=== PATIENT | male | born 1955 | race Caucasian/White ===

== ENCOUNTER → 2021-06-17 | Outpatient (CLI) | payer OTHER ==
[2021-06-18 03:11] LABS: ALT 25 U/L (10-49); AST 19 U/L (14-35)
[2021-06-18 03:12] LABS: Chol/HDL Ratio 3.37 Ratio; LDL Cholesterol,Calculated 77.5 mg/dL (0.0-131.0)
== END | disposition home or self-care (01) ==
LOC: LABWHC1 14:10
PROVIDERS: ATTEND Internal Medicine
DX: E78.2 Mixed hyperlipidemia (principal)
CPT/HCPCS: 36415; 80061; 84450; 84460

== ENCOUNTER 2021-07-12 17:09 | Inpatient (IN) | payer OTHER ==
[2021-07-12] MEDS ORDERED: DEXAMETHASONE SOD PHOSPHATE 10 MG/ML 1 ML VIAL IVP STA (17:19)
[2021-07-12] MEDS ORDERED: ONDANSETRON 4 MG/2 ML VIAL IVP STA (17:41)
[2021-07-12] MEDS ORDERED: SODIUM CHLORIDE 0.9% 500 ML 500 ML IV STA ×2 (17:42→18:32)
[2021-07-12 17:49] LABS: C Reactive Protein 7.6 mg/dL (<1.0); Calcium 8.6 mg/dL (8.4-10.2); Magnesium 2.1 mg/dL (1.6-2.3); Potassium 3.7 mmol/L (3.5-5.1); Total Bilirubin 1.8 mg/dL (0.2-1.3); Total Protein 7.2 g/dL (6.3-8.2)
[2021-07-12 17:55] LABS: Partial Thromboplastin Time 24.1 sec (22.0-30.0); Prothrombin Time 10.2 sec (9.0-12.0)
[2021-07-12 18:08] LABS: Basophils % (A) 0 %; Eosinophils % (A) 0 %; HCT 45.6 % (39.0-53.0); HGB 16.6 gm/dL (13.0-17.5); Hyperchromasia Moderate; Lymphocytes # (A) 0.7 k/uL (1.0-4.8); Lymphocytes % (A) 8 %; MCH 32.1 pg (25.0-35.0); MCHC 36.3 g/dL (31.0-37.0); MCV 88.5 fL (80.0-100.0); Mean Platelet Volume 9.3; Monocytes # (A) 0.4 k/uL (0-1.0); Monocytes % (A) 5 %; Neutrophils # (A) 7.9 k/uL (1.3-7.7); Neutrophils % (A) 86 %; Platelet Count 248 k/uL (150-450); Poikilocytosis Slight; RBC 5.16 m/uL (4.30-5.90); RDW 14.2 % (11.5-15.5); WBC 9.2 k/uL (3.8-10.6)
--- NOTE | 2021-07-12 18:08 | XR ---
EXAMINATION TYPE: XR chest 1V portable DATE OF EXAM: 07/12/2021 COMPARISON: NONE HISTORY: Respiratory distress TECHNIQUE: Single view FINDINGS: There is coarse interstitial infiltrate throughout both lungs. There is relative poor inspi ration. Heart size is normal. There is no obvious heart failure. IMPRESSION: Interstitial pulmonary infiltrates are nonspecific and could relate to acute or chronic i nterstitial pneumonia.
--- NOTE | 2021-07-12 18:19 | ED ---
General Adult HPI - General Chief complaint: Shortness of Breath Stated complaint: ARTIE Time Seen by Provider: 07/12/21 17:12 Source: patient, EMS, RN notes reviewed, old records reviewed Mode of arrival: ambulatory Limitations: no limitations - History of Present Illness Initial comments: Patient is a 66-year-old male who presents emergency Department complaining of shortness of breath and cough over the last 2 days. The last week he has felt increased fatigue and states he has been sleeping a lot in bed. Only pertinent past medical history is hypertension. Patient was not vaccinated for COVID-19. He does have a known sick contact for COVID-19. He was found to be in the 70%'s by EMS upon arrival and he was immediately placed on supplemental oxygen and brought to the emergency department for further evaluation. Patient's only acute complaint short of breath. Denies chest pain, abdominal pain. Does endorse intermittent nausea. Denies any diarrhea, history of blood clots, lightheadedness, headache, weakness, numbness but endorses generalized fatigue. His no other acute complaints at this time. - Related Data Home Medications Medication Instructions Recorded Confirmed Losartan Potassium 50 mg PO DAILY 07/12/21 07/12/21 Omeprazole 40 mg PO DAILY 07/12/21 07/12/21 traZODone HCL [Desyrel] 50 mg PO HS PRN 07/12/21 07/12/21 Allergies Allergy/AdvReac Type Severity Reaction Status Date / Time Iodinated Contrast Media Allergy Rash/Hives Verified 07/12/21 18:36 Review of Systems ROS Statement: Those systems with pertinent positive or pertinent negative responses have been documented in the HPI. Review of Systems: CONST: Denies fever EYES: Denies blurry vision ENT: Endorses nasal congestion C/V: Denies Chest pain RESP: Endorses shortness of breath GI: Denies abdominal pain : Denies dysuria SKIN: Denies rash. MSK: Denies joint pain. NEURO: Denies headache ROS Other: All systems not noted in ROS Statement are negative. Past Medical History Past Medical History: Hypertension History of Any Multi-Drug Resistant Organisms: None Reported Past Surgical History: No Surgical Hx Reported Past Psychological History: No Psychological Hx Reported Smoking Status: Never smoker Past Alcohol Use History: None Reported Past Drug Use History: None Reported General Exam - General Exam Comments Initial Comments: General: Patient is hypoxic and in respiratory distress. HEAD: Normal with no signs of head trauma. EYES: PERRLA, EOMI, conjunctiva normal, no discharge. ENT: Hearing grossly intact, normal oropharynx. RESPIRATORY: Coarse breath sounds bilaterally. No wheezes auscultated. Increased work of breathing. Subcostal retractions. Hypoxic on room air. C/V: Patient is tachycardic with a regular rhythm. S1 and S2 auscultated. No peripheral edema. Peripheral pulses are 2+ intact throughout. ABD: Abd is soft, nontender, nondistended EXT: Normal range of motion, no obvious deformity SKIN: No rashes or lesions observed on exposed skin. NEURO: Alert and oriented 4. No focal deficits. Limitations: no limitations Course Vital Signs 07/12/21 07/12/21 07/12/21 17:11 17:29 18:03 Temperature 98.7 F Pulse Rate 128 H 128 H Respiratory 18 24 18 Rate Blood Pressure 137/83 103/74 O2 Sat by Pulse 79 L 98 Oximetry 07/12/21 07/12/21 18:14 19:00 Temperature Pulse Rate 117 H 121 H Respiratory 25 H 19 Rate Blood Pressure 137/92 118/42 O2 Sat by Pulse 98 98 Oximetry Medical Decision Making - Medical Decision Making Based on the patient's presentation and physical exam, I'm concerned for acute COVID-19 infection, particularly with the exposure and the patient's presentation. We'll obtain COVID-19 laboratory studies. He was immediately placed on BiPAP by respiratory therapy. He'll be given a dose of steroids, as well as Tylenol when necessary as well as albuterol breathing treatments. I will provide him with an initial 500 mL bolus of normal saline, as I do not want to fluid overload him. He does appear mildly dehydrated. He was in agreement with this plan. He'll be connected to continuous cardiac monitoring while he is here in the department. Chest x-ray shows bilateral pulmonary infiltrates. EKG shows sinus tachycardia with no signs of acute ischemia. Laboratory studies are remarkable for positive COVID-19 pneumonia. Patient is influenza and RSV negative. Patient has a mildly elevated lactic acid of 3.1. This is likely secondary to dehydration and insensible losses. He will receive an additional 500 mL fluid bolus we will repeat the value. Patient has an AK I with an elevated creatinine of 1.640-35. Patient is mildly hyponatremic at 131 and hypochloremia to 96. LDH is elevated to 1700. CRP is 7.6. Troponin is negative. Remainder of the labs are unremarkable. d-dimer is mildly elevated to 0.85. Due to patient having COVID- 19 on chest x-ray, as well as a minimal d-dimer elevation I do not believe that we need to pursue CT angiogram to evaluate for pulmonary embolism at this time. Reevaluation come patient's breathing is improved. Work of breathing is vastly improve on BiPAP. Oxygen saturations are now 96%. Patient's tachycardia is improving with fluids. I discussed with him that I would like to admit him to the hospital for his hypoxic respiratory failure from COVID-19 pneumonia. He was in agreement this plan. I reevaluated the patient multiple times status in the emergency department. I spoke with Dr. Murcia of pulmonology who agreed to consult. He was in agreement with the plan. Patient be continued on twice a day Decadron, and I will consult infectious disease to evaluate the patient and the morning. I spoke with the admitting team under Dr. Kelly, who accepted the patient. Patient was therefore admitted in serious condition to telemetry bed on step down with continuing BiPAP. He was started on Lovenox for DVT prophylaxis. - Lab Data Result diagrams: 07/12/21 17:23 07/12/21 17:23 Lab Results 07/12/21 07/12/21 07/12/21 Range/Units 17:23 17:23 17:23 WBC 9.2 (3.8-10.6) k/uL RBC 5.16 (4.30-5.90) m/uL Hgb 16.6 (13.0-17.5) gm/dL Hct 45.6 (39.0-53.0) % MCV 88.5 (80.0-100.0) fL MCH 32.1 (25.0-35.0) pg MCHC 36.3 (31.0-37.0) g/dL RDW 14.2 (11.5-15.5) % Plt Count 248 (150-450) k/uL MPV 9.3 Neutrophils % 86 % Lymphocytes % 8 % Monocytes % 5 % Eosinophils % 0 % Basophils % 0 % Neutrophils # 7.9 H (1.3-7.7) k/uL Lymphocytes # 0.7 L (1.0-4.8) k/uL Monocytes # 0.4 (0-1.0) k/uL Eosinophils # 0.0 (0-0.7) k/uL Basophils # 0.0 (0-0.2) k/uL Hyperchromasia Moderate Poikilocytosis Slight PT 10.2 (9.0-12.0) sec INR 1.0 (<1.2) APTT 24.1 (22.0-30.0) sec D-Dimer 0.85 H (<0.60) mg/L FEU Sodium 131 L (137-145) mmol/L Potassium 3.7 (3.5-5.1) mmol/L Chloride 96 L (98-107) mmol/L Carbon Dioxide 21 L (22-30) mmol/L Anion Gap 14 mmol/L BUN 35 H (9-20) mg/dL Creatinine 1.64 H (0.66-1.25) mg/dL Est GFR (CKD-EPI)AfAm 50 (>60 ml/min/1.73 sqM) Est GFR (CKD-EPI)NonAf 44 (>60 ml/min/1.73 sqM) Glucose 181 H (74-99) mg/dL Lactic Ac Sepsis Rflx Plasma Lactic Acid Jean (0.7-2.0) mmol/L Calcium 8.6 (8.4-10.2) mg/dL Magnesium 2.1 (1.6-2.3) mg/dL Total Bilirubin 1.8 H (0.2-1.3) mg/dL AST 87 H (17-59) U/L ALT 31 (4-49) U/L Alkaline Phosphatase 72 (38-126) U/L Lactate Dehydrogenase 1746 H (313-618) U/L Troponin I (0.000-0.034) ng/mL C-Reactive Protein 7.6 H (<1.0) mg/dL Total Protein 7.2 (6.3-8.2) g/dL Albumin 4.0 (3.5-5.0) g/dL Influenza Type A (PCR) (Not Detectd) Influenza Type B (PCR) (Not Detectd) RSV (PCR) (Not Detectd) SARS-CoV-2 (PCR) (Not Detectd) 07/12/21 07/12/21 07/12/21 Range/Units 17:23 17:23 17:27 WBC (3.8-10.6) k/uL RBC (4.30-5.90) m/uL Hgb (13.0-17.5) gm/dL Hct (39.0-53.0) % MCV (80.0-100.0) fL MCH (25.0-35.0) pg MCHC (31.0-37.0) g/dL RDW (11.5-15.5) % Plt Count (150-450) k/uL MPV Neutrophils % % Lymphocytes % % Monocytes % % Eosinophils % % Basophils % % Neutrophils # (1.3-7.7) k/uL Lymphocytes # (1.0-4.8) k/uL Monocytes # (0-1.0) k/uL Eosinophils # (0-0.7) k/uL Basophils # (0-0.2) k/uL Hyperchromasia Poikilocytosis PT (9.0-12.0) sec INR (<1.2) APTT (22.0-30.0) sec D-Dimer (<0.60) mg/L FEU Sodium (137-145) mmol/L Potassium (3.5-5.1) mmol/L Chloride (98-107) mmol/L Carbon Dioxide (22-30) mmol/L Anion Gap mmol/L BUN (9-20) mg/dL Creatinine (0.66-1.25) mg/dL Est GFR (CKD-EPI)AfAm (>60 ml/min/1.73 sqM) Est GFR (CKD-EPI)NonAf (>60 ml/min/1.73 sqM) Glucose (74-99) mg/dL Lactic Ac Sepsis Rflx Plasma Lactic Acid Jean 3.1 H* (0.7-2.0) mmol/L Calcium (8.4-10.2) mg/dL Magnesium (1.6-2.3) mg/dL Total Bilirubin (0.2-1.3) mg/dL AST (17-59) U/L ALT (4-49) U/L Alkaline Phosphatase (38-126) U/L Lactate Dehydrogenase (313-618) U/L Troponin I <0.012 (0.000-0.034) ng/mL C-Reactive Protein (<1.0) mg/dL Total Protein (6.3-8.2) g/dL Albumin (3.5-5.0) g/dL Influenza Type A (PCR) Not Detected (Not Detectd) Influenza Type B (PCR) Not Detected (Not Detectd) RSV (PCR) Not Detected (Not Detectd) SARS-CoV-2 (PCR) Detected A (Not Detectd) 07/12/21 Range/Units 17:47 WBC (3.8-10.6) k/uL RBC (4.30-5.90) m/uL Hgb (13.0-17.5) gm/dL Hct (39.0-53.0) % MCV (80.0-100.0) fL MCH (25.0-35.0) pg MCHC (31.0-37.0) g/dL RDW (11.5-15.5) % Plt Count (150-450) k/uL MPV Neutrophils % % Lymphocytes % % Monocytes % % Eosinophils % % Basophils % % Neutrophils # (1.3-7.7) k/uL Lymphocytes # (1.0-4.8) k/uL Monocytes # (0-1.0) k/uL Eosinophils # (0-0.7) k/uL Basophils # (0-0.2) k/uL Hyperchromasia Poikilocytosis PT (9.0-12.0) sec INR (<1.2) APTT (22.0-30.0) sec D-Dimer (<0.60) mg/L FEU Sodium (137-145) mmol/L Potassium (3.5-5.1) mmol/L Chloride (98-107) mmol/L Carbon Dioxide (22-30) mmol/L Anion Gap mmol/L BUN (9-20) mg/dL Creatinine (0.66-1.25) mg/dL Est GFR (CKD-EPI)AfAm (>60 ml/min/1.73 sqM) Est GFR (CKD-EPI)NonAf (>60 ml/min/1.73 sqM) Glucose (74-99) mg/dL Lactic Ac Sepsis Rflx Y Plasma Lactic Acid Jean (0.7-2.0) mmol/L Calcium (8.4-10.2) mg/dL Magnesium (1.6-2.3) mg/dL Total Bilirubin (0.2-1.3) mg/dL AST (17-59) U/L ALT (4-49) U/L Alkaline Phosphatase (38-126) U/L Lactate Dehydrogenase (313-618) U/L Troponin I (0.000-0.034) ng/mL C-Reactive Protein (<1.0) mg/dL Total Protein (6.3-8.2) g/dL Albumin (3.5-5.0) g/dL Influenza Type A (PCR) (Not Detectd) Influenza Type B (PCR) (Not Detectd) RSV (PCR) (Not Detectd) SARS-CoV-2 (PCR) (Not Detectd) - EKG Data -: EKG Interpreted by Me EKG Comments: 12-lead Electrocardiogram Interpretation Note EKG was reviewed and interpreted by myself. 12-lead ECG performed at 1724 is interpreted by me as revealing sinus tachycardia at a rate of 127 beats per minute.. Left axis deviation. CT interval is 120 ms, QR samaritan is 74 ms, QTc is 427 ms.. There were no ST or T wave abnormalities to suggest myocardial ischemia or injury. R wave progression across precordium was delayed.. By my interpretation this EKG is non-diagnostic for acute ischemia. Critical Care Time Critical Care Time: Yes Total Critical Care Time: 30 Critical Care Time: Upon my evaluation, this patient had a high probability of imminent or life- threatening deterioration due to COVID-19 pneumonia, hypoxic respiratory failure, which required my direct attention, intervention, and personal management. I have personally provided 30 minutes of critical care time exclusive of time s pent on separately billable procedures. Time includes review of laboratory data, radiology results, discussion with consultants, and monitoring for potential decompensation. Interventions were performed as documented in my note. Disposition Clinical Impression: Pneumonia due to COVID-19 virus, Acute respiratory failure with hypoxia, CHAPARRITA (acute kidney injury), Dehydration Disposition: ADMITTED IP TO THIS HOSP Condition: Serious Referrals: Ana Maria MD [Primary Care Provider] - 1-2 days
[2021-07-12] MEDS ORDERED: NALOXONE 0.4 MG/ML 1 ML VIAL IV PRN (18:40)
[2021-07-12] MEDS ORDERED: ONDANSETRON 4 MG/2 ML VIAL IVP PRN (18:46)
[2021-07-12] MEDS: ENOXAPARIN 40 MG/0.4 ML SYRINGE SQ SCH (20:31)
[2021-07-13] MEDS: PANTOPRAZOLE 40 MG TABLET PO SCH (04:36)
[2021-07-13] MEDS ORDERED: DEXAMETHASONE SOD PHOSPHATE 10 MG/ML 1 ML VIAL IVP SCH ×2 (05:00→09:00)
[2021-07-13 07:31] LABS: Basophils % (A) 0 %; Eosinophils % (A) 0 %; HCT 41.2 % (39.0-53.0); HGB 14.4 gm/dL (13.0-17.5); Hyperchromasia Slight; Lymphocytes # (A) 0.5 k/uL (1.0-4.8); Lymphocytes % (A) 14 %; MCH 31.5 pg (25.0-35.0); MCHC 34.9 g/dL (31.0-37.0); MCV 90.3 fL (80.0-100.0); Mean Platelet Volume 8.8; Monocytes # (A) 0.2 k/uL (0-1.0); Monocytes % (A) 5 %; Neutrophils # (A) 2.8 k/uL (1.3-7.7); Neutrophils % (A) 78 %; Platelet Count 203 k/uL (150-450); Poikilocytosis Slight; RBC 4.56 m/uL (4.30-5.90); RDW 14.3 % (11.5-15.5); WBC 3.6 k/uL (3.8-10.6)
[2021-07-13 07:32] LABS: Albumin 3.4 g/dL (3.5-5.0); Calcium 8.1 mg/dL (8.4-10.2); Magnesium 2.4 mg/dL (1.6-2.3); Total Bilirubin 1.1 mg/dL (0.2-1.3); Total Protein 6.4 g/dL (6.3-8.2)
[2021-07-13] MEDS: SODIUM CHLORIDE 0.9% 1,000 ML IV SCH ×2 (08:50→11:42)
[2021-07-13] MEDS: ENOXAPARIN 40 MG/0.4 ML SYRINGE SQ SCH (08:50)
[2021-07-13] MEDS ORDERED: LOSARTAN 50 MG TAB PO SCH (09:00)
--- NOTE | 2021-07-13 09:03 | US ---
EXAMINATION TYPE: US venous doppler duplex LE BI DATE OF EXAM: 07/13/2021 8:51 AM COMPARISON: NONE CLINICAL HISTORY: 66-year-old male elevated d-dimer. Covid+, no legs symptoms, elevated d-dimer SIDE PERFORMED: Bilateral TECHNIQUE: The lower extremity deep venous system is examined utilizing real time linear array sonog feli with graded compression, doppler sonography and color-flow sonography. FINDINGS: VESSELS IMAGED: Common Femoral Vein Deep Femoral Vein Greater Saphenous Vein * Femoral Vein Popliteal Vein Small Saphenous Vein * Proximal Calf Veins (* superficial vessels) Right Leg: Negative for DVT Left Leg: Negative for DVT IMPRESSION: No evidence for DVT within the bilateral lower extremities imaged from the groin to the upper calves.
[2021-07-13] MEDS: CHOLECALCIFEROL 25 MCG (1000 IU) TABLET PO SCH (11:38)
[2021-07-13] MEDS: ZINC SULFATE 220 MG CAP PO SCH (11:38)
[2021-07-13] MEDS: ASCORBIC ACID 500 MG TAB PO SCH (11:38)
[2021-07-13] MEDS: ALBUTEROL HFA INHALER INHALATION PRN ×3 (11:43→20:32)
--- NOTE | 2021-07-13 14:32 | P.CNPUL ---
History of Present Illness Consult date: 07/13/21 Requesting physician: Diana Kelly Reason for consult: dyspnea, cough, hypoxemia, pneumonia, abnormal CXR/CT Chief complaint: Respiratory failure. History of present illness: Pulmonary consult dated 07/13/2021. This is a 66-year-old male, seen in the emergency room. He was initially seen by the emergency room crew, on July 12. He came in complaining of shortness of breath. He apparently had been short of breath for a couple of days, but on asking him further, he's been sick for 8 or 9 days. He complained of shortness of breath, cough, chest congestion, fatigue, and, tested positive for coronavirus. The patient has not been vaccinated. Currently, he was on BiPAP with settings of 12/6, and an FiO2 of 80%. He was not receiving any IV fluids. He was a candidate for Decadron and Lovenox, and we were going to do Dopplers of the lower extremities. Apparently, has a history of hypertension. No history of tobacco use. White count 3.6, hemoglobin 14.4, hematocrit 41.2, and platelet count 203,000. PT INR normal. PTT 24.1. D-dimer was 0.85. Sodium 135, potassium 4, chlorides 100, CO2 26, anion gap 9, BUN 40, creatinine 1.71. Lactic acid level is 1.3 down from 3.1. Ferritin was 5089, troponin was normal. LDH 1746, and pro-calcitonin level was 1.04. Chest x-ray showed diffuse bilateral infiltrates. Dopplers of the lower extremities were negative for DVT. Review of Systems REVIEW OF SYSTEMS: CONSTITUTIONAL: Fatigue and weakness. NEUROLOGIC: [ Negative.] HEENT: [ Negative.] CARDIAC: Negative PULMONARY: Chest congestion, shortness of breath, and cough. GI: Poor oral intake. : [Negative.] RHEUMATOLOGIC: [ Negative.] IMMUNOLOGIC: [ Negative.] ENDOCRINE: [Negative. ] DERMATOLOGIC: [Negative.] Past Medical History Past Medical History: Hypertension History of Any Multi-Drug Resistant Organisms: None Reported Past Surgical History: Orthopedic Surgery Additional Past Surgical History / Comment(s): spont. pneumo- right chest tube, Past Anesthesia/Blood Transfusion Reactions: No Reported Reaction Past Psychological History: Anxiety Smoking Status: Former smoker Past Alcohol Use History: None Reported Past Drug Use History: None Reported Medications and Allergies Home Medications Medication Instructions Recorded Confirmed Type Losartan Potassium 50 mg PO DAILY 07/12/21 07/12/21 History Omeprazole 40 mg PO DAILY 07/12/21 07/12/21 History traZODone HCL [Desyrel] 50 mg PO HS PRN 07/12/21 07/12/21 History Allergies Allergy/AdvReac Type Severity Reaction Status Date / Time Iodinated Contrast Media Allergy Rash/Hives Verified 07/12/21 18:36 Physical Exam Osteopathic Statement: *. No significant issues noted on an osteopathic structural exam other than those noted in the History and Physical/Consult. Vitals: Vital Signs Temp Pulse Pulse Resp BP BP Pulse Ox 07/13/21 13:18 21 88 L 07/13/21 13:15 92 25 H 84 L 07/13/21 11:03 97.4 F L 92 27 H 106/77 93 L 07/13/21 08:30 94 L 07/13/21 08:00 98.5 F 82 27 H 104/77 92 L 07/13/21 04:00 98.9 F 82 28 H 102/76 96 07/13/21 02:00 73 17 07/13/21 00:00 73 26 H 107/63 96 07/12/21 23:00 93 22 98/69 97 07/12/21 22:00 98 22 96/62 97 07/12/21 20:44 99 24 103/66 98 07/12/21 20:00 99 22 101/79 97 07/12/21 19:00 121 H 19 118/42 98 07/12/21 18:14 117 H 25 H 137/92 98 07/12/21 18:03 18 07/12/21 17:29 128 H 24 103/74 98 07/12/21 17:11 98.7 F 128 H 18 137/83 79 L Intake and Output 07/12/21 07/13/21 07/13/21 22:59 06:59 14:59 Intake Total 75 Output Total 600 300 Balance -600 -225 Intake: Intake, IV Titration 75 Amount Sodium Chloride 0.9% 1, 75 000 ml @ 75 mls/hr IV . [id number] [facility] Rx#:[id number] Output: Urine 600 300 Other: Voiding Method Urinal Urinal Weight 99.79 kg 90 kg Mild conversational dyspnea, oriented 3. BiPAP mask in place. HEENT examination is grossly unremarkable. Neck supple. Full range of motion. No adenopathy thyromegaly or neck vein distention. Cardiovascular examination reveals regular rhythm rate. S1-S2 normal. No S3 or S4. No discernible murmur noted. Heart sounds are distant. Heart rate 92 bpm. Lungs reveal diffuse bilateral rhonchi. No wheezes. No crackles. Breath sounds equal bilaterally. Saturations are 88%. Abdomen soft bowel sounds are heard. No masses or tenderness. Extremities are intact. No cyanosis clubbing or edema. Skin is pale, without rash or lesion. Neurologic examination is brief but nonfocal. Results - Laboratory Findings CBC and BMP: 07/13/21 06:51 07/13/21 06:51 PT/INR, D-dimer PT 10.2 sec (9.0-12.0) 07/12/21 17:23 INR 1.0 (<1.2) 07/12/21 17:23 D-Dimer 0.85 mg/L FEU (<0.60) H 07/12/21 17:23 Abnormal lab findings: Abnormal Labs 07/12/21 07/12/21 07/12/21 17:23 17:23 17:23 WBC Neutrophils # 7.9 H Lymphocytes # 0.7 L D-Dimer 0.85 H Sodium 131 L Chloride 96 L Carbon Dioxide 21 L BUN 35 H Creatinine 1.64 H Glucose 181 H Plasma Lactic Acid Jean Calcium Magnesium Ferritin 5089.0 H Total Bilirubin 1.8 H AST 87 H Lactate Dehydrogenase 1746 H C-Reactive Protein 7.6 H Albumin Procalcitonin SARS-CoV-2 (PCR) 07/12/21 07/12/21 07/12/21 17:23 17:23 17:27 WBC Neutrophils # Lymphocytes # D-Dimer Sodium Chloride Carbon Dioxide BUN Creatinine Glucose Plasma Lactic Acid Jean 3.1 H* Calcium Magnesium Ferritin Total Bilirubin AST Lactate Dehydrogenase C-Reactive Protein Albumin Procalcitonin 1.04 H SARS-CoV-2 (PCR) Detected A 07/13/21 07/13/21 06:51 06:51 WBC 3.6 L Neutrophils # Lymphocytes # 0.5 L D-Dimer Sodium 135 L Chloride Carbon Dioxide BUN 40 H Creatinine 1.71 H Glucose 187 H Plasma Lactic Acid Jean Calcium 8.1 L Magnesium 2.4 H Ferritin Total Bilirubin AST 75 H Lactate Dehydrogenase C-Reactive Protein Albumin 3.4 L Procalcitonin SARS-CoV-2 (PCR) - Diagnostic Findings Chest x-ray: image reviewed U/S of Legs: image reviewed Assessment and Plan Assessment: Acute hypoxemic respiratory failure secondary to coronavirus associated pneumonia. History of benign essential hypertension. Elevated inflammatory marker secondary to coronavirus infection. No evidence of DVT in the lower extremities. Plan: Plan dated 07/13/2021. The patient is seen in the emergency department. The patient is currently in trauma room 2. The patient did test positive for coronavirus in-house coronavirus associated pneumonia, with hypoxemic respiratory failure. The patient's currently on BiPAP therapy. The patient has a candidate for vitamin C, vitamin D3, and zinc, as well as 6 mg of Decadron, and 40 mg subcu of Lovenox. The patient is not a candidate for REM. In addition, the patient would not satisfy criteria for KRISTOPHER, because of pro-calcitonin level is elevated. Dopplers of the lower extremities were negative for DVT. Additional recommendations and suggestions are forthcoming. Prognosis is guarded. The patient's only medical history is that of hypertension. We will continue to follow and make recommendations where appropriate. Time with Patient: Greater than 30
[2021-07-13] MEDS ORDERED: LOPERAMIDE 2 MG CAP PO STA (15:46)
--- NOTE | 2021-07-14 00:04 | P.HPIM ---
History of Present Illness H&P Date: 07/13/21 Chief Complaint: ARTIE Patient is a 66-year-old male with a known history of hypertension presents to ER with complaints of worsening shortness of breath. COVID-19 symptoms for the past 9 days. Patient has been having extremely fatigue and has been sleeping a lot. Does have nausea no episodes of vomiting. No diarrhea. Does have cough and congestion. No complaints of chest pain. No abdominal pain. No headache or dizziness or lightheadedness. Patient was tested positive for COVID-19 infection. On admission patient has been afebrile. Pulses 128 respiration 18 and pulse ox 79% on room air. Patient was placed on BiPAP in the ER. Chest x-ray showed interstitial pulmonary infiltrates are nonspecific and could relate to acute on chronic interstitial pneumonia. EKG showed sinus tachycardia. Venous Doppler showed no evidence of DVT. Laboratory showed WBC 9.2 hemoglobin 16.6 and platelets 248 lymphocytes 0.7 D- dimer is 0.85 Sodium 131 potassium 3.7 chloride 96 bicarb is 21 BUN 35 and creatinine 1.64 blood sugar is 181 Lactic acid 3.1 Ferritin 5089 total bili 1.8 AST 87 ALT 31 alk phos 72 LDH 1746 troponin x1 - and procalcitonin level is 1.04 Review of Systems Constitutional: Patient does have generalized weakness and fatigue. No fever no chills at home. Abdomen: Patient has had nausea no episodes of vomiting. No diarrhea no abdominal pain.. Cardiovascular: Patient denies any chest pain . +short of breath no palpitations . Respiratory: Cough congestion shortness of breath. Neurologic: Patient denied any numbness or tingling headache. Musculoskeletal: Patient denies any complaints of joint swelling or deformity. Skin: Negative Psychiatric: Negative Endocrine: No heat or cold intolerance. No recent weight gain. Genitourinary: No dysuria or hematuria. All other 14 point ROS negative except the above Past Medical History Past Medical History: Hypertension History of Any Multi-Drug Resistant Organisms: None Reported Past Surgical History: No Surgical Hx Reported Past Psychological History: No Psychological Hx Reported Smoking Status: Never smoker Past Alcohol Use History: None Reported Past Drug Use History: None Reported Medications and Allergies Home Medications Medication Instructions Recorded Confirmed Type Losartan Potassium 50 mg PO DAILY 07/12/21 07/12/21 History Omeprazole 40 mg PO DAILY 07/12/21 07/12/21 History traZODone HCL [Desyrel] 50 mg PO HS PRN 07/12/21 07/12/21 History Allergies Allergy/AdvReac Type Severity Reaction Status Date / Time Iodinated Contrast Media Allergy Rash/Hives Verified 07/12/21 18:36 Physical Exam Vitals: Vital Signs Temp Pulse Pulse Resp BP BP Pulse Ox 07/13/21 11:03 97.4 F L 92 27 H 106/77 93 L 07/13/21 08:30 94 L 07/13/21 08:00 98.5 F 82 27 H 104/77 92 L 07/13/21 04:00 98.9 F 82 28 H 102/76 96 07/13/21 02:00 73 17 07/13/21 00:00 73 26 H 107/63 96 07/12/21 23:00 93 22 98/69 97 07/12/21 22:00 98 22 96/62 97 07/12/21 20:44 99 24 103/66 98 07/12/21 20:00 99 22 101/79 97 07/12/21 19:00 121 H 19 118/42 98 07/12/21 18:14 117 H 25 H 137/92 98 07/12/21 18:03 18 07/12/21 17:29 128 H 24 103/74 98 07/12/21 17:11 98.7 F 128 H 18 137/83 79 L Intake and Output 07/12/21 07/13/21 07/13/21 22:59 06:59 14:59 Output Total 600 Balance -600 Output: Urine 600 Other: Voiding Method Urinal Urinal Weight 99.79 kg PHYSICAL EXAMINATION: Patient is lying in the bed comfortably, no acute distress, awake alert and oriented.. HEENT: Normocephalic. Neck is supple. Pupils reactive. Nostrils clear. Oral cavity is moist. Neck reveals no JVD, carotid bruits, or thyromegaly. CHEST EXAMINATION: Trachea is central. Symmetrical expansion. On BiPAP. Scattered coarse sounds. Nonlabored.. CARDIAC: Normal S1, S2 with no gallops. No murmurs ABDOMEN: Soft. Bowel sounds normal. No organomegaly. No abdominal bruits. Extremities: reveal no edema. No clubbing or cyanosis Neurologically awake, alert, oriented x3 with well-coordinated movements. No focal deficits noted Skin: No rash or skin lesions. Psychiatric: Cooperative. Nonsuicidal Musculoskeletal: No joint swelling or deformity. Normal range of motion. Results CBC & Chem 7: 07/13/21 06:51 07/13/21 06:51 Labs: Abnormal Lab Results - Last 24 Hours (Table) 07/12/21 07/12/21 07/12/21 Range/Units 17:23 17:23 17:23 WBC (3.8-10.6) k/uL Neutrophils # 7.9 H (1.3-7.7) k/uL Lymphocytes # 0.7 L (1.0-4.8) k/uL D-Dimer 0.85 H (<0.60) mg/L FEU Sodium 131 L (137-145) mmol/L Chloride 96 L (98-107) mmol/L Carbon Dioxide 21 L (22-30) mmol/L BUN 35 H (9-20) mg/dL Creatinine 1.64 H (0.66-1.25) mg/dL Glucose 181 H (74-99) mg/dL Plasma Lactic Acid Jean (0.7-2.0) mmol/L Calcium (8.4-10.2) mg/dL Magnesium (1.6-2.3) mg/dL Ferritin 5089.0 H (22.0-322.0) ng/mL Total Bilirubin 1.8 H (0.2-1.3) mg/dL AST 87 H (17-59) U/L Lactate Dehydrogenase 1746 H (313-618) U/L C-Reactive Protein 7.6 H (<1.0) mg/dL Albumin (3.5-5.0) g/dL Procalcitonin (0.02-0.09) ng/mL SARS-CoV-2 (PCR) (Not Detectd) 07/12/21 07/12/21 07/12/21 Range/Units 17:23 17:23 17:27 WBC (3.8-10.6) k/uL Neutrophils # (1.3-7.7) k/uL Lymphocytes # (1.0-4.8) k/uL D-Dimer (<0.60) mg/L FEU Sodium (137-145) mmol/L Chloride (98-107) mmol/L Carbon Dioxide (22-30) mmol/L BUN (9-20) mg/dL Creatinine (0.66-1.25) mg/dL Glucose (74-99) mg/dL Plasma Lactic Acid Jean 3.1 H* (0.7-2.0) mmol/L Calcium (8.4-10.2) mg/dL Magnesium (1.6-2.3) mg/dL Ferritin (22.0-322.0) ng/mL Total Bilirubin (0.2-1.3) mg/dL AST (17-59) U/L Lactate Dehydrogenase (313-618) U/L C-Reactive Protein (<1.0) mg/dL Albumin (3.5-5.0) g/dL Procalcitonin 1.04 H (0.02-0.09) ng/mL SARS-CoV-2 (PCR) Detected A (Not Detectd) 07/13/21 07/13/21 Range/Units 06:51 06:51 WBC 3.6 L (3.8-10.6) k/uL Neutrophils # (1.3-7.7) k/uL Lymphocytes # 0.5 L (1.0-4.8) k/uL D-Dimer (<0.60) mg/L FEU Sodium 135 L (137-145) mmol/L Chloride (98-107) mmol/L Carbon Dioxide (22-30) mmol/L BUN 40 H (9-20) mg/dL Creatinine 1.71 H (0.66-1.25) mg/dL Glucose 187 H (74-99) mg/dL Plasma Lactic Acid Jean (0.7-2.0) mmol/L Calcium 8.1 L (8.4-10.2) mg/dL Magnesium 2.4 H (1.6-2.3) mg/dL Ferritin (22.0-322.0) ng/mL Total Bilirubin (0.2-1.3) mg/dL AST 75 H (17-59) U/L Lactate Dehydrogenase (313-618) U/L C-Reactive Protein (<1.0) mg/dL Albumin 3.4 L (3.5-5.0) g/dL Procalcitonin (0.02-0.09) ng/mL SARS-CoV-2 (PCR) (Not Detectd) Thrombosis Risk Factor Assmnt - DVT/VTE Prophylaxis DVT/VTE Prophylaxis: Pharmacologic Prophylaxis ordered Assessment and Plan Assessment: Acute COVID-19 pneumonia. Patient has been having symptoms for the past 9 days. Patient is not vaccinated. Acute hypoxic respiratory failure secondary to COVID-19 pneumonia. Currently on BiPAP. Elevated inflammatory markers secondary to COVID-19 infection Hypertension Acute kidney injury with creatinine level 1.64 Hypovolemic hyponatremia Lactic acidosis on admission resolved now. Sinus tachycardia DVT prophylaxis Lovenox subcu Plan: Patient will be continued oxygen supplementation and is on BiPAP. Continue with dexamethasone 6 mg daily, Lovenox subcu and multivitamin supplementation. Patient was seen by pulmonary and is not a candidate for remdesivir at this time. Continue to follow closely. Prognosis is guarded at this time.
[2021-07-14] MEDS: PANTOPRAZOLE 40 MG TABLET PO SCH (06:52)
[2021-07-14] MEDS: ALBUTEROL HFA INHALER INHALATION PRN ×2 (07:28→11:15)
[2021-07-14 07:54] LABS: Basophils % (A) 0 %; Eosinophils % (A) 0 %; HCT 44.9 % (39.0-53.0); HGB 15.6 gm/dL (13.0-17.5); Hyperchromasia Slight; Lymphocytes # (A) 0.8 k/uL (1.0-4.8); Lymphocytes % (A) 5 %; MCH 31.4 pg (25.0-35.0); MCHC 34.7 g/dL (31.0-37.0); MCV 90.5 fL (80.0-100.0); Mean Platelet Volume 8.8; Monocytes # (A) 0.7 k/uL (0-1.0); Monocytes % (A) 5 %; Neutrophils # (A) 13.2 k/uL (1.3-7.7); Neutrophils % (A) 89 %; Platelet Count 285 k/uL (150-450); Poikilocytosis Slight; RBC 4.96 m/uL (4.30-5.90); RDW 14.1 % (11.5-15.5); WBC 14.9 k/uL (3.8-10.6)
[2021-07-14 08:07] LABS: Calcium 8.7 mg/dL (8.4-10.2); Potassium 4.2 mmol/L (3.5-5.1)
--- NOTE | 2021-07-14 08:20 | P.CONS ---
History of Present Illness - Reason for Consult Consult date: 07/13/21 covid 19 pneumonia Requesting physician: Ade Eddy - Chief Complaint shortness of breath x 2 days - History of Present Illness History of present illness : Patient is 66-year-old male presenting to the ER last evening for evaluation of increasing shortness of breath which has been on minimal exertion and even at rest and the patient is also complaining of cough which is mild to moderate intensity dry nature, in this patient symptom has been going on for 2 days before presentation to the hospital the patient has felt fatigued with no energy and has been sleeping a lot for the last 2 days before presentation the hospital patient did not have vaccination for COVID-19 and did not recall any known sick contact for COVID-19 patient on arrival of EMS was noticed to be hypoxic with O2 sats of 70% patient was placed on supplemental oxygen and was brought to the ER on arrival to the ER patient was afebrile and no fever has been recorded subsequently patient was hypoxic with O2 sats of 79% and is currently on BiPAP 70% FiO2 and satting only 92% patient did have a normal white count with lymphopenia did have elevated BUN and creatinine lactic acid was elevated AST was elevated CRP was 7.6 protein is 1.04 SARS-CoV-2 PCR was positive blood cultures obtained which are currently pending patient did have a chest x-ray interstitial pulmonary infiltrate nonspecific with related acute on chronic interstitial pneumonia infectious was consulted for further ma carie Review of system: CONSTITUTIONAL: Positive for weakness denies high-grade fever. EYES: No complaint. ENT: No complaint. RESPIRATORY: As per history of present illness. CARDIOVASCULAR: No complaint. GENITOURINARY: No complaint. GASTROINTESTINAL: No complaint. MUSCULOSKELETAL: No complaint. INTEGUMENTARY: No complaint. PSYCHOLOGIC: No complaint. ENDOCRINE: No complaint. NEUROLOGIC: No complaint. Past medical history : Reviewed, documented below Past surgical history : Reviewed, documented below Social history: Reviewed, documented below Medications: Reviewed, as documented below EXAMINATION: Vital sigans= Reviewed and documented below GENERAL DESCRIPTION: Middle-aged male lying in bed, mild distress. No tachypnea or accessory muscle of respiration use. HEENT: Shows Pallor , no scleral icterus. Oral mucous membrane is dry. NECK: Trachea central, no thyromegaly. LUNGS: Unlabored breathing. Coarse breath sounds bilaterally. No wheeze or crackle. HEART: S1, S2, regular rate and rhythm. ABDOMEN: Soft, no tenderness , guarding or rigidity EXTREMITIES: No edema of feet. SKIN: No rash, no masses palpable. NEUROLOGICAL: The patient is awake, alert, oriented x3, mood and affect normal. LABS AND RADIOLOGY: Reviewed results see below Assessment : Patient presented to hospital with acute respiratory failure secondary to severe COVID-19 pneumonia in this patient symptom has been going on for 2 to 3 days however the patient was significantly hypoxic and is requiring a BiPAP not an ideal candidate for remdesivir and clinically no evidence of any secondary bacterial pneumonia Plan: 1-patient to continue with Decadron Lovenox zinc and ascorbic acid 2-May benefit from Baricitinab 3-no need for systemic antibiotic therapy We will follow on clinical condition and cultures to further adjust medication if needed Thank you for this consultation we will follow the patient along with you Past Medical History Past Medical History: Hypertension History of Any Multi-Drug Resistant Organisms: None Reported Past Surgical History: No Surgical Hx Reported Past Psychological History: No Psychological Hx Reported Smoking Status: Never smoker Past Alcohol Use History: None Reported Past Drug Use History: None Reported Medications and Allergies Home Medications Medication Instructions Recorded Confirmed Type Losartan Potassium 50 mg PO DAILY 07/12/21 07/12/21 History Omeprazole 40 mg PO DAILY 07/12/21 07/12/21 History traZODone HCL [Desyrel] 50 mg PO HS PRN 07/12/21 07/12/21 History Allergies Allergy/AdvReac Type Severity Reaction Status Date / Time Iodinated Contrast Media Allergy Rash/Hives Verified 07/12/21 18:36 Physical Exam Vitals: Vital Signs Temp Pulse Pulse Resp BP BP Pulse Ox 07/13/21 11:03 97.4 F L 92 27 H 106/77 93 L 07/13/21 08:30 94 L 07/13/21 08:00 98.5 F 82 27 H 104/77 92 L 07/13/21 04:00 98.9 F 82 28 H 102/76 96 07/13/21 02:00 73 17 07/13/21 00:00 73 26 H 107/63 96 07/12/21 23:00 93 22 98/69 97 07/12/21 22:00 98 22 96/62 97 07/12/21 20:44 99 24 103/66 98 07/12/21 20:00 99 22 101/79 97 07/12/21 19:00 121 H 19 118/42 98 07/12/21 18:14 117 H 25 H 137/92 98 07/12/21 18:03 18 07/12/21 17:29 128 H 24 103/74 98 07/12/21 17:11 98.7 F 128 H 18 137/83 79 L Intake and Output 07/12/21 07/13/21 07/13/21 22:59 06:59 14:59 Output Total 600 Balance -600 Output: Urine 600 Other: Voiding Method Urinal Urinal Weight 99.79 kg Results CBC & Chem 7: 07/14/21 07:14 07/14/21 07:14 Labs: Abnormal Lab Results - Last 24 Hours (Table) 07/12/21 07/12/21 07/12/21 Range/Units 17:23 17:23 17:23 WBC (3.8-10.6) k/uL Neutrophils # 7.9 H (1.3-7.7) k/uL Lymphocytes # 0.7 L (1.0-4.8) k/uL D-Dimer 0.85 H (<0.60) mg/L FEU Sodium 131 L (137-145) mmol/L Chloride 96 L (98-107) mmol/L Carbon Dioxide 21 L (22-30) mmol/L BUN 35 H (9-20) mg/dL Creatinine 1.64 H (0.66-1.25) mg/dL Glucose 181 H (74-99) mg/dL Plasma Lactic Acid Jean (0.7-2.0) mmol/L Calcium (8.4-10.2) mg/dL Magnesium (1.6-2.3) mg/dL Ferritin 5089.0 H (22.0-322.0) ng/mL Total Bilirubin 1.8 H (0.2-1.3) mg/dL AST 87 H (17-59) U/L Lactate Dehydrogenase 1746 H (313-618) U/L C-Reactive Protein 7.6 H (<1.0) mg/dL Albumin (3.5-5.0) g/dL Procalcitonin (0.02-0.09) ng/mL SARS-CoV-2 (PCR) (Not Detectd) 07/12/21 07/12/21 07/12/21 Range/Units 17:23 17:23 17:27 WBC (3.8-10.6) k/uL Neutrophils # (1.3-7.7) k/uL Lymphocytes # (1.0-4.8) k/uL D-Dimer (<0.60) mg/L FEU Sodium (137-145) mmol/L Chloride (98-107) mmol/L Carbon Dioxide (22-30) mmol/L BUN (9-20) mg/dL Creatinine (0.66-1.25) mg/dL Glucose (74-99) mg/dL Plasma Lactic Acid Jean 3.1 H* (0.7-2.0) mmol/L Calcium (8.4-10.2) mg/dL Magnesium (1.6-2.3) mg/dL Ferritin (22.0-322.0) ng/mL Total Bilirubin (0.2-1.3) mg/dL AST (17-59) U/L Lactate Dehydrogenase (313-618) U/L C-Reactive Protein (<1.0) mg/dL Albumin (3.5-5.0) g/dL Procalcitonin 1.04 H (0.02-0.09) ng/mL SARS-CoV-2 (PCR) Detected A (Not Detectd) 07/13/21 07/13/21 Range/Units 06:51 06:51 WBC 3.6 L (3.8-10.6) k/uL Neutrophils # (1.3-7.7) k/uL Lymphocytes # 0.5 L (1.0-4.8) k/uL D-Dimer (<0.60) mg/L FEU Sodium 135 L (137-145) mmol/L Chloride (98-107) mmol/L Carbon Dioxide (22-30) mmol/L BUN 40 H (9-20) mg/dL Creatinine 1.71 H (0.66-1.25) mg/dL Glucose 187 H (74-99) mg/dL Plasma Lactic Acid Jean (0.7-2.0) mmol/L Calcium 8.1 L (8.4-10.2) mg/dL Magnesium 2.4 H (1.6-2.3) mg/dL Ferritin (22.0-322.0) ng/mL Total Bilirubin (0.2-1.3) mg/dL AST 75 H (17-59) U/L Lactate Dehydrogenase (313-618) U/L C-Reactive Protein (<1.0) mg/dL Albumin 3.4 L (3.5-5.0) g/dL Procalcitonin (0.02-0.09) ng/mL SARS-CoV-2 (PCR) (Not Detectd)
--- NOTE | 2021-07-14 09:00 | XR ---
EXAMINATION TYPE: XR chest 1V DATE OF EXAM: 07/14/2021 COMPARISON: Chest x-ray 07/12/2021 HISTORY: Difficulty breathing TECHNIQUE: Single frontal view of the chest is obtained. FINDINGS: There is no pneumothorax or pleural effusion. Lung volumes are low. Cardiomediastinal silh ouette is within normal limits. There are overlying artifacts. Suspect some improvement in aeration. Interstitium mildly prominent. IMPRESSION: Suspect some improvement in aeration.
[2021-07-14] MEDS: ASCORBIC ACID 500 MG TAB PO SCH (09:45)
[2021-07-14] MEDS: CHOLECALCIFEROL 25 MCG (1000 IU) TABLET PO SCH (09:45)
[2021-07-14] MEDS: ZINC SULFATE 220 MG CAP PO SCH (09:45)
[2021-07-14] MEDS: SODIUM CHLORIDE 0.9% 1,000 ML IV SCH ×2 (09:48→22:42)
[2021-07-14] MEDS: ENOXAPARIN 40 MG/0.4 ML SYRINGE SQ SCH (09:48)
[2021-07-14] MEDS: DEXAMETHASONE SOD PHOSPHATE 10 MG/ML 1 ML VIAL IVP SCH (09:48)
--- NOTE | 2021-07-14 14:27 | P.PN ---
Subjective Progress Note Date: 07/14/21 Principal diagnosis: Hypoxemic respiratory failure. Pulmonary consult dated 07/13/2021. This is a 66-year-old male, seen in the emergency room. He was initially seen by the emergency room crew, on July 12. He came in complaining of shortness of breath. He apparently had been short of breath for a couple of days, but on asking him further, he's been sick for 8 or 9 days. He complained of shortness of breath, cough, chest congestion, fatigue, and, tested positive for co ronavirus. The patient has not been vaccinated. Currently, he was on BiPAP with settings of 12/6, and an FiO2 of 80%. He was not receiving any IV fluids. He was a candidate for Decadron and Lovenox, and we were going to do Dopplers of the lower extremities. Apparently, has a history of hypertension. No history of tobacco use. White count 3.6, hemoglobin 14.4, hematocrit 41.2, and platelet count 203,000. PT INR normal. PTT 24.1. D-dimer was 0.85. Sodium 135, potassium 4, chlorides 100, CO2 26, anion gap 9, BUN 40, creatinine 1.71. Lactic acid level is 1.3 down from 3.1. Ferritin was 5089, troponin was normal. LDH 1746, and pro-calcitonin level was 1.04. Chest x-ray showed diffuse bilateral infiltrates. Dopplers of the lower extremities were negative for DVT. Progress note dated 07/14/2021. This is a 66-year-old gentleman that we saw yesterday in the emergency department. He initially presented to the ER, on July 12. He came in complaining of profound shortness of breath. He been sick for at least 8 or 9 days prior to presenting to the emergency department. He also had cough, chest congestion, fatigue, and did test positive for coronavirus. The patient has not been vaccinated. The patient was admitted to the floor, and is currently on BiPAP, with settings of 12/6 and 70%. He is getting saline IV, at 50 mL an hour. The patient appears to be a bit less uncomfortable today as he was yesterday in the emergency department. White count 14.9, hemoglobin 15.6, hematocrit 44.9, platelet count 285,000. Sodium 138, potassium 4.2, chlorides 103, CO2 25, anion gap 10, BUN 48, and creatinine 1.50. C-reactive protein is 5. LDH is 2047. Blood cultures are negative. Chest x-ray from today shows some improvement in aeration. Objective - Vital Signs Vital signs: Vital Signs Temp 98.1 F 07/14/21 08:00 Pulse 97 07/14/21 12:00 Resp 16 07/14/21 12:00 BP 133/88 07/14/21 12:00 Pulse Ox 91 L 07/14/21 12:00 Intake & Output 07/13/21 07/14/21 07/14/21 18:59 06:59 18:59 Intake Total 75 480 Output Total 400 400 450 Balance -325 80 -450 Weight 90 kg Intake: Intake, IV Titration 75 Amount Sodium Chloride 0.9% 1, 75 000 ml @ 75 mls/hr IV . [id number] Rx#:[id number] Oral 480 Output: Urine 400 400 450 Other: Voiding Method Urinal # Voids 2 - Exam BiPAP mask in place. Less conversational dyspnea today compared to yesterday. HEENT examination is grossly unremarkable. Neck supple. Full range of motion. No adenopathy thyromegaly or neck vein distention. Cardiovascular examination reveals regular rhythm rate. S1-S2 normal. No S3 or S4. No discernible murmur noted. Heart sounds are distant. Heart rate 97 bpm. Lungs reveal diffuse bilateral rhonchi. No wheezes. No crackles. Breath sounds equal bilaterally. Saturations are 91%. Abdomen soft bowel sounds are heard. No masses or tenderness. Extremities are intact. No cyanosis clubbing or edema. Skin is pale, without rash or lesion. Neurologic examination is brief but nonfocal. - Labs CBC & Chem 7: 07/14/21 07:14 07/14/21 07:14 Labs: Abnormal Lab Results - Last 24 Hours (Table) 07/14/21 07/14/21 Range/Units 07:14 07:14 WBC 14.9 H (3.8-10.6) k/uL Neutrophils # 13.2 H (1.3-7.7) k/uL Lymphocytes # 0.8 L (1.0-4.8) k/uL BUN 48 H (9-20) mg/dL Creatinine 1.50 H (0.66-1.25) mg/dL Glucose 190 H (74-99) mg/dL Lactate Dehydrogenase 2047 H (313-618) U/L C-Reactive Protein 5.0 H (<1.0) mg/dL Microbiology - Last 24 Hours (Table) 07/12/21 20:50 Blood Culture - Preliminary Blood No Growth after 24 hours 07/12/21 20:22 Blood Culture - Preliminary Blood No Growth after 24 hours Assessment and Plan Assessment: Acute hypoxemic respiratory failure secondary to coronavirus associated pneumonia. History of benign essential hypertension. Elevated inflammatory marker secondary to coronavirus infection. No evidence of DVT in the lower extremities. Plan: Plan dated 07/13/2021. The patient is seen in the emergency department. The patient is currently in trauma room 2. The patient did test positive for coronavirus in-house coronavirus associated pneumonia, with hypoxemic respiratory failure. The patient's currently on BiPAP therapy. The patient has a candidate for vitamin C, vitamin D3, and zinc, as well as 6 mg of Decadron, and 40 mg subcu of Lovenox. The patient is not a candidate for REM. In addition, the patient would not satisfy criteria for KRISTOPHER, because of pro-calcitonin level is elevated. Dopplers of the lower extremities were negative for DVT. Additional recommendations and suggestions are forthcoming. Prognosis is guarded. The patient's only medical history is that of hypertension. We will continue to follow and make recommendations where appropriate. Plan dated 07/14/2021. The patient is currently on albuterol inhaler, vitamin C, vitamin D3, zinc, Decadron, and Lovenox. The patient was not thought to be a candidate for REM, and wasn't quite sick enough to receive KRISTOPHER. We will continue to follow make recommendations where appropriate. Overall prognosis remains very guarded. The patient's FiO2 was turned down from the 100% to 70%. His saturations are improved, and clinically, and radiographically, the patient appears to be a bit better. Time with Patient: Less than 30
[2021-07-14 19:37] LABS: Glucose,Whole Blood 208 mg/dL (75-99)
[2021-07-14] MEDS: INSULIN ASPART (NovoLOG) 100 UNIT/ML VIAL SQ SCH (20:23)
[2021-07-14] MEDS ORDERED: AZITHROMYCIN 500 MG TAB PO SCH (21:00)
[2021-07-14] MEDS: ALPRAZolam 0.25 MG TAB PO PRN (21:03)
--- NOTE | 2021-07-14 23:19 | PN ---
PROGRESS NOTE DATE OF SERVICE: 07/14/2021 REASON FOR FOLLOWUP: COVID-19 pneumonia. INTERVAL HISTORY: Patient is afebrile. The patient remains to be BiPAP dependent. Denies any worsening shortness of breath or cough. No abdominal pain or diarrhea. PHYSICAL EXAMINATION: Blood pressure 131/81 with a pulse of 75, temperature 98.4. He is 94% on BiPAP. General description is a middle-aged male lying in bed in no distress. Respiratory system: Unlabored breathing, decreased intensity of breath sounds. No wheeze. Heart S1, S2. Regular rate and rhythm. Abdomen soft, no tenderness. Extremities: No edema of the feet. LABS: Hemoglobin is 15.6, white count 14.9, creatinine 1.50. DIAGNOSTIC IMPRESSION/PLAN: Patient with acute respiratory failure secondary to Covid 19 pneumonia. Clinical suspicion is low for secondary bacterial pneumonia. Procalcitonin is mild elevated 1.04. Patient to continue with Lovenox, dexamethasone, zinc and ascorbic acid. May be a candidate for baricitinib and monitor clinical course closely. MMODL / IJN: [id number] /
[2021-07-15 06:03] LABS: Glucose,Whole Blood 191 mg/dL (75-99)
[2021-07-15] MEDS: INSULIN ASPART (NovoLOG) 100 UNIT/ML VIAL SQ SCH ×4 (06:34→20:25)
[2021-07-15] MEDS: PANTOPRAZOLE 40 MG TABLET PO SCH (06:34)
[2021-07-15 07:09] LABS: C Reactive Protein 5.8 mg/dL (<1.0); Calcium 8.1 mg/dL (8.4-10.2); Potassium 4.5 mmol/L (3.5-5.1)
[2021-07-15 07:36] LABS: Basophils % (A) 0 %; Eosinophils % (A) 0 %; HCT 42.2 % (39.0-53.0); HGB 14.5 gm/dL (13.0-17.5); Lymphocytes # (A) 0.4 k/uL (1.0-4.8); Lymphocytes % (A) 4 %; MCH 32.1 pg (25.0-35.0); MCHC 34.4 g/dL (31.0-37.0); MCV 93.1 fL (80.0-100.0); Mean Platelet Volume 8.5; Monocytes # (A) 0.5 k/uL (0-1.0); Monocytes % (A) 4 %; Neutrophils # (A) 10.5 k/uL (1.3-7.7); Neutrophils % (A) 90 %; Platelet Count 335 k/uL (150-450); Poikilocytosis Slight; RBC 4.53 m/uL (4.30-5.90); RDW 14.5 % (11.5-15.5); WBC 11.6 k/uL (3.8-10.6)
[2021-07-15] MEDS: DEXAMETHASONE SOD PHOSPHATE 10 MG/ML 1 ML VIAL IVP SCH (07:42)
[2021-07-15] MEDS: ALPRAZolam 0.25 MG TAB PO PRN ×2 (07:42→22:29)
[2021-07-15] MEDS: ASCORBIC ACID 500 MG TAB PO SCH (07:42)
[2021-07-15] MEDS: ZINC SULFATE 220 MG CAP PO SCH (07:42)
[2021-07-15] MEDS: CHOLECALCIFEROL 25 MCG (1000 IU) TABLET PO SCH (07:42)
[2021-07-15] MEDS: ENOXAPARIN 40 MG/0.4 ML SYRINGE SQ SCH (07:42)
[2021-07-15] MEDS: ALBUTEROL HFA INHALER INHALATION PRN ×2 (09:52→16:21)
[2021-07-15 11:20] LABS: Glucose,Whole Blood 164 mg/dL (75-99)
[2021-07-15] MEDS: SODIUM CHLORIDE 0.9% 1,000 ML IV SCH ×2 (11:58→20:27)
--- NOTE | 2021-07-15 14:20 | P.PN ---
Subjective Progress Note Date: 07/15/21 Principal diagnosis: Hypoxemic respiratory failure. Pulmonary consult dated 07/13/2021. This is a 66-year-old male, seen in the emergency room. He was initially seen by the emergency room crew, on July 12. He came in complaining of shortness of breath. He apparently had been short of breath for a couple of days, but on asking him further, he's been sick for 8 or 9 days. He complained of shortness of breath, cough, chest congestion, fatigue, and, tested positive for co ronavirus. The patient has not been vaccinated. Currently, he was on BiPAP with settings of 12/6, and an FiO2 of 80%. He was not receiving any IV fluids. He was a candidate for Decadron and Lovenox, and we were going to do Dopplers of the lower extremities. Apparently, has a history of hypertension. No history of tobacco use. White count 3.6, hemoglobin 14.4, hematocrit 41.2, and platelet count 203,000. PT INR normal. PTT 24.1. D-dimer was 0.85. Sodium 135, potassium 4, chlorides 100, CO2 26, anion gap 9, BUN 40, creatinine 1.71. Lactic acid level is 1.3 down from 3.1. Ferritin was 5089, troponin was normal. LDH 1746, and pro-calcitonin level was 1.04. Chest x-ray showed diffuse bilateral infiltrates. Dopplers of the lower extremities were negative for DVT. Progress note dated 07/14/2021. This is a 66-year-old gentleman that we saw yesterday in the emergency department. He initially presented to the ER, on July 12. He came in complaining of profound shortness of breath. He been sick for at least 8 or 9 days prior to presenting to the emergency department. He also had cough, chest congestion, fatigue, and did test positive for coronavirus. The patient has not been vaccinated. The patient was admitted to the floor, and is currently on BiPAP, with settings of 12/6 and 70%. He is getting saline IV, at 50 mL an hour. The patient appears to be a bit less uncomfortable today as he was yesterday in the emergency department. White count 14.9, hemoglobin 15.6, hematocrit 44.9, platelet count 285,000. Sodium 138, potassium 4.2, chlorides 103, CO2 25, anion gap 10, BUN 48, and creatinine 1.50. C-reactive protein is 5. LDH is 2047. Blood cultures are negative. Chest x-ray from today shows some improvement in aeration. Progress note dated 07/15/2021. 66-year-old male, seen in the emergency department, a couple days ago. The patient presented to the emergency room on July 12. He came in complaining of shortness of breath. He been sick for about 9 or 10 days prior to his visit in the emergency department. He complained of cough, chest congestion, fatigue, shortness of breath, and he did test positive for coronavirus. Currently, he's on BiPAP with settings of IPAP 12, EPAP 6, and 70%. The patient is also getting saline at 75 mL an hour. The nurse tells me, that the patient did spend some time on 15 L high flow nasal O2, as well as a nonrebreather mask. He apparently became anxious, and wanted to be back on the BiPAP. Laboratory data includes a white count 11.6, hemoglobin 14.5, hematocrit 42.2, and a platelet count 335,000. Sodium 139, potassium 4.5, chlorides 105, CO2 28, anion gap 6, BUN 36, creatinine 1.15. Calcium 8.1. LDH was 1658. C-reactive protein is 5.8. Blood cultures are negative. Chest x-ray from July 14 is reviewed. Objective - Vital Signs Vital signs: Vital Signs Temp 98.1 F 07/15/21 07:55 Pulse 91 07/15/21 12:00 Resp 30 H 07/15/21 12:00 BP 126/83 07/15/21 12:00 Pulse Ox 94 L 07/15/21 12:00 Intake & Output 07/14/21 07/15/21 07/15/21 18:59 06:59 18:59 Intake Total 600 110 Output Total 450 400 Balance -450 200 110 Intake: Intake, IV Titration 600 Amount Sodium Chloride 0.9% 1, 600 000 ml @ 75 mls/hr IV . [id number] [facility] Rx#:[id number] Oral 110 Output: Urine 450 400 Other: Voiding Method Urinal # Voids 2 1 - Exam BiPAP mask in place. Less conversational dyspnea today compared to yesterday. The patient is much more awake today. HEENT examination is grossly unremarkable. Neck supple. Full range of motion. No adenopathy thyromegaly or neck vein distention. Cardiovascular examination reveals regular rhythm rate. S1-S2 normal. No S3 or S4. No discernible murmur noted. Heart sounds are distant. Heart rate 91 bpm. Lungs reveal diffuse bilateral rhonchi. No wheezes. No crackles. Breath sounds equal bilaterally. Saturations are 94 %. Breath sounds are a bit improved. Abdomen soft bowel sounds are heard. No masses or tenderness. Extremities are intact. No cyanosis clubbing or edema. Skin is pale, without rash or lesion. Neurologic examination is brief but nonfocal. - Labs CBC & Chem 7: 07/15/21 06:25 07/15/21 06:25 Labs: Abnormal Lab Results - Last 24 Hours (Table) 07/14/21 07/15/21 07/15/21 Range/Units 19:35 06:01 06:25 WBC 11.6 H (3.8-10.6) k/uL Neutrophils # 10.5 H (1.3-7.7) k/uL Lymphocytes # 0.4 L (1.0-4.8) k/uL BUN (9-20) mg/dL Glucose (74-99) mg/dL POC Glucose (mg/dL) 208 H 191 H (75-99) mg/dL Calcium (8.4-10.2) mg/dL Lactate Dehydrogenase (313-618) U/L C-Reactive Protein (<1.0) mg/dL 07/15/21 07/15/21 Range/Units 06:25 11:18 WBC (3.8-10.6) k/uL Neutrophils # (1.3-7.7) k/uL Lymphocytes # (1.0-4.8) k/uL BUN 36 H (9-20) mg/dL Glucose 180 H (74-99) mg/dL POC Glucose (mg/dL) 164 H (75-99) mg/dL Calcium 8.1 L (8.4-10.2) mg/dL Lactate Dehydrogenase 1658 H (313-618) U/L C-Reactive Protein 5.8 H (<1.0) mg/dL Microbiology - Last 24 Hours (Table) 07/12/21 20:50 Blood Culture - Preliminary Blood No Growth after 48 hours 07/12/21 20:22 Blood Culture - Preliminary Blood No Growth after 48 hours Assessment and Plan Assessment: Acute hypoxemic respiratory failure secondary to coronavirus associated pne umonia. History of benign essential hypertension. Elevated inflammatory marker secondary to coronavirus infection. No evidence of DVT in the lower extremities. Plan: Plan dated 07/13/2021. The patient is seen in the emergency department. The patient is currently in trauma room 2. The patient did test positive for coronavirus in-house coronavirus associated pneumonia, with hypoxemic respiratory failure. The patient's currently on BiPAP therapy. The patient has a candidate for vitamin C, vitamin D3, and zinc, as well as 6 mg of Decadron, and 40 mg subcu of Lovenox. The patient is not a candidate for REM. In addition, the patient would not satisfy criteria for KRISTOPHER, because of pro-calcitonin level is elevated. Dopplers of the lower extremities were negative for DVT. Additional recommendations and suggestions are forthcoming. Prognosis is guarded. The patient's only medical history is that of hypertension. We will continue to follow and make recommendations where appropriate. Plan dated 07/14/2021. The patient is currently on albuterol inhaler, vitamin C, vitamin D3, zinc, Decadron, and Lovenox. The patient was not thought to be a candidate for REM, and wasn't quite sick enough to receive KRISTOPHER. We will continue to follow make recommendations where appropriate. Overall prognosis remains very guarded. The patient's FiO2 was turned down from the 100% to 70%. His saturations are improved, and clinically, and radiographically, the patient appears to be a bit better. Plan dated 07/15/2021. The patient remains on BiPAP, settings of 12/6 and 70%. The patient is getting saline at 75 mL an hour. The patient was also able to come off the BiPAP, and tolerate high flow O2 as well as a nonrebreather mask. Labs, x-rays, and medications are all reviewed. The patient remains on Decadron, Lovenox, vitamin C, vitamin D3, and zinc. No antibiotics at this time. The patient also has an albuterol inhaler. We will continue to follow and make recommendations where appropriate. Prognosis is guarded. Time with Patient: Less than 30
[2021-07-15 16:24] LABS: Glucose,Whole Blood 264 mg/dL (75-99)
[2021-07-15 20:05] LABS: Glucose,Whole Blood 374 mg/dL (75-99)
--- NOTE | 2021-07-15 22:47 | PN ---
PROGRESS NOTE DATE OF SERVICE: 07/15/2021 REASON FOR FOLLOWUP: Covid 19 pneumonia. INTERVAL HISTORY: Patient is afebrile. The patient remains to be BiPAP dependent. The patient denies having any chest pain. No worsening cough or sputum production. No abdominal pain. No diarrhea. PHYSICAL EXAMINATION: Blood pressure 132/85, pulse of 93, temperature 98.6. He is 91% on 15 L high-flow oxygen. General description is a middle-aged male lying in bed in no distress. Respiratory system: Unlabored breathing, decreased intensity in breath sounds in the base, with no wheeze. Heart S1, S2. Regular rate and rhythm. Abdomen soft, no tenderness. Extremities: No edema of the feet. LABS: Hemoglobin is 14.1, white count 11.6, creatinine is 1.15. DIAGNOSTIC IMPRESSION AND PLAN: Patient with acute respiratory failure secondary to acute COVID-19 pneumonia. Clinically no evidence of any secondary bacterial pneumonia. Patient to continue with Lovenox, ascorbic acid. May benefit from baricitinib and monitor clinical course closely. MMODL / IJN: [id number] /
[2021-07-16 06:24] LABS: Glucose,Whole Blood 213 mg/dL (75-99)
[2021-07-16] MEDS: PANTOPRAZOLE 40 MG TABLET PO SCH (06:25)
[2021-07-16] MEDS: INSULIN ASPART (NovoLOG) 100 UNIT/ML VIAL SQ SCH ×4 (06:25→21:29)
[2021-07-16] MEDS: CHOLECALCIFEROL 25 MCG (1000 IU) TABLET PO SCH (08:05)
[2021-07-16] MEDS: DEXAMETHASONE SOD PHOSPHATE 10 MG/ML 1 ML VIAL IVP SCH (08:05)
[2021-07-16] MEDS: ASCORBIC ACID 500 MG TAB PO SCH (08:05)
[2021-07-16] MEDS: ZINC SULFATE 220 MG CAP PO SCH (08:05)
[2021-07-16] MEDS: ENOXAPARIN 40 MG/0.4 ML SYRINGE SQ SCH (08:05)
[2021-07-16] MEDS: ALPRAZolam 0.25 MG TAB PO PRN ×2 (08:23→21:30)
[2021-07-16 08:42] LABS: C Reactive Protein 6.6 mg/dL (<1.0); Calcium 8.1 mg/dL (8.4-10.2); Phosphorus 1.5 mg/dL (2.5-4.5); Potassium 4.2 mmol/L (3.5-5.1)
--- NOTE | 2021-07-16 11:38 | P.PN ---
Subjective Progress Note Date: 07/16/21 Principal diagnosis: Hypoxemic respiratory failure. Pulmonary consult dated 07/13/2021. This is a 66-year-old male, seen in the emergency room. He was initially seen by the emergency room crew, on July 12. He came in complaining of shortness of breath. He apparently had been short of breath for a couple of days, but on asking him further, he's been sick for 8 or 9 days. He complained of shortness of breath, cough, chest congestion, fatigue, and, tested positive for co ronavirus. The patient has not been vaccinated. Currently, he was on BiPAP with settings of 12/6, and an FiO2 of 80%. He was not receiving any IV fluids. He was a candidate for Decadron and Lovenox, and we were going to do Dopplers of the lower extremities. Apparently, has a history of hypertension. No history of tobacco use. White count 3.6, hemoglobin 14.4, hematocrit 41.2, and platelet count 203,000. PT INR normal. PTT 24.1. D-dimer was 0.85. Sodium 135, potassium 4, chlorides 100, CO2 26, anion gap 9, BUN 40, creatinine 1.71. Lactic acid level is 1.3 down from 3.1. Ferritin was 5089, troponin was normal. LDH 1746, and pro-calcitonin level was 1.04. Chest x-ray showed diffuse bilateral infiltrates. Dopplers of the lower extremities were negative for DVT. Progress note dated 07/14/2021. This is a 66-year-old gentleman that we saw yesterday in the emergency department. He initially presented to the ER, on July 12. He came in complaining of profound shortness of breath. He been sick for at least 8 or 9 days prior to presenting to the emergency department. He also had cough, chest congestion, fatigue, and did test positive for coronavirus. The patient has not been vaccinated. The patient was admitted to the floor, and is currently on BiPAP, with settings of 12/6 and 70%. He is getting saline IV, at 50 mL an hour. The patient appears to be a bit less uncomfortable today as he was yesterday in the emergency department. White count 14.9, hemoglobin 15.6, hematocrit 44.9, platelet count 285,000. Sodium 138, potassium 4.2, chlorides 103, CO2 25, anion gap 10, BUN 48, and creatinine 1.50. C-reactive protein is 5. LDH is 2047. Blood cultures are negative. Chest x-ray from today shows some improvement in aeration. Progress note dated 07/15/2021. 66-year-old male, seen in the emergency department, a couple days ago. The patient presented to the emergency room on July 12. He came in complaining of shortness of breath. He been sick for about 9 or 10 days prior to his visit in the emergency department. He complained of cough, chest congestion, fatigue, shortness of breath, and he did test positive for coronavirus. Currently, he's on BiPAP with settings of IPAP 12, EPAP 6, and 70%. The patient is also getting saline at 75 mL an hour. The nurse tells me, that the patient did spend some time on 15 L high flow nasal O2, as well as a nonrebreather mask. He apparently became anxious, and wanted to be back on the BiPAP. Laboratory data includes a white count 11.6, hemoglobin 14.5, hematocrit 42.2, and a platelet count 335,000. Sodium 139, potassium 4.5, chlorides 105, CO2 28, anion gap 6, BUN 36, creatinine 1.15. Calcium 8.1. LDH was 1658. C-reactive protein is 5.8. Blood cultures are negative. Chest x-ray from July 14 is reviewed. Progress note dated 07/16/2021. 66-year-old male, again seen in room 359. The patient is currently getting saline at 75 mL an hour. He remains on BiPAP with settings of IPAP 12, EPAP 6, and 85%. The patient states that he's feeling about the same. He is not any better, nor is any worse. He does feel quite weak. He is very fatigued. He does complain of cough and shortness of breath, especially when he gets up to go the bathroom. Labs today include a sodium 140, potassium 4.2, chlorides 107, CO2 25, anion gap 8, BUN 25, and creatinine 1.08. Calcium 8.1 phosphorus 1.5 C- reactive protein is 6.6. No new chest x-ray to evaluate. Objective - Vital Signs Vital signs: Vital Signs Temp 98.8 F 01/06/22 08:14 Pulse 108 H 07/16/21 08:14 Resp 30 H 07/16/21 08:14 BP 135/78 07/16/21 08:14 Pulse Ox 94 L 07/16/21 08:14 Intake & Output 07/15/21 07/16/21 07/16/21 18:59 06:59 18:59 Intake Total 590 600 0 Output Total 600 750 Balance -10 -150 0 Weight 90 kg Intake: Intake, IV Titration 600 Amount Sodium Chloride 0.9% 1, 600 000 ml @ 75 mls/hr IV . [id number] [facility] Rx#:[id number] Oral 590 0 Output: Urine 600 750 Other: Voiding Method Urinal Urinal # Voids 1 1 - Exam BiPAP mask in place. Less conversational dyspnea today compared to yesterday. A bit more lethargic today. HEENT examination is grossly unremarkable. Neck supple. Full range of motion. No adenopathy thyromegaly or neck vein distention. Cardiovascular examination reveals regular rhythm rate. S1-S2 normal. No S3 or S4. No discernible murmur noted. Heart sounds are distant. Heart rate 108 bpm. Lungs reveal diffuse bilateral rhonchi. No wheezes. No crackles. Breath so unds equal bilaterally. Saturations are 94 %. Abdomen soft bowel sounds are heard. No masses or tenderness. Extremities are intact. No cyanosis clubbing or edema. Skin is pale, without rash or lesion. Neurologic examination is brief but nonfocal. - Labs CBC & Chem 7: 07/15/21 06:25 07/16/21 08:11 Labs: Abnormal Lab Results - Last 24 Hours (Table) 07/15/21 07/15/21 07/16/21 Range/Units 16:06 20:04 06:22 BUN (9-20) mg/dL POC Glucose (mg/dL) 264 H 374 H 213 H (75-99) mg/dL Calcium (8.4-10.2) mg/dL Phosphorus (2.5-4.5) mg/dL C-Reactive Protein (<1.0) mg/dL 07/16/21 Range/Units 08:11 BUN 25 H (9-20) mg/dL POC Glucose (mg/dL) (75-99) mg/dL Calcium 8.1 L (8.4-10.2) mg/dL Phosphorus 1.5 L (2.5-4.5) mg/dL C-Reactive Protein 6.6 H (<1.0) mg/dL Microbiology - Last 24 Hours (Table) 07/12/21 20:50 Blood Culture - Preliminary Blood No Growth after 72 hours 07/12/21 20:22 Blood Culture - Preliminary Blood No Growth after 72 hours Assessment and Plan Assessment: Acute hypoxemic respiratory failure secondary to coronavirus associated pneumonia. History of benign essential hypertension. Elevated inflammatory marker secondary to coronavirus infection. No evidence of DVT in the lower extremities. Plan: Plan dated 07/13/2021. The patient is seen in the emergency department. The patient is currently in trauma room 2. The patient did test positive for coronavirus in-house coronavirus associated pneumonia, with hypoxemic respiratory failure. The patient's currently on BiPAP therapy. The patient has a candidate for vitamin C, vitamin D3, and zinc, as well as 6 mg of Decadron, and 40 mg subcu of Loveno x. The patient is not a candidate for REM. In addition, the patient would not satisfy criteria for KRISTOPHER, because of pro-calcitonin level is elevated. Dopplers of the lower extremities were negative for DVT. Additional recommendations and suggestions are forthcoming. Prognosis is guarded. The p atient's only medical history is that of hypertension. We will continue to follow and make recommendations where appropriate. Plan dated 07/14/2021. The patient is currently on albuterol inhaler, vitamin C, vitamin D3, zinc, Decadron, and Lovenox. The patient was not thought to be a candidate for REM, and wasn't quite sick enough to receive KRISTOPHER. We will continue to follow make recommendations where appropriate. Overall prognosis remains very guarded. The patient's FiO2 was turned down from the 100% to 70%. His saturations are improved, and clinically, and radiographically, the patient appears to be a bit better. Plan dated 07/15/2021. The patient remains on BiPAP, settings of 12/6 and 70%. The patient is getting saline at 75 mL an hour. The patient was also able to come off the BiPAP, and tolerate high flow O2 as well as a nonrebreather mask. Labs, x-rays, and medications are all reviewed. The patient remains on Decadron, Lovenox, vitamin C, vitamin D3, and zinc. No antibiotics at this time. The patient also has an albuterol inhaler. We will continue to follow and make recommendations where appropriate. Prognosis is guarded. Plan dated 07/16/2021. The patient remains on BiPAP. We will repeat a D-dimer test. In addition, we will get a pro-calcitonin level again. Also, will order a chest x-ray for tomorrow. Overall prognosis remains guarded. Labs, x-rays, and medications are all reviewed. The patient remains on appropriate medications including Decadr on, Lovenox, and vitamin C, D3, and zinc. We will continue to follow and make recommendations where appropriate. Overall prognosis remains guarded. The patient's about the same today as he was yesterday. Time with Patient: Less than 30
[2021-07-16 11:41] LABS: Glucose,Whole Blood 124 mg/dL (75-99)
[2021-07-16] MEDS: ALBUTEROL HFA INHALER INHALATION PRN ×3 (11:48→20:03)
[2021-07-16 12:20] LABS: Glucose,Whole Blood 137 mg/dL (75-99)
[2021-07-16] MEDS: ACETAMINOPHEN TAB 325 MG TAB PO PRN ×2 (12:25→22:34)
--- NOTE | 2021-07-16 14:13 | XR ---
EXAMINATION TYPE: XR chest 1V portable DATE OF EXAM: 07/16/2021 COMPARISON: Chest x-ray 07/14/2021 HISTORY: Covid pneumonia TECHNIQUE: Single frontal view of the chest is obtained. FINDINGS: Mild groundglass densities present within the bilateral lungs, lung volumes are lower. No evident pneumothorax or pleural effusion. Cardiac mediastinal silhouette is stable. There are overlyi ng artifacts. IMPRESSION: Findings consistent with patient's history of Covid pneumonia.
[2021-07-16] MEDS: SODIUM CHLORIDE 0.9% 1,000 ML IV SCH (15:00)
[2021-07-16 16:37] LABS: Glucose,Whole Blood 145 mg/dL (75-99)
[2021-07-16 20:09] LABS: Glucose,Whole Blood 283 mg/dL (75-99)
[2021-07-16] MEDS ORDERED: LORazepam 2 MG/ML INJ IV PRN (22:25)
[2021-07-16] MEDS: ENOXAPARIN 100 MG/ML SYRINGE SQ SCH (22:43)
--- NOTE | 2021-07-16 23:44 | P.PN ---
Subjective Progress Note Date: 07/14/21 Patient is a 66-year-old male with a known history of hypertension presents to ER with complaints of worsening shortness of breath. COVID-19 symptoms for the past 9 days. Patient has been having extremely fatigue and has been sleeping a lot. Does have nausea no episodes of vomiting. No diarrhea. Does have cough and congestion. No complaints of chest pain. No abdominal pain. No headache or dizziness or lightheadedness. Patient was tested positive for COVID-19 infection. On admission patient has been afebrile. Pulses 128 respiration 18 and pulse ox 79% on room air. Patient was placed on BiPAP in the ER. Chest x-ray showed interstitial pulmonary infiltrates are nonspecific and could relate to acute on chronic interstitial pneumonia. EKG showed sinus tachycardia. Venous Doppler showed no evidence of DVT. Laboratory showed WBC 9.2 hemoglobin 16.6 and platelets 248 lymphocytes 0.7 D-di huey is 0.85 Sodium 131 potassium 3.7 chloride 96 bicarb is 21 BUN 35 and creatinine 1.64 blood sugar is 181 Lactic acid 3.1 Ferritin 5089 total bili 1.8 AST 87 ALT 31 alk phos 72 LDH 1746 troponin x1 - and procalcitonin level is 1.04 07/14/2021 Patient is still short of breath requiring BiPAP now.. 12 x 6 with FiO2 70%. Denied any complaints of chest pain. Patient has been afebrile. Does have cough without any sputum production. No nausea vomiting abdominal pain or diarrhea. Chest x-ray showed improvement in aeration. Lab data showed WC 14.9 hemoglobin 15.6 and platelets 285 BUN 48 and creatinine improved to 1.5 today. LDH 2047 and CRP 5.0. Patient is being current sulmazole, Lovenox subcu and multivitamin supplementation. Pulmonary is on board. Current medications reviewed. Objective - Vital Signs Vital signs: Vital Signs Temp 98.2 F 07/14/21 16:00 Pulse 94 07/14/21 16:00 Resp 27 H 07/14/21 16:00 BP 126/77 07/14/21 16:00 Pulse Ox 95 07/14/21 16:00 Intake & Output 07/14/21 07/14/21 07/15/21 06:59 18:59 06:59 Intake Total 480 Output Total 400 450 Balance 80 -450 Intake: Oral 480 Output: Urine 400 450 Other: # Voids 2 - Exam PHYSICAL EXAMINATION: Patient is lying in the bed comfortably, no acute distress, awake alert and oriented.. HEENT: Normocephalic. Neck is supple. Pupils reactive. Nostrils clear. Oral cavity is moist. Neck reveals no JVD, carotid bruits, or thyromegaly. CHEST EXAMINATION: Trachea is central. Symmetrical expansion. On BiPAP. Scattered coarse sounds. Nonlabored.. CARDIAC: Normal S1, S2 with no gallops. No murmurs ABDOMEN: Soft. Bowel sounds normal. No organomegaly. No abdominal bruits. Extremities: reveal no edema. No clubbing or cyanosis Neurologically awake, alert, oriented x3 with well-coordinated movements. No focal deficits noted Skin: No rash or skin lesions. Psychiatric: Cooperative. Nonsuicidal Musculoskeletal: No joint swelling or deformity. Normal range of motion. - Labs CBC & Chem 7: 07/15/21 06:25 07/16/21 08:11 Labs: Abnormal Lab Results - Last 24 Hours (Table) 07/14/21 07/14/21 07/14/21 Range/Units 07:14 07:14 19:35 WBC 14.9 H (3.8-10.6) k/uL Neutrophils # 13.2 H (1.3-7.7) k/uL Lymphocytes # 0.8 L (1.0-4.8) k/uL BUN 48 H (9-20) mg/dL Creatinine 1.50 H (0.66-1.25) mg/dL Glucose 190 H (74-99) mg/dL POC Glucose (mg/dL) 208 H (75-99) mg/dL Lactate Dehydrogenase 2047 H (313-618) U/L C-Reactive Protein 5.0 H (<1.0) mg/dL Microbiology - Last 24 Hours (Table) 07/12/21 20:50 Blood Culture - Preliminary Blood No Growth after 24 hours 07/12/21 20:22 Blood Culture - Preliminary Blood No Growth after 24 hours Assessment and Plan Assessment: Acute COVID-19 pneumonia. Patient has been having symptoms for the past 9 days. Patient is not vaccinated. Acute hypoxic respiratory failure secondary to COVID-19 pneumonia. Currently on BiPAP. Elevated inflammatory markers secondary to COVID-19 infection Hypertension Acute kidney injury with creatinine level 1.64 Hypovolemic hyponatremia Lactic acidosis on admission resolved now. Sinus tachycardia DVT prophylaxis Lovenox subcu Plan: Patient will be continued oxygen supplementation and is on BiPAP. Continue with dexamethasone 6 mg daily, Lovenox subcu and multivitamin supplementation. Patient was seen by pulmonary and is not a candidate for remdesivir at this time. Continue to follow closely. Prognosis is guarded at this time. Time with Patient: Greater than 30
--- NOTE | 2021-07-16 23:47 | P.PN ---
Subjective Progress Note Date: 07/15/21 Patient is a 66-year-old male with a known history of hypertension presents to ER with complaints of worsening shortness of breath. COVID-19 symptoms for the past 9 days. Patient has been having extremely fatigue and has been sleeping a lot. Does have nausea no episodes of vomiting. No diarrhea. Does have cough and congestion. No complaints of chest pain. No abdominal pain. No headache or dizziness or lightheadedness. Patient was tested positive for COVID-19 infection. On admission patient has been afebrile. Pulses 128 respiration 18 and pulse ox 79% on room air. Patient was placed on BiPAP in the ER. Chest x-ray showed interstitial pulmonary infiltrates are nonspecific and could relate to acute on chronic interstitial pneumonia. EKG showed sinus tachycardia. Venous Doppler showed no evidence of DVT. Laboratory showed WBC 9.2 hemoglobin 16.6 and platelets 248 lymphocytes 0.7 D-di huey is 0.85 Sodium 131 potassium 3.7 chloride 96 bicarb is 21 BUN 35 and creatinine 1.64 blood sugar is 181 Lactic acid 3.1 Ferritin 5089 total bili 1.8 AST 87 ALT 31 alk phos 72 LDH 1746 troponin x1 - and procalcitonin level is 1.04 07/14/2021 Patient is still short of breath requiring BiPAP now.. 12 x 6 with FiO2 70%. Denied any complaints of chest pain. Patient has been afebrile. Does have cough without any sputum production. No nausea vomiting abdominal pain or diarrhea. Chest x-ray showed improvement in aeration. Lab data showed WC 14.9 hemoglobin 15.6 and platelets 285 BUN 48 and creatinine improved to 1.5 today. LDH 2047 and CRP 5.0. Patient is being current sulmazole, Lovenox subcu and multivitamin supplementation. Pulmonary is on board. 07/15/2021 Patient is currently resting in the bed. Awake alert and oriented. On BiPAP 12 x 6 with FiO2 70%. Patient was weaned down to 15 L high flow oxygen in the morning and but started back on BiPAP due to worsening respiratory status and anxiety. No complaints of chest pain. No nausea vomiting. Patient is afebrile. Able to tolerate oral diet. Cough without any sputum production. Laboratory data showed WBC 11.6 hemoglobin 14.5 platelets 335 BUN 36 and creatinine 1.15 calcium 8.1 LDH 1658 and CRP 5.8. Patient reviewing current dexamethasone IV, Lovenox SQ and multivitamin supplementation... Current medications reviewed. Objective - Vital Signs Vital signs: Vital Signs Temp 98.6 F 07/15/21 20:00 Pulse 96 07/15/21 20:00 Resp 22 07/15/21 20:00 BP 138/85 07/15/21 20:00 Pulse Ox 91 L 07/15/21 20:00 Intake & Output 07/15/21 07/15/21 07/16/21 06:59 18:59 06:59 Intake Total 600 590 600 Output Total 400 600 275 Balance 200 -10 325 Weight 90 kg Intake: Intake, IV Titration 600 600 Amount Sodium Chloride 0.9% 1, 600 600 000 ml @ 75 mls/hr IV . [id number] [facility] Rx#:[id number] Oral 590 Output: Urine 400 600 275 Other: Voiding Method Urinal Urinal # Voids 1 1 1 - Exam PHYSICAL EXAMINATION: Patient is lying in the bed comfortably, no acute distress, awake alert and oriented.. HEENT: Normocephalic. Neck is supple. Pupils reactive. Nostrils clear. Oral cavity is moist. Neck reveals no JVD, carotid bruits, or thyromegaly. CHEST EXAMINATION: Trachea is central. Symmetrical expansion. On BiPAP. Scattered coarse sounds. Nonlabored.. CARDIAC: Normal S1, S2 with no gallops. No murmurs ABDOMEN: Soft. Bowel sounds normal. No organomegaly. No abdominal bruits. Extremities: reveal no edema. No clubbing or cyanosis Neurologically awake, alert, oriented x3 with well-coordinated movements. No focal deficits noted Skin: No rash or skin lesions. Psychiatric: Cooperative. Nonsuicidal Musculoskeletal: No joint swelling or deformity. Normal range of motion. - Labs CBC & Chem 7: 07/15/21 06:25 07/16/21 08:11 Labs: Abnormal Lab Results - Last 24 Hours (Table) 07/15/21 07/15/21 07/15/21 Range/Units 06:01 06:25 06:25 WBC 11.6 H (3.8-10.6) k/uL Neutrophils # 10.5 H (1.3-7.7) k/uL Lymphocytes # 0.4 L (1.0-4.8) k/uL BUN 36 H (9-20) mg/dL Glucose 180 H (74-99) mg/dL POC Glucose (mg/dL) 191 H (75-99) mg/dL Calcium 8.1 L (8.4-10.2) mg/dL Lactate Dehydrogenase 1658 H (313-618) U/L C-Reactive Protein 5.8 H (<1.0) mg/dL 07/15/21 07/15/21 07/15/21 Range/Units 11:18 16:06 20:04 WBC (3.8-10.6) k/uL Neutrophils # (1.3-7.7) k/uL Lymphocytes # (1.0-4.8) k/uL BUN (9-20) mg/dL Glucose (74-99) mg/dL POC Glucose (mg/dL) 164 H 264 H 374 H (75-99) mg/dL Calcium (8.4-10.2) mg/dL Lactate Dehydrogenase (313-618) U/L C-Reactive Protein (<1.0) mg/dL Microbiology - Last 24 Hours (Table) 07/12/21 20:50 Blood Culture - Preliminary Blood No Growth after 48 hours 07/12/21 20:22 Blood Culture - Preliminary Blood No Growth after 48 hours Assessment and Plan Assessment: Acute COVID-19 pneumonia. Patient has been having symptoms for the past 9 days. Patient is not vaccinated. Acute hypoxic respiratory failure secondary to COVID-19 pneumonia. Currently on BiPAP. Elevated inflammatory markers secondary to COVID-19 infection Hypertension Acute kidney injury with creatinine level 1.64 Hypovolemic hyponatremia Lactic acidosis on admission resolved now. Sinus tachycardia DVT prophylaxis Lovenox subcu Plan: Patient will be continued oxygen supplementation and is on BiPAP. Continue with dexamethasone 6 mg daily, Lovenox subcu and multivitamin supplementation. Patient was seen by pulmonary and is not a candidate for remdesivir at this time. Continue to follow closely. Prognosis is guarded at this time. Time with Patient: Greater than 30
--- NOTE | 2021-07-16 23:51 | PN ---
PROGRESS NOTE DATE OF SERVICE: 07/16/2021 REASON FOR FOLLOWUP: COVID-19 pneumonia. INTERVAL HISTORY: The patient is afebrile. The patient remains to be BiPAP dependent, however, denies any worsening shortness of breath or chest pain. No cough. No abdominal pain, no diarrhea. PHYSICAL EXAMINATION: Blood pressure 113/80 with a pulse of 92, temperature 98.6. He is 92% on BiPAP. General description is a middle-aged male lying in bed in no distress. Respiratory system: Unlabored breathing, decreased intensity of breath sounds, no wheeze. Heart S1, S2. Regular rate and rhythm. Abdomen soft, no tenderness. LABS: Hemoglobin is 13.5, white count 11.6, creatinine 1.08. Blood culture has been negative. DIAGNOSTIC IMPRESSION AND PLAN: Patient with acute respiratory failure secondary to COVID-19 pneumonia with no worsening on the chest x-ray. Minimal clinical improvement. Patient to continue with dexamethasone, Lovenox, zinc and ascorbic acid along with respiratory support and monitor clinical course closely. MMODL / IJN: [id number] /
--- NOTE | 2021-07-16 23:53 | P.PN ---
Subjective Progress Note Date: 07/16/21 Patient is a 66-year-old male with a known history of hypertension presents to ER with complaints of worsening shortness of breath. COVID-19 symptoms for the past 9 days. Patient has been having extremely fatigue and has been sleeping a lot. Does have nausea no episodes of vomiting. No diarrhea. Does have cough and congestion. No complaints of chest pain. No abdominal pain. No headache or dizziness or lightheadedness. Patient was tested positive for COVID-19 infection. On admission patient has been afebrile. Pulses 128 respiration 18 and pulse ox 79% on room air. Patient was placed on BiPAP in the ER. Chest x-ray showed interstitial pulmonary infiltrates are nonspecific and could relate to acute on chronic interstitial pneumonia. EKG showed sinus tachycardia. Venous Doppler showed no evidence of DVT. Laboratory showed WBC 9.2 hemoglobin 16.6 and platelets 248 lymphocytes 0.7 D-di huey is 0.85 Sodium 131 potassium 3.7 chloride 96 bicarb is 21 BUN 35 and creatinine 1.64 blood sugar is 181 Lactic acid 3.1 Ferritin 5089 total bili 1.8 AST 87 ALT 31 alk phos 72 LDH 1746 troponin x1 - and procalcitonin level is 1.04 07/14/2021 Patient is still short of breath requiring BiPAP now.. 12 x 6 with FiO2 70%. Denied any complaints of chest pain. Patient has been afebrile. Does have cough without any sputum production. No nausea vomiting abdominal pain or diarrhea. Chest x-ray showed improvement in aeration. Lab data showed WC 14.9 hemoglobin 15.6 and platelets 285 BUN 48 and creatinine improved to 1.5 today. LDH 2047 and CRP 5.0. Patient is being current sulmazole, Lovenox subcu and multivitamin supplementation. Pulmonary is on board. 07/15/2021 Patient is currently resting in the bed. Awake alert and oriented. On BiPAP 12 x 6 with FiO2 70%. Patient was weaned down to 15 L high flow oxygen in the morning and but started back on BiPAP due to worsening respiratory status and anxiety. No complaints of chest pain. No nausea vomiting. Patient is afebrile. Able to tolerate oral diet. Cough without any sputum production. Laboratory data showed WBC 11.6 hemoglobin 14.5 platelets 335 BUN 36 and creatinine 1.15 calcium 8.1 LDH 1658 and CRP 5.8. Patient reviewing current dexamethasone IV, Lovenox SQ and multivitamin supplementation... 07/16/2021 Patient is currently remains on BiPAP. 12 x 6 with FiO2 85%. Patient is otherwise awake alert and oriented. Generalized weakness present. No complaints of chest pain. Patient has been afebrile. Still having shortness of breath and minimal cough. Patient is being current normal saline at 75 cc/h. Chest x-ray showed findings consistent with patient's history of COVID- pneumonia. No evidence of pneumothorax or pleural effusion. Mild groundglass densities present within the bilateral lungs. Patient is being continued on Lovenox subcu, dexamethasone IV and multivitamin supplementation. Laboratory data showed D-dimer level 6.52 Sodium 140 potassium 4.2 chloride 107 bicarb 25 BUN 25 creatinine 1.08 phosphoru s 1.5 CRP 6.6 and procalcitonin level is 0.68 Current medications reviewed. Objective - Vital Signs Vital signs: Vital Signs Temp 98.6 F 07/16/21 16:09 Pulse 92 07/16/21 16:09 Resp 22 07/16/21 16:09 BP 113/80 07/16/21 16:09 Pulse Ox 92 L 07/16/21 19:58 Intake & Output 07/16/21 07/16/21 07/17/21 06:59 18:59 06:59 Intake Total 600 358 Output Total 750 675 Balance -150 -317 Intake: Intake, IV Titration 600 Amount Sodium Chloride 0.9% 1, 600 000 ml @ 75 mls/hr IV . [id number] [facility] Rx#:[id number] Oral 358 Output: Urine 750 675 Other: Voiding Method Urinal Urinal # Voids 1 - Exam PHYSICAL EXAMINATION: Patient is lying in the bed comfortably, no acute distress, awake alert and oriented.. HEENT: Normocephalic. Neck is supple. Pupils reactive. Nostrils clear. Oral cavity is moist. Neck reveals no JVD, carotid bruits, or thyromegaly. CHEST EXAMINATION: Trachea is central. Symmetrical expansion. On BiPAP. Scattered coarse sounds. Nonlabored.. CARDIAC: Normal S1, S2 with no gallops. No murmurs ABDOMEN: Soft. Bowel sounds normal. No organomegaly. No abdominal bruits. Extremities: reveal no edema. No clubbing or cyanosis Neurologically awake, alert, oriented x3 with well-coordinated movements. No focal deficits noted Skin: No rash or skin lesions. Psychiatric: Cooperative. Nonsuicidal Musculoskeletal: No joint swelling or deformity. Normal range of motion. - Labs CBC & Chem 7: 07/15/21 06:25 07/16/21 08:11 Labs: Abnormal Lab Results - Last 24 Hours (Table) 07/16/21 07/16/21 07/16/21 Range/Units 06:22 08:11 08:11 D-Dimer 6.52 H (<0.60) mg/L FEU BUN 25 H (9-20) mg/dL POC Glucose (mg/dL) 213 H (75-99) mg/dL Calcium 8.1 L (8.4-10.2) mg/dL Phosphorus 1.5 L (2.5-4.5) mg/dL C-Reactive Protein 6.6 H (<1.0) mg/dL Procalcitonin (0.02-0.09) ng/mL 07/16/21 07/16/21 07/16/21 Range/Units 08:11 11:37 12:19 D-Dimer (<0.60) mg/L FEU BUN (9-20) mg/dL POC Glucose (mg/dL) 124 H 137 H (75-99) mg/dL Calcium (8.4-10.2) mg/dL Phosphorus (2.5-4.5) mg/dL C-Reactive Protein (<1.0) mg/dL Procalcitonin 0.68 H (0.02-0.09) ng/mL 07/16/21 07/16/21 Range/Units 16:34 20:07 D-Dimer (<0.60) mg/L FEU BUN (9-20) mg/dL POC Glucose (mg/dL) 145 H 283 H (75-99) mg/dL Calcium (8.4-10.2) mg/dL Phosphorus (2.5-4.5) mg/dL C-Reactive Protein (<1.0) mg/dL Procalcitonin (0.02-0.09) ng/mL Microbiology - Last 24 Hours (Table) 07/12/21 20:50 Blood Culture - Preliminary Blood No Growth after 72 hours 07/12/21 20:22 Blood Culture - Preliminary Blood No Growth after 72 hours Assessment and Plan Assessment: Acute COVID-19 pneumonia. Patient has been having symptoms for the past 9 days. Patient is not vaccinated. Acute hypoxic respiratory failure secondary to COVID-19 pneumonia. Currently on BiPAP. Elevated inflammatory markers secondary to COVID-19 infection Hypertension Acute kidney injury with creatinine level 1.64 Hypovolemic hyponatremia Lactic acidosis on admission resolved now. Sinus tachycardia DVT prophylaxis Lovenox subcu Plan: Patient will be continued oxygen supplementation and is on BiPAP. Patients condition remains the same. Continue with dexamethasone 6 mg daily, Lovenox subcu and multivitamin supplementation. Patient was seen by pulmonary and is not a candidate for remdesivir at this time. Continue to follow closely. Prognosis is guarded at this time. Time with Patient: Greater than 30
--- NOTE | 2021-07-17 00:39 | P.EN ---
A TEAM note patient admitted for acute hypoxic respiratory failure secondary to viral pneumonia 2/2 COVID patient became hypoxic and anxious, upon evaluation he was tachycardic tachypnic and hypoxic after repositioning . lungs clear to auscultation bilaterally BP stable HR improved to low 100-110 patient was given xanax , 0.25 at 8pm evaluation time was around 1030 pm patient given another dose of ativan 1 mg , and PRN ordered d dimer was ordered earlier during day, came back at >6 . he is currently on lovenox 40 mg daily sc, this was adjusted to full anticoagulation on 90 mg sc BID Bipap settings adjusted , from 06/15 to 21/02 , and oxygen increased from 85% to 100% , once his oxygenation and breathing stabilizes , this will be lowered back to 85% he has increase oxygen requirement today compared to couple days ago when he was on 70% oxygen via bipap patient seems to have tolerated the above measure Total amount of critical care time spent was 35 minutes not counting procedures performed.
[2021-07-17 01:00] LABS: ABG Base Excess 0.3 mmol/L; ABG HCO3 24 mmol/L (21-25); ABG Oxygen Saturation 89.3 % (94-97); ABG PCO2 32 mmHg (35-45); ABG PH 7.49 (7.35-7.45); ABG TCO2 25 mmol/L (19-24); Allen Test Performed? Yes
[2021-07-17 01:34] LABS: Glucose,Whole Blood 107 mg/dL (75-99)
[2021-07-17 01:41] LABS: ABG PO2 51 mmHg (83-108)
[2021-07-17 02:38] LABS: ABG Base Excess -1.3 mmol/L; ABG HCO3 25 mmol/L (21-25); ABG Oxygen Saturation 95.1 % (94-97); ABG PCO2 47 mmHg (35-45); ABG PH 7.33 (7.35-7.45); ABG PO2 79 mmHg (83-108); ABG TCO2 26 mmol/L (19-24); Allen Test Performed? Yes
--- NOTE | 2021-07-17 02:58 | XR ---
EXAMINATION TYPE: XR chest 1V portable DATE OF EXAM: 07/17/2021 COMPARISON: Study HISTORY: Respiratory failure TECHNIQUE: Single view FINDINGS: There is pulmonary interstitial diffuse edema. The endotracheal tube is 3.5 cm from the car antoinette. There is nasogastric tube in the stomach. IMPRESSION: Tubing in good position. Pulmonary edema slightly worse than exam yesterday.
[2021-07-17 05:30] LABS: ABG Base Excess -1.5 mmol/L; ABG HCO3 24 mmol/L (21-25); ABG Oxygen Saturation 92.2 % (94-97); ABG PCO2 42 mmHg (35-45); ABG PH 7.37 (7.35-7.45); ABG PO2 62 mmHg (83-108); ABG TCO2 25 mmol/L (19-24); Allen Test Performed? Yes
[2021-07-17] MEDS: CISATRACURIUM 200 MG in SODIUM CHLORIDE 0.9% 180 ML IV SCH (05:47)
[2021-07-17] MEDS: SODIUM CHLORIDE 0.9% 1,000 ML IV SCH ×2 (05:49→20:16)
[2021-07-17 05:54] LABS: Basophils % (A) 0 %; Eosinophils % (A) 0 %; HCT 42.1 % (39.0-53.0); Lymphocytes # (A) 0.4 k/uL (1.0-4.8); Lymphocytes % (A) 2 %; MCH 30.9 pg (25.0-35.0); MCHC 33.3 g/dL (31.0-37.0); MCV 92.9 fL (80.0-100.0); Mean Platelet Volume 8.8; Monocytes # (A) 0.5 k/uL (0-1.0); Monocytes % (A) 2 %; Neutrophils % (A) 95 %; Platelet Count 316 k/uL (150-450); Poikilocytosis Slight; RBC 4.53 m/uL (4.30-5.90); RDW 14.1 % (11.5-15.5)
[2021-07-17 07:12] LABS: Calcium 7.7 mg/dL (8.4-10.2); Potassium 4.5 mmol/L (3.5-5.1)
[2021-07-17] MEDS ORDERED: INSULIN ASPART (NovoLOG) 100 UNIT/ML VIAL SQ SCH (07:30)
[2021-07-17 08:03] LABS: C Reactive Protein 24.8 mg/dL (<1.0)
[2021-07-17 08:21] LABS: Appearance,Urine Turbid (Clear); Bilirubin,Urine 1+ (Negative); Blood,Urine Small (Negative); Color,Urine Orange; Glucose,Urine (UA) Negative (Negative); Ketones,Urine Negative (Negative); Leukocyte Esterase,Urine Negative (Negative); Mucus,Urine Rare /hpf; Nitrite,Urine Negative (Negative); Protein,Urine 1+ (Negative); RBC,Urine 7 /hpf (0-5); Specific Gravity,Urine 1.029 (1.001-1.035); WBC,Urine 5 /hpf (0-5)
[2021-07-17] MEDS: PANTOPRAZOLE 40 MG TABLET PO SCH (08:44)
[2021-07-17] MEDS: ASCORBIC ACID 500 MG TAB PO SCH (08:44)
[2021-07-17] MEDS: ZINC SULFATE 220 MG CAP PO SCH (08:44)
[2021-07-17] MEDS: CHOLECALCIFEROL 25 MCG (1000 IU) TABLET PO SCH (08:44)
[2021-07-17] MEDS: CHLORHEXIDINE GLUCONATE 15 ML CUP MUCOUS MEM SCH ×2 (08:48→20:15)
[2021-07-17] MEDS: ENOXAPARIN 100 MG/ML SYRINGE SQ SCH ×2 (08:48→20:15)
[2021-07-17] MEDS: DEXAMETHASONE SOD PHOSPHATE 10 MG/ML 1 ML VIAL IVP SCH (08:49)
[2021-07-17] MEDS ORDERED: FAMOTIDINE 20 MG/2 ML VIAL IV ONE (09:52)
[2021-07-17] MEDS ORDERED: methylPREDNISolone SOD SUCCI 125 MG/2 ML VIAL IV ONE (09:52)
[2021-07-17] MEDS ORDERED: diphenhydrAMINE 50 MG/ML 1 ML VIAL IVP ONE ×2 (09:52)
--- NOTE | 2021-07-17 10:01 | P.PN ---
Subjective Progress Note Date: 07/17/21 Principal diagnosis: COVID-19 Today on 07/17/2021 patient is seen in intensive care unit, early this morning at 12:30 a.m. patient had rapid response team called to his bedside for concern of worsening hypoxia, anxiety, tachypnea, tachycardia. Blood pressure was stable, patient was tachycardic, she was given some Xanax, he was already on BiPAP support he was given a dose of Ativan. BiPAP settings were adjusted from 06/15- and oxygen was increased from 85% to 100%, however his oxygenation in dyspnea did not stabilize and patient ultimately required intubation and danita cement on mechanical ventilator. He is currently on assist control mode of ventilation with a rate of 28, Tylenol level was 450, FiO2 of 100% and PEEP of 10. This morning's blood gas shows pO2 of 62, pCO2 42, and pH of 7.37. His O2 saturations are at around 90%, patient is sedated, and paralyzed, he is currently on Diprivan and 75 mics per kilo per minute, and Nimbex is at 1 wilmer per kilo per minute, 0.9 normal saline at a rate of 75 ML per hour. His chest x-ray is showing pulmonary interstitial diffuse edema. And ET tube 3.5 cm from the miles. Nasogastric tube has been inserted and is in proper position. Today's labs have been reviewed, his d-dimer is elevated at 12.53, and his Loven ox dose was adjusted and increased to 90 mg twice daily, white blood cell count is 19, hemoglobin is 14, sodium is 138, potassium is 4.5, chloride is 109, CO2 is 22, BUN is 22, creatinine is 1.02, LDH is 2486 which is increased from previous at 1658, and CRP has increased to 24.8 from 6.6, progesterone level was borderline at 0.68, urinalysis showed no clear evidence of infection however overnight patient was running fevers as high as 101.7F, currently in sinus mechanism, tachycardic with a rate of 124 BPM, currently hypertensive, will be started on Cleviprex. Urine output is in the order of 50-75 ML per hour. 2 feedings have not been started yet, dietary has been consulted for her to fee ding recommendation, patient was properly sedated and paralyzed, and PEEP will be increased to 15, and left IJ central venous catheter has been inserted, patient has arterial line in his wrist. Patient is on Decadron 6 mg daily, he is on multivitamins. Objective - Vital Signs Vital signs: Vital Signs Temp 101.7 F H 07/17/21 04:00 Pulse 124 H 07/17/21 07:00 Resp 28 H 07/17/21 07:00 BP 105/71 07/17/21 07:00 Pulse Ox 90 L 07/17/21 07:00 Intake & Output 07/16/21 07/17/21 07/17/21 18:59 06:59 18:59 Intake Total 358 412.00 178 Output Total 675 700 75 Balance -317 -288.00 103 Intake: IV 312 78 0.9% @ 75mL/hr 300 75 Pressure Bag 12 3 Intake, IV Titration 100.00 100 Amount propofoL 1,000 mg In 100.00 100 Empty Bag 1 bag @ Titrate IV .Q0M [facility] Rx#: [id number] Oral 358 Output: Urine 675 700 75 Other: Voiding Method Urinal Indwelling Catheter # Voids 1 ABP, PAP, CO, CI - Last Documented Arterial Blood Pressure 106/55 - Exam GENERAL EXAM: 66-year-old white male, intubated, sedated and paralyzed, on assist-control mode of ventilation with a rate of 20, tidal was 450, FiO2 of 100% and PEEP of 10 comfortable in no apparent distress. HEAD: Normocephalic/atraumatic. EYES: Normal reaction of pupils, equal size. Conjunctiva pink, sclera white. NOSE: Clear with pink turbinates. THROAT: No erythema or exudates. NECK: No masses, no JVD, no thyroid enlargement, no adenopathy. CHEST: No chest wall deformity. Symmetrical expansion. LUNGS: Equal air entry with bibasilar crackles CVS: Regular rate and rhythm, normal S1 and S2, no gallops, no murmurs, no rubs ABDOMEN: Soft, nontender. No hepatosplenomegaly, normal bowel sounds, no guarding or rigidity. EXTREMITIES: No clubbing, no edema, no cyanosis, 2+ pulses and upper and lower extremities. MUSCULOSKELETAL: Muscle strength and tone normal. SPINE: No scoliosis or deformity SKIN: No rashes CENTRAL NERVOUS SYSTEM: intubated and sedated No focal deficits, tone is normal in all 4 extremities. - Labs CBC & Chem 7: 07/17/21 04:10 07/17/21 04:10 Labs: Abnormal Lab Results - Last 24 Hours (Table) 07/16/21 07/16/21 07/16/21 Range/Units 08:11 08:11 11:37 WBC (3.8-10.6) k/uL Neutrophils # (1.3-7.7) k/uL Lymphocytes # (1.0-4.8) k/uL D-Dimer 6.52 H (<0.60) mg/L FEU ABG pH (7.35-7.45) ABG pCO2 (35-45) mmHg ABG pO2 (83-108) mmHg ABG Total CO2 (19-24) mmol/L ABG O2 Saturation (94-97) % Chloride (98-107) mmol/L BUN (9-20) mg/dL Glucose (74-99) mg/dL POC Glucose (mg/dL) 124 H (75-99) mg/dL Calcium (8.4-10.2) mg/dL Magnesium (1.6-2.3) mg/dL Lactate Dehydrogenase (313-618) U/L C-Reactive Protein (<1.0) mg/dL Procalcitonin 0.68 H (0.02-0.09) ng/mL Urine Protein (Negative) Urine Blood (Negative) Urine Bilirubin (Negative) Urine RBC (0-5) /hpf Urine Mucus (None) /hpf 07/16/21 07/16/21 07/16/21 Range/Units 12:19 16:34 20:07 WBC (3.8-10.6) k/uL Neutrophils # (1.3-7.7) k/uL Lymphocytes # (1.0-4.8) k/uL D-Dimer (<0.60) mg/L FEU ABG pH (7.35-7.45) ABG pCO2 (35-45) mmHg ABG pO2 (83-108) mmHg ABG Total CO2 (19-24) mmol/L ABG O2 Saturation (94-97) % Chloride (98-107) mmol/L BUN (9-20) mg/dL Glucose (74-99) mg/dL POC Glucose (mg/dL) 137 H 145 H 283 H (75-99) mg/dL Calcium (8.4-10.2) mg/dL Magnesium (1.6-2.3) mg/dL Lactate Dehydrogenase (313-618) U/L C-Reactive Protein (<1.0) mg/dL Procalcitonin (0.02-0.09) ng/mL Urine Protein (Negative) Urine Blood (Negative) Urine Bilirubin (Negative) Urine RBC (0-5) /hpf Urine Mucus (None) /hpf 07/17/21 07/17/21 07/17/21 Range/Units 00:53 01:32 02:35 WBC (3.8-10.6) k/uL Neutrophils # (1.3-7.7) k/uL Lymphocytes # (1.0-4.8) k/uL D-Dimer (<0.60) mg/L FEU ABG pH 7.49 H 7.33 L (7.35-7.45) ABG pCO2 32 L 47 H (35-45) mmHg ABG pO2 51 L* 79 L (83-108) mmHg ABG Total CO2 25 H 26 H (19-24) mmol/L ABG O2 Saturation 89.3 L (94-97) % Chloride (98-107) mmol/L BUN (9-20) mg/dL Glucose (74-99) mg/dL POC Glucose (mg/dL) 107 H (75-99) mg/dL Calcium (8.4-10.2) mg/dL Magnesium (1.6-2.3) mg/dL Lactate Dehydrogenase (313-618) U/L C-Reactive Protein (<1.0) mg/dL Procalcitonin (0.02-0.09) ng/mL Urine Protein (Negative) Urine Blood (Negative) Urine Bilirubin (Negative) Urine RBC (0-5) /hpf Urine Mucus (None) /hpf 07/17/21 07/17/21 07/17/21 Range/Units 04:10 04:10 04:10 WBC 19.0 H (3.8-10.6) k/uL Neutrophils # 18.0 H (1.3-7.7) k/uL Lymphocytes # 0.4 L (1.0-4.8) k/uL D-Dimer (<0.60) mg/L FEU ABG pH (7.35-7.45) ABG pCO2 (35-45) mmHg ABG pO2 (83-108) mmHg ABG Total CO2 (19-24) mmol/L ABG O2 Saturation (94-97) % Chloride 109 H (98-107) mmol/L BUN 22 H (9-20) mg/dL Glucose 102 H (74-99) mg/dL POC Glucose (mg/dL) (75-99) mg/dL Calcium 7.7 L (8.4-10.2) mg/dL Magnesium 2.7 H (1.6-2.3) mg/dL Lactate Dehydrogenase 2486 H (313-618) U/L C-Reactive Protein 24.8 H (<1.0) mg/dL Procalcitonin (0.02-0.09) ng/mL Urine Protein (Negative) Urine Blood (Negative) Urine Bilirubin (Negative) Urine RBC (0-5) /hpf Urine Mucus (None) /hpf 07/17/21 07/17/21 07/17/21 Range/Units 05:50 06:00 06:35 WBC (3.8-10.6) k/uL Neutrophils # (1.3-7.7) k/uL Lymphocytes # (1.0-4.8) k/uL D-Dimer 12.53 H (<0.60) mg/L FEU ABG pH (7.35-7.45) ABG pCO2 (35-45) mmHg ABG pO2 62 L (83-108) mmHg ABG Total CO2 25 H (19-24) mmol/L ABG O2 Saturation 92.2 L (94-97) % Chloride (98-107) mmol/L BUN (9-20) mg/dL Glucose (74-99) mg/dL POC Glucose (mg/dL) (75-99) mg/dL Calcium (8.4-10.2) mg/dL Magnesium (1.6-2.3) mg/dL Lactate Dehydrogenase (313-618) U/L C-Reactive Protein (<1.0) mg/dL Procalcitonin (0.02-0.09) ng/mL Urine Protein 1+ H (Negative) Urine Blood Small H (Negative) Urine Bilirubin 1+ H (Negative) Urine RBC 7 H (0-5) /hpf Urine Mucus Rare H (None) /hpf Microbiology - Last 24 Hours (Table) 07/12/21 20:50 Blood Culture - Preliminary Blood No Growth after 96 hours 07/12/21 20:22 Blood Culture - Preliminary Blood No Growth after 96 hours Assessment and Plan Plan: Assessment: #1. Acute hypoxic respiratory failure related to acute COVID-19 pneumonia, patient was admitted on 07/13/2021, with history of 8 or 9 days of symptoms. He was placed on BiPAP in the emergency department, patient was outside the window for Remdesivir due to length of symptoms and severity of his hypoxia, he was being treated with Decadron and prophylactic Lovenox, d-dimer is elevated but Dopplers of the lower extremities were negative for DVT. Patient was not a candidate for Baricitinib due to suspicion of infection and elevated pro- calcitonin level. Patient was intubated and placed on mechanical ventilator on 07/17/2021 in view of worsening dyspnea and hypoxia. On 07/17/2021 patient is intubated and paralyzed, on assist-control mode of ventilation with rate 28, tidal legs 450, FiO2 100% in PEEP of 10, which will increased to 15 #2. Elevated d-dimer, initially lower extubated Dopplers were negative for DVT. Patient was unstable for CT chest with angios yesterday in view of being BiPAP dependent, we'll proceed with CT angios of the chest today to rule out possibility of PE #3. Elevated inflammatory markers, related to acute COVID-19 pneumonia #4. Elevated pro-calcitonin, rule out possibility of bacterial infection, patient will be arthur cultured, and placed on Zosyn #5. History of benign essential hypertension #6. Lifetime nonsmoker Plan: Chest x-ray, labs and ABGs reviewed We'll continue with assist-control mode of ventilation, rate of 28, tidal volume of 450, FiO2 100%, and PEEP will be increased to 15 Patient is on Nimbex and Diprivan D-dimer is increased, we'll proceed with CT chest to rule out possibility of a PE and patient will be premedicated per standard protocol with one-time dose of IV Solu-Medrol 125 mg, Pepcid and Benadryl 50 mg IV push prior to the study Continue maintenance dose Decadron Patient is on therapeutic doses of Lovenox, which will be dropped back down if we find no evidence of pulmonary embolism to prophylactic dose Initial Dopplers of the legs were negative for DVT Patient was spiking fevers overnight He will be started on Zosyn and pancultured prior to antibiotic infusion Pro-calcitonin level will be sent Left IJ central venous catheter inserted Consult registered dietitian for tube feeding recommendation, initiate patient on tube feedings Continue multivitamins for COVID-19 infection GI and DVT prophylaxis Monitor hemodynamics and urine output Monitor febrile pattern Overall prognosis is guarded Follow-up labs including CBC, BMP, d-dimer, inflammatory markers, ABGs and chest x-rays on a daily basis I performed a history & physical examination of the patient and discussed their management with my nurse practitioner, Sybil Reece. I reviewed the nurse practitioner's note and agree with the documented findings and plan of care. Lung sounds are positive for dim breath sounds throughout the lung gates. The findings and the impression was discussed with the patient. I attest to the documentation by the nurse practitioner. Time with Patient: Greater than 30
--- NOTE | 2021-07-17 10:11 | XR ---
EXAMINATION TYPE: XR chest 1V portable DATE OF EXAM: 07/17/2021 COMPARISON: Chest x-ray 07/17/2021 HISTORY: Intubated TECHNIQUE: Single frontal view of the chest is obtained. FINDINGS: Endotracheal tube, NG tube, left jugular central venous catheter are overlying appropriate positions. There are overlying artifacts. No evident pneumothorax or pleural effusion. Bilateral air space disease persists. Cardiac mediastinal silhouette is stable accounting for differences in techni que. IMPRESSION: Correlate for pneumonia, ARDS, congestive heart failure felt to be less likely.
--- NOTE | 2021-07-17 10:19 | PCN ---
PROCEDURE NOTE LEFT INTERNAL JUGULAR TRIPLE-LUMEN CATHETER PLACEMENT: PREOPERATIVE DIAGNOSIS: Administration of fluids and pressors. POSTOPERATIVE DIAGNOSIS: Administration of fluids and pressors. OPERATORS: 1. Dr. Tinajero. 2. Dr. Reece. PROCEDURE DESCRIPTION: There was informed consent, and universal timeout was completed verifying correct patient, procedure, site, positioning, and implant(s) or special equipment if applicable. The patient was placed in a dependent position appropriate for triple-lumen catheter placement based on the vein to be cannulated. The patient's left neck was prepped and draped in sterile fashion. 1% Lidocaine was used to anesthetize the surrounding skin area. A triple-lumen 9F Cordis catheter was introduced into the left internal jugular vein using Seldinger technique, posterior approach. The catheter was threaded smoothly over the guidewire and appropriate blood return was obtained. There was good blood return from all three ports. Each lumen of the catheter was evacuated of air and flushed with sterile saline. The catheter was then sutured in place to the skin and a sterile dressing applied by the nurse. Perfusion to the extremity distal to the point of catheter insertion was checked and found to be adequate. There was no immediate complication. The patient tolerated the procedure well. There was good blood return from all 3 ports. A chest x-ray was ordered to check placement and rule out pneumothorax. MMODL / TITIN: [id number] /
[2021-07-17] MEDS: PIPERACILLIN-TAZOBACTAM 3.375 GM in SODIUM CHLORIDE 0.9% 100 ML IVPB SCH ×2 (10:20→18:51)
[2021-07-17] MEDS ORDERED: SODIUM CHLORIDE 0.9% 1,000 ML IV ONE ×3 (11:00→13:28)
[2021-07-17] MEDS: ALBUTEROL HFA INHALER INHALATION PRN ×3 (11:00→20:27)
--- NOTE | 2021-07-17 12:12 | US ---
EXAMINATION TYPE: US venous doppler duplex LE DATE OF EXAM: 07/17/2021 9:47 AM COMPARISON: US 4 days ago CLINICAL HISTORY: elevated d-dimer. Exam done portable in ICU on covid patient SIDE PERFORMED: Bilateral TECHNIQUE: The lower extremity deep venous system is examined utilizing real time linear array sonog feli with graded compression, doppler sonography and color-flow sonography. VESSELS IMAGED: Common Femoral Vein Deep Femoral Vein Greater Saphenous Vein * Femoral Vein Popliteal Vein Small Saphenous Vein * Proximal Calf Veins (* superficial vessels) Right Leg: Appears negative for DVT Left Leg: Appears negative for DVT IMPRESSION: 1. Bilateral lower extremity ultrasound negative for deep venous thrombosis.
[2021-07-17 12:39] LABS: Glucose,Whole Blood 142 mg/dL (75-99)
[2021-07-17] MEDS: INSULIN ASPART (NovoLOG) 100 UNIT/ML VIAL SQ SCH ×4 (13:05→23:38)
[2021-07-17] MEDS: CLEVIDIPINE BUTYRATE 25 MG in EMPTY BAG 1 BAG IV SCH (13:49)
[2021-07-17] MEDS: NOREPINEPHRINE 8 MG in SODIUM CHLORIDE 0.9% 250 ML IV SCH (14:20)
[2021-07-17 15:00] LABS: Amorphous Sediment,Urine Few /hpf; Appearance,Urine Turbid (Clear); Bacteria,Urine Few /hpf; Bilirubin,Urine 1+ (Negative); Blood,Urine Trace (Negative); Color,Urine Light Brown; Glucose,Urine (UA) Negative (Negative); Ketones,Urine Negative (Negative); Leukocyte Esterase,Urine Negative (Negative); Mucus,Urine Rare /hpf; Nitrite,Urine Negative (Negative); Protein,Urine 1+ (Negative); RBC,Urine 1 /hpf (0-5); Specific Gravity,Urine 1.029 (1.001-1.035)
--- NOTE | 2021-07-17 17:39 | CT ---
EXAMINATION TYPE: CT chest angio for PE DATE OF EXAM: 07/17/2021 COMPARISON: None HISTORY: Elevated d-dimer, covid. CT DLP: 547.6 mGycm Automated exposure control for dose reduction was used. CONTRAST: Performed with IV Contrast, patient injected with 56ml mL of Isovue 370. There are Three-D postprocessed images. There is extensive groundglass infiltrate throughout the lungs. There is endotracheal tube noted. The re is airspace consolidation at both posterior lung bases. There is no significant pleural fluid. Hea rt size is fairly normal. There is no pericardial effusion. There are a few mediastinal and paratracheal lymph nodes up to 1 cm. There are no hilar masses. There are a few bilateral bronchial lymph nodes up to 1 cm. There is no evidence of filling defect in the pulmonary arteries. There is some spurring in the thoracic spine. There is no compression fracture. Sternum is intact. Th e ascending aorta measures 3.3 cm. There is no aneurysm or dissection. IMPRESSION: No evidence of pulmonary embolism. Extensive bilateral pneumonia.
[2021-07-17 18:44] LABS: Glucose,Whole Blood 204 mg/dL (75-99)
--- NOTE | 2021-07-17 21:00 | PN ---
PROGRESS NOTE DATE OF SERVICE: 07/17/2021 REASON FOR FOLLOWUP: COVID-19 pneumonia. INTERVAL HISTORY: The patient did have worsening of his respiratory status. Patient ended up getting intubated and has been transferred to the ICU. Patient did spike a fever around 4 this morning of 101.7. He is slightly hypothermic now and is hypotensive, requiring pressor support. However, no significant purulent secretions through the ET, diarrhea or any other changes reported by the nursing staff. PHYSICAL EXAMINATION: Blood pressure 110/43 with a pulse of 81, temperature 94.1. He is 93% on 100% FiO2. General description is a middle-aged male intubated on the vent. Respiratory system: Unlabored breathing. Coarse breath sounds bilaterally. No wheeze. Heart S1, S2. Regular rate and rhythm. Abdomen soft, no tenderness. LABS: Hemoglobin is 14, white count of 19,000. Creatinine is 1.02. DIAGNOSTIC IMPRESSION AND PLAN: Patient with acute respiratory failure secondary to severe COVID-19 pneumonia, possible ARDS pattern. Underlying secondary bacterial pneumonia less likely but not entirely excluded. Patient is covered with dexamethasone, Lovenox. Empiric antibiotics have been ordered. Will request blood and sputum cultures and monitor his clinical course closely. MMODL / IJN: [id number] /
[2021-07-17 23:31] LABS: Glucose,Whole Blood 223 mg/dL (75-99)
[2021-07-18] MEDS: PIPERACILLIN-TAZOBACTAM 3.375 GM in SODIUM CHLORIDE 0.9% 100 ML IVPB SCH ×3 (01:45→17:43)
[2021-07-18] MEDS: SODIUM CHLORIDE 0.9% 1,000 ML IV SCH ×3 (02:44→22:07)
[2021-07-18 05:43] LABS: Basophils % (A) 0 %; Eosinophils % (A) 0 %; HCT 40.3 % (39.0-53.0); HGB 13.4 gm/dL (13.0-17.5); Hypochromasia Slight; Lymphocytes # (A) 0.3 k/uL (1.0-4.8); Lymphocytes % (A) 2 %; MCH 31.9 pg (25.0-35.0); MCHC 33.2 g/dL (31.0-37.0); MCV 96.2 fL (80.0-100.0); Mean Platelet Volume 8.4; Monocytes # (A) 0.4 k/uL (0-1.0); Monocytes % (A) 3 %; Neutrophils # (A) 12.5 k/uL (1.3-7.7); Neutrophils % (A) 94 %; Platelet Count 341 k/uL (150-450); Poikilocytosis Moderate; RBC 4.19 m/uL (4.30-5.90); WBC 13.2 k/uL (3.8-10.6)
[2021-07-18 05:48] LABS: ABG Base Excess -6.5 mmol/L; ABG HCO3 22 mmol/L (21-25); ABG Oxygen Saturation 94.2 % (94-97); ABG PCO2 60 mmHg (35-45); ABG PO2 69 mmHg (83-108); ABG TCO2 24 mmol/L (19-24)
[2021-07-18 05:48] LABS: Glucose,Whole Blood 246 mg/dL (75-99)
[2021-07-18 06:00] LABS: ABG PH 7.18 (7.35-7.45); Allen Test Performed? No
[2021-07-18] MEDS: INSULIN ASPART (NovoLOG) 100 UNIT/ML VIAL SQ SCH ×4 (06:05→23:40)
[2021-07-18 06:09] LABS: Albumin 2.5 g/dL (3.5-5.0); Calcium 7.1 mg/dL (8.4-10.2); Potassium 5.4 mmol/L (3.5-5.1); Total Bilirubin 3.1 mg/dL (0.2-1.3); Total Protein 5.3 g/dL (6.3-8.2)
--- NOTE | 2021-07-18 07:28 | XR ---
EXAMINATION TYPE: XR chest 1V portable DATE OF EXAM: 07/18/2021 CLINICAL HISTORY: Difficulty breathing progress study. TECHNIQUE: Single AP portable semiupright view of the chest is obtained. COMPARISON: Chest x-ray from one day earlier FINDINGS: Stable endotracheal and orogastric tubes. Stable left internal jugular central venous cath eter. Persistent bilateral reticulonodular increased opacities. Persistent small left pleural effusion. Car diac silhouette size stable and within normal limits. Osseous structures are intact. IMPRESSION: Bilateral fairly confluent increased opacities consistent with covid-19 infection and/or ARDS are redemonstrated. No significant change from one day earlier. Small left pleural effusion is n oted.
[2021-07-18] MEDS: ALBUTEROL HFA INHALER INHALATION PRN ×4 (07:54→20:22)
[2021-07-18] MEDS: CHLORHEXIDINE GLUCONATE 15 ML CUP MUCOUS MEM SCH ×2 (08:23→20:56)
[2021-07-18] MEDS: CHOLECALCIFEROL 25 MCG (1000 IU) TABLET PO SCH (08:23)
[2021-07-18] MEDS: ASCORBIC ACID 500 MG TAB PO SCH (08:23)
[2021-07-18] MEDS: ZINC SULFATE 220 MG CAP PO SCH (08:23)
[2021-07-18] MEDS: ENOXAPARIN 100 MG/ML SYRINGE SQ SCH (08:23)
[2021-07-18] MEDS: PANTOPRAZOLE 40 MG/10 ML VIAL IVP SCH (08:23)
[2021-07-18] MEDS: DEXAMETHASONE SOD PHOSPHATE 10 MG/ML 1 ML VIAL IVP SCH (08:24)
[2021-07-18] MEDS: CLEVIDIPINE BUTYRATE 25 MG in EMPTY BAG 1 BAG IV SCH (08:24)
[2021-07-18] MEDS: CISATRACURIUM 200 MG in SODIUM CHLORIDE 0.9% 180 ML IV SCH (08:46)
[2021-07-18 08:48] LABS: C Reactive Protein 42.3 mg/dL (<1.0)
[2021-07-18] MEDS ORDERED: FUROSEMIDE 10 MG/ML 4 ML VIAL IV STA (08:56)
--- NOTE | 2021-07-18 09:35 | P.PN ---
Subjective Progress Note Date: 07/18/21 Principal diagnosis: Hypoxemic respiratory failure. Pulmonary consult dated 07/13/2021. This is a 66-year-old male, seen in the emergency room. He was initially seen by the emergency room crew, on July 12. He came in complaining of shortness of breath. He apparently had been short of breath for a couple of days, but on asking him further, he's been sick for 8 or 9 days. He complained of shortness of breath, cough, chest congestion, fatigue, and, tested positive for co ronavirus. The patient has not been vaccinated. Currently, he was on BiPAP with settings of 12/6, and an FiO2 of 80%. He was not receiving any IV fluids. He was a candidate for Decadron and Lovenox, and we were going to do Dopplers of the lower extremities. Apparently, has a history of hypertension. No history of tobacco use. White count 3.6, hemoglobin 14.4, hematocrit 41.2, and platelet count 203,000. PT INR normal. PTT 24.1. D-dimer was 0.85. Sodium 135, potassium 4, chlorides 100, CO2 26, anion gap 9, BUN 40, creatinine 1.71. Lactic acid level is 1.3 down from 3.1. Ferritin was 5089, troponin was normal. LDH 1746, and pro-calcitonin level was 1.04. Chest x-ray showed diffuse bilateral infiltrates. Dopplers of the lower extremities were negative for DVT. Progress note dated 07/14/2021. This is a 66-year-old gentleman that we saw yesterday in the emergency department. He initially presented to the ER, on July 12. He came in complaining of profound shortness of breath. He been sick for at least 8 or 9 days prior to presenting to the emergency department. He also had cough, chest congestion, fatigue, and did test positive for coronavirus. The patient has not been vaccinated. The patient was admitted to the floor, and is currently on BiPAP, with settings of 12/6 and 70%. He is getting saline IV, at 50 mL an hour. The patient appears to be a bit less uncomfortable today as he was yesterday in the emergency department. White count 14.9, hemoglobin 15.6, hematocrit 44.9, platelet count 285,000. Sodium 138, potassium 4.2, chlorides 103, CO2 25, anion gap 10, BUN 48, and creatinine 1.50. C-reactive protein is 5. LDH is 2047. Blood cultures are negative. Chest x-ray from today shows some improvement in aeration. Progress note dated 07/15/2021. 66-year-old male, seen in the emergency department, a couple days ago. The patient presented to the emergency room on July 12. He came in complaining of shortness of breath. He been sick for about 9 or 10 days prior to his visit in the emergency department. He complained of cough, chest congestion, fatigue, shortness of breath, and he did test positive for coronavirus. Currently, he's on BiPAP with settings of IPAP 12, EPAP 6, and 70%. The patient is also getting saline at 75 mL an hour. The nurse tells me, that the patient did spend some time on 15 L high flow nasal O2, as well as a nonrebreather mask. He apparently became anxious, and wanted to be back on the BiPAP. Laboratory data includes a white count 11.6, hemoglobin 14.5, hematocrit 42.2, and a platelet count 335,000. Sodium 139, potassium 4.5, chlorides 105, CO2 28, anion gap 6, BUN 36, creatinine 1.15. Calcium 8.1. LDH was 1658. C-reactive protein is 5.8. Blood cultures are negative. Chest x-ray from July 14 is reviewed. Progress note dated 07/16/2021. 66-year-old male, again seen in room 359. The patient is currently getting saline at 75 mL an hour. He remains on BiPAP with settings of IPAP 12, EPAP 6, and 85%. The patient states that he's feeling about the same. He is not any better, nor is any worse. He does feel quite weak. He is very fatigued. He does complain of cough and shortness of breath, especially when he gets up to go the bathroom. Labs today include a sodium 140, potassium 4.2, chlorides 107, CO2 25, anion gap 8, BUN 25, and creatinine 1.08. Calcium 8.1 phosphorus 1.5 C- reactive protein is 6.6. No new chest x-ray to evaluate. Today on 07/17/2021 patient is seen in intensive care unit, early this morning at 12:30 a.m. patient had rapid response team called to his bedside for concern of worsening hypoxia, anxiety, tachypnea, tachycardia. Blood pressure was stab le, patient was tachycardic, she was given some Xanax, he was already on BiPAP support he was given a dose of Ativan. BiPAP settings were adjusted from 06/15- and oxygen was increased from 85% to 100%, however his oxygenation in dyspnea did not stabilize and patient ultimately required intubation and placement on mechanical ventilator. He is currently on assist control mode of ventilation with a rate of 28, Tylenol level was 450, FiO2 of 100% and PEEP of 10. This morning's blood gas shows pO2 of 62, pCO2 42, and pH of 7.37. His O2 saturations are at around 90%, patient is sedated, and paralyzed, he is currently on Diprivan and 75 mics per kilo per minute, and Nimbex is at 1 wilmer per kilo per minute, 0.9 normal saline at a rate of 75 ML per hour. His chest x-ray is showing pulmonary interstitial diffuse edema. And ET tube 3.5 cm from the miles. Nasogastric tube has been inserted and is in proper position. Today's labs have been reviewed, his d-dimer is elevated at 12.53, and his Lovenox dose was adjusted and increased to 90 mg twice daily, white blood cell count is 19, hemoglobin is 14, sodium is 138, potassium is 4.5, chloride is 109, CO2 is 22, BUN is 22, creatinine is 1.02, LDH is 2486 which is increased from previous at 1658, and CRP has increased to 24.8 from 6.6, progesterone level was borderline at 0.68, urinalysis showed no clear evidence of infection however overnight patient was running fevers as high as 101.7F, currently in sinus mechanism, tachycardic with a rate of 124 BPM, currently hypertensive, will be started on Cleviprex. Urine output is in the order of 50-75 ML per hour. 2 feedings have not been started yet, dietary has been consulted for her to feeding recommendation, patient was properly sedated and paralyzed, and PEEP will be increased to 15, and left IJ central venous catheter has been inserted, patient has arterial line in his wrist. Patient is on Decadron 6 mg daily, he is on multivitamins. Progress note dated 07/18/2021. 66-year-old male, who is again seen in the intensive care unit, room 264. The patient remains on the mechanical ventilator. He is on the volume assist control mode, rate 28, tidal volume 450, FiO2 75%, PEEP of 15. Blood gases show pO2 of 69, pCO2 60, pH is 7.18. The rate will be increased to 32. The patient's getting saline at 75 mL an hour, Nimbex at 1 mcg/kg/m, propofol at 70 mcg/kg/m, and vital high protein at 30 mL an hour, which is goal. The patient will have labs and x-rays and a blood gas ordered for tomorrow, and we'll also received Lasix 40 mg IV push today. White count 13.2, hemoglobin 13.4, hematocrit 40.3, and platelet count is 341,000. Sodium 137, potassium 5.4, chlorides 110, CO2 20, anion gap 7, BUN 32, with a creatinine of 1.36. LDH is 2035 C-reactive protein is 42.3. Microbiology is currently on negative. Chest x-ray shows diffuse bilateral infiltrates. Objective - Vital Signs Vital signs: Vital Signs Temp 99.0 F 07/18/21 08:00 Pulse 106 H 07/18/21 09:00 Resp 32 H 07/18/21 09:00 BP 101/63 07/18/21 07:00 Pulse Ox 93 L 07/18/21 09:00 Intake & Output 07/17/21 07/18/21 07/18/21 18:59 06:59 18:59 Intake Total 8003.587 7122.397 393.051 Output Total 425 770 135 Balance 827.608 3173.397 258.051 Weight 90 kg 91 kg Intake: IV 652 1381 162 0.9% @ 75mL/hr 525 1200 150 Piperacillin-Tazobactam 3 100 100 .375 gm In Sodium Chloride 0.9% 100 ml @ 25 mls/hr IVPB Q8H [facility] Rx#: [id number] Pressure Bag 27 81 12 Intake, IV Titration 398.397 473.397 151.051 Amount Cisatracurium 200 mg In 145.71 Sodium Chloride 0.9% 180 ml @ 1 MCG/KG/MIN 5.4 mls /hr IV .Q24H [facility] Rx#: [id number] Norepinephrine 8 mg In 3.222 77.647 5.341 Sodium Chloride 0.9% 250 ml @ 0.05 MCG/KG/MIN 8. 708 mls/hr IV .Q24H [facility] Rx#:[id number] propofoL 1,000 mg In 395.175 395.750 Empty Bag 1 bag @ Titrate IV .Q0M [facility] Rx#: [id number] Tube Feeding 250 50 Other 120 30 Output: Urine 425 770 135 Other: Voiding Method Indwelling Catheter Indwelling Catheter ABP, PAP, CO, CI - Last Documented Arterial Blood Pressure 98/54 - Exam Sedated and paralyzed, with an orally placed endotracheal tube and NG tube. HEENT examination is grossly unremarkable. Neck supple. Full range of motion. No adenopathy thyromegaly or neck vein distention. Cardiovascular examination reveals regular rhythm rate. S1-S2 normal. No S3 or S4. No discernible murmur noted. Heart sounds are distant. Heart rate 106 bpm. Lungs reveal diffuse bilateral rhonchi. No wheezes. No crackles. Breath sounds equal bilaterally. Saturations are 93 %. Abdomen soft bowel sounds are heard. No masses or tenderness. Extremities are intact. No cyanosis clubbing or edema. Skin is pale, without rash or lesion. Neurologic examination cannot be assessed as the patient's currently sedated and paralyzed. - Labs CBC & Chem 7: 07/18/21 04:50 07/18/21 04:50 Labs: Abnormal Lab Results - Last 24 Hours (Table) 07/17/21 07/17/21 07/17/21 Range/Units 04:10 10:55 12:38 WBC (3.8-10.6) k/uL RBC (4.30-5.90) m/uL Neutrophils # (1.3-7.7) k/uL Lymphocytes # (1.0-4.8) k/uL ABG pH (7.35-7.45) ABG pCO2 (35-45) mmHg ABG pO2 (83-108) mmHg Potassium (3.5-5.1) mmol/L Chloride (98-107) mmol/L Carbon Dioxide (22-30) mmol/L BUN (9-20) mg/dL Creatinine (0.66-1.25) mg/dL Glucose (74-99) mg/dL POC Glucose (mg/dL) 142 H (75-99) mg/dL Calcium (8.4-10.2) mg/dL Total Bilirubin (0.2-1.3) mg/dL Lactate Dehydrogenase (313-618) U/L C-Reactive Protein (<1.0) mg/dL Total Protein (6.3-8.2) g/dL Albumin (3.5-5.0) g/dL Procalcitonin 3.34 H (0.02-0.09) ng/mL Urine Protein 1+ H (Negative) Urine Blood Trace H (Negative) Urine Bilirubin 1+ H (Negative) Amorphous Sediment Few H (None) /hpf Urine Bacteria Few H (None) /hpf Urine Mucus Rare H (None) /hpf 07/17/21 07/17/21 07/18/21 Range/Units 18:42 23:29 04:50 WBC (3.8-10.6) k/uL RBC (4.30-5.90) m/uL Neutrophils # (1.3-7.7) k/uL Lymphocytes # (1.0-4.8) k/uL ABG pH (7.35-7.45) ABG pCO2 (35-45) mmHg ABG pO2 (83-108) mmHg Potassium 5.4 H (3.5-5.1) mmol/L Chloride 110 H (98-107) mmol/L Carbon Dioxide 20 L (22-30) mmol/L BUN 32 H (9-20) mg/dL Creatinine 1.36 H (0.66-1.25) mg/dL Glucose 244 H (74-99) mg/dL POC Glucose (mg/dL) 204 H 223 H (75-99) mg/dL Calcium 7.1 L (8.4-10.2) mg/dL Total Bilirubin 3.1 H (0.2-1.3) mg/dL Lactate Dehydrogenase 2035 H (313-618) U/L C-Reactive Protein 42.3 H (<1.0) mg/dL Total Protein 5.3 L (6.3-8.2) g/dL Albumin 2.5 L (3.5-5.0) g/dL Procalcitonin (0.02-0.09) ng/mL Urine Protein (Negative) Urine Blood (Negative) Urine Bilirubin (Negative) Amorphous Sediment (None) /hpf Urine Bacteria (None) /hpf Urine Mucus (None) /hpf 07/18/21 07/18/21 07/18/21 Range/Units 04:50 05:41 05:46 WBC 13.2 H (3.8-10.6) k/uL RBC 4.19 L (4.30-5.90) m/uL Neutrophils # 12.5 H (1.3-7.7) k/uL Lymphocytes # 0.3 L (1.0-4.8) k/uL ABG pH 7.18 L* (7.35-7.45) ABG pCO2 60 H (35-45) mmHg ABG pO2 69 L (83-108) mmHg Potassium (3.5-5.1) mmol/L Chloride (98-107) mmol/L Carbon Dioxide (22-30) mmol/L BUN (9-20) mg/dL Creatinine (0.66-1.25) mg/dL Glucose (74-99) mg/dL POC Glucose (mg/dL) 246 H (75-99) mg/dL Calcium (8.4-10.2) mg/dL Total Bilirubin (0.2-1.3) mg/dL Lactate Dehydrogenase (313-618) U/L C-Reactive Protein (<1.0) mg/dL Total Protein (6.3-8.2) g/dL Albumin (3.5-5.0) g/dL Procalcitonin (0.02-0.09) ng/mL Urine Protein (Negative) Urine Blood (Negative) Urine Bilirubin (Negative) Amorphous Sediment (None) /hpf Urine Bacteria (None) /hpf Urine Mucus (None) /hpf Microbiology - Last 24 Hours (Table) 07/17/21 04:34 Gram Stain - Preliminary Sputum Sputum Culture - Preliminary 07/12/21 20:50 Blood Culture - Preliminary Blood No Growth after 120 hours 07/12/21 20:22 Blood Culture - Preliminary Blood No Growth after 120 hours Assessment and Plan Assessment: Acute hypoxemic respiratory failure secondary to coronavirus associated pneumonia, S/P intubation and mechanical ventilation on 07/17/2021. No evidence of pulmonary embolism on CT angiogram. History of benign essential hypertension. Elevated inflammatory marker secondary to coronavirus infection. No evidence of DVT in the lower extremities. Plan: Plan dated 07/13/2021. The patient is seen in the emergency department. The patient is currently in trauma room 2. The patient did test positive for coronavirus in-house coronavirus associated pneumonia, with hypoxemic respiratory failure. The patient's currently on BiPAP therapy. The patient has a candidate for vitamin C, vitamin D3, and zinc, as well as 6 mg of Decadron, and 40 mg subcu of Lovenox. The patient is not a candidate for REM. In addition, the patient would not satisfy criteria for KRISTOPHER, because of pro-calcitonin level is elevated. Dopplers of the lower extremities were negative for DVT. Additional recommendations and suggestions are forthcoming. Prognosis is guarded. The patient's only medical history is that of hypertension. We will continue to follow and make recommendations where appropriate. Plan dated 07/14/2021. The patient is currently on albuterol inhaler, vitamin C, vitamin D3, zinc, Decadron, and Lovenox. The patient was not thought to be a candidate for REM, and wasn't quite sick enough to receive KRISTOPHER. We will continue to follow make recommendations where appropriate. Overall prognosis remains very guarded. The patient's FiO2 was turned down from the 100% to 70%. His saturations are improved, and clinically, and radiographically, the patient appears to be a bit better. Plan dated 07/15/2021. The patient remains on BiPAP, settings of 12/6 and 70%. The patient is getting saline at 75 mL an hour. The patient was also able to come off the BiPAP, and tolerate high flow O2 as well as a nonrebreather mask. Labs, x-rays, and medications are all reviewed. The patient remains on Decadron, Lovenox, vitamin C, vitamin D3, and zinc. No antibiotics at this time. The patient also has an albuterol inhaler. We will continue to follow and make recommendations where appropriate. Prognosis is guarded. Plan dated 07/16/2021. The patient remains on BiPAP. We will repeat a D-dimer test. In addition, we will get a pro-calcitonin level again. Also, will order a chest x-ray for tomorrow. Overall prognosis remains guarded. Labs, x-rays, and medications are all reviewed. The patient remains on appropriate medications including Decadron, Lovenox, and vitamin C, D3, and zinc. We will continue to follow and make recommendations where appropriate. Overall prognosis remains guarded. The patient's about the same today as he was yesterday. Plan dated 07/18/2021. The patient's rate on the ventilator is increased from 28 breaths minute up to 32 breaths per minute. That should improve the CO2 and the pH a bit. The patient will get Lasix 40 mg IV push. The patient will get a CBC, a significant metabolic profile, blood gas, and chest x-ray tomorrow morning. Dopplers of the lower extremities were negative for DVT. In addition, CT angiogram was negative for pulmonary embolism. The patient is currently on Decadron, Lovenox, and vitamins. In addition, the patient's on antibiotic because of an elevated pro calcitonin level. If cultures remain negative, antibiotics can be discontinued or de-escalated. We will continue to follow and make recommendations where appropriate. Prognosis is guarded. Time with Patient: Greater than 30
[2021-07-18 11:56] LABS: Glucose,Whole Blood 259 mg/dL (75-99)
--- NOTE | 2021-07-18 14:46 | P.PN ---
Subjective Progress Note Date: 07/17/21 Principal diagnosis: Ventilator dependent acute hypoxemic respiratory failure COVID-19 viral pneumonia Elevated inflammatory markers secondary to COVID-19 infection Acute kidney injury with creatinine level 1.64 Hypovolemic hyponatremia 66-year-old male with a known history of hypertension presents to ER with complaints of worsening shortness of breath. COVID-19 symptoms for the past 9 days. Patient has been having extremely fatigue and has been sleeping a lot. Does have nausea no episodes of vomiting. No diarrhea. Does have cough and congestion. No complaints of chest pain. No abdominal pain. No headache or dizziness or lightheadedness. Patient was tested positive for COVID-19 infection. On admission patient has been afebrile. Pulses 128 respiration 18 and pulse ox 79% on room air. Patient was placed on BiPAP in the ER. Chest x-ray showed interstitial pulmonary infiltrates are nonspecific and could relate to acute on chronic interstitial pneumonia. EKG showed sinus tachycardia. Venous Doppler showed no evidence of DVT. Laboratory showed WBC 9.2 hemoglobin 16.6 and platelets 248 lymphocytes 0.7 D- dimer is 0.85 Sodium 131 potassium 3.7 chloride 96 bicarb is 21 BUN 35 and creatinine 1.64 blood sugar is 181 Lactic acid 3.1 Ferritin 5089 total bili 1.8 AST 87 ALT 31 alk phos 72 LDH 1746 troponin x1 - and procalcitonin level is 1.04 07/17/2021 Patient evaluated in ICU and is currently intubated and mechanically ventilated Patient declined yesterday becoming more hypoxic on BiPAP, settings were changed from 20/6-40/8; with FiO2 escalated from 85% up to 100%; however patient continued to desaturate and was intubated around 2:30 AM Vital signs reveal temperature of 101.7 pulse 124, respiration 28 and blood pressure of 105/71 Labs review reveal WBC of 19, hemoglobin of 14, sodium 138, potassium 4.5, chloride 109, CO2 of 22 and BUN of 22 with creatinine 1.02; LDH at 2486 and CRP of 24.8 Critical care service recommending to continue with ventilation; CTA chest is recommended due to elevated d-dimer; patient will require premedication with IV Solu-Medrol, Pepcid and Benadryl; patient remains on Decadron; Lovenox has been increased to therapeutic dose; patient doesn't placed on IV Zosyn Objective - Vital Signs Vital signs: Vital Signs Temp 101.7 F H 07/17/21 04:00 Pulse 124 H 07/17/21 07:00 Resp 28 H 07/17/21 07:00 BP 105/71 07/17/21 07:00 Pulse Ox 90 L 07/17/21 07:00 Intake & Output 07/16/21 07/17/21 07/17/21 18:59 06:59 18:59 Intake Total 358 412.00 273.175 Output Total 675 700 75 Balance -317 -288.00 198.175 Intake: IV 312 78 0.9% @ 75mL/hr 300 75 Pressure Bag 12 3 Intake, IV Titration 100.00 195.175 Amount propofoL 1,000 mg In 100.00 195.175 Empty Bag 1 bag @ Titrate IV .Q0M [facility] Rx#: [id number] Oral 358 Output: Urine 675 700 75 Other: Voiding Method Urinal Indwelling Catheter # Voids 1 ABP, PAP, CO, CI - Last Documented Arterial Blood Pressure 106/55 - Exam GENERAL EXAM: 66-year-old white male, intubated, sedated and paralyzed, on assist-control mode of ventilation with a rate of 20, tidal was 450, FiO2 of 100% and PEEP of 10 comfortable in no apparent distress. HEAD: Normocephalic/atraumatic. EYES: Normal reaction of pupils, equal size. Conjunctiva pink, sclera white. NOSE: Clear with pink turbinates. THROAT: No erythema or exudates. NECK: No masses, no JVD, no thyroid enlargement, no adenopathy. CHEST: No chest wall deformity. Symmetrical expansion. LUNGS: Equal air entry with bibasilar crackles CVS: Regular rate and rhythm, normal S1 and S2, no gallops, no murmurs, no rubs ABDOMEN: Soft, nontender. No hepatosplenomegaly, normal bowel sounds, no guarding or rigidity. EXTREMITIES: No clubbing, no edema, no cyanosis, 2+ pulses and upper and lower extremities. - Labs CBC & Chem 7: 07/17/21 04:10 07/17/21 04:10 Labs: Abnormal Lab Results - Last 24 Hours (Table) 07/16/21 07/16/21 07/16/21 Range/Units 08:11 08:11 11:37 WBC (3.8-10.6) k/uL Neutrophils # (1.3-7.7) k/uL Lymphocytes # (1.0-4.8) k/uL D-Dimer 6.52 H (<0.60) mg/L FEU ABG pH (7.35-7.45) ABG pCO2 (35-45) mmHg ABG pO2 (83-108) mmHg ABG Total CO2 (19-24) mmol/L ABG O2 Saturation (94-97) % Chloride (98-107) mmol/L BUN (9-20) mg/dL Glucose (74-99) mg/dL POC Glucose (mg/dL) 124 H (75-99) mg/dL Calcium (8.4-10.2) mg/dL Magnesium (1.6-2.3) mg/dL Lactate Dehydrogenase (313-618) U/L C-Reactive Protein (<1.0) mg/dL Procalcitonin 0.68 H (0.02-0.09) ng/mL Urine Protein (Negative) Urine Blood (Negative) Urine Bilirubin (Negative) Urine RBC (0-5) /hpf Urine Mucus (None) /hpf 07/16/21 07/16/21 07/16/21 Range/Units 12:19 16:34 20:07 WBC (3.8-10.6) k/uL Neutrophils # (1.3-7.7) k/uL Lymphocytes # (1.0-4.8) k/uL D-Dimer (<0.60) mg/L FEU ABG pH (7.35-7.45) ABG pCO2 (35-45) mmHg ABG pO2 (83-108) mmHg ABG Total CO2 (19-24) mmol/L ABG O2 Saturation (94-97) % Chloride (98-107) mmol/L BUN (9-20) mg/dL Glucose (74-99) mg/dL POC Glucose (mg/dL) 137 H 145 H 283 H (75-99) mg/dL Calcium (8.4-10.2) mg/dL Magnesium (1.6-2.3) mg/dL Lactate Dehydrogenase (313-618) U/L C-Reactive Protein (<1.0) mg/dL Procalcitonin (0.02-0.09) ng/mL Urine Protein (Negative) Urine Blood (Negative) Urine Bilirubin (Negative) Urine RBC (0-5) /hpf Urine Mucus (None) /hpf 07/17/21 07/17/21 07/17/21 Range/Units 00:53 01:32 02:35 WBC (3.8-10.6) k/uL Neutrophils # (1.3-7.7) k/uL Lymphocytes # (1.0-4.8) k/uL D-Dimer (<0.60) mg/L FEU ABG pH 7.49 H 7.33 L (7.35-7.45) ABG pCO2 32 L 47 H (35-45) mmHg ABG pO2 51 L* 79 L (83-108) mmHg ABG Total CO2 25 H 26 H (19-24) mmol/L ABG O2 Saturation 89.3 L (94-97) % Chloride (98-107) mmol/L BUN (9-20) mg/dL Glucose (74-99) mg/dL POC Glucose (mg/dL) 107 H (75-99) mg/dL Calcium (8.4-10.2) mg/dL Magnesium (1.6-2.3) mg/dL Lactate Dehydrogenase (313-618) U/L C-Reactive Protein (<1.0) mg/dL Procalcitonin (0.02-0.09) ng/mL Urine Protein (Negative) Urine Blood (Negative) Urine Bilirubin (Negative) Urine RBC (0-5) /hpf Urine Mucus (None) /hpf 07/17/21 07/17/21 07/17/21 Range/Units 04:10 04:10 04:10 WBC 19.0 H (3.8-10.6) k/uL Neutrophils # 18.0 H (1.3-7.7) k/uL Lymphocytes # 0.4 L (1.0-4.8) k/uL D-Dimer (<0.60) mg/L FEU ABG pH (7.35-7.45) ABG pCO2 (35-45) mmHg ABG pO2 (83-108) mmHg ABG Total CO2 (19-24) mmol/L ABG O2 Saturation (94-97) % Chloride 109 H (98-107) mmol/L BUN 22 H (9-20) mg/dL Glucose 102 H (74-99) mg/dL POC Glucose (mg/dL) (75-99) mg/dL Calcium 7.7 L (8.4-10.2) mg/dL Magnesium 2.7 H (1.6-2.3) mg/dL Lactate Dehydrogenase 2486 H (313-618) U/L C-Reactive Protein 24.8 H (<1.0) mg/dL Procalcitonin (0.02-0.09) ng/mL Urine Protein (Negative) Urine Blood (Negative) Urine Bilirubin (Negative) Urine RBC (0-5) /hpf Urine Mucus (None) /hpf 07/17/21 07/17/21 07/17/21 Range/Units 05:50 06:00 06:35 WBC (3.8-10.6) k/uL Neutrophils # (1.3-7.7) k/uL Lymphocytes # (1.0-4.8) k/uL D-Dimer 12.53 H (<0.60) mg/L FEU ABG pH (7.35-7.45) ABG pCO2 (35-45) mmHg ABG pO2 62 L (83-108) mmHg ABG Total CO2 25 H (19-24) mmol/L ABG O2 Saturation 92.2 L (94-97) % Chloride (98-107) mmol/L BUN (9-20) mg/dL Glucose (74-99) mg/dL POC Glucose (mg/dL) (75-99) mg/dL Calcium (8.4-10.2) mg/dL Magnesium (1.6-2.3) mg/dL Lactate Dehydrogenase (313-618) U/L C-Reactive Protein (<1.0) mg/dL Procalcitonin (0.02-0.09) ng/mL Urine Protein 1+ H (Negative) Urine Blood Small H (Negative) Urine Bilirubin 1+ H (Negative) Urine RBC 7 H (0-5) /hpf Urine Mucus Rare H (None) /hpf Microbiology - Last 24 Hours (Table) 07/17/21 04:34 Sputum Culture - Preliminary Sputum 07/12/21 20:50 Blood Culture - Preliminary Blood No Growth after 96 hours 07/12/21 20:22 Blood Culture - Preliminary Blood No Growth after 96 hours Assessment and Plan Assessment: Acute COVID-19 pneumonia. Patient has been having symptoms for the past 9 days. Patient is not vaccinated. Acute hypoxic respiratory failure secondary to COVID-19 pneumonia. Currently on BiPAP. Elevated inflammatory markers secondary to COVID-19 infection Hypertension Acute kidney injury with creatinine level 1.64 Hypovolemic hyponatremia Lactic acidosis on admission resolved now. Sinus tachycardia DVT prophylaxis Lovenox subcu Plan: Patient will be continued oxygen supplementation and is on BiPAP. Patients condition remains the same. Continue with dexamethasone 6 mg daily, Lovenox subcu and multivitamin supplementation. Patient was seen by pulmonary and is not a candidate for remdesivir at this time. Continue to follow closely. Prognosis is guarded at this time.
--- NOTE | 2021-07-18 17:44 | PN ---
PROGRESS NOTE DATE OF SERVICE: 07/18/2021 REASON FOR FOLLOWUP: COVID-19 pneumonia. INTERVAL HISTORY: The patient is afebrile, hemodynamically stable. FiO2 is currently 75%. No significant purulent secretions through the ET or diarrhea or any other changes reported by the nursing staff. PHYSICAL EXAMINATION: Blood pressure 105/54 with a pulse of 90, temperature 98. He is 92% on 55% FiO2. General description is a middle-aged male intubated on the vent. Respiratory system: Unlabored breathing, decreased intensity of breath sounds. No wheeze. Heart S1, S2. Regular rate and rhythm. Abdomen soft, no tenderness. LABS: Hemoglobin is 13.8, white count down to 13.2. Creatinine is 1.36. LDH is elevated as well as CRP. Sputum culture so far pending. Blood culture so far negative. DIAGNOSTIC IMPRESSION AND PLAN: Patient with acute respiratory failure which is multifactorial with an initial diagnosis of COVID-19 pneumonia with subsequent worsening, requiring intubation. Patient is currently broadly covered with dexamethasone, Lovenox, zinc along with empiric antibiotics. That will be continued while monitoring clinical course closely. Continue with supportive care. MMODL / IJN: [id number] /
[2021-07-18 17:47] LABS: Glucose,Whole Blood 295 mg/dL (75-99)
[2021-07-18] MEDS: HYDROmorphone 1 MG/ML 1 ML SYRINGE IVP PRN (17:55)
[2021-07-18] MEDS: INSULIN DETEMIR (LEVEMIR) 100 UNIT/ML SYR SQ SCH (20:56)
[2021-07-18 23:18] LABS: Glucose,Whole Blood 242 mg/dL (75-99)
[2021-07-18] MEDS: NOREPINEPHRINE 8 MG in SODIUM CHLORIDE 0.9% 250 ML IV SCH (23:41)
[2021-07-19] MEDS: HYDROmorphone 1 MG/ML 1 ML SYRINGE IVP PRN ×5 (01:23→21:39)
[2021-07-19] MEDS: PIPERACILLIN-TAZOBACTAM 3.375 GM in SODIUM CHLORIDE 0.9% 100 ML IVPB SCH ×3 (01:43→17:09)
[2021-07-19 04:29] LABS: Basophils % (A) 0 %; Eosinophils # (A) 0.1 k/uL (0-0.7); Eosinophils % (A) 1 %; HCT 38.6 % (39.0-53.0); HGB 12.5 gm/dL (13.0-17.5); Hypochromasia Slight; Lymphocytes # (A) 0.2 k/uL (1.0-4.8); Lymphocytes % (A) 2 %; MCHC 32.4 g/dL (31.0-37.0); MCV 95.7 fL (80.0-100.0); Mean Platelet Volume 8.4; Monocytes # (A) 0.4 k/uL (0-1.0); Monocytes % (A) 3 %; Neutrophils # (A) 14.7 k/uL (1.3-7.7); Neutrophils % (A) 95 %; Platelet Count 421 k/uL (150-450); Poikilocytosis Slight; RBC 4.03 m/uL (4.30-5.90); RDW 14.5 % (11.5-15.5); WBC 15.5 k/uL (3.8-10.6)
[2021-07-19 04:49] LABS: Albumin 2.3 g/dL (3.5-5.0); Calcium 7.2 mg/dL (8.4-10.2); Potassium 4.7 mmol/L (3.5-5.1); Total Protein 5.1 g/dL (6.3-8.2)
[2021-07-19 05:05] LABS: C Reactive Protein 16.6 mg/dL (<1.0)
[2021-07-19 05:57] LABS: ABG Base Excess -5.8 mmol/L; ABG HCO3 22 mmol/L (21-25); ABG Oxygen Saturation 90.9 % (94-97); ABG PCO2 54 mmHg (35-45); ABG PH 7.22 (7.35-7.45); ABG PO2 61 mmHg (83-108); ABG TCO2 24 mmol/L (19-24); Allen Test Performed? Yes
[2021-07-19 06:07] LABS: Glucose,Whole Blood 200 mg/dL (75-99)
[2021-07-19] MEDS: CISATRACURIUM 200 MG in SODIUM CHLORIDE 0.9% 180 ML IV SCH ×2 (06:07→10:16)
[2021-07-19] MEDS: INSULIN ASPART (NovoLOG) 100 UNIT/ML VIAL SQ SCH ×3 (06:09→18:24)
[2021-07-19] MEDS: SODIUM CHLORIDE 0.9% 1,000 ML IV SCH ×2 (06:32→10:17)
--- NOTE | 2021-07-19 06:45 | XR ---
EXAMINATION TYPE: XR chest 1V portable DATE OF EXAM: 07/19/2021 CLINICAL HISTORY: Difficulty breathing progress study. TECHNIQUE: Single AP portable semiupright view of the chest is obtained. COMPARISON: Chest x-ray from one day earlier and older studies. FINDINGS: Stable endotracheal and orogastric tubes. Stable left internal jugular central venous cath eter. Persistent bilateral multifocal reticulonodular increased opacities. Persistent small left pleural ef fusion. Cardiac silhouette size stable and within normal limits. Osseous structures are intact. IMPRESSION: Bilateral multifocal and confluent increased opacities consistent with covid-19 infection and/or ARDS are redemonstrated. Small left pleural effusion redemonstrated. No significant change fr om one day earlier.
[2021-07-19] MEDS: ALBUTEROL HFA INHALER INHALATION PRN ×2 (08:33→12:28)
[2021-07-19] MEDS ORDERED: ENOXAPARIN 40 MG/0.4 ML SYRINGE SQ SCH (09:00)
[2021-07-19] MEDS: CHOLECALCIFEROL 25 MCG (1000 IU) TABLET PO SCH (10:16)
[2021-07-19] MEDS: CHLORHEXIDINE GLUCONATE 15 ML CUP MUCOUS MEM SCH ×2 (10:16→20:43)
[2021-07-19] MEDS: ASCORBIC ACID 500 MG TAB PO SCH (10:16)
--- NOTE | 2021-07-19 10:16 | P.PN ---
Subjective Progress Note Date: 07/19/21 Principal diagnosis: Hypoxemic respiratory failure. Pulmonary consult dated 07/13/2021. This is a 66-year-old male, seen in the emergency room. He was initially seen by the emergency room crew, on July 12. He came in complaining of shortness of breath. He apparently had been short of breath for a couple of days, but on asking him further, he's been sick for 8 or 9 days. He complained of shortness of breath, cough, chest congestion, fatigue, and, tested positive for co ronavirus. The patient has not been vaccinated. Currently, he was on BiPAP with settings of 12/6, and an FiO2 of 80%. He was not receiving any IV fluids. He was a candidate for Decadron and Lovenox, and we were going to do Dopplers of the lower extremities. Apparently, has a history of hypertension. No history of tobacco use. White count 3.6, hemoglobin 14.4, hematocrit 41.2, and platelet count 203,000. PT INR normal. PTT 24.1. D-dimer was 0.85. Sodium 135, potassium 4, chlorides 100, CO2 26, anion gap 9, BUN 40, creatinine 1.71. Lactic acid level is 1.3 down from 3.1. Ferritin was 5089, troponin was normal. LDH 1746, and pro-calcitonin level was 1.04. Chest x-ray showed diffuse bilateral infiltrates. Dopplers of the lower extremities were negative for DVT. Progress note dated 07/14/2021. This is a 66-year-old gentleman that we saw yesterday in the emergency department. He initially presented to the ER, on July 12. He came in complaining of profound shortness of breath. He been sick for at least 8 or 9 days prior to presenting to the emergency department. He also had cough, chest congestion, fatigue, and did test positive for coronavirus. The patient has not been vaccinated. The patient was admitted to the floor, and is currently on BiPAP, with settings of 12/6 and 70%. He is getting saline IV, at 50 mL an hour. The patient appears to be a bit less uncomfortable today as he was yesterday in the emergency department. White count 14.9, hemoglobin 15.6, hematocrit 44.9, platelet count 285,000. Sodium 138, potassium 4.2, chlorides 103, CO2 25, anion gap 10, BUN 48, and creatinine 1.50. C-reactive protein is 5. LDH is 2047. Blood cultures are negative. Chest x-ray from today shows some improvement in aeration. Progress note dated 07/15/2021. 66-year-old male, seen in the emergency department, a couple days ago. The patient presented to the emergency room on July 12. He came in complaining of shortness of breath. He been sick for about 9 or 10 days prior to his visit in the emergency department. He complained of cough, chest congestion, fatigue, shortness of breath, and he did test positive for coronavirus. Currently, he's on BiPAP with settings of IPAP 12, EPAP 6, and 70%. The patient is also getting saline at 75 mL an hour. The nurse tells me, that the patient did spend some time on 15 L high flow nasal O2, as well as a nonrebreather mask. He apparently became anxious, and wanted to be back on the BiPAP. Laboratory data includes a white count 11.6, hemoglobin 14.5, hematocrit 42.2, and a platelet count 335,000. Sodium 139, potassium 4.5, chlorides 105, CO2 28, anion gap 6, BUN 36, creatinine 1.15. Calcium 8.1. LDH was 1658. C-reactive protein is 5.8. Blood cultures are negative. Chest x-ray from July 14 is reviewed. Progress note dated 07/16/2021. 66-year-old male, again seen in room 359. The patient is currently getting saline at 75 mL an hour. He remains on BiPAP with settings of IPAP 12, EPAP 6, and 85%. The patient states that he's feeling about the same. He is not any better, nor is any worse. He does feel quite weak. He is very fatigued. He does complain of cough and shortness of breath, especially when he gets up to go the bathroom. Labs today include a sodium 140, potassium 4.2, chlorides 107, CO2 25, anion gap 8, BUN 25, and creatinine 1.08. Calcium 8.1 phosphorus 1.5 C- reactive protein is 6.6. No new chest x-ray to evaluate. Today on 07/17/2021 patient is seen in intensive care unit, early this morning at 12:30 a.m. patient had rapid response team called to his bedside for concern of worsening hypoxia, anxiety, tachypnea, tachycardia. Blood pressure was stab le, patient was tachycardic, she was given some Xanax, he was already on BiPAP support he was given a dose of Ativan. BiPAP settings were adjusted from 06/15- and oxygen was increased from 85% to 100%, however his oxygenation in dyspnea did not stabilize and patient ultimately required intubation and placement on mechanical ventilator. He is currently on assist control mode of ventilation with a rate of 28, Tylenol level was 450, FiO2 of 100% and PEEP of 10. This morning's blood gas shows pO2 of 62, pCO2 42, and pH of 7.37. His O2 saturations are at around 90%, patient is sedated, and paralyzed, he is currently on Diprivan and 75 mics per kilo per minute, and Nimbex is at 1 wilmer per kilo per minute, 0.9 normal saline at a rate of 75 ML per hour. His chest x-ray is showing pulmonary interstitial diffuse edema. And ET tube 3.5 cm from the miles. Nasogastric tube has been inserted and is in proper position. Today's labs have been reviewed, his d-dimer is elevated at 12.53, and his Lovenox dose was adjusted and increased to 90 mg twice daily, white blood cell count is 19, hemoglobin is 14, sodium is 138, potassium is 4.5, chloride is 109, CO2 is 22, BUN is 22, creatinine is 1.02, LDH is 2486 which is increased from previous at 1658, and CRP has increased to 24.8 from 6.6, progesterone level was borderline at 0.68, urinalysis showed no clear evidence of infection however overnight patient was running fevers as high as 101.7F, currently in sinus mechanism, tachycardic with a rate of 124 BPM, currently hypertensive, will be started on Cleviprex. Urine output is in the order of 50-75 ML per hour. 2 feedings have not been started yet, dietary has been consulted for her to feeding recommendation, patient was properly sedated and paralyzed, and PEEP will be increased to 15, and left IJ central venous catheter has been inserted, patient has arterial line in his wrist. Patient is on Decadron 6 mg daily, he is on multivitamins. Progress note dated 07/18/2021. 66-year-old male, who is again seen in the intensive care unit, room 264. The patient remains on the mechanical ventilator. He is on the volume assist control mode, rate 28, tidal volume 450, FiO2 75%, PEEP of 15. Blood gases show pO2 of 69, pCO2 60, pH is 7.18. The rate will be increased to 32. The patient's getting saline at 75 mL an hour, Nimbex at 1 mcg/kg/m, propofol at 70 mcg/kg/m, and vital high protein at 30 mL an hour, which is goal. The patient will have labs and x-rays and a blood gas ordered for tomorrow, and we'll also received Lasix 40 mg IV push today. White count 13.2, hemoglobin 13.4, hematocrit 40.3, and platelet count is 341,000. Sodium 137, potassium 5.4, chlorides 110, CO2 20, anion gap 7, BUN 32, with a creatinine of 1.36. LDH is 2034 C-reactive protein is 42.3. Microbiology is currently on negative. Chest x-ray shows diffuse bilateral infiltrates. Progress note dated 07/19/2021. 66-year-old male, again seen in room 264. The patient has been in the hospital now for 7 days. He remains on the volume assist control mode, rate 32, tidal volume 450, FiO2 75%, and PEEP of 15. Blood gases show pO2 61, pCO2 of 54, and pH is 7.22. The patient's PEEP will be increased to 20, and we will attempt to wean the FiO2. The patient remains on Nimbex at 1 mcg/kg/m, propofol at 70 mcg/kg/m, saline at 75 mL an hour, and vital high protein at 30 mL an hour, whic h is his goal. White count 15.5, hemoglobin 12.5, hematocrit 38.6, platelet count 421,000. Sodium 137, potassium 4.7, chlorides 111, CO2 21, anion gap is 5, BUN is 56, with creatinine of 1.97. LDH is 1701, and C-reactive protein is 16.6. Albumin is 2.3. Chest x-ray shows diffuse bilateral infiltrates, largely unchanged. Objective - Vital Signs Vital signs: Vital Signs Temp 98.9 F 07/18/21 12:00 Pulse 102 H 07/19/21 07:00 Resp 32 H 07/19/21 07:00 BP 115/63 07/19/21 07:00 Pulse Ox 89 L 07/19/21 07:00 Intake & Output 07/18/21 07/19/21 07/19/21 18:59 06:59 18:59 Intake Total 2078.783 1601.557 211 Output Total 1120 685 65 Balance 958.783 916.557 146 Weight 92.1 kg Intake: IV 1072 972 81 0.9% @ 75mL/hr 900 900 75 Piperacillin-Tazobactam 3 100 .375 gm In Sodium Chloride 0.9% 100 ml @ 25 mls/hr IVPB Q8H RED Rx#: [id number] Pressure Bag 72 72 6 Intake, IV Titration 566.783 209.557 100 Amount Cisatracurium 200 mg In 145.71 Sodium Chloride 0.9% 180 ml @ 1 MCG/KG/MIN 5.4 mls /hr IV .Q24H RED Rx#: [id number] Norepinephrine 8 mg In 21.073 21.014 Sodium Chloride 0.9% 250 ml @ 0.05 MCG/KG/MIN 8. 708 mls/hr IV .Q24H RED Rx#:[id number] propofoL 1,000 mg In 400 188.543 100 Empty Bag 1 bag @ Titrate IV .Q0M RED Rx#: [id number] Tube Feeding 350 330 30 Other 90 90 Output: Urine 1120 685 65 Other: Voiding Method Indwelling Catheter Indwelling Catheter ABP, PAP, CO, CI - Last Documented Arterial Blood Pressure 128/54 - Exam Sedated and paralyzed, with an orally placed endotracheal tube and NG tube. Saturations are 90%. HEENT examination is grossly unremarkable. Neck supple. Full range of motion. No adenopathy thyromegaly or neck vein dist ention. Cardiovascular examination reveals regular rhythm rate. S1-S2 normal. No S3 or S4. No discernible murmur noted. Heart sounds are distant. Heart rate 102 bpm. Lungs reveal diffuse bilateral rhonchi. No wheezes. No crackles. Breath sounds equal bilaterally. Saturations are 90 %. Abdomen soft bowel sounds are heard. No masses or tenderness. Extremities are intact. No cyanosis clubbing or edema. Skin is pale, without rash or lesion. Neurologic examination cannot be assessed as the patient's currently sedated and paralyzed. - Labs CBC & Chem 7: 07/19/21 04:20 07/19/21 04:20 Labs: Abnormal Lab Results - Last 24 Hours (Table) 07/18/21 07/18/21 07/18/21 Range/Units 11:54 17:45 23:15 WBC (3.8-10.6) k/uL RBC (4.30-5.90) m/uL Hgb (13.0-17.5) gm/dL Hct (39.0-53.0) % Neutrophils # (1.3-7.7) k/uL Lymphocytes # (1.0-4.8) k/uL ABG pH (7.35-7.45) ABG pCO2 (35-45) mmHg ABG pO2 (83-108) mmHg ABG O2 Saturation (94-97) % Chloride (98-107) mmol/L Carbon Dioxide (22-30) mmol/L BUN (9-20) mg/dL Creatinine (0.66-1.25) mg/dL Glucose (74-99) mg/dL POC Glucose (mg/dL) 259 H 295 H 242 H (75-99) mg/dL Calcium (8.4-10.2) mg/dL Total Bilirubin (0.2-1.3) mg/dL Lactate Dehydrogenase (313-618) U/L C-Reactive Protein (<1.0) mg/dL Total Protein (6.3-8.2) g/dL Albumin (3.5-5.0) g/dL 07/19/21 07/19/21 07/19/21 Range/Units 04:20 04:20 05:53 WBC 15.5 H (3.8-10.6) k/uL RBC 4.03 L (4.30-5.90) m/uL Hgb 12.5 L (13.0-17.5) gm/dL Hct 38.6 L (39.0-53.0) % Neutrophils # 14.7 H (1.3-7.7) k/uL Lymphocytes # 0.2 L (1.0-4.8) k/uL ABG pH 7.22 L (7.35-7.45) ABG pCO2 54 H (35-45) mmHg ABG pO2 61 L (83-108) mmHg ABG O2 Saturation 90.9 L (94-97) % Chloride 111 H (98-107) mmol/L Carbon Dioxide 21 L (22-30) mmol/L BUN 56 H (9-20) mg/dL Creatinine 1.97 H (0.66-1.25) mg/dL Glucose 203 H (74-99) mg/dL POC Glucose (mg/dL) (75-99) mg/dL Calcium 7.2 L (8.4-10.2) mg/dL Total Bilirubin 3.0 H (0.2-1.3) mg/dL Lactate Dehydrogenase 1701 H (313-618) U/L C-Reactive Protein 16.6 H (<1.0) mg/dL Total Protein 5.1 L (6.3-8.2) g/dL Albumin 2.3 L (3.5-5.0) g/dL 07/19/21 Range/Units 06:05 WBC (3.8-10.6) k/uL RBC (4.30-5.90) m/uL Hgb (13.0-17.5) gm/dL Hct (39.0-53.0) % Neutrophils # (1.3-7.7) k/uL Lymphocytes # (1.0-4.8) k/uL ABG pH (7.35-7.45) ABG pCO2 (35-45) mmHg ABG pO2 (83-108) mmHg ABG O2 Saturation (94-97) % Chloride (98-107) mmol/L Carbon Dioxide (22-30) mmol/L BUN (9-20) mg/dL Creatinine (0.66-1.25) mg/dL Glucose (74-99) mg/dL POC Glucose (mg/dL) 200 H (75-99) mg/dL Calcium (8.4-10.2) mg/dL Total Bilirubin (0.2-1.3) mg/dL Lactate Dehydrogenase (313-618) U/L C-Reactive Protein (<1.0) mg/dL Total Protein (6.3-8.2) g/dL Albumin (3.5-5.0) g/dL Microbiology - Last 24 Hours (Table) 07/12/21 20:50 Blood Culture - Final Blood No Growth after 144 hours 07/12/21 20:22 Blood Culture - Final Blood No Growth after 144 hours 07/17/21 15:35 Blood Culture - Preliminary Blood No Growth after 24 hours 07/17/21 13:40 Blood Culture - Preliminary Blood No Growth after 24 hours Assessment and Plan Assessment: Acute hypoxemic respiratory failure secondary to coronavirus associated pneumonia, S/P intubation and mechanical ventilation on 07/17/2021. No evidence of pulmonary embolism on CT angiogram. History of benign essential hypertension. Elevated inflammatory marker secondary to coronavirus infection. No evidence of DVT in the lower extremities. Plan: Plan dated 07/13/2021. The patient is seen in the emergency department. The patient is currently in trauma room 2. The patient did test positive for coronavirus in-house coronavir us associated pneumonia, with hypoxemic respiratory failure. The patient's currently on BiPAP therapy. The patient has a candidate for vitamin C, vitamin D3, and zinc, as well as 6 mg of Decadron, and 40 mg subcu of Lovenox. The patient is not a candidate for REM. In addition, the patient would not satisfy criteria for KRISTOPHER, because of pro-calcitonin level is elevated. Dopplers of the lower extremities were negative for DVT. Additional recommendations and suggestions are forthcoming. Prognosis is guarded. The patient's only medical history is that of hypertension. We will continue to follow and make recommendations where appropriate. Plan dated 07/14/2021. The patient is currently on albuterol inhaler, vitamin C, vitamin D3, zinc, Decadron, and Lovenox. The patient was not thought to be a candidate for REM, and wasn't quite sick enough to receive KRISTOPHER. We will continue to follow make recommendations where appropriate. Overall prognosis remains very guarded. The patient's FiO2 was turned down from the 100% to 70%. His saturations are improved, and clinically, and radiographically, the patient appears to be a bit better. Plan dated 07/15/2021. The patient remains on BiPAP, settings of 12/6 and 70%. The patient is getting saline at 75 mL an hour. The patient was also able to come off the BiPAP, and tolerate high flow O2 as well as a nonrebreather mask. Labs, x-rays, and medications are all reviewed. The patient remains on Decadron, Lovenox, vitamin C, vitamin D3, and zinc. No antibiotics at this time. The patient also has an albuterol inhaler. We will continue to follow and make recommendations where appropriate. Prognosis is guarded. Plan dated 07/16/2021. The patient remains on BiPAP. We will repeat a D-dimer test. In addition, we will get a pro-calcitonin level again. Also, will order a chest x-ray for tomorrow. Overall prognosis remains guarded. Labs, x-rays, and medications are all reviewed. The patient remains on appropriate medications including Decadron, Lovenox, and vitamin C, D3, and zinc. We will continue to follow and make recommendations where appropriate. Overall prognosis remains guarded. The patient's about the same today as he was yesterday. Plan dated 07/18/2021. The patient's rate on the ventilator is increased from 28 breaths minute up to 32 breaths per minute. That should improve the CO2 and the pH a bit. The patient will get Lasix 40 mg IV push. The patient will get a CBC, a significant metabolic profile, blood gas, and chest x-ray tomorrow morning. Dopplers of the lower extremities were negative for DVT. In addition, CT angiogram was negative for pulmonary embolism. The patient is currently on Decadron, Lovenox, and vitamins. In addition, the patient's on antibiotic because of an elevated pro calcitonin level. If cultures remain negative, antibiotics can be discontinued or de-escalated. We will continue to follow and make recommendations where appropriate. Prognosis is guarded. Plan dated 07/19/2021. The patient is again seen today, in room 264. The patient remains on mechanical ventilator. We will increase his PEEP up to 20 cm water, and try to wean down his FiO2. The patient remains paralyzed and sedated. He is receiving vital high protein. We will make sure that we have labs, x-rays, and a blood gas in the morning. CT angiogram was negative for pulmonary embolism. Additional recommendations and suggestions are forthcoming. Prognosis is guarded. His pro-calcitonin level is 3.34. He remains on Zosyn. Culture data including blood urine and sputum, are all negative. We will continue to follow and make recommendations where appropriate. Prognosis is guarded. Time with Patient: Greater than 30
[2021-07-19] MEDS: PANTOPRAZOLE 40 MG/10 ML VIAL IVP SCH (10:17)
[2021-07-19] MEDS: DEXAMETHASONE SOD PHOSPHATE 10 MG/ML 1 ML VIAL IVP SCH (10:17)
[2021-07-19] MEDS: ZINC SULFATE 220 MG CAP PO SCH (10:18)
[2021-07-19 11:32] LABS: Glucose,Whole Blood 181 mg/dL (75-99)
[2021-07-19] MEDS: NOREPINEPHRINE 8 MG in SODIUM CHLORIDE 0.9% 250 ML IV SCH (14:26)
--- NOTE | 2021-07-19 16:41 | P.PN ---
Subjective Progress Note Date: 07/18/21 Principal diagnosis: Ventilator dependent acute hypoxemic respiratory failure COVID-19 viral pneumonia Elevated inflammatory markers secondary to COVID-19 infection Acute kidney injury with creatinine level 1.64 Hypovolemic hyponatremia 66-year-old male with a known history of hypertension presents to ER with complaints of worsening shortness of breath. COVID-19 symptoms for the past 9 days. Patient has been having extremely fatigue and has been sleeping a lot. Does have nausea no episodes of vomiting. No diarrhea. Does have cough and congestion. No complaints of chest pain. No abdominal pain. No headache or dizziness or lightheadedness. Patient was tested positive for COVID-19 infection. On admission patient has been afebrile. Pulses 128 respiration 18 and pulse ox 79% on room air. Patient was placed on BiPAP in the ER. Chest x-ray showed interstitial pulmonary infiltrates are nonspecific and could relate to acute on chronic interstitial pneumonia. EKG showed sinus tachycardia. Venous Doppler showed no evidence of DVT. Laboratory showed WBC 9.2 hemoglobin 16.6 and platelets 248 lymphocytes 0.7 D- dimer is 0.85 Sodium 131 potassium 3.7 chloride 96 bicarb is 21 BUN 35 and creatinine 1.64 blood sugar is 181 Lactic acid 3.1 Ferritin 5089 total bili 1.8 AST 87 ALT 31 alk phos 72 LDH 1746 troponin x1 - and procalcitonin level is 1.04 07/17/2021 Patient evaluated in ICU and is currently intubated and mechanically ventilated Patient declined yesterday becoming more hypoxic on BiPAP, settings were changed from 20/6-40/8; with FiO2 escalated from 85% up to 100%; however patient continued to desaturate and was intubated around 2:30 AM Vital signs reveal temperature of 101.7 pulse 124, respiration 28 and blood pressure of 105/71 Labs review reveal WBC of 19, hemoglobin of 14, sodium 138, potassium 4.5, chloride 109, CO2 of 22 and BUN of 22 with creatinine 1.02; LDH at 2486 and CRP of 24.8 Critical care service recommending to continue with ventilation; CTA chest is recommended due to elevated d-dimer; patient will require premedication with IV Solu-Medrol, Pepcid and Benadryl; patient remains on Decadron; Lovenox has been increased to therapeutic dose; patient has been placed on IV Zosyn 07/18/2021 Patient is evaluated and seen in the ICU; remains on the mechanical ventilator. Blood gases show pO2 of 69, pCO2 60, pH is 7.18. The rate will be increased to 32. The patient's getting saline at 75 mL an hour, Nimbex, propofol, and vital high protein at 30 mL an hour, which is goal. Laboratory review shows White count 13.2, hemoglobin 13.4, hematocrit 40.3, and platelet count is 341,000. Sodium 137, potassium 5.4, chlorides 110, CO2 20, anion gap 7, BUN 32, with a creatinine of 1.36. LDH is 2035 C-reactive protein is 42.3. Microbiology is currently on negative. Chest x-ray shows diffuse bilateral infiltrates. Dopplers of the lower extremities were negative for DVT. In addition, CT angiogram was negative for pulmonary embolism. Patient remains on Decadron, Lovenox, and vitamins. In addition, the patient's on antibiotic because of an elevated pro calcitonin level. If cultures remain negative, antibiotics can be discontinued or de-escalated. Objective - Vital Signs Vital signs: Vital Signs Temp 98.9 F 07/18/21 12:00 Pulse 96 07/18/21 14:00 Resp 32 H 07/18/21 14:00 BP 101/63 07/18/21 07:00 Pulse Ox 93 L 07/18/21 14:00 Intake & Output 07/17/21 07/18/21 07/18/21 18:59 06:59 18:59 Intake Total 6810.828 0353.397 1289.051 Output Total 425 770 735 Balance 916.914 1674.397 554.051 Weight 90 kg 91 kg Intake: IV 652 1381 648 0.9% @ 75mL/hr 525 1200 600 Piperacillin-Tazobactam 3 100 100 .375 gm In Sodium Chloride 0.9% 100 ml @ 25 mls/hr IVPB Q8H RED Rx#: [id number] Pressure Bag 27 81 48 Intake, IV Titration 398.397 473.397 351.051 Amount Cisatracurium 200 mg In 145.71 Sodium Chloride 0.9% 180 ml @ 1 MCG/KG/MIN 5.4 mls /hr IV .Q24H RED Rx#: [id number] Norepinephrine 8 mg In 3.222 77.647 5.341 Sodium Chloride 0.9% 250 ml @ 0.05 MCG/KG/MIN 8. 708 mls/hr IV .Q24H RED Rx#:[id number] propofoL 1,000 mg In 395.175 395.750 200 Empty Bag 1 bag @ Titrate IV .Q0M RED Rx#: [id number] Tube Feeding 250 230 Other 120 60 Output: Urine 425 770 735 Other: Voiding Method Indwelling Catheter Indwelling Catheter Indwelling Catheter ABP, PAP, CO, CI - Last Documented Arterial Blood Pressure 110/56 - Exam GENERAL EXAM: 66-year-old white male, intubated, sedated and paralyzed, on assist-control mode of ventilation with a rate of 20, tidal was 450, FiO2 of 100% and PEEP of 10 comfortable in no apparent distress. HEAD: Normocephalic/atraumatic. EYES: Normal reaction of pupils, equal size. Conjunctiva pink, sclera white. NOSE: Clear with pink turbinates. THROAT: No erythema or exudates. NECK: No masses, no JVD, no thyroid enlargement, no adenopathy. CHEST: No chest wall deformity. Symmetrical expansion. LUNGS: Equal air entry with bibasilar crackles CVS: Regular rate and rhythm, normal S1 and S2, no gallops, no murmurs, no rubs ABDOMEN: Soft, nontender. No hepatosplenomegaly, normal bowel sounds, no guardi ng or rigidity. EXTREMITIES: No clubbing, no edema, no cyanosis, 2+ pulses and upper and lower extremities. - Labs CBC & Chem 7: 07/19/21 04:20 07/19/21 04:20 Labs: Abnormal Lab Results - Last 24 Hours (Table) 07/17/21 07/17/21 07/17/21 Range/Units 04:10 10:55 18:42 WBC (3.8-10.6) k/uL RBC (4.30-5.90) m/uL Neutrophils # (1.3-7.7) k/uL Lymphocytes # (1.0-4.8) k/uL ABG pH (7.35-7.45) ABG pCO2 (35-45) mmHg ABG pO2 (83-108) mmHg Potassium (3.5-5.1) mmol/L Chloride (98-107) mmol/L Carbon Dioxide (22-30) mmol/L BUN (9-20) mg/dL Creatinine (0.66-1.25) mg/dL Glucose (74-99) mg/dL POC Glucose (mg/dL) 204 H (75-99) mg/dL Calcium (8.4-10.2) mg/dL Total Bilirubin (0.2-1.3) mg/dL Lactate Dehydrogenase (313-618) U/L C-Reactive Protein (<1.0) mg/dL Total Protein (6.3-8.2) g/dL Albumin (3.5-5.0) g/dL Procalcitonin 3.34 H (0.02-0.09) ng/mL Urine Protein 1+ H (Negative) Urine Blood Trace H (Negative) Urine Bilirubin 1+ H (Negative) Amorphous Sediment Few H (None) /hpf Urine Bacteria Few H (None) /hpf Urine Mucus Rare H (None) /hpf 07/17/21 07/18/21 07/18/21 Range/Units 23:29 04:50 04:50 WBC 13.2 H (3.8-10.6) k/uL RBC 4.19 L (4.30-5.90) m/uL Neutrophils # 12.5 H (1.3-7.7) k/uL Lymphocytes # 0.3 L (1.0-4.8) k/uL ABG pH (7.35-7.45) ABG pCO2 (35-45) mmHg ABG pO2 (83-108) mmHg Potassium 5.4 H (3.5-5.1) mmol/L Chloride 110 H (98-107) mmol/L Carbon Dioxide 20 L (22-30) mmol/L BUN 32 H (9-20) mg/dL Creatinine 1.36 H (0.66-1.25) mg/dL Glucose 244 H (74-99) mg/dL POC Glucose (mg/dL) 223 H (75-99) mg/dL Calcium 7.1 L (8.4-10.2) mg/dL Total Bilirubin 3.1 H (0.2-1.3) mg/dL Lactate Dehydrogenase 2035 H (313-618) U/L C-Reactive Protein 42.3 H (<1.0) mg/dL Total Protein 5.3 L (6.3-8.2) g/dL Albumin 2.5 L (3.5-5.0) g/dL Procalcitonin (0.02-0.09) ng/mL Urine Protein (Negative) Urine Blood (Negative) Urine Bilirubin (Negative) Amorphous Sediment (None) /hpf Urine Bacteria (None) /hpf Urine Mucus (None) /hpf 07/18/21 07/18/21 07/18/21 Range/Units 05:41 05:46 11:54 WBC (3.8-10.6) k/uL RBC (4.30-5.90) m/uL Neutrophils # (1.3-7.7) k/uL Lymphocytes # (1.0-4.8) k/uL ABG pH 7.18 L* (7.35-7.45) ABG pCO2 60 H (35-45) mmHg ABG pO2 69 L (83-108) mmHg Potassium (3.5-5.1) mmol/L Chloride (98-107) mmol/L Carbon Dioxide (22-30) mmol/L BUN (9-20) mg/dL Creatinine (0.66-1.25) mg/dL Glucose (74-99) mg/dL POC Glucose (mg/dL) 246 H 259 H (75-99) mg/dL Calcium (8.4-10.2) mg/dL Total Bilirubin (0.2-1.3) mg/dL Lactate Dehydrogenase (313-618) U/L C-Reactive Protein (<1.0) mg/dL Total Protein (6.3-8.2) g/dL Albumin (3.5-5.0) g/dL Procalcitonin (0.02-0.09) ng/mL Urine Protein (Negative) Urine Blood (Negative) Urine Bilirubin (Negative) Amorphous Sediment (None) /hpf Urine Bacteria (None) /hpf Urine Mucus (None) /hpf Microbiology - Last 24 Hours (Table) 07/17/21 04:34 Gram Stain - Preliminary Sputum Sputum Culture - Preliminary 07/12/21 20:50 Blood Culture - Preliminary Blood No Growth after 120 hours 07/12/21 20:22 Blood Culture - Preliminary Blood No Growth after 120 hours Assessment and Plan Assessment: Acute COVID-19 pneumonia. Patient has been having symptoms for the past 9 days. Patient is not vaccinated. Acute hypoxic respiratory failure secondary to COVID-19 pneumonia. Currently on BiPAP. Elevated inflammatory markers secondary to COVID-19 infection Hypertension Acute kidney injury with creatinine level 1.64 Hypovolemic hyponatremia Lactic acidosis on admission resolved now. Sinus tachycardia DVT prophylaxis Lovenox subcu Plan: Patient will be continued oxygen supplementation and is on BiPAP. Patients condition remains the same. Continue with dexamethasone 6 mg daily, Lovenox subcu and multivitamin supplementation. Patient was seen by pulmonary and is not a candidate for remdesivir at this time. Continue to follow closely. Prognosis is guarded at this time.
--- NOTE | 2021-07-19 16:45 | P.PN ---
Subjective Progress Note Date: 07/19/21 Principal diagnosis: Ventilator dependent acute hypoxemic respiratory failure COVID-19 viral pneumonia Elevated inflammatory markers secondary to COVID-19 infection Acute kidney injury with creatinine level 1.64 Hypovolemic hyponatremia 66-year-old male with a known history of hypertension presents to ER with complaints of worsening shortness of breath. COVID-19 symptoms for the past 9 days. Patient has been having extremely fatigue and has been sleeping a lot. Does have nausea no episodes of vomiting. No diarrhea. Does have cough and congestion. No complaints of chest pain. No abdominal pain. No headache or dizziness or lightheadedness. Patient was tested positive for COVID-19 infection. On admission patient has been afebrile. Pulses 128 respiration 18 and pulse ox 79% on room air. Patient was placed on BiPAP in the ER. Chest x-ray showed interstitial pulmonary infiltrates are nonspecific and could relate to acute on chronic interstitial pneumonia. EKG showed sinus tachycardia. Venous Doppler showed no evidence of DVT. Laboratory showed WBC 9.2 hemoglobin 16.6 and platelets 248 lymphocytes 0.7 D- dimer is 0.85 Sodium 131 potassium 3.7 chloride 96 bicarb is 21 BUN 35 and creatinine 1.64 blood sugar is 181 Lactic acid 3.1 Ferritin 5089 total bili 1.8 AST 87 ALT 31 alk phos 72 LDH 1746 troponin x1 - and procalcitonin level is 1.04 07/17/2021 Patient evaluated in ICU and is currently intubated and mechanically ventilated Patient declined yesterday becoming more hypoxic on BiPAP, settings were changed from 20/6-40/8; with FiO2 escalated from 85% up to 100%; however patient continued to desaturate and was intubated around 2:30 AM Vital signs reveal temperature of 101.7 pulse 124, respiration 28 and blood pressure of 105/71 Labs review reveal WBC of 19, hemoglobin of 14, sodium 138, potassium 4.5, chloride 109, CO2 of 22 and BUN of 22 with creatinine 1.02; LDH at 2486 and CRP of 24.8 Critical care service recommending to continue with ventilation; CTA chest is recommended due to elevated d-dimer; patient will require premedication with IV Solu-Medrol, Pepcid and Benadryl; patient remains on Decadron; Lovenox has been increased to therapeutic dose; patient has been placed on IV Zosyn 07/18/2021 Patient is evaluated and seen in the ICU; remains on the mechanical ventilator. Blood gases show pO2 of 69, pCO2 60, pH is 7.18. The rate will be increased to 32. The patient's getting saline at 75 mL an hour, Nimbex, propofol, and vital high protein at 30 mL an hour, which is goal. Laboratory review shows White count 13.2, hemoglobin 13.4, hematocrit 40.3, and platelet count is 341,000. Sodium 137, potassium 5.4, chlorides 110, CO2 20, anion gap 7, BUN 32, with a creatinine of 1.36. LDH is 2035 C-reactive protein is 42.3. Microbiology is currently on negative. Chest x-ray shows diffuse bilateral infiltrates. Dopplers of the lower extremities were negative for DVT. In addition, CT angiogram was negative for pulmonary embolism. Patient remains on Decadron, Lovenox, and vitamins. In addition, the patient's on antibiotic because of an elevated pro calcitonin level. If cultures remain negative, antibiotics can be discontinued or de-escalated. 07/19/2021 Patient is seen and evaluated in room at bedside; remains in ICU; He remains ventilated Blood gases show pO2 61, pCO2 of 54, and pH is 7.22. The patient's PEEP was increased to 20, and we will attempt to wean the FiO2. The patient's getting saline at 75 mL an hour, Nimbex, propofol, and vital high protein at 30 mL an hour, which is goal. Lab review shows White count 15.5, hemoglobin 12.5, hematocrit 38.6, platelet count 421,000. Sodium 137, potassium 4.7, chlorides 111, CO2 21, anion gap is 5, BUN is 56, with creatinine of 1.97. LDH is 1701, and C-reactive protein is 16.6. Albumin is 2.3. Chest x-ray shows diffuse bilateral infiltrates, largely unchanged. Objective - Vital Signs Vital signs: Vital Signs Temp 99.3 F 07/19/21 12:00 Pulse 114 H 07/19/21 12:00 Resp 32 H 07/19/21 12:00 BP 121/67 07/19/21 12:00 Pulse Ox 90 L 07/19/21 12:00 Intake & Output 07/18/21 07/19/21 07/19/21 18:59 06:59 18:59 Intake Total 2078.783 1601.557 448.7 Output Total 1120 685 65 Balance 958.783 916.557 383.7 Weight 92.1 kg Intake: IV 1072 972 81 0.9% @ 75mL/hr 900 900 75 Piperacillin-Tazobactam 3 100 .375 gm In Sodium Chloride 0.9% 100 ml @ 25 mls/hr IVPB Q8H RED Rx#: [id number] Pressure Bag 72 72 6 Intake, IV Titration 566.783 209.557 337.7 Amount Cisatracurium 200 mg In 145.71 137.7 Sodium Chloride 0.9% 180 ml @ 1 MCG/KG/MIN 5.4 mls /hr IV .Q24H RED Rx#: [id number] Norepinephrine 8 mg In 21.073 21.014 Sodium Chloride 0.9% 250 ml @ 0.05 MCG/KG/MIN 8. 708 mls/hr IV .Q24H RED Rx#:[id number] propofoL 1,000 mg In 400 188.543 200 Empty Bag 1 bag @ Titrate IV .Q0M RED Rx#: [id number] Tube Feeding 350 330 30 Other 90 90 Output: Urine 1120 685 65 Other: Voiding Method Indwelling Catheter Indwelling Catheter ABP, PAP, CO, CI - Last Documented Arterial Blood Pressure 122/64 - Exam GENERAL EXAM: 66-year-old white male, intubated, sedated and paralyzed, on assist-control mode of ventilation with a rate of 20, tidal was 450, FiO2 of 100% and PEEP of 10 comfortable in no apparent distress. HEAD: Normocephalic/atraumatic. EYES: Normal reaction of pupils, equal size. Conjunctiva pink, sclera white. NOSE: Clear with pink turbinates. THROAT: No erythema or exudates. NECK: No masses, no JVD, no thyroid enlargement, no adenopathy. CHEST: No chest wall deformity. Symmetrical expansion. LUNGS: Equal air entry with bibasilar crackles CVS: Regular rate and rhythm, normal S1 and S2, no gallops, no murmurs, no rubs ABDOMEN: Soft, nontender. No hepatosplenomegaly, normal bowel sounds, no guarding or rigidity. EXTREMITIES: No clubbing, no edema, no cyanosis, 2+ pulses and upper and lower extremities. - Labs CBC & Chem 7: 07/19/21 04:20 07/19/21 04:20 Labs: Abnormal Lab Results - Last 24 Hours (Table) 07/18/21 07/18/21 07/19/21 Range/Units 17:45 23:15 04:20 WBC (3.8-10.6) k/uL RBC (4.30-5.90) m/uL Hgb (13.0-17.5) gm/dL Hct (39.0-53.0) % Neutrophils # (1.3-7.7) k/uL Lymphocytes # (1.0-4.8) k/uL ABG pH (7.35-7.45) ABG pCO2 (35-45) mmHg ABG pO2 (83-108) mmHg ABG O2 Saturation (94-97) % Chloride 111 H (98-107) mmol/L Carbon Dioxide 21 L (22-30) mmol/L BUN 56 H (9-20) mg/dL Creatinine 1.97 H (0.66-1.25) mg/dL Glucose 203 H (74-99) mg/dL POC Glucose (mg/dL) 295 H 242 H (75-99) mg/dL Calcium 7.2 L (8.4-10.2) mg/dL Total Bilirubin 3.0 H (0.2-1.3) mg/dL Lactate Dehydrogenase 1701 H (313-618) U/L C-Reactive Protein 16.6 H (<1.0) mg/dL Total Protein 5.1 L (6.3-8.2) g/dL Albumin 2.3 L (3.5-5.0) g/dL 07/19/21 07/19/21 07/19/21 Range/Units 04:20 05:53 06:05 WBC 15.5 H (3.8-10.6) k/uL RBC 4.03 L (4.30-5.90) m/uL Hgb 12.5 L (13.0-17.5) gm/dL Hct 38.6 L (39.0-53.0) % Neutrophils # 14.7 H (1.3-7.7) k/uL Lymphocytes # 0.2 L (1.0-4.8) k/uL ABG pH 7.22 L (7.35-7.45) ABG pCO2 54 H (35-45) mmHg ABG pO2 61 L (83-108) mmHg ABG O2 Saturation 90.9 L (94-97) % Chloride (98-107) mmol/L Carbon Dioxide (22-30) mmol/L BUN (9-20) mg/dL Creatinine (0.66-1.25) mg/dL Glucose (74-99) mg/dL POC Glucose (mg/dL) 200 H (75-99) mg/dL Calcium (8.4-10.2) mg/dL Total Bilirubin (0.2-1.3) mg/dL Lactate Dehydrogenase (313-618) U/L C-Reactive Protein (<1.0) mg/dL Total Protein (6.3-8.2) g/dL Albumin (3.5-5.0) g/dL 07/19/21 Range/Units 11:31 WBC (3.8-10.6) k/uL RBC (4.30-5.90) m/uL Hgb (13.0-17.5) gm/dL Hct (39.0-53.0) % Neutrophils # (1.3-7.7) k/uL Lymphocytes # (1.0-4.8) k/uL ABG pH (7.35-7.45) ABG pCO2 (35-45) mmHg ABG pO2 (83-108) mmHg ABG O2 Saturation (94-97) % Chloride (98-107) mmol/L Carbon Dioxide (22-30) mmol/L BUN (9-20) mg/dL Creatinine (0.66-1.25) mg/dL Glucose (74-99) mg/dL POC Glucose (mg/dL) 181 H (75-99) mg/dL Calcium (8.4-10.2) mg/dL Total Bilirubin (0.2-1.3) mg/dL Lactate Dehydrogenase (313-618) U/L C-Reactive Protein (<1.0) mg/dL Total Protein (6.3-8.2) g/dL Albumin (3.5-5.0) g/dL Microbiology - Last 24 Hours (Table) 07/17/21 04:34 Gram Stain - Preliminary Sputum Sputum Culture - Preliminary Streptococcus pneumoniae 07/12/21 20:50 Blood Culture - Final Blood No Growth after 144 hours 07/12/21 20:22 Blood Culture - Final Blood No Growth after 144 hours 07/17/21 15:35 Blood Culture - Preliminary Blood No Growth after 24 hours 07/17/21 13:40 Blood Culture - Preliminary Blood No Growth after 24 hours Assessment and Plan Assessment: Acute COVID-19 pneumonia. Patient has been having symptoms for the past 9 days. Patient is not vaccinated. Acute hypoxic respiratory failure secondary to COVID-19 pneumonia. Currently on BiPAP. Elevated inflammatory markers secondary to COVID-19 infection Hypertension Acute kidney injury with creatinine level 1.64 Hypovolemic hyponatremia Lactic acidosis on admission resolved now. Sinus tachycardia DVT prophylaxis Lovenox subcu Plan: Patient will be continued oxygen supplementation and is on BiPAP. Patients condition remains the same. Continue with dexamethasone 6 mg daily, Lovenox subcu and multivitamin supplementation. Patient was seen by pulmonary and is not a candidate for remdesivir at this time. Continue to follow closely. Prognosis is guarded at this time.
[2021-07-19 17:09] LABS: Glucose,Whole Blood 200 mg/dL (75-99)
--- NOTE | 2021-07-19 19:50 | PN ---
PROGRESS NOTE DATE OF SERVICE: 07/19/2021 REASON FOR FOLLOWUP: COVID-19 pneumonia. INTERVAL HISTORY: The patient is afebrile. The patient is hemodynamically stable. FiO2 is currently down to 70%. No significant purulent secretions through the ET, diarrhea or any other changes reported by the nursing staff. EXAMINATION: Blood pressure 111/67, pulse of 114, temperature 98.8. She is 92% on FiO2. General description is a middle-aged male intubated on the vent. Respiratory system: Unlabored breathing, decreased intensity of breath sounds, no wheeze. Heart S1, S2. Regular rate and rhythm. Abdomen: Soft. No tenderness. LABS: Hemoglobin is 12.4, white count 15.5, creatinine is 1.97. Sputum showing a strep pneumonia. Blood culture negative so far. DIAGNOSTIC IMPRESSION/PLAN: Patient with acute respiratory failure which is multifactorial in this patient with acute Covid 19 pneumonia, concern for secondary bacterial pneumonia. Sputum showing Staph pneumoniae while waiting for the sensitivities to finalize and adjust antibiotic further if needed. covered with Zosyn and monitor clinical course closely. MMODL / IJN: [id number] /
[2021-07-19] MEDS: INSULIN DETEMIR (LEVEMIR) 100 UNIT/ML SYR SQ SCH (20:43)
[2021-07-20 00:14] LABS: Glucose,Whole Blood 254 mg/dL (75-99)
[2021-07-20] MEDS: INSULIN ASPART (NovoLOG) 100 UNIT/ML VIAL SQ SCH ×4 (00:42→18:33)
[2021-07-20] MEDS: HYDROmorphone 1 MG/ML 1 ML SYRINGE IVP PRN ×2 (02:24→05:35)
[2021-07-20] MEDS: SODIUM CHLORIDE 0.9% 1,000 ML IV SCH ×2 (02:26→20:59)
[2021-07-20] MEDS: PIPERACILLIN-TAZOBACTAM 3.375 GM in SODIUM CHLORIDE 0.9% 100 ML IVPB SCH ×3 (02:27→18:33)
[2021-07-20 05:11] LABS: Glucose,Whole Blood 215 mg/dL (75-99)
[2021-07-20 05:46] LABS: ABG Base Excess -7.6 mmol/L; ABG HCO3 21 mmol/L (21-25); ABG Oxygen Saturation 91.8 % (94-97); ABG PCO2 60 mmHg (35-45); ABG PO2 65 mmHg (83-108); ABG TCO2 23 mmol/L (19-24); Allen Test Performed? Yes
[2021-07-20 06:17] LABS: ABG PH 7.16 (7.35-7.45)
[2021-07-20 06:18] LABS: Albumin 2.5 g/dL (3.5-5.0); Calcium 7.8 mg/dL (8.4-10.2); Potassium 5.5 mmol/L (3.5-5.1); Total Bilirubin 3.3 mg/dL (0.2-1.3); Total Protein 5.6 g/dL (6.3-8.2)
[2021-07-20 06:41] LABS: Basophils # (A) 0.1 k/uL (0-0.2); Basophils % (A) 0 %; Eosinophils # (A) 0.2 k/uL (0-0.7); Eosinophils % (A) 1 %; HGB 13.3 gm/dL (13.0-17.5); Hypochromasia Moderate; Lymphocytes # (A) 0.3 k/uL (1.0-4.8); Lymphocytes % (A) 2 %; MCHC 32.4 g/dL (31.0-37.0); MCV 98.7 fL (80.0-100.0); Mean Platelet Volume 8.5; Monocytes # (A) 0.5 k/uL (0-1.0); Monocytes % (A) 3 %; Neutrophils # (A) 20.2 k/uL (1.3-7.7); Neutrophils % (A) 94 %; Platelet Count 456 k/uL (150-450); Poikilocytosis Slight; RBC 4.16 m/uL (4.30-5.90); RDW 15.1 % (11.5-15.5); WBC 21.5 k/uL (3.8-10.6)
[2021-07-20 06:55] LABS: C Reactive Protein 17.9 mg/dL (<1.0)
[2021-07-20] MEDS: ALBUTEROL HFA INHALER INHALATION PRN ×3 (07:57→16:43)
--- NOTE | 2021-07-20 08:45 | XR ---
EXAMINATION TYPE: XR chest 1V portable DATE OF EXAM: 07/20/2021 COMPARISON: Chest x-ray 07/19/2021 HISTORY: Intubated TECHNIQUE: Single frontal view of the chest is obtained. FINDINGS: Endotracheal tube, NG tube, left jugular central venous catheter are overlying appropriate positions. No evident pneumothorax, difficult to exclude a small pleural effusion. Cardiac mediastin al silhouette is stable. There is bilateral airspace disease, groundglass opacity, prominence interst itium. IMPRESSION: Findings are similar to prior exam, correlate for pneumonia, ARDS, congestive heart fail ure felt to be less likely
--- NOTE | 2021-07-20 09:09 | P.PN ---
Subjective Progress Note Date: 07/20/21 66-year-old male, seen in the emergency department on July 12. He came in complaining of shortness of breath. He been sick for about 9 or 10 days prior to his visit in the emergency department. He complained of cough, chest congestion, fatigue, shortness of breath, and he did test positive for muna navirus. He was placed on BiPAP with settings of IPAP 12, EPAP 6, and 70%. The patient further decompensated and he was placed on a mechanical ventilator on 07/17/2021. He is currently being seen in the follow-up On 07/20/2021, the patient is being seen for a follow-up. The patient currently is on mechanical ventilator. He is sedated and paralyzed. The patient is currently on propofol running at 70 mcg/kg per minute and he is also paralyzed with Nimbex at 1 mcg/kg per minute. He remains on a mechanical ventilator, assist control mode with tidal volume of 450, rate of 32, FiO2 of 55% with a PEEP of 20. The peak ariway pressure is 40 and static is 37. Blood gases from today was noted. And the patient had a pH of 7.16 with a pCO2 of 60 and pO2 of 65. The chest x-ray from today was reviewed and the patient has adequate positioning of the orotracheal tube which is above the miles by around 2 cm in size. The patient has a left IJ triple-lumen catheter in place. The patient has bilateral pulmonary infiltrates, right hilar, essentially unchanged compared to yesterday. There is no interval worsening in the chest x-ray findings. On today's blood work, the patient has a LDH level of 1733 with a CRP level of 17.9 and the inflammatory markers are gradually improved. The patient's d-dimer level is at 12.5. The white cell count is at 21.5. Noted the patient also had developed an acute kidney injury. Creatinine is on the rise and currently is up to 2.38. Overall fluid balance has been +2.5 L over the past 24 hours. The patient's current regimen includes Decadron 6 mg IV every 24 hours, the patient is on antibiotic coverage with IV Zosyn. The patient is on multivitamins. The patient is also on the normal saline at the rate of 75 mL's an hour. The patient is on Lovenox 40 mg subcu for DVT prophylaxis. This patient Chest x-ray showing diffuse bilateral pulmonary infiltrates, essentially unchanged compared to yesterday. Note that the patient sputum also showed Streptococcus pneumoniae. The patient is currently on IV Zosyn. He is on Vital HP at 36 cc/hr Objective - Vital Signs Vital signs: Vital Signs Temp 98.8 F 07/20/21 00:00 Pulse 110 H 07/20/21 07:00 Resp 32 H 07/20/21 07:00 BP 114/71 07/20/21 07:00 Pulse Ox 90 L 07/20/21 07:00 Intake & Output 07/19/21 07/20/21 07/20/21 18:59 06:59 18:59 Intake Total 2230.7 1644.062 111 Output Total 660 635 50 Balance 1570.7 1009.062 61 Weight 96.4 kg Intake: IV 1213 891 81 0.9% @ 75mL/hr 975 825 75 Piperacillin-Tazobactam 3 175 .375 gm In Sodium Chloride 0.9% 100 ml @ 25 mls/hr IVPB Q8H RED Rx#: [id number] Pressure Bag 63 66 6 Intake, IV Titration 537.7 363.062 Amount Cisatracurium 200 mg In 137.7 Sodium Chloride 0.9% 180 ml @ 1 MCG/KG/MIN 5.4 mls /hr IV .Q24H RED Rx#: [id number] propofoL 1,000 mg In 400 363.062 Empty Bag 1 bag @ Titrate IV .Q0M RED Rx#: [id number] Tube Feeding 390 330 30 Other 90 60 Output: Urine 660 635 50 Other: Voiding Method Indwelling Catheter Indwelling Catheter ABP, PAP, CO, CI - Last Documented Arterial Blood Pressure 112/55 - Exam Sedated and paralyzed, with an orally placed endotracheal tube and NG tube. Saturations are 90%. Head exam was generally normal. There was no scleral icterus or corneal arcus. Mucous membranes were moist. HEENT examination is grossly unremarkable. Neck supple. Full range of motion. No adenopathy thyromegaly or neck vein distention. Cardiovascular examination reveals regular rhythm rate. S1-S2 normal. No S3 or S4. No discernible murmur noted. Heart sounds are distant. Lungs reveal diffuse bilateral rhonchi. No wheezes. No crackles. Breath sounds equal bilaterally. Abdomen soft bowel sounds are heard. No masses or tenderness. Extremities are intact. No cyanosis clubbing or edema. Skin is pale, without rash or lesion. Neurologic examination cannot be assessed as the patient's currently sedated and paralyzed. - Labs CBC & Chem 7: 07/20/21 05:00 07/20/21 05:00 Labs: Abnormal Lab Results - Last 24 Hours (Table) 07/19/21 07/19/21 07/20/21 Range/Units 11:31 17:07 00:12 WBC (3.8-10.6) k/uL RBC (4.30-5.90) m/uL Plt Count (150-450) k/uL Neutrophils # (1.3-7.7) k/uL Lymphocytes # (1.0-4.8) k/uL ABG pH (7.35-7.45) ABG pCO2 (35-45) mmHg ABG pO2 (83-108) mmHg ABG O2 Saturation (94-97) % Potassium (3.5-5.1) mmol/L Chloride (98-107) mmol/L Carbon Dioxide (22-30) mmol/L BUN (9-20) mg/dL Creatinine (0.66-1.25) mg/dL Glucose (74-99) mg/dL POC Glucose (mg/dL) 181 H 200 H 254 H (75-99) mg/dL Calcium (8.4-10.2) mg/dL Total Bilirubin (0.2-1.3) mg/dL AST (17-59) U/L ALT (4-49) U/L Lactate Dehydrogenase (313-618) U/L C-Reactive Protein (<1.0) mg/dL Total Protein (6.3-8.2) g/dL Albumin (3.5-5.0) g/dL 07/20/21 07/20/21 07/20/21 Range/Units 05:00 05:00 05:09 WBC 21.5 H (3.8-10.6) k/uL RBC 4.16 L (4.30-5.90) m/uL Plt Count 456 H (150-450) k/uL Neutrophils # 20.2 H (1.3-7.7) k/uL Lymphocytes # 0.3 L (1.0-4.8) k/uL ABG pH (7.35-7.45) ABG pCO2 (35-45) mmHg ABG pO2 (83-108) mmHg ABG O2 Saturation (94-97) % Potassium 5.5 H (3.5-5.1) mmol/L Chloride 111 H (98-107) mmol/L Carbon Dioxide 20 L (22-30) mmol/L BUN 73 H (9-20) mg/dL Creatinine 2.38 H (0.66-1.25) mg/dL Glucose 210 H (74-99) mg/dL POC Glucose (mg/dL) 215 H (75-99) mg/dL Calcium 7.8 L (8.4-10.2) mg/dL Total Bilirubin 3.3 H (0.2-1.3) mg/dL AST 76 H (17-59) U/L ALT 60 H (4-49) U/L Lactate Dehydrogenase 1733 H (313-618) U/L C-Reactive Protein 17.9 H (<1.0) mg/dL Total Protein 5.6 L (6.3-8.2) g/dL Albumin 2.5 L (3.5-5.0) g/dL 07/20/21 Range/Units 05:45 WBC (3.8-10.6) k/uL RBC (4.30-5.90) m/uL Plt Count (150-450) k/uL Neutrophils # (1.3-7.7) k/uL Lymphocytes # (1.0-4.8) k/uL ABG pH 7.16 L* (7.35-7.45) ABG pCO2 60 H (35-45) mmHg ABG pO2 65 L (83-108) mmHg ABG O2 Saturation 91.8 L (94-97) % Potassium (3.5-5.1) mmol/L Chloride (98-107) mmol/L Carbon Dioxide (22-30) mmol/L BUN (9-20) mg/dL Creatinine (0.66-1.25) mg/dL Glucose (74-99) mg/dL POC Glucose (mg/dL) (75-99) mg/dL Calcium (8.4-10.2) mg/dL Total Bilirubin (0.2-1.3) mg/dL AST (17-59) U/L ALT (4-49) U/L Lactate Dehydrogenase (313-618) U/L C-Reactive Protein (<1.0) mg/dL Total Protein (6.3-8.2) g/dL Albumin (3.5-5.0) g/dL Microbiology - Last 24 Hours (Table) 07/17/21 15:35 Blood Culture - Preliminary Blood No Growth after 48 hours 07/17/21 13:40 Blood Culture - Preliminary Blood No Growth after 48 hours 07/17/21 04:34 Gram Stain - Preliminary Sputum Sputum Culture - Preliminary Streptococcus pneumoniae Assessment and Plan Plan: 1 Acute hypoxemic respiratory failure secondary to coronavirus associated pneumonia, S/P intubation and mechanical ventilation on 07/17/2021. No evidence of pulmonary embolism on CT angiogram. The patient also has a strep pneumonia and the pro calcitonin level was elevated. The patient was covered with IV Zosyn. The patient on Decadron. The patient remains intubated on a mechanical ventilator. Patient is currently on a PEEP of 20 with an FiO2 of 55%. Oxygenation is very borderline and the chest x-ray findings are essentially stable and unchanged. 2 acute COVID-19 related pneumonia 3 History of benign essential hypertension. 4 Elevated inflammatory marker secondary to coronavirus infection. 5 acute kidney injury, nonoliguric, with further increase in the creatinine up to 2.38 6 streptococcus pneumonia in the sputum, consistent underlying pneumococcal pneumonia on top of COVID-19 related pneumonia. The patient is currently on IV Zosyn. The pro calcitonin level was elevated supporting bacterial pneumonia on top of the COVID-19 related infection. 7 hyperglycemia, steroid induced and the patient is currently on Levemir insulin along with NovoLog with sliding scale coverage for blood sugar control Plan: Drop the tidal volume down to 400 and keep the PEEP at 20 with an FiO2 of 55% Keep the patient sedated and paralyzed Continue Decadron Discontinue the Lovenox in view of the renal failure and switch this patient to heparin subcu for DVT prophylaxis 5000 every 8 hours. Monitor d-dimer which seems to be slightly elevated. Monitor also the rest of the inflammatory markers. Continued IV Zosyn Nephrology consultation regarding the acute kidney injury Obtain ultrasound the kidneys Continue with the Levemir insulin for blood sugar control in addition to sliding scale NovoLog Enteral feeding for nutritional support with vital high protein. May need to switch her to Nepro. Consult again with dietary Condition is critical we'll continue to follow make further recommendations based on his progress. Critically care evaluation, more than 30 minutes. Of concern is the development of an acute kidney injury. Time with Patient: Greater than 30
[2021-07-20] MEDS: DEXAMETHASONE SOD PHOSPHATE 10 MG/ML 1 ML VIAL IVP SCH (09:32)
[2021-07-20] MEDS: ZINC SULFATE 220 MG CAP PO SCH (09:32)
[2021-07-20] MEDS: CHLORHEXIDINE GLUCONATE 15 ML CUP MUCOUS MEM SCH ×2 (09:32→20:58)
[2021-07-20] MEDS: CHOLECALCIFEROL 25 MCG (1000 IU) TABLET PO SCH (09:32)
[2021-07-20] MEDS: ASCORBIC ACID 500 MG TAB PO SCH (09:32)
[2021-07-20] MEDS: CISATRACURIUM 200 MG in SODIUM CHLORIDE 0.9% 180 ML IV SCH (09:33)
[2021-07-20] MEDS: PANTOPRAZOLE 40 MG/10 ML VIAL IVP SCH (09:34)
[2021-07-20] MEDS ORDERED: fentaNYL (PF). 1,000 MCG in SODIUM CHLORIDE 0.9% 80 ML IV SCH (10:00)
--- NOTE | 2021-07-20 10:16 | US ---
EXAMINATION TYPE: US renals and bladder DATE OF EXAM: 07/20/2021 COMPARISON: NONE CLINICAL HISTORY: acute kidney injury. COVID-19 patient; on vent EXAM MEASUREMENTS: Right Kidney: 10.7 x 5.4 x 5.3 cm Left Kidney: 10.9 x 5.9 x 4.7 cm Difficult exam due to patient immobility; patient is on a ventilator Right Kidney: No hydronephrosis or masses seen Left Kidney: No hydronephrosis or masses seen Bladder: Haro cath imaged There is no evidence for hydronephrosis at this point in time. Cortical medullary differentiation is maintained. No nephrolithiasis is seen. No masses are identified. Liver thought to be echogenic which may be due to underlying hepatic steatosis, hepatocellular diseas e. IMPRESSION: Exam is somewhat limited technically. No evident hydronephrosis. Additional findings above.
[2021-07-20] MEDS ORDERED: SODIUM ZIRCONIUM CYCLOSILICATE 10 GM PACKET PO ONE (12:00)
[2021-07-20 12:11] LABS: Glucose,Whole Blood 186 mg/dL (75-99)
--- NOTE | 2021-07-20 13:34 | CONS ---
CONSULTATION REASON FOR CONSULT: Renal failure. HISTORY OF PRESENT ILLNESS: Patient is a 66-year-old male who was admitted to the hospital initially on 07/12/2021 with shortness of breath. He tested positive for Covid PCR. The patient's respiratory status eventually deteriorated and he was subsequently intubated on 07/17/2021. Patient's serum creatinine has increased to 2.38 from 1.0 on 07/17/2021. The patient is currently off the pressors which she had been on. Urine output at 50-60 mL an hour. The patient is maintained on IV fluids at 75 mL an hour. His FiO2 is at about 55%, O2 sats are low at 89-90%. Patient's sputum culture is growing strep pneumo as well. Patient did receive chest CTA on 07/17/2021, which showed no evidence of pulmonary embolism. PAST MEDICAL HISTORY: Significant for hypertension, osteoarthritis. Gastroesophageal reflux disease. PAST SURGICAL HISTORY: Orthopedic surgery not known, previous history of spontaneous pneumo requiring chest tube on the right side. SOCIAL HISTORY: Patient is a former smoker. No history of drug abuse or alcohol abuse. MEDICATIONS: Medications at home prior to admission included: Losartan, omeprazole, and trazodone. ALLERGIES: Include IV contrast, which causes rash and hives. EXAMINATION: Today currently patient is on the vent. FiO2 at 55%, O2 sats 89-90%. Blood pressure is 112/55. Heart rate 110 per minute. Patient is afebrile. Examination of lower extremities shows no significant edema. Abdomen is soft, nontender. Lungs and heart are not examined. LAB: Show sodium 139, potassium 5.5, chloride 111, BUN 73, creatinine 2.38, hemoglobin 13.3. ASSESSMENT: 1. Acute kidney injury, acute tubular necrosis associated with contrast nephropathy underlying COVID infection as well as hypotension previously. Patient is currently off pressors. His urine output is at about 50-60 mL an hour. I will give him a fluid bolus with 500 mL and monitor urine output. Continue to try to avoid any other nephrotoxic agents. 2. Hyperkalemia associated with acute kidney injury as well as hyperglycemia. Will give a dose of Lokelma and recommend to control blood sugars more strictly. 3. Acute hypoxic respiratory failure associated with COVID pneumonia. Sputum culture also growing Streptococcus pneumonia, currently maintained on antibiotics. PLAN: Repeat fluid bolus, add one dose of Lokelma, avoid any nephrotoxic agents and repeat labs in a.m. Continue with the IV fluids for now. Thank you for this consultation. We will continue to follow the patient with you during his hospitalization. HAROLDO / CHAVEZ: [id number] /
[2021-07-20 17:37] LABS: Glucose,Whole Blood 224 mg/dL (75-99)
[2021-07-20] MEDS: NOREPINEPHRINE 8 MG in SODIUM CHLORIDE 0.9% 250 ML IV SCH (17:52)
[2021-07-20] MEDS: HEPARIN SODIUM,PORCINE/PF 5,000 UNIT/0.5 ML SYRINGE SQ SCH (18:32)
[2021-07-20] MEDS: fentaNYL (PF) 2,500 MCG in SODIUM CHLORIDE 0.9% 200 ML IV SCH (18:32)
[2021-07-20] MEDS ORDERED: FUROSEMIDE 10 MG/ML 10 ML VIAL IV STA (20:10)
--- NOTE | 2021-07-20 20:16 | PN ---
PROGRESS NOTE DATE OF SERVICE: 07/20/2021 This 66-year-old gentleman admitted with acute Covid-19 viral pneumonia and bilateral interstitial pneumonia is on mechanical ventilation. Patient had hypoxic respiratory failure. The patient is on 50% FiO2 and PEEP of 20. The patient is on Levophed also. The patient also has hypovolemic hyponatremia. The WBC is elevated up to 21.5. The cultures are showing strep pneumonia as well as presumptive Staph aureus also in the sputum. The patient is on dexamethasone and IV Zosyn. PAST MEDICAL HISTORY: Reviewed. REVIEW OF SYSTEMS: Could not be taken because the patient is mechanically sedated. CURRENT MEDICATIONS: Reviewed include Tylenol, Ventolin, vitamin C, vitamin D3, Zosyn. Doses and other medications reviewed. PHYSICAL EXAMINATION: Patient is mechanically sedated. Pulse is 110, blood pressure 140/70, respiration 33, temperature is normal. Pulse ox 90% on mechanical ventilation. Vent settings are noted. HEENT: Conjunctivae normal. Oral mucosa moist. NECK: No jugular venous distention. No lymph node enlargement. CARDIOVASCULAR: S1, S2, muffled. No S3, no S4, RESPIRATORY: Diminished breath sounds at the bases. A few scattered rhonchi. ABDOMEN: Soft, nontender. LEGS: No edema, no swelling. NERVOUS SYSTEM: No focal deficits. LABS: WBC 21.5, hemoglobin 13.2. Other labs are noted. ASSESSMENT: 1. Acute Covid-19 infection with acute Covid-19 bilateral interstitial pneumonia with acute hypoxic respiratory failure. 2. Elevated inflammatory markers of Covid-19 pneumonia. 3. Acute kidney injury with creatinine 1.6 with acute tubular necrosis. 4. Hypovolemic hyponatremia. 5. Hypertension history. 6. History of lactic acidosis. 7. Sinus tachycardia. 8. Deep vein thrombosis prophylaxis. 9. Acute respiratory acidosis. 10.Hyperkalemia secondary to renal failure. 11.Diabetes mellitus, type 2 with the elevated blood sugars. 12.Elevated AST ALT with hepatitis secondary to Covid-19. 13.Increased WBC. 14.Obesity with body mass index of 32.3. RECOMMENDATION: In this this 66-year-old gentleman who presented with multiple complex medical issues, we will monitor the patient closely continue the current medications, continue symptomatic treatment. Otherwise, at this time I recommend continue the mechanical ventilation, continue the antibiotics. Cultures are noted. Prognosis guarded because of multiple complex medical issues. Closely follow with Dr. Murcia. Further recommendations to follow. MMODL / IJN: [id number] /
[2021-07-20] MEDS: INSULIN DETEMIR (LEVEMIR) 100 UNIT/ML SYR SQ SCH (20:59)
[2021-07-20] MEDS ORDERED: CEFEPIME 2 GM in SODIUM CHLORIDE 0.9% 100 ML IVPB SCH (22:00)
--- NOTE | 2021-07-20 22:30 | PN ---
PROGRESS NOTE DATE OF SERVICE: 07/20/2021 REASON FOR FOLLOWUP: COVID-19 pneumonia. INTERIM HISTORY: The patient is afebrile. The patient remains to be intubated on the vent. FiO2 is currently . No significant purulent secretions through the ET, diarrhea or any other changes reported by the nursing staff. PHYSICAL EXAMINATION: Blood pressure 146/60 with a pulse of 107. Temperature 97.9. He is 85% on 65% FIO2. General description is a middle-aged male intubated on the vent. Respiratory system: Unlabored breathing. Decreased intensity in breath sounds. No wheeze. Heart S1, S2 regular rate and rhythm. Abdomen soft, no tenderness. LABS: Hemoglobin 13.1, white count 21.5, creatinine is 2.38. DIAGNOSTIC IMPRESSION AND PLAN: Patient with acute respiratory failure which is multifactorial in this patient with COVID-19 pneumonia, now with evidence of secondary bacterial pneumonia. Sputum has been positive for strep pneumoniae and MSSA. The patient is covered with Zosyn which will be transitioned to Unasyn to better cover for these two pathogens and monitor clinical course closely. Prognosis remains guarded. MMODL / IJN: [id number] /
[2021-07-21] MEDS ORDERED: AMPICILLIN-SULBACTAM 3 GM in SODIUM CHLORIDE 0.9% 100 ML IVPB SCH ×2
[2021-07-21 00:08] LABS: Glucose,Whole Blood 180 mg/dL (75-99)
[2021-07-21] MEDS: HEPARIN SODIUM,PORCINE/PF 5,000 UNIT/0.5 ML SYRINGE SQ SCH ×3 (00:57→16:14)
[2021-07-21] MEDS: INSULIN ASPART (NovoLOG) 100 UNIT/ML VIAL SQ SCH ×4 (00:58→17:39)
[2021-07-21] MEDS: SODIUM CHLORIDE 0.9% 1,000 ML IV SCH ×2 (03:26→16:14)
[2021-07-21 04:01] LABS: Hepatitis B Surface Antibody Reactive (Nonreactive); Hepatitis B Surface Antigen Nonreactive (Nonreactive)
[2021-07-21 05:13] LABS: Albumin 2.4 g/dL (3.5-5.0); Calcium 8.2 mg/dL (8.4-10.2); Total Bilirubin 3.2 mg/dL (0.2-1.3); Total Protein 5.5 g/dL (6.3-8.2)
[2021-07-21 05:14] LABS: ABG Base Excess -11.1 mmol/L; ABG HCO3 20 mmol/L (21-25); ABG Oxygen Saturation 87.6 % (94-97); ABG PO2 61 mmHg (83-108); ABG TCO2 23 mmol/L (19-24)
[2021-07-21 05:26] LABS: C Reactive Protein 20.7 mg/dL (<1.0)
[2021-07-21 05:43] LABS: HCT 38.2 % (39.0-53.0); HGB 12.1 gm/dL (13.0-17.5); Hypochromasia Marked; MCH 31.6 pg (25.0-35.0); MCHC 31.7 g/dL (31.0-37.0); MCV 99.7 fL (80.0-100.0); Macrocytosis Slight; Mean Platelet Volume 9.1; Platelet Count 436 k/uL (150-450); Poikilocytosis Slight; RBC 3.83 m/uL (4.30-5.90); RDW 15.1 % (11.5-15.5)
[2021-07-21 05:50] LABS: ABG PCO2 81 mmHg (35-45); ABG PH 7.01 (7.35-7.45); Allen Test Performed? no
[2021-07-21 06:09] LABS: Glucose,Whole Blood 163 mg/dL (75-99)
[2021-07-21] MEDS: NOREPINEPHRINE 8 MG in SODIUM CHLORIDE 0.9% 250 ML IV SCH ×2 (06:32→22:00)
[2021-07-21 07:20] LABS: Band Neutrophils % 11 %; Metamyelocytes # (M) 0.34 k/uL (0); Metamyelocytes % 1 %; Monocytes # (M) 0.34 k/uL (0-1.0); Neutrophils % (M) 84 %; Nucleated Red Blood Cells 1 /100 WBC (0-0); Total Cells Counted 200
[2021-07-21 07:21] LABS: Lymphocytes # (M) 1.34 k/uL (1.0-4.8); WBC 33.6 k/uL (3.8-10.6)
[2021-07-21 07:23] LABS: Anisocytosis (M) Present; Large Platelets Present
[2021-07-21 07:24] LABS: Polychromasia Present
[2021-07-21] MEDS: ALBUTEROL HFA INHALER INHALATION PRN ×2 (08:24→15:57)
[2021-07-21] MEDS ORDERED: SODIUM ZIRCONIUM CYCLOSILICATE 10 GM PACKET PO ONE (09:00)
[2021-07-21] MEDS ORDERED: SODIUM BICARB 8.4% 50 ML SYR (1 MEQ/ML) IV STA (09:00)
--- NOTE | 2021-07-21 09:08 | P.PN ---
Subjective Progress Note Date: 07/21/21 66-year-old male, seen in the emergency department on July 12. He came in complaining of shortness of breath. He been sick for about 9 or 10 days prior to his visit in the emergency department. He complained of cough, chest congestion, fatigue, shortness of breath, and he did test positive for coron avirus. He was placed on BiPAP with settings of IPAP 12, EPAP 6, and 70%. The patient further decompensated and he was placed on a mechanical ventilator on 07/17/2021. He is currently being seen in the follow-up On 07/20/2021, the patient is being seen for a follow-up. The patient currently is on mechanical ventilator. He is sedated and paralyzed. The patient is currently on propofol running at 70 mcg/kg per minute and he is also paralyzed with Nimbex at 1 mcg/kg per minute. He remains on a mechanical ventilator, assist control mode with tidal volume of 450, rate of 32, FiO2 of 55% with a PEEP of 20. The peak ariway pressure is 40 and static is 37. Blood gases from today was noted. And the patient had a pH of 7.16 with a pCO2 of 60 and pO2 of 65. The chest x-ray from today was reviewed and the patient has adequate positioning of the orotracheal tube which is above the miles by around 2 cm in size. The patient has a left IJ triple-lumen catheter in place. The patient has bilateral pulmonary infiltrates, right hilar, essentially unchanged compared to yesterday. There is no interval worsening in the chest x-ray findings. On today's blood work, the patient has a LDH level of 1733 with a CRP level of 17.9 and the inflammatory markers are gradually improved. The patient's d-dimer level is at 12.5. The white cell count is at 21.5. Noted the patient also had developed an acute kidney injury. Creatinine is on the rise and currently is up to 2.38. Overall fluid balance has been +2.5 L over the past 24 hours. The patient's current regimen includes Decadron 6 mg IV every 24 hours, the patient is on antibiotic coverage with IV Zosyn. The patient is on multivitamins. The patient is also on the normal saline at the rate of 75 mL's an hour. The patient is on Lovenox 40 mg subcu for DVT prophylaxis. This patient Chest x-ray showing diffuse bilateral pulmonary infiltrates, essentially unchanged compared to yesterday. Note that the patient sputum also showed Streptococcus pneumoniae. The patient is currently on IV Zosyn. He is on Vital HP at 36 cc/hr 07/21/2021, I'm seeing the patient for a follow-up. The patient remains intubated on a mechanical ventilator. The patient remains sedated and paralyzed. For now, the patient is sedated with propofol which is currently running at 60 mg/kg per minute and the patient is also paralyzed with Nimbex at 1 g per to per minute. He remains on a mechanical ventilator. This morning, he is on assist control mode with a tidal volume of 400 and a respiratory rate of 32 with an FiO2 of 65% with a PEEP of 20. He was quite stiff yesterday with a peak airway pressure of around 40 with a subcu fashion of 37. Blood gases was showing borderline oxygenation. I made recommendations to follow this patient and he was ultimately phone at around 2200 yesterday. Currently is in a foam zuly position. His current pulse ox is 93%. Morning blood gases showed no major improvement in the oxygenation. This blood gas was done while the patient was prone and the pH was at 7.01 with a pCO2 of 81 and pO2 of 61 and this was done and FiO2 of 65%. Currently his pulse ox on the monitor is 93%. In terms of his COVID 19 related to pneumonia, the patient remains on Decadron. LDH from today is 1724 with a CRP of 20.7. Note that the inflammatory markers have been essentially elevated without any major improvement since yesterday. His d-dimer has been at 2.98. The patient is receiving Decadron 6 mg IV every 24 hours. The patient is also on Heparin for DVT prophylaxis at a dose of 5000 mg subcu every 8 hours. Meanwhile, the patient also had Streptococcus pneumonia in his sputum and the patient remains on IV cefepime. The patient is currently on normal saline at the rate of 75 mL an hour. He is also on pressors and norepinephrine infusion is running at 0.1 mcg/kg per minute. His pro-calcitonin level has been at 3.34 consistent with an underlying bacterial infection. At the same time, the patient is developing acute kidney injury. Nephrology was consulted yesterday. Creatinine is up to 3.71 with a BUN of 94 and the potassium level is up to 6.0. Serum bicarbonate of 18 with a anion gap of 10. The white cell count is at 33.6 with a hemoglobin of 12.1. Objective - Vital Signs Vital signs: Vital Signs Temp 97.7 F 07/21/21 04:00 Pulse 102 H 07/21/21 07:00 Resp 5 L 07/21/21 07:00 BP 109/56 07/21/21 07:00 Pulse Ox 92 L 07/21/21 07:00 Intake & Output 07/20/21 07/21/21 07/21/21 18:59 06:59 18:59 Intake Total 1221.73 1473.772 75 Output Total 345 125 0 Balance 876.73 1348.772 75 Weight 96.4 kg 98.3 kg Intake: IV 586 1035 75 0.9% @ 75mL/hr 450 825 75 Cefepime 2 gm In Sodium 100 Chloride 0.9% 100 ml @ 25 mls/hr IVPB Q12H RED Rx# :[id number] Piperacillin-Tazobactam 3 100 100 .375 gm In Sodium Chloride 0.9% 100 ml @ 25 mls/hr IVPB Q8H RED Rx#: [id number] Pressure Bag 36 10 Intake, IV Titration 425.73 438.772 Amount Cisatracurium 200 mg In 125.73 Sodium Chloride 0.9% 180 ml @ 1 MCG/KG/MIN 5.4 mls /hr IV .Q24H RED Rx#: [id number] Norepinephrine 8 mg In 124.432 Sodium Chloride 0.9% 250 ml @ 0.05 MCG/KG/MIN 8. 708 mls/hr IV .Q24H RED Rx#:[id number] fentaNYL (PF) 2,500 mcg 29.884 In Sodium Chloride 0.9% 200 ml @ 0.5 MCG/KG/HR 4. 82 mls/hr IV .Q24H RED Rx #:[id number] propofoL 1,000 mg In 300 284.456 Empty Bag 1 bag @ Titrate IV .Q0M RED Rx#: [id number] Tube Feeding 180 Other 30 Output: Urine 345 125 0 Other: Voiding Method Indwelling Catheter Indwelling Catheter ABP, PAP, CO, CI - Last Documented Arterial Blood Pressure 97/57 - Exam Sedated and paralyzed, with an orally placed endotracheal tube and NG tube. Patient is in a prone body positioning at this point in time. The patient has on a mechanical ventilator for now. He is in a prone body positioning. He remains sedated and paralyzed. Head exam was generally normal. There was no scleral icterus or corneal arcus. Mucous membranes were moist. HEENT examination is grossly unremarkable. Neck supple. Full range of motion. No adenopathy thyromegaly or neck vein distention. Cardiovascular examination reveals regular rhythm rate. S1-S2 normal. No S3 or S4. No discernible murmur noted. Heart sounds are distant. Lungs reveal diffuse bilateral rhonchi. No wheezes. No crackles. Breath sounds equal bilaterally. Abdomen soft bowel sounds are heard. No masses or tenderness. Extremities are intact. No cyanosis clubbing or edema. Skin is pale, without rash or lesion. Neurologic examination cannot be assessed as the patient's currently sedated and paralyzed. - Labs CBC & Chem 7: 07/21/21 04:40 07/21/21 04:40 Labs: Abnormal Lab Results - Last 24 Hours (Table) 07/20/21 07/20/21 07/20/21 Range/Units 12:09 14:11 17:36 WBC (3.8-10.6) k/uL RBC (4.30-5.90) m/uL Hgb (13.0-17.5) gm/dL Hct (39.0-53.0) % Neutrophils # (Manual) (1.3-7.7) k/uL Metamyelocytes # (Man) (0) k/uL Nucleated RBCs (0-0) /100 WBC D-Dimer (<0.60) mg/L FEU ABG pH (7.35-7.45) ABG pCO2 (35-45) mmHg ABG pO2 (83-108) mmHg ABG HCO3 (21-25) mmol/L ABG O2 Saturation (94-97) % Potassium (3.5-5.1) mmol/L Chloride (98-107) mmol/L Carbon Dioxide (22-30) mmol/L BUN (9-20) mg/dL Creatinine (0.66-1.25) mg/dL Glucose (74-99) mg/dL POC Glucose (mg/dL) 186 H 224 H (75-99) mg/dL Calcium (8.4-10.2) mg/dL Total Bilirubin (0.2-1.3) mg/dL AST (17-59) U/L ALT (4-49) U/L Lactate Dehydrogenase (313-618) U/L C-Reactive Protein (<1.0) mg/dL Total Protein (6.3-8.2) g/dL Albumin (3.5-5.0) g/dL Hep Bs Antibody Reactive A (Nonreactive) 07/21/21 07/21/21 07/21/21 Range/Units 00:05 04:40 04:40 WBC 33.6 H (3.8-10.6) k/uL RBC 3.83 L (4.30-5.90) m/uL Hgb 12.1 L (13.0-17.5) gm/dL Hct 38.2 L (39.0-53.0) % Neutrophils # (Manual) 31.90 H (1.3-7.7) k/uL Metamyelocytes # (Man) 0.34 H (0) k/uL Nucleated RBCs 1 H (0-0) /100 WBC D-Dimer 2.98 H (<0.60) mg/L FEU ABG pH (7.35-7.45) ABG pCO2 (35-45) mmHg ABG pO2 (83-108) mmHg ABG HCO3 (21-25) mmol/L ABG O2 Saturation (94-97) % Potassium (3.5-5.1) mmol/L Chloride (98-107) mmol/L Carbon Dioxide (22-30) mmol/L BUN (9-20) mg/dL Creatinine (0.66-1.25) mg/dL Glucose (74-99) mg/dL POC Glucose (mg/dL) 180 H (75-99) mg/dL Calcium (8.4-10.2) mg/dL Total Bilirubin (0.2-1.3) mg/dL AST (17-59) U/L ALT (4-49) U/L Lactate Dehydrogenase (313-618) U/L C-Reactive Protein (<1.0) mg/dL Total Protein (6.3-8.2) g/dL Albumin (3.5-5.0) g/dL Hep Bs Antibody (Nonreactive) 07/21/21 07/21/21 07/21/21 Range/Units 04:40 05:10 06:08 WBC (3.8-10.6) k/uL RBC (4.30-5.90) m/uL Hgb (13.0-17.5) gm/dL Hct (39.0-53.0) % Neutrophils # (Manual) (1.3-7.7) k/uL Metamyelocytes # (Man) (0) k/uL Nucleated RBCs (0-0) /100 WBC D-Dimer (<0.60) mg/L FEU ABG pH 7.01 L* (7.35-7.45) ABG pCO2 81 H* (35-45) mmHg ABG pO2 61 L (83-108) mmHg ABG HCO3 20 L (21-25) mmol/L ABG O2 Saturation 87.6 L (94-97) % Potassium 6.0 H (3.5-5.1) mmol/L Chloride 110 H (98-107) mmol/L Carbon Dioxide 18 L (22-30) mmol/L BUN 94 H (9-20) mg/dL Creatinine 3.71 H (0.66-1.25) mg/dL Glucose 147 H (74-99) mg/dL POC Glucose (mg/dL) 163 H (75-99) mg/dL Calcium 8.2 L (8.4-10.2) mg/dL Total Bilirubin 3.2 H (0.2-1.3) mg/dL AST 85 H (17-59) U/L ALT 86 H (4-49) U/L Lactate Dehydrogenase 1724 H (313-618) U/L C-Reactive Protein 20.7 H (<1.0) mg/dL Total Protein 5.5 L (6.3-8.2) g/dL Albumin 2.4 L (3.5-5.0) g/dL Hep Bs Antibody (Nonreactive) Microbiology - Last 24 Hours (Table) 07/17/21 15:35 Blood Culture - Preliminary Blood No Growth after 72 hours 07/17/21 13:40 Blood Culture - Preliminary Blood No Growth after 72 hours 07/17/21 04:34 Gram Stain - Preliminary Sputum Sputum Culture - Preliminary Streptococcus pneumoniae Presumptive Staph aureus Assessment and Plan Plan: 1 Acute hypoxemic respiratory failure secondary to coronavirus associated pneumonia, S/P intubation and mechanical ventilation on 07/17/2021. No evidence of pulmonary embolism on CT angiogram. The patient also has a strep pneumonia and the pro calcitonin level was elevated. The patient was covered with IV Zosyn. The patient on Decadron. The patient remains intubated on a mechanical ventilator. Patient is currently on a PEEP of 20 with an FiO2 of 65%. Oxygenation is very borderline and the patient is currently in a prone body positioning 2 acute COVID-19 related pneumonia 3 hypotension, likely secondary to sepsis. Pro calcitonin level is elevated and the patient has a combination of penicillin resistant strep pneumonia and presumed staph aureus in the sputum. The patient currently is on IV cefepime. Patient is also on pressors and norepinephrine is running at 0.1 mg/kg/m. 4 Elevated inflammatory marker secondary to coronavirus infection. 5 acute kidney injury, nonoliguric, with further increase in the creatinine up to 3.7 6 streptococcus pneumonia in the sputum, consistent underlying pneumococcal pneumonia on top of COVID-19 related pneumonia. The patient is currently on IV Zosyn. The pro calcitonin level was elevated supporting bacterial pneumonia on top of the COVID-19 related infection. 7 hyperglycemia, steroid induced and the patient is currently on Levemir insulin along with NovoLog with sliding scale coverage for blood sugar control 8 leukocytosis 9 non-anion gap metabolic acidosis 10 acute hyperkalemia with a potassium level of 6 without any acute ischemic changes Plan: Change tidal volume down to 425 and keep the PEEP at 20 with an FiO2 of 65%, RR 34 Keep the patient sedated and paralyzed Keep Prone Bicarb x3 50 meq each Lokalma 10 g x1 Continue Decadron heparin subcu for DVT prophylaxis 5000 every 8 hours. Monitor d-dimer which seems to be slightly elevated. Monitor also the rest of the inflammatory markers. Continued IV Cefepime Nephrology consultation regarding the acute kidney injury, UO is low and he is headed toward HD. Will ask vascular to insert HD cath repeat K Continue with the Levemir insulin for blood sugar control in addition to sliding scale NovoLog Complete the Proning Procedure repeat Procal Enteral feeding for nutritional support with vital high protein. May need to switch her to Nepro. Consult again with dietary Condition is critical we'll continue to follow make further recommendations based on his progress. Critically care evaluation, more than 30 minutes. Of concern is the development of an acute kidney injury. Time with Patient: Greater than 30
--- NOTE | 2021-07-21 09:46 | P.PN ---
Subjective Patient is seen in follow-up for acute kidney injury. Creatinine 3.71 today. Oliguric. Potassium level 6.0 this morning. On Levophed. Receiving IV fluids. Intubated. On 65% FiO2. Vital signs - on Levophed. HEENT: Intubated. LUNGS: Breath sounds decreased. HEART: Tachycardic. ABDOMEN: In prone position. EXTREMITITES: 1+ edema. Objective - Vital Signs Vital signs: Vital Signs Temp 97.7 F 07/21/21 04:00 Pulse 102 H 07/21/21 07:00 Resp 5 L 07/21/21 07:00 BP 109/56 07/21/21 07:00 Pulse Ox 92 L 07/21/21 07:00 Intake & Output 07/20/21 07/21/21 07/21/21 18:59 06:59 18:59 Intake Total 1221.73 1573.772 75 Output Total 345 125 0 Balance 876.73 1448.772 75 Weight 96.4 kg 98.3 kg Intake: IV 586 1035 75 0.9% @ 75mL/hr 450 825 75 Cefepime 2 gm In Sodium 100 Chloride 0.9% 100 ml @ 25 mls/hr IVPB Q12H RED Rx# :[id number] Piperacillin-Tazobactam 3 100 100 .375 gm In Sodium Chloride 0.9% 100 ml @ 25 mls/hr IVPB Q8H RED Rx#: [id number] Pressure Bag 36 10 Intake, IV Titration 425.73 538.772 Amount Cisatracurium 200 mg In 125.73 Sodium Chloride 0.9% 180 ml @ 1 MCG/KG/MIN 5.4 mls /hr IV .Q24H RED Rx#: [id number] Norepinephrine 8 mg In 124.432 Sodium Chloride 0.9% 250 ml @ 0.05 MCG/KG/MIN 8. 708 mls/hr IV .Q24H RED Rx#:[id number] fentaNYL (PF) 2,500 mcg 29.884 In Sodium Chloride 0.9% 200 ml @ 0.5 MCG/KG/HR 4. 82 mls/hr IV .Q24H RED Rx #:[id number] propofoL 1,000 mg In 300 384.456 Empty Bag 1 bag @ Titrate IV .Q0M RED Rx#: [id number] Tube Feeding 180 Other 30 Output: Urine 345 125 0 Other: Voiding Method Indwelling Catheter Indwelling Catheter ABP, PAP, CO, CI - Last Documented Arterial Blood Pressure 97/57 - Labs CBC & Chem 7: 07/21/21 04:40 07/21/21 04:40 Labs: Abnormal Lab Results - Last 24 Hours (Table) 07/20/21 07/20/21 07/20/21 Range/Units 12:09 14:11 17:36 WBC (3.8-10.6) k/uL RBC (4.30-5.90) m/uL Hgb (13.0-17.5) gm/dL Hct (39.0-53.0) % Neutrophils # (Manual) (1.3-7.7) k/uL Metamyelocytes # (Man) (0) k/uL Nucleated RBCs (0-0) /100 WBC D-Dimer (<0.60) mg/L FEU ABG pH (7.35-7.45) ABG pCO2 (35-45) mmHg ABG pO2 (83-108) mmHg ABG HCO3 (21-25) mmol/L ABG O2 Saturation (94-97) % Potassium (3.5-5.1) mmol/L Chloride (98-107) mmol/L Carbon Dioxide (22-30) mmol/L BUN (9-20) mg/dL Creatinine (0.66-1.25) mg/dL Glucose (74-99) mg/dL POC Glucose (mg/dL) 186 H 224 H (75-99) mg/dL Calcium (8.4-10.2) mg/dL Total Bilirubin (0.2-1.3) mg/dL AST (17-59) U/L ALT (4-49) U/L Lactate Dehydrogenase (313-618) U/L C-Reactive Protein (<1.0) mg/dL Total Protein (6.3-8.2) g/dL Albumin (3.5-5.0) g/dL Hep Bs Antibody Reactive A (Nonreactive) 07/21/21 07/21/21 07/21/21 Range/Units 00:05 04:40 04:40 WBC 33.6 H (3.8-10.6) k/uL RBC 3.83 L (4.30-5.90) m/uL Hgb 12.1 L (13.0-17.5) gm/dL Hct 38.2 L (39.0-53.0) % Neutrophils # (Manual) 31.90 H (1.3-7.7) k/uL Metamyelocytes # (Man) 0.34 H (0) k/uL Nucleated RBCs 1 H (0-0) /100 WBC D-Dimer 2.98 H (<0.60) mg/L FEU ABG pH (7.35-7.45) ABG pCO2 (35-45) mmHg ABG pO2 (83-108) mmHg ABG HCO3 (21-25) mmol/L ABG O2 Saturation (94-97) % Potassium (3.5-5.1) mmol/L Chloride (98-107) mmol/L Carbon Dioxide (22-30) mmol/L BUN (9-20) mg/dL Creatinine (0.66-1.25) mg/dL Glucose (74-99) mg/dL POC Glucose (mg/dL) 180 H (75-99) mg/dL Calcium (8.4-10.2) mg/dL Total Bilirubin (0.2-1.3) mg/dL AST (17-59) U/L ALT (4-49) U/L Lactate Dehydrogenase (313-618) U/L C-Reactive Protein (<1.0) mg/dL Total Protein (6.3-8.2) g/dL Albumin (3.5-5.0) g/dL Hep Bs Antibody (Nonreactive) 07/21/21 07/21/21 07/21/21 Range/Units 04:40 05:10 06:08 WBC (3.8-10.6) k/uL RBC (4.30-5.90) m/uL Hgb (13.0-17.5) gm/dL Hct (39.0-53.0) % Neutrophils # (Manual) (1.3-7.7) k/uL Metamyelocytes # (Man) (0) k/uL Nucleated RBCs (0-0) /100 WBC D-Dimer (<0.60) mg/L FEU ABG pH 7.01 L* (7.35-7.45) ABG pCO2 81 H* (35-45) mmHg ABG pO2 61 L (83-108) mmHg ABG HCO3 20 L (21-25) mmol/L ABG O2 Saturation 87.6 L (94-97) % Potassium 6.0 H (3.5-5.1) mmol/L Chloride 110 H (98-107) mmol/L Carbon Dioxide 18 L (22-30) mmol/L BUN 94 H (9-20) mg/dL Creatinine 3.71 H (0.66-1.25) mg/dL Glucose 147 H (74-99) mg/dL POC Glucose (mg/dL) 163 H (75-99) mg/dL Calcium 8.2 L (8.4-10.2) mg/dL Total Bilirubin 3.2 H (0.2-1.3) mg/dL AST 85 H (17-59) U/L ALT 86 H (4-49) U/L Lactate Dehydrogenase 1724 H (313-618) U/L C-Reactive Protein 20.7 H (<1.0) mg/dL Total Protein 5.5 L (6.3-8.2) g/dL Albumin 2.4 L (3.5-5.0) g/dL Hep Bs Antibody (Nonreactive) Microbiology - Last 24 Hours (Table) 07/17/21 15:35 Blood Culture - Preliminary Blood No Growth after 72 hours 07/17/21 13:40 Blood Culture - Preliminary Blood No Growth after 72 hours 07/17/21 04:34 Gram Stain - Preliminary Sputum Sputum Culture - Preliminary Streptococcus pneumoniae Presumptive Staph aureus Assessment and Plan Plan: Assessment: 1. Acute kidney injury secondary to ATN secondary to septic shock. Also received IV contrast on 07/17/2021. Creatinine 3.71 today. Baseline creatinine near 1. Oliguric. No hydronephrosis noted on kidney ultrasound. 2. Hyperkalemia secondary to acute kidney injury and metabolic acidosis. 3. Acute hypoxic and hypercapnic respiratory failure. 4. Metabolic acidosis secondary to acute kidney injury. 5. COVID-19 pneumonia. 6. Septic shock maintained on Levophed. Plan: Patient received 3 A of sodium bicarbonate IV push as well as 10 g of lokelma just now. Potassium level will be repeated in 2-3 hours. Receiving tube feeds. With worsening renal function, oliguria, hyperkalemia and acidosis, initiate replacement therapy. Consult vascular surgery for dialysis catheter placement. Plan first treatment of hemodialysis today and second treatment tomorrow. Check phosphorus level.
[2021-07-21] MEDS: ZINC SULFATE 220 MG CAP PO SCH (09:58)
[2021-07-21] MEDS: CHOLECALCIFEROL 25 MCG (1000 IU) TABLET PO SCH (09:58)
[2021-07-21] MEDS: PANTOPRAZOLE 40 MG/10 ML VIAL IVP SCH (09:59)
[2021-07-21] MEDS: CHLORHEXIDINE GLUCONATE 15 ML CUP MUCOUS MEM SCH ×2 (10:00→22:12)
[2021-07-21] MEDS: CEFEPIME 1 GM in SODIUM CHLORIDE 0.9% 50 ML IVPB SCH ×2 (10:00→22:12)
[2021-07-21] MEDS: DEXAMETHASONE SOD PHOSPHATE 10 MG/ML 1 ML VIAL IVP SCH (10:03)
[2021-07-21] MEDS: ASCORBIC ACID 500 MG TAB PO SCH (10:09)
[2021-07-21 11:33] LABS: Glucose,Whole Blood 166 mg/dL (75-99)
--- NOTE | 2021-07-21 14:42 | P.PN ---
Subjective Progress Note Date: 07/21/21 This is a 66-year-old male who was recently admitted with acute COVID-19 viral pneumonia and bilateral interstitial pneumonia on mechanical ventilation being closely monitored. Patient continues in the ICU with worsening renal functions and vascular surgery consulted for hemodialysis catheter placement with nephrology following closely. Patient's potassium is 6.0 and corrected and awaiting repeat labs. Patient's white blood count continues to be elevated as well and is 33.6 today. Infectious disease following an patient is maintained on IV cefepime and will continue. Review of systems: Unable to obtain as patient is intubated and sedated Labs: WBC is 33.6, hemoglobin is 12.1, platelets are 436, d-dimer is 2.98, sodium is 138, potassium 6.0, BUN 94, creatinine 3.71, calcium 8.2, total bilirubin 3.2, LDH 1724, CRP 20.7 Active Medications Acetaminophen (Acetaminophen Tab 325 Mg Tab) 650 mg PO Q4HR PRN PRN Reason: Fever>101 Last Admin: 07/16/21 22:34 Dose: 650 mg Documented by: Albuterol Sulfate (Albuterol Hfa Inhaler) 2 puff INHALATION RT-Q6H PRN PRN Reason: Shortness Of Breath Or Wheezing Last Admin: 07/21/21 08:24 Dose: 2 puff Documented by: Ascorbic Acid (Ascorbic Acid 500 Mg Tab) 500 mg PO DAILY [facility] Last Admin: 07/21/21 10:09 Dose: 500 mg Documented by: Chlorhexidine Gluconate (Chlorhexidine Gluconate 15 Ml Cup) 15 ml MUCOUS MEM BID [facility] Last Admin: 07/21/21 10:00 Dose: 15 ml Documented by: Cholecalciferol (Cholecalciferol 25 Mcg (1000 Iu) Tablet) 25 mcg PO DAILY [facility] Last Admin: 07/21/21 09:58 Dose: 25 mcg Documented by: Dexamethasone Sodium Phosphate (Dexamethasone Sod Phosphate 10 Mg/Ml 1 Ml Vial) 6 mg IVP DAILY [facility] Last Admin: 07/21/21 10:03 Dose: 6 mg Documented by: Heparin Sodium (Porcine) (Heparin Sodium,Porcine/Pf 5,000 Unit/0.5 Ml Syringe) 5,000 unit SQ Q8HR [facility] Last Admin: 07/21/21 09:59 Dose: 5,000 unit Documented by: Sodium Chloride (Saline 0.9%) 1,000 mls @ 75 mls/hr IV .[id number] [facility] Last Admin: 07/21/21 03:26 Dose: Not Given Documented by: Propofol 1,000 mg/ IV Solution 100 mls @ 0 mls/hr IV .Q0M [facility]; Protocol Last Titration: 07/21/21 10:58 Dose: 60 mcg/kg/min, 35.388 mls/hr Documented by: Cisatracurium Besylate 200 mg/ (Sodium Chloride) 200 mls @ 5.4 mls/hr IV .Q24H [facility]; Protocol Last Admin: 07/20/21 09:33 Dose: 1 mcg/kg/min, 5.4 mls/hr Documented by: Norepinephrine Bitartrate 8 mg (/ Sodium Chloride) 258 mls @ 8.708 mls/hr IV .Q24H [facility]; Protocol Last Admin: 07/21/21 06:32 Dose: 0.1 mcg/kg/min, 17.415 mls/hr Documented by: Fentanyl Citrate 2,500 mcg/ (Sodium Chloride) 250 mls @ 4.82 mls/hr IV .Q24H [facility]; Protocol Last Titration: 07/21/21 00:44 Dose: 1 mcg/kg/hr, 9.64 mls/hr Documented by: Cefepime HCl 1 gm/ Sodium (Chloride) 50 mls @ 12.5 mls/hr IVPB Q12H [facility] Last Admin: 07/21/21 10:00 Dose: 12.5 mls/hr Documented by: Insulin Aspart (Insulin Aspart (Novolog) 100 Unit/Ml Vial) 0 unit SQ Q6H [facility]; Protocol Last Admin: 07/21/21 06:36 Dose: 1 unit Documented by: Insulin Detemir (Insulin Detemir (Levemir) 100 Unit/Ml Syr) 20 unit SQ HS [facility] Last Admin: 07/20/21 20:59 Dose: 20 unit Documented by: Pantoprazole Sodium (Pantoprazole 40 Mg/10 Ml Vial) 40 mg IVP DAILY [facility] Last Admin: 07/21/21 09:59 Dose: 40 mg Documented by: Zinc Sulfate (Zinc Sulfate 220 Mg Cap) 220 mg PO DAILY [facility] Last Admin: 07/21/21 09:58 Dose: 220 mg Documented by: Physical Exam: Gen: This is a 66-year-old male who is intubated and sedated, well-developed, well-nourished. Temp is 97.7F, pulse is 102, respirations are 5, blood pressure is 109/56, arterial blood pressure is 97/57 CVP is 24, oxygen saturation is 92% on Vent and FiO2 of 65% HEENT: Head is atraumatic, normocephalic. Pupils equal, round. Sclerae is anicteric. NECK: Supple. No JVD. No lymphadenopathy. No thyromegaly. LUNGS: Breath sounds diminished with scattered rhonchi and crackles noted. No intercostal retractions. HEART: S1, S2 are muffled ABDOMEN: Soft. Bowel sounds are present. No masses. No tenderness. EXTREMITIES: No pedal edema. No calf tenderness. NEUROLOGICAL: Patient is currently sedated and intubated. Assessment: Acute COVID-19 infection with acute COVID-19 bilateral interstitial pneumonia with acute hypoxic respiratory failure Elevated inflammatory markers of COVID-19 pneumonia acute kidney injury with creatinine 1.6 with acute tubular necrosis, worsening now requiring hemodialysis Hypovolemic hyponatremia Hypertension history history of lactic acidosis Sinus tachycardia Deep vein thrombosis prophylaxis acute respiratory acidosis Hyperkalemia secondary to renal failure diabetes mellitus type 2, uncontrolled with elevated blood sugars Elevated AST, ALT with hepatitis secondary to COVID-19 Increased WBC obesity with a body mass index of 33.0 Full code Plan: Recommend to continue with current medications and follow along closely with [facility] medical consultations. Nephrology following closely and kidney functions continue to worsen and planning for emergent hemodialysis and vascular surgery consulted for dialysis catheter placement. Patient to receive dialysis today and again tomorrow. Potassium elevated at 6.0 and corrected and awaiting repeat labs. Patient continues on mechanical ventilation with multiple medical consultations including infectious disease, pulmonary, nephrology following closely. Patient continues on IV antibiotics in the form of cefepime and will continue. Repeat blood cultures have been negative and Gram stain culture from sputum showing Streptococcus pneumonia and Staphylococcus aureus. Recommend repeat labs in the a.m on a chest x-ray. Due to multiple complex medical issues prognosis is extremely guarded. Objective - Vital Signs Vital signs: Vital Signs Temp 97.7 F 07/21/21 04:00 Pulse 102 H 07/21/21 07:00 Resp 5 L 07/21/21 07:00 BP 109/56 07/21/21 07:00 Pulse Ox 92 L 07/21/21 07:00 Intake & Output 07/20/21 07/21/21 07/21/21 18:59 06:59 18:59 Intake Total 1221.73 1573.772 146.366 Output Total 345 125 0 Balance 876.73 1448.772 146.366 Weight 96.4 kg 98.3 kg Intake: IV 586 1035 75 0.9% @ 75mL/hr 450 825 75 Cefepime 2 gm In Sodium 100 Chloride 0.9% 100 ml @ 25 mls/hr IVPB Q12H [facility] Rx# :[id number] Piperacillin-Tazobactam 3 100 100 .375 gm In Sodium Chloride 0.9% 100 ml @ 25 mls/hr IVPB Q8H [facility] Rx#: [id number] Pressure Bag 36 10 Intake, IV Titration 425.73 538.772 71.366 Amount Cisatracurium 200 mg In 125.73 Sodium Chloride 0.9% 180 ml @ 1 MCG/KG/MIN 5.4 mls /hr IV .Q24H [facility] Rx#: [id number] Norepinephrine 8 mg In 124.432 Sodium Chloride 0.9% 250 ml @ 0.05 MCG/KG/MIN 8. 708 mls/hr IV .Q24H [facility] Rx#:[id number] fentaNYL (PF) 2,500 mcg 29.884 In Sodium Chloride 0.9% 200 ml @ 0.5 MCG/KG/HR 4. 82 mls/hr IV .Q24H [facility] Rx #:[id number] propofoL 1,000 mg In 300 384.456 71.366 Empty Bag 1 bag @ Titrate IV .Q0M [facility] Rx#: [id number] Tube Feeding 180 Other 30 Output: Urine 345 125 0 Other: Voiding Method Indwelling Catheter Indwelling Catheter ABP, PAP, CO, CI - Last Documented Arterial Blood Pressure 97/57 - Labs CBC & Chem 7: 07/21/21 04:40 07/21/21 12:50 Labs: Abnormal Lab Results - Last 24 Hours (Table) 07/20/21 07/20/21 07/21/21 Range/Units 14:11 17:36 00:05 WBC (3.8-10.6) k/uL RBC (4.30-5.90) m/uL Hgb (13.0-17.5) gm/dL Hct (39.0-53.0) % Neutrophils # (Manual) (1.3-7.7) k/uL Metamyelocytes # (Man) (0) k/uL Nucleated RBCs (0-0) /100 WBC D-Dimer (<0.60) mg/L FEU ABG pH (7.35-7.45) ABG pCO2 (35-45) mmHg ABG pO2 (83-108) mmHg ABG HCO3 (21-25) mmol/L ABG O2 Saturation (94-97) % Potassium (3.5-5.1) mmol/L Chloride (98-107) mmol/L Carbon Dioxide (22-30) mmol/L BUN (9-20) mg/dL Creatinine (0.66-1.25) mg/dL Glucose (74-99) mg/dL POC Glucose (mg/dL) 224 H 180 H (75-99) mg/dL Calcium (8.4-10.2) mg/dL Total Bilirubin (0.2-1.3) mg/dL AST (17-59) U/L ALT (4-49) U/L Lactate Dehydrogenase (313-618) U/L C-Reactive Protein (<1.0) mg/dL Total Protein (6.3-8.2) g/dL Albumin (3.5-5.0) g/dL Hep Bs Antibody Reactive A (Nonreactive) 07/21/21 07/21/21 07/21/21 Range/Units 04:40 04:40 04:40 WBC 33.6 H (3.8-10.6) k/uL RBC 3.83 L (4.30-5.90) m/uL Hgb 12.1 L (13.0-17.5) gm/dL Hct 38.2 L (39.0-53.0) % Neutrophils # (Manual) 31.90 H (1.3-7.7) k/uL Metamyelocytes # (Man) 0.34 H (0) k/uL Nucleated RBCs 1 H (0-0) /100 WBC D-Dimer 2.98 H (<0.60) mg/L FEU ABG pH (7.35-7.45) ABG pCO2 (35-45) mmHg ABG pO2 (83-108) mmHg ABG HCO3 (21-25) mmol/L ABG O2 Saturation (94-97) % Potassium 6.0 H (3.5-5.1) mmol/L Chloride 110 H (98-107) mmol/L Carbon Dioxide 18 L (22-30) mmol/L BUN 94 H (9-20) mg/dL Creatinine 3.71 H (0.66-1.25) mg/dL Glucose 147 H (74-99) mg/dL POC Glucose (mg/dL) (75-99) mg/dL Calcium 8.2 L (8.4-10.2) mg/dL Total Bilirubin 3.2 H (0.2-1.3) mg/dL AST 85 H (17-59) U/L ALT 86 H (4-49) U/L Lactate Dehydrogenase 1724 H (313-618) U/L C-Reactive Protein 20.7 H (<1.0) mg/dL Total Protein 5.5 L (6.3-8.2) g/dL Albumin 2.4 L (3.5-5.0) g/dL Hep Bs Antibody (Nonreactive) 07/21/21 07/21/21 07/21/21 Range/Units 05:10 06:08 11:30 WBC (3.8-10.6) k/uL RBC (4.30-5.90) m/uL Hgb (13.0-17.5) gm/dL Hct (39.0-53.0) % Neutrophils # (Manual) (1.3-7.7) k/uL Metamyelocytes # (Man) (0) k/uL Nucleated RBCs (0-0) /100 WBC D-Dimer (<0.60) mg/L FEU ABG pH 7.01 L* (7.35-7.45) ABG pCO2 81 H* (35-45) mmHg ABG pO2 61 L (83-108) mmHg ABG HCO3 20 L (21-25) mmol/L ABG O2 Saturation 87.6 L (94-97) % Potassium (3.5-5.1) mmol/L Chloride (98-107) mmol/L Carbon Dioxide (22-30) mmol/L BUN (9-20) mg/dL Creatinine (0.66-1.25) mg/dL Glucose (74-99) mg/dL POC Glucose (mg/dL) 163 H 166 H (75-99) mg/dL Calcium (8.4-10.2) mg/dL Total Bilirubin (0.2-1.3) mg/dL AST (17-59) U/L ALT (4-49) U/L Lactate Dehydrogenase (313-618) U/L C-Reactive Protein (<1.0) mg/dL Total Protein (6.3-8.2) g/dL Albumin (3.5-5.0) g/dL Hep Bs Antibody (Nonreactive) 07/21/21 Range/Units 12:50 WBC (3.8-10.6) k/uL RBC (4.30-5.90) m/uL Hgb (13.0-17.5) gm/dL Hct (39.0-53.0) % Neutrophils # (Manual) (1.3-7.7) k/uL Metamyelocytes # (Man) (0) k/uL Nucleated RBCs (0-0) /100 WBC D-Dimer (<0.60) mg/L FEU ABG pH (7.35-7.45) ABG pCO2 (35-45) mmHg ABG pO2 (83-108) mmHg ABG HCO3 (21-25) mmol/L ABG O2 Saturation (94-97) % Potassium 6.0 H (3.5-5.1) mmol/L Chloride (98-107) mmol/L Carbon Dioxide (22-30) mmol/L BUN (9-20) mg/dL Creatinine (0.66-1.25) mg/dL Glucose (74-99) mg/dL POC Glucose (mg/dL) (75-99) mg/dL Calcium (8.4-10.2) mg/dL Total Bilirubin (0.2-1.3) mg/dL AST (17-59) U/L ALT (4-49) U/L Lactate Dehydrogenase (313-618) U/L C-Reactive Protein (<1.0) mg/dL Total Protein (6.3-8.2) g/dL Albumin (3.5-5.0) g/dL Hep Bs Antibody (Nonreactive) Microbiology - Last 24 Hours (Table) 07/17/21 04:34 Gram Stain - Final Sputum Sputum Culture - Final Streptococcus pneumoniae Staphylococcus aureus 07/17/21 15:35 Blood Culture - Preliminary Blood No Growth after 72 hours 07/17/21 13:40 Blood Culture - Preliminary Blood No Growth after 72 hours
[2021-07-21] MEDS: ARTIFICIAL TEARS-HYPROMELLOSE DROPS 15 ML BTL BOTH EYES SCH ×2 (16:14→22:13)
[2021-07-21] MEDS: fentaNYL (PF) 2,500 MCG in SODIUM CHLORIDE 0.9% 200 ML IV SCH ×2 (16:15→20:56)
[2021-07-21 16:31] LABS: Glucose,Whole Blood 147 mg/dL (75-99)
--- NOTE | 2021-07-21 18:17 | CONS ---
DATE OF CONSULTATION: 07/21/2021 This is a 66-year-old gentleman. The patient was seen in consultation for urgent placement of dialysis catheter. The patient is COVID positive. His creatinine is 7.1, oliguric. Potassium is 6. The patient has acute kidney injury due to septic shock. On examination, patient was seen in the intensive care unit. The patient has been intubated. Neck is supple. Chest has crackles bilaterally. Abdomen is soft, non- tender. Femorals are 1+ bilaterally. Marked swelling of both lower extremities. PLAN: Placement of dialysis catheter. Risks and complications discussed. MMODL / IJN: [id number] / MTDD
--- NOTE | 2021-07-21 18:23 | OP ---
OPERATIVE REPORT PREOPERATIVE DIAGNOSIS: Acute on chronic renal failure, hyperkalemia, septic shock. POSTOPERATIVE DIAGNOSIS: Acute on chronic renal failure, hyperkalemia, septic shock. PROCEDURE PERFORMED: Ultrasound-guided dialysis catheter placement via right femoral approach. PROCEDURE DESCRIPTION: The patient was seen in the intensive care unit. Right groin was prepped and drapes were applied in the usual sterile manner. Ultrasound-guided micropuncture was introduced into the right femoral vein. Micropuncture guidewire was passed and a 4- [place] dilator was advanced on top of the guidewire. Then we passed a regular guidewire without any resistance and the dilator was advanced and then a dialysis catheter on top of the guidewire. Flushed with heparin saline and hep-locked, secured with 3-0 nylon. Patient tolerated the procedure well. MMODL / IJN: [id number] /
--- NOTE | 2021-07-21 19:59 | PN ---
PROGRESS NOTE DATE OF SERVICE: 07/21/2021 REASON FOR FOLLOWUP: Pneumonia. INTERVAL HISTORY: The patient is afebrile. The patient remains intubated on the vent. FiO2 is currently 65%. No significant purulent secretions through the ET or diarrhea or any other changes reported by the nursing staff. PHYSICAL EXAMINATION: Blood pressure 152/62 with a pulse of 108, temperature 97.4. He is 91% on 65% FiO2. General description is a middle-aged male intubated on the vent. Respiratory system: Unlabored breathing, decreased intensity of breath sounds. No wheeze. Heart S1, S2. Regular rate and rhythm. Abdomen soft, no tenderness. LABS: Hemoglobin is 12.9, white count , creatinine 3.71. 20.80. Sputum has been finalized with MSSA and Strep pneumoniae. DIAGNOSTIC IMPRESSION AND PLAN: Patient with acute respiratory failure which is multifactorial in this patient who was initially diagnosed with COVID-19 pneumonia with subsequent worsening of respiratory status, now with a component of secondary bacterial pneumonia . Sputum is positive with MSSA and Strep pneumo, covered with cefepime to cover for both pathogens; to continue and monitor his clinical course closely. Prognosis remains guarded. MMODL / IJN: [id number] /
[2021-07-21] MEDS: CISATRACURIUM 200 MG in SODIUM CHLORIDE 0.9% 180 ML IV SCH (22:05)
[2021-07-21] MEDS: INSULIN DETEMIR (LEVEMIR) 100 UNIT/ML SYR SQ SCH (22:13)
--- NOTE | 2021-07-21 23:11 | XR ---
EXAMINATION TYPE: XR chest 1V portable DATE OF EXAM: 07/21/2021 COMPARISON: 07/20/2021 HISTORY: Tube placement TECHNIQUE: Single view FINDINGS: Endotracheal tube is 4 cm from the miles. There is nasogastric tube in the stomach. There is left jugular catheter with tip in the superior vena cava. There is moderate pulmonary interstitial edema. There are chest leads. IMPRESSION: Interstitial edema slightly worse than exam yesterday.
[2021-07-21 23:59] LABS: Glucose,Whole Blood 146 mg/dL (75-99)
[2021-07-22] MEDS: HEPARIN SODIUM,PORCINE/PF 5,000 UNIT/0.5 ML SYRINGE SQ SCH ×3 (00:35→16:46)
[2021-07-22] MEDS: INSULIN ASPART (NovoLOG) 100 UNIT/ML VIAL SQ SCH ×4 (00:35→16:44)
[2021-07-22] MEDS: ARTIFICIAL TEARS-HYPROMELLOSE DROPS 15 ML BTL BOTH EYES SCH ×6 (00:36→19:49)
[2021-07-22 05:10] LABS: ABG Base Excess -8.9 mmol/L; ABG HCO3 21 mmol/L (21-25); ABG Oxygen Saturation 88.2 % (94-97); ABG PCO2 65 mmHg (35-45); ABG PO2 65 mmHg (83-108); ABG TCO2 23 mmol/L (19-24)
[2021-07-22 05:14] LABS: ABG PH 7.11 (7.35-7.45); Allen Test Performed? no
[2021-07-22 05:27] LABS: HCT 33.3 % (39.0-53.0); HGB 10.9 gm/dL (13.0-17.5); Hypochromasia Slight; MCH 31.9 pg (25.0-35.0); MCHC 32.8 g/dL (31.0-37.0); MCV 97.3 fL (80.0-100.0); Mean Platelet Volume 8.6; Platelet Count 386 k/uL (150-450); Poikilocytosis Slight; RBC 3.42 m/uL (4.30-5.90); RDW 14.8 % (11.5-15.5)
[2021-07-22 05:37] LABS: Albumin 2.3 g/dL (3.5-5.0); Phosphorus 7.9 mg/dL (2.5-4.5); Potassium 5.9 mmol/L (3.5-5.1); Total Bilirubin 2.8 mg/dL (0.2-1.3); Total Protein 5.3 g/dL (6.3-8.2)
[2021-07-22 06:20] LABS: Band Neutrophils % 1 %; Large Platelets Present; Lymphocytes # (M) 1.14 k/uL (1.0-4.8); Metamyelocytes # (M) 0.57 k/uL (0); Metamyelocytes % 2 %; Monocytes # (M) 0.28 k/uL (0-1.0); Myelocytes # (M) 0.28 k/uL (0); Myelocytes % 1 %; Neutrophils % (M) 93 %; Nucleated Red Blood Cells 2 /100 WBC (0-0); Total Cells Counted 200; WBC 28.4 k/uL (3.8-10.6)
[2021-07-22] MEDS: SODIUM CHLORIDE 0.9% 1,000 ML IV SCH ×2 (06:21→19:49)
[2021-07-22 06:44] LABS: Glucose,Whole Blood 172 mg/dL (75-99)
[2021-07-22] MEDS: ACETAMINOPHEN TAB 325 MG TAB PO PRN (07:32)
[2021-07-22] MEDS: NOREPINEPHRINE 8 MG in SODIUM CHLORIDE 0.9% 250 ML IV SCH ×4 (07:35→19:53)
--- NOTE | 2021-07-22 08:18 | XR ---
EXAMINATION TYPE: XR chest 1V portable DATE OF EXAM: 07/22/2021 COMPARISON: Chest x-ray 07/21/2021 HISTORY: Intubated TECHNIQUE: Single frontal view of the chest is obtained. FINDINGS: Endotracheal tube, NG tube, left jugular central venous catheter are overlying appropriate positions. Bilateral airspace disease shows a similar appearance, there is prominence of interstitiu m. No evident pneumothorax or pleural effusion. Cardiac mediastinal silhouette is stable accounting f or differences in technique. There are overlying artifacts. IMPRESSION: Correlate for pneumonia, edema, ARDS
--- NOTE | 2021-07-22 09:23 | P.PN ---
Subjective Progress Note Date: 07/22/21 66-year-old male, seen in the emergency department on July 12. He came in complaining of shortness of breath. He been sick for about 9 or 10 days prior to his visit in the emergency department. He complained of cough, chest congestion, fatigue, shortness of breath, and he did test positive for coron avirus. He was placed on BiPAP with settings of IPAP 12, EPAP 6, and 70%. The patient further decompensated and he was placed on a mechanical ventilator on 07/17/2021. He is currently being seen in the follow-up On 07/20/2021, the patient is being seen for a follow-up. The patient currently is on mechanical ventilator. He is sedated and paralyzed. The patient is currently on propofol running at 70 mcg/kg per minute and he is also paralyzed with Nimbex at 1 mcg/kg per minute. He remains on a mechanical ventilator, assist control mode with tidal volume of 450, rate of 32, FiO2 of 55% with a PEEP of 20. The peak ariway pressure is 40 and static is 37. Blood gases from today was noted. And the patient had a pH of 7.16 with a pCO2 of 60 and pO2 of 65. The chest x-ray from today was reviewed and the patient has adequate positioning of the orotracheal tube which is above the miles by around 2 cm in size. The patient has a left IJ triple-lumen catheter in place. The patient has bilateral pulmonary infiltrates, right hilar, essentially unchanged compared to yesterday. There is no interval worsening in the chest x-ray findings. On today's blood work, the patient has a LDH level of 1733 with a CRP level of 17.9 and the inflammatory markers are gradually improved. The patient's d-dimer level is at 12.5. The white cell count is at 21.5. Noted the patient also had developed an acute kidney injury. Creatinine is on the rise and currently is up to 2.38. Overall fluid balance has been +2.5 L over the past 24 hours. The patient's current regimen includes Decadron 6 mg IV every 24 hours, the patient is on antibiotic coverage with IV Zosyn. The patient is on multivitamins. The patient is also on the normal saline at the rate of 75 mL's an hour. The patient is on Lovenox 40 mg subcu for DVT prophylaxis. This patient Chest x-ray showing diffuse bilateral pulmonary infiltrates, essentially unchanged compared to yesterday. Note that the patient sputum also showed Streptococcus pneumoniae. The patient is currently on IV Zosyn. He is on Vital HP at 36 cc/hr 07/21/2021, I'm seeing the patient for a follow-up. The patient remains intubated on a mechanical ventilator. The patient remains sedated and paralyzed. For now, the patient is sedated with propofol which is currently running at 60 mg/kg per minute and the patient is also paralyzed with Nimbex at 1 g per to per minute. He remains on a mechanical ventilator. This morning, he is on assist control mode with a tidal volume of 400 and a respiratory rate of 32 with an FiO2 of 65% with a PEEP of 20. He was quite stiff yesterday with a peak airway pressure of around 40 with a subcu fashion of 37. Blood gases was showing borderline oxygenation. I made recommendations to follow this patient and he was ultimately phone at around 2200 yesterday. Currently is in a foam zuly position. His current pulse ox is 93%. Morning blood gases showed no major improvement in the oxygenation. This blood gas was done while the patient was prone and the pH was at 7.01 with a pCO2 of 81 and pO2 of 61 and this was done and FiO2 of 65%. Currently his pulse ox on the monitor is 93%. In terms of his COVID 19 related to pneumonia, the patient remains on Decadron. LDH from today is 1724 with a CRP of 20.7. Note that the inflammatory markers have been essentially elevated without any major improvement since yesterday. His d-dimer has been at 2.98. The patient is receiving Decadron 6 mg IV every 24 hours. The patient is also on Heparin for DVT prophylaxis at a dose of 5000 mg subcu every 8 hours. Meanwhile, the patient also had Streptococcus pneumonia in his sputum and the patient remains on IV cefepime. The patient is currently on normal saline at the rate of 75 mL an hour. He is also on pressors and norepinephrine infusion is running at 0.1 mcg/kg per minute. His pro-calcitonin level has been at 3.34 consistent with an underlying bacterial infection. At the same time, the patient is developing acute kidney injury. Nephrology was consulted yesterday. Creatinine is up to 3.71 with a BUN of 94 and the potassium level is up to 6.0. Serum bicarbonate of 18 with a anion gap of 10. The white cell count is at 33.6 with a hemoglobin of 12.1. 12 2021, I'm seeing the patient for a follow-up. As mentioned earlier, he has a COVID 19 related pneumonia with superinfection with MSSA and strep pneumonia. The patient is currently intubated on a mechanical ventilator. On today's evaluation, he remains sedated on propofol which is running at 60 mcg/kg per minute which is the same as yesterday and the patient is also on fentanyl running at 1 mcg/kg/h and Nimbex is also running at 1 mcg/kg per minute. Ventilator settings are essentially unchanged. He was prone to yesterday. He was somewhat hemodynamically unstable and he was hypotensive on pressors. We ended up his pronating process and he was placed back supine as the patient also was headed into an acute kidney injury. As such, the patient was placed back supine and this morning he is an assist-control mode with a tidal volume of 400, this tidal volume was brought up to 420 yesterday. His current respiratory rate is at 34, FiO2 is currently at 65% and a PEEP is currently at 20. His peak airway pressure is at 42 cm of water. Blood gases showed some improvement in his acidosis and the pH is at 7.11 with a pCO2 of 65 and pO2 of 65. The blood gases was noted from today. The chest x-ray from today is showing diffuse bilateral pulmonary infiltrates unchanged compared to yesterday. Orotracheal tube remains in a good location. The patient has advanced infiltrates bilaterally mainly in the left lower lobe, right lower lobe and the right upper lobe. Right hemidiaphragm is also quite elevated. ET tube is around 2 cm above the miles and the patient has a left subclavian triple-lumen catheter in place. The patient has been Supine since yesterday. In terms of his inflammatory markers regarding COVID 19, the patient has an LDH level of the was elevated from yesterday at 1200 724 with a CRP level of 20.7. The most recent d-dimer is at 2.98. Meanwhile, the patient remains on therapy and he is on Decadron at a dose of 6 mg IV every 24 hours. His sputum was positive. He had MSSA and strep to copious pneumonia and the patient was covered with IV cefepime. Hemodynamically, the patient is still on pressors. Norepinephrine infusion is still running at 0.4 mcg/kg per minute. His blood pressure is stable this morning. His cardiac rhythm is sinus tachycardia. Urine output is low in the order of 20 mL throughout the night. His white cell count is up to 28.4 and he has a BUN of 98 and a creatinine of 4.1 on today's evaluation. Potassium level also came at 5.9 and a serum bicarbonate of 18 with an anion gap of 12. Sodium is at 140. Nephrology has been consulted and the patient and the patient was given a dialysis catheter. His dialysis catheter currently is present in the right femoral vein. It is likely the patient is going to proceed with hemodialysis today specially with his underlying hyperkalemia and acidosis. He has developed third spacing. His body weight is up to 105 kg and his body mass index is up to 35.5. He continues to receive enteral feeding for nutritional support and the patient is currently on receiving vital high protein at the rate of 23 mL an hour which is goal. There is significant. Note that the patient received his first session of hemodialysis yesterday. He did not have any significant ultrafiltration. Objective - Vital Signs Vital signs: Vital Signs Temp 99.1 F 07/22/21 07:00 Pulse 113 H 07/22/21 07:00 Resp 34 H 07/22/21 07:00 BP 103/54 07/22/21 07:00 Pulse Ox 85 L 07/22/21 07:00 Intake & Output 07/21/21 07/22/21 07/22/21 18:59 06:59 18:59 Intake Total 4349.640 3797.080 240.216 Output Total 51 15 0 Balance 4865.597 0650.080 240.216 Weight 105.9 kg Intake: IV 1066 989 78 0.9% @ 75mL/hr 900 900 75 Cefepime 2 gm In Sodium 100 50 Chloride 0.9% 100 ml @ 25 mls/hr IVPB Q12H [facility] Rx# :[id number] Pressure Bag 66 39 3 Intake, IV Titration 592.283 7026.080 162.216 Amount Cisatracurium 200 mg In 197.28 Sodium Chloride 0.9% 180 ml @ 1 MCG/KG/MIN 5.4 mls /hr IV .Q24H [facility] Rx#: [id number] Norepinephrine 8 mg In 353.784 162.216 Sodium Chloride 0.9% 250 ml @ 0.05 MCG/KG/MIN 8. 708 mls/hr IV .Q24H [facility] Rx#:[id number] fentaNYL (PF) 2,500 mcg 194.728 In Sodium Chloride 0.9% 200 ml @ 0.5 MCG/KG/HR 4. 82 mls/hr IV .Q24H [facility] Rx #:[id number] propofoL 1,000 mg In 338.013 409.288 Empty Bag 1 bag @ Titrate IV .Q0M [facility] Rx#: [id number] Tube Feeding 253 23 Other 30 Output: Urine 51 15 0 Hemodialysis 0 Other: Voiding Method Indwelling Catheter Indwelling Catheter ABP, PAP, CO, CI - Last Documented Arterial Blood Pressure 78/49 - Exam Sedated and paralyzed, with an orally placed endotracheal tube and NG tube. Patient is in a prone body positioning at this point in time. The patient has on a mechanical ventilator for now. He is in a prone body positioning. He remains sedated and paralyzed. Head exam was generally normal. There was no scleral icterus or corneal arcus. Mucous membranes were moist. HEENT examination is grossly unremarkable. Neck supple. Full range of motion. No adenopathy thyromegaly or neck vein distention. Cardiovascular examination reveals regular rhythm rate. S1-S2 normal. No S3 or S4. No discernible murmur noted. Heart sounds are distant. Lungs reveal diffuse bilateral rhonchi. No wheezes. No crackles. Breath sounds equal bilaterally. Abdomen soft bowel sounds are heard. No masses or tenderness. He has a HD cath in the right femoral vein Extremities are intact. No cyanosis clubbing or edema. Skin is pale, without rash or lesion. Neurologic examination cannot be assessed as the patient's currently sedated and paralyzed. - Labs CBC & Chem 7: 07/22/21 05:15 07/22/21 05:15 Labs: Abnormal Lab Results - Last 24 Hours (Table) 07/21/21 07/21/21 07/21/21 Range/Units 04:40 11:30 12:50 WBC (3.8-10.6) k/uL RBC (4.30-5.90) m/uL Hgb (13.0-17.5) gm/dL Hct (39.0-53.0) % Neutrophils # (Manual) (1.3-7.7) k/uL Metamyelocytes # (Man) (0) k/uL Myelocytes # (Manual) (0) k/uL Nucleated RBCs (0-0) /100 WBC ABG pH (7.35-7.45) ABG pCO2 (35-45) mmHg ABG pO2 (83-108) mmHg ABG O2 Saturation (94-97) % Potassium 6.0 H (3.5-5.1) mmol/L Chloride (98-107) mmol/L Carbon Dioxide (22-30) mmol/L BUN (9-20) mg/dL Creatinine (0.66-1.25) mg/dL Glucose (74-99) mg/dL POC Glucose (mg/dL) 166 H (75-99) mg/dL Calcium (8.4-10.2) mg/dL Phosphorus (2.5-4.5) mg/dL Total Bilirubin (0.2-1.3) mg/dL AST (17-59) U/L ALT (4-49) U/L Total Protein (6.3-8.2) g/dL Albumin (3.5-5.0) g/dL Procalcitonin 20.80 H (0.02-0.09) ng/mL 07/21/21 07/21/21 07/21/21 Range/Units 16:19 18:30 23:57 WBC (3.8-10.6) k/uL RBC (4.30-5.90) m/uL Hgb (13.0-17.5) gm/dL Hct (39.0-53.0) % Neutrophils # (Manual) (1.3-7.7) k/uL Metamyelocytes # (Man) (0) k/uL Myelocytes # (Manual) (0) k/uL Nucleated RBCs (0-0) /100 WBC ABG pH (7.35-7.45) ABG pCO2 (35-45) mmHg ABG pO2 (83-108) mmHg ABG O2 Saturation (94-97) % Potassium 5.2 H (3.5-5.1) mmol/L Chloride (98-107) mmol/L Carbon Dioxide (22-30) mmol/L BUN (9-20) mg/dL Creatinine (0.66-1.25) mg/dL Glucose (74-99) mg/dL POC Glucose (mg/dL) 147 H 146 H (75-99) mg/dL Calcium (8.4-10.2) mg/dL Phosphorus (2.5-4.5) mg/dL Total Bilirubin (0.2-1.3) mg/dL AST (17-59) U/L ALT (4-49) U/L Total Protein (6.3-8.2) g/dL Albumin (3.5-5.0) g/dL Procalcitonin (0.02-0.09) ng/mL 07/22/21 07/22/21 07/22/21 Range/Units 05:05 05:15 05:15 WBC 28.4 H (3.8-10.6) k/uL RBC 3.42 L (4.30-5.90) m/uL Hgb 10.9 L (13.0-17.5) gm/dL Hct 33.3 L (39.0-53.0) % Neutrophils # (Manual) 26.60 H (1.3-7.7) k/uL Metamyelocytes # (Man) 0.57 H (0) k/uL Myelocytes # (Manual) 0.28 H (0) k/uL Nucleated RBCs 2 H (0-0) /100 WBC ABG pH 7.11 L* (7.35-7.45) ABG pCO2 65 H (35-45) mmHg ABG pO2 65 L (83-108) mmHg ABG O2 Saturation 88.2 L (94-97) % Potassium 5.9 H (3.5-5.1) mmol/L Chloride 110 H (98-107) mmol/L Carbon Dioxide 18 L (22-30) mmol/L BUN 98 H (9-20) mg/dL Creatinine 4.17 H (0.66-1.25) mg/dL Glucose 153 H (74-99) mg/dL POC Glucose (mg/dL) (75-99) mg/dL Calcium 8.0 L (8.4-10.2) mg/dL Phosphorus 7.9 H (2.5-4.5) mg/dL Total Bilirubin 2.8 H (0.2-1.3) mg/dL AST 70 H (17-59) U/L ALT 79 H (4-49) U/L Total Protein 5.3 L (6.3-8.2) g/dL Albumin 2.3 L (3.5-5.0) g/dL Procalcitonin (0.02-0.09) ng/mL 07/22/21 Range/Units 06:43 WBC (3.8-10.6) k/uL RBC (4.30-5.90) m/uL Hgb (13.0-17.5) gm/dL Hct (39.0-53.0) % Neutrophils # (Manual) (1.3-7.7) k/uL Metamyelocytes # (Man) (0) k/uL Myelocytes # (Manual) (0) k/uL Nucleated RBCs (0-0) /100 WBC ABG pH (7.35-7.45) ABG pCO2 (35-45) mmHg ABG pO2 (83-108) mmHg ABG O2 Saturation (94-97) % Potassium (3.5-5.1) mmol/L Chloride (98-107) mmol/L Carbon Dioxide (22-30) mmol/L BUN (9-20) mg/dL Creatinine (0.66-1.25) mg/dL Glucose (74-99) mg/dL POC Glucose (mg/dL) 172 H (75-99) mg/dL Calcium (8.4-10.2) mg/dL Phosphorus (2.5-4.5) mg/dL Total Bilirubin (0.2-1.3) mg/dL AST (17-59) U/L ALT (4-49) U/L Total Protein (6.3-8.2) g/dL Albumin (3.5-5.0) g/dL Procalcitonin (0.02-0.09) ng/mL Microbiology - Last 24 Hours (Table) 07/17/21 15:35 Blood Culture - Preliminary Blood No Growth after 96 hours 07/17/21 13:40 Blood Culture - Preliminary Blood No Growth after 96 hours 07/17/21 04:34 Gram Stain - Final Sputum Sputum Culture - Final Streptococcus pneumoniae Staphylococcus aureus Assessment and Plan Plan: 1 Acute hypoxemic respiratory failure secondary to coronavirus associated pneumonia, S/P intubation and mechanical ventilation on 07/17/2021. No evidence of pulmonary embolism on CT angiogram. The patient also has a strep pneumonia and the pro calcitonin level was elevated. The patient was covered with IV Cefepime . The patient on Decadron. The patient remains intubated on a mechan ical ventilator. Patient is currently on a PEEP of 20 with an FiO2 of 65%. Oxygenation is very borderline and the patient is currently in a unproned. Note that the prone positioning did not improve the patient's 02 she is currently back on a supine body position. The patient remains on Decadron. The patient remains on IV cefepime. No major changes on his ventilator settings. Oxidation is stable. Chest x-ray findings are also stable. 2 acute COVID-19 related pneumonia 3 sepsis with secondary hypotension.. Pro calcitonin level is elevated and the patient has a combination of penicillin resistant strep pneumonia and presumed staph aureus in the sputum. The patient currently is on IV cefepime. Patient is also on pressors and norepinephrine is running at 0.3 mg/kg/m. 4 Elevated inflammatory marker secondary to coronavirus infection. 5 acute kidney injury, oliguric and the patient received his first session of hemodialysis yesterday. Potassium level from today still elevated. May benefit from another session of dialysis as the patient also has some underlying metabolic acidosis. 6 streptococcus pneumonia in the sputum, consistent underlying pneumococcal pneumonia on top of COVID-19 related pneumonia. The patient is currently on IV Zosyn. The pro calcitonin level was elevated supporting bacterial pneumonia on top of the COVID-19 related infection. 7 hyperglycemia, steroid induced and the patient is currently on Levemir insulin along with NovoLog with sliding scale coverage for blood sugar control 8 leukocytosis 9 non-anion gap metabolic acidosis 10 acute hyperkalemia secondary to above Plan: Keep tidal volume down to 420 and keep the PEEP at 20 with an FiO2 of 65%, RR 34 Keep the patient sedated and paralyzed Keep Supine Another session of hemodialysis today Continue Decadron heparin subcu for DVT prophylaxis 5000 every 8 hours. Monitor d-dimer which seems to be slightly elevated. Monitor also the rest of the inflammatory markers. Continue with the Levemir insulin for blood sugar control in addition to sliding scale NovoLog Enteral feeding for nutritional support with vital high protein. Condition is critical we'll continue to follow make further recommendations based on his progress. Critically care evaluation, more than 30 minutes. Time with Patient: Greater than 30
[2021-07-22] MEDS: ASCORBIC ACID 500 MG TAB PO SCH (09:34)
[2021-07-22] MEDS: DEXAMETHASONE SOD PHOSPHATE 10 MG/ML 1 ML VIAL IVP SCH (09:35)
[2021-07-22] MEDS: CHLORHEXIDINE GLUCONATE 15 ML CUP MUCOUS MEM SCH ×2 (09:35→21:43)
[2021-07-22] MEDS: CHOLECALCIFEROL 25 MCG (1000 IU) TABLET PO SCH (09:35)
[2021-07-22] MEDS: ZINC SULFATE 220 MG CAP PO SCH (09:35)
[2021-07-22] MEDS: PANTOPRAZOLE 40 MG/10 ML VIAL IVP SCH (09:35)
[2021-07-22] MEDS: CEFEPIME 1 GM in SODIUM CHLORIDE 0.9% 50 ML IVPB SCH ×2 (09:36→21:43)
[2021-07-22 12:39] LABS: Glucose,Whole Blood 140 mg/dL (75-99)
--- NOTE | 2021-07-22 16:11 | PN ---
PROGRESS NOTE Patient is seen for followup for acute kidney injury. His renal function has been deteriorating and patient was started on dialysis. Urine output currently 0. The patient received his first treatment yesterday with no ultrafiltration. He is scheduled for hemodialysis again today. PHYSICAL EXAMINATION: Today blood pressure was 116/61, heart rate 112 per minute, patient is afebrile. He remains on the vent, FiO2 at 65%. Examination of the lower extremities shows edema 1+ bilaterally. [employer] exam cannot be performed. LAB: Show sodium 140, potassium 5.9, chloride 110, CO2 is 18, BUN 98, creatinine 4.17, hemoglobin 10.9 g/dL. ASSESSMENT: 1. Acute kidney injury, acute tubular necrosis, currently oliguric and dialysis dependent. The patient will have his second treatment of hemodialysis today. 2. Hyperkalemia, expect improvement post dialysis. 3. Metabolic acidosis, expect improvement with dialysis. Will repeat again in a.m. 4. COVID pneumonia. 5. Acute hypoxic respiratory failure. 6. Metabolic acidosis associated with progressive renal failure. Expect improvement post dialysis. PLAN: Repeat dialysis today and then again in a.m. MMMIKEL / TITIN: [id number] /
[2021-07-22 16:45] LABS: Glucose,Whole Blood 117 mg/dL (75-99)
[2021-07-22] MEDS: LACTULOSE 20 GM/30 ML CUP PO SCH ×2 (16:46→21:42)
[2021-07-22] MEDS: METOCLOPRAMIDE 5 MG/ML 2 ML VIAL IVP SCH (16:47)
[2021-07-22] MEDS: INSULIN DETEMIR (LEVEMIR) 100 UNIT/ML SYR SQ SCH (20:22)
[2021-07-22] MEDS: ALBUTEROL HFA INHALER INHALATION PRN (21:28)
[2021-07-22] MEDS: fentaNYL (PF) 2,500 MCG in SODIUM CHLORIDE 0.9% 200 ML IV SCH (22:13)
--- NOTE | 2021-07-22 22:41 | PN ---
PROGRESS NOTE DATE OF SERVICE: 07/22/2021 REASON FOR FOLLOWUP: COVID-19 pneumonia with secondary bacterial pneumonia. INTERVAL HISTORY: The patient is afebrile. The patient is hemodynamically stable no significant purulent secretions through the ET, diarrhea or any other changes reported by the nursing staff. EXAMINATION: Blood pressure 142/81 with a pulse of 112, temperature 98.1. He is 88% on 65% FIO2. General description is a middle-aged male intubated on the vent. Respiratory system: Unlabored breathing, decreased breath sounds in the base, with some wheeze. Heart S1, S2 regular rate and rhythm. Abdomen soft, no tenderness. LABS: Hemoglobin is 10.1, white count 8.4. done yesterday. Creatinine is 4.17. DIAGNOSTIC IMPRESSION AND PLAN: Patient with acute respiratory failure, multifactorial in this patient with initial diagnosis of Covid 19 pneumonia with subsequent worsening component of secondary bacterial pneumonia. The patient is covered with cefepime and culture has been positive for MSSA and strep pneumoniae to cover for both pathogens. Blood culture negative and monitor clinical course closely . MMODL / IJN: [id number] /
[2021-07-23] MEDS: ARTIFICIAL TEARS-HYPROMELLOSE DROPS 15 ML BTL BOTH EYES SCH ×7 (00:52→23:20)
[2021-07-23] MEDS: METOCLOPRAMIDE 5 MG/ML 2 ML VIAL IVP SCH ×5 (00:53→23:20)
[2021-07-23 00:54] LABS: Glucose,Whole Blood 170 mg/dL (75-99)
[2021-07-23] MEDS: HEPARIN SODIUM,PORCINE/PF 5,000 UNIT/0.5 ML SYRINGE SQ SCH ×4 (00:55→23:22)
[2021-07-23] MEDS: INSULIN ASPART (NovoLOG) 100 UNIT/ML VIAL SQ SCH ×5 (00:55→23:36)
[2021-07-23] MEDS: NOREPINEPHRINE 8 MG in SODIUM CHLORIDE 0.9% 250 ML IV SCH ×4 (01:55→23:32)
[2021-07-23] MEDS: CISATRACURIUM 200 MG in SODIUM CHLORIDE 0.9% 180 ML IV SCH ×2 (03:22→20:34)
[2021-07-23 04:49] LABS: Glucose,Whole Blood 146 mg/dL (75-99)
[2021-07-23 05:03] LABS: HCT 30.7 % (39.0-53.0); Hypochromasia Moderate; MCH 31.9 pg (25.0-35.0); MCHC 32.6 g/dL (31.0-37.0); MCV 97.8 fL (80.0-100.0); Mean Platelet Volume 8.4; Platelet Count 392 k/uL (150-450); Poikilocytosis Slight; RBC 3.14 m/uL (4.30-5.90); RDW 14.9 % (11.5-15.5)
[2021-07-23 05:11] LABS: Potassium 5.6 mmol/L (3.5-5.1)
[2021-07-23 05:43] LABS: ABG Base Excess -10.4 mmol/L; ABG HCO3 20 mmol/L (21-25); ABG Oxygen Saturation 89.1 % (94-97); ABG PO2 71 mmHg (83-108); ABG TCO2 22 mmol/L (19-24); Allen Test Performed? Yes
[2021-07-23 05:47] LABS: ABG PCO2 72 mmHg (35-45); ABG PH 7.05 (7.35-7.45)
[2021-07-23 06:15] LABS: Anisocytosis (M) Present; Band Neutrophils % 3 %; Eosinophils # (M) 0.29 k/uL (0-0.7); Lymphocytes # (M) 0.59 k/uL (1.0-4.8); Metamyelocytes # (M) 0.29 k/uL (0); Metamyelocytes % 1 %; Monocytes # (M) 1.17 k/uL (0-1.0); Neutrophils % (M) 89 %; Nucleated Red Blood Cells 2 /100 WBC (0-0); Polychromasia Present; Total Cells Counted 100; WBC 29.3 k/uL (3.8-10.6)
[2021-07-23] MEDS: CHLORHEXIDINE GLUCONATE 15 ML CUP MUCOUS MEM SCH ×2 (08:22→20:42)
[2021-07-23] MEDS: ZINC SULFATE 220 MG CAP PO SCH (08:23)
[2021-07-23] MEDS: ASCORBIC ACID 500 MG TAB PO SCH (08:23)
[2021-07-23] MEDS: PANTOPRAZOLE 40 MG/10 ML VIAL IVP SCH (08:23)
[2021-07-23] MEDS: CHOLECALCIFEROL 25 MCG (1000 IU) TABLET PO SCH (08:23)
[2021-07-23] MEDS: LACTULOSE 20 GM/30 ML CUP PO SCH ×3 (08:25→22:14)
[2021-07-23] MEDS: DEXAMETHASONE SOD PHOSPHATE 10 MG/ML 1 ML VIAL IVP SCH (08:36)
--- NOTE | 2021-07-23 08:45 | P.PN ---
Subjective Progress Note Date: 07/22/21 This is a 66-year-old male who was recently admitted with acute COVID-19 viral pneumonia and bilateral interstitial pneumonia on mechanical ventilation being closely monitored. Patient continues in the ICU with worsening renal functions and vascular surgery consulted for hemodialysis catheter placement with nephrology following closely. Patient's potassium is 6.0 and corrected and awaiting repeat labs. Patient's white blood count continues to be elevated as well and is 33.6 today. Infectious disease following an patient is maintained on IV cefepime and will continue. 07/22/2021 Patient is seen in follow-up this morning continues to be on mechanical ventilation and intubated and being closely monitored in the ICU. Nephrology also following closely along with multiple medical consultations and patient has been started on hemodialysis and most likely will continue daily for now. Patient has no urine output per nursing staff. X-ray today shows bilateral airspace disease shows a similar appearance there is a prominence of interstitium with no evident pneumothorax or pleural effusion noted and a correlate for pneumonia, edema, ARDS. Potassium today is 5.9, BUN is 98, creatinine is 4.17. Patient to continue with IV cefepime with infectious disease following closely. Review of systems: Unable to obtain as patient is intubated and sedated Labs: WBC is 28.4, hemoglobin is 10.9, platelets are 386, sodium is 140, potassium is 5.9, BUN is 98, creatinine is 4.17, calcium is 8.0, phosphorus is 7.9, total bili is 2.8, AST is 70, ALT is 79 Active Medications Acetaminophen (Acetaminophen Tab 325 Mg Tab) 650 mg PO Q4HR PRN PRN Reason: Fever>101 Last Admin: 07/22/21 07:32 Dose: 650 mg Documented by: Albuterol Sulfate (Albuterol Hfa Inhaler) 2 puff INHALATION RT-Q6H PRN PRN Reason: Shortness Of Breath Or Wheezing Last Admin: 07/21/21 15:57 Dose: 2 puff Documented by: Artificial Tears (Artificial Tears-Hypromellose Drops 15 Ml Btl) 2 drops BOTH EYES Q4HR [facility] Last Admin: 07/22/21 12:46 Dose: 2 drops Documented by: Ascorbic Acid (Ascorbic Acid 500 Mg Tab) 500 mg PO DAILY [facility] Last Admin: 07/22/21 09:34 Dose: 500 mg Documented by: Chlorhexidine Gluconate (Chlorhexidine Gluconate 15 Ml Cup) 15 ml MUCOUS MEM BID [facility] Last Admin: 07/22/21 09:35 Dose: 15 ml Documented by: Cholecalciferol (Cholecalciferol 25 Mcg (1000 Iu) Tablet) 25 mcg PO DAILY [facility] Last Admin: 07/22/21 09:35 Dose: 25 mcg Documented by: Dexamethasone Sodium Phosphate (Dexamethasone Sod Phosphate 10 Mg/Ml 1 Ml Vial) 6 mg IVP DAILY [facility] Last Admin: 07/22/21 09:35 Dose: 6 mg Documented by: Heparin Sodium (Porcine) (Heparin Sodium,Porcine/Pf 5,000 Unit/0.5 Ml Syringe) 5,000 unit SQ Q8HR [facility] Last Admin: 07/22/21 09:34 Dose: 5,000 unit Documented by: Sodium Chloride (Saline 0.9%) 1,000 mls @ 75 mls/hr IV .[id number] [facility] Last Admin: 07/22/21 06:21 Dose: Not Given Documented by: Propofol 1,000 mg/ IV Solution 100 mls @ 0 mls/hr IV .Q0M [facility]; Protocol Last Admin: 07/22/21 12:45 Dose: 60 mcg/kg/min, 38.124 mls/hr Documented by: Cisatracurium Besylate 200 mg/ (Sodium Chloride) 200 mls @ 5.4 mls/hr IV .Q24H [facility]; Protocol Last Titration: 07/22/21 09:37 Dose: 1 mcg/kg/min, 5.4 mls/hr Documented by: Norepinephrine Bitartrate 8 mg (/ Sodium Chloride) 258 mls @ 8.708 mls/hr IV .Q24H [facility]; Protocol Last Admin: 07/22/21 11:42 Dose: 0.35 mcg/kg/min, 60.953 mls/hr Documented by: Fentanyl Citrate 2,500 mcg/ (Sodium Chloride) 250 mls @ 4.82 mls/hr IV .Q24H [facility]; Protocol Last Titration: 07/22/21 09:38 Dose: 1 mcg/kg/hr, 9.64 mls/hr Documented by: Cefepime HCl 1 gm/ Sodium (Chloride) 50 mls @ 12.5 mls/hr IVPB Q12H [facility] Last Admin: 07/22/21 09:36 Dose: 12.5 mls/hr Documented by: Insulin Aspart (Insulin Aspart (Novolog) 100 Unit/Ml Vial) 0 unit SQ Q6H [facility]; Protocol Last Admin: 07/22/21 12:45 Dose: 1 unit Documented by: Insulin Detemir (Insulin Detemir (Levemir) 100 Unit/Ml Syr) 20 unit SQ HS [facility] Last Admin: 07/21/21 22:13 Dose: 20 unit Documented by: Lactulose (Lactulose 20 Gm/30 Ml Cup) 15 gm PO TID [facility] Metoclopramide HCl (Metoclopramide 5 Mg/Ml 2 Ml Vial) 10 mg IVP Q6HR [facility] Pantoprazole Sodium (Pantoprazole 40 Mg/10 Ml Vial) 40 mg IVP DAILY [facility] Last Admin: 07/22/21 09:35 Dose: 40 mg Documented by: Zinc Sulfate (Zinc Sulfate 220 Mg Cap) 220 mg PO DAILY [facility] Last Admin: 07/22/21 09:35 Dose: 220 mg Documented by: Physical Exam: Gen: This is a 66-year-old male who is intubated and sedated, well-developed, well-nourished. Temp is 98.8F, pulse is 112, respirations are 34, blood pres sure is 120/60, arterial blood pressure is 116/61, CVP is 21, oxygen saturation is 86% on Vent and FiO2 of 65% HEENT: Head is atraumatic, normocephalic. Pupils equal, round. Sclerae is anicteric. NECK: Supple. No JVD. No lymphadenopathy. No thyromegaly. LUNGS: Breath sounds diminished with scattered rhonchi and crackles noted. No intercostal retractions. HEART: S1, S2 are muffled ABDOMEN: Soft. Bowel sounds are present. No masses. No tenderness. EXTREMITIES: No pedal edema. No calf tenderness. NEUROLOGICAL: Patient is currently sedated and intubated. Assessment: Acute COVID-19 infection with acute COVID-19 bilateral interstitial pneumonia with acute hypoxic respiratory failure MSSA streptococcal pneumonia Elevated inflammatory markers of COVID-19 pneumonia acute kidney injury with creatinine 1.6 with acute tubular necrosis, worsening now requiring hemodialysis Hypovolemic hyponatremia Hypertension history history of lactic acidosis Sinus tachycardia Deep vein thrombosis prophylaxis acute respiratory acidosis Hyperkalemia secondary to renal failure diabetes mellitus type 2, uncontrolled with elevated blood sugars Elevated AST, ALT with hepatitis secondary to COVID-19 Increased WBC obesity with a body mass index of 33.0 Full code Plan: Recommend to continue with current medications and follow along closely with multiple medical consultations. Nephrology following closely and kidney functions continue to worsen and vascular surgery placed hemodialysis catheter and patient received hemodialysis yesterday and is scheduled to receive again today and most likely daily. Potassium elevated at 5.9 and corrected and awaiting repeat labs. Patient continues on mechanical ventilation with multiple medical consultations including infectious disease, pulmonary, nephrology following closely. Patient continues on IV antibiotics in the form of cefepime and will continue. Repeat blood cultures have been negative and Gram stain culture from sputum showing Streptococcus pneumonia and Staphylococcus aureus. Recommend repeat labs in the a.m and chest x-ray. Due to multiple complex medical issues prognosis is extremely guarded. Objective - Vital Signs Vital signs: Vital Signs Temp 99.1 F 07/22/21 07:00 Pulse 113 H 07/22/21 07:00 Resp 34 H 07/22/21 07:00 BP 103/54 07/22/21 07:00 Pulse Ox 85 L 07/22/21 07:00 Intake & Output 07/21/21 07/22/21 07/22/21 18:59 06:59 18:59 Intake Total 7778.301 6577.080 762.924 Output Total 51 15 0 Balance 0586.954 9969.080 762.924 Weight 105.9 kg Intake: IV 1066 989 240 0.9% @ 75mL/hr 900 900 225 Cefepime 2 gm In Sodium 100 50 Chloride 0.9% 100 ml @ 25 mls/hr IVPB Q12H [facility] Rx# :[id number] Pressure Bag 66 39 15 Intake, IV Titration 213.727 4910.080 446.924 Amount Cisatracurium 200 mg In 197.28 62.28 Sodium Chloride 0.9% 180 ml @ 1 MCG/KG/MIN 5.4 mls /hr IV .Q24H [facility] Rx#: [id number] Norepinephrine 8 mg In 353.784 162.216 Sodium Chloride 0.9% 250 ml @ 0.05 MCG/KG/MIN 8. 708 mls/hr IV .Q24H [facility] Rx#:[id number] fentaNYL (PF) 2,500 mcg 194.728 122.428 In Sodium Chloride 0.9% 200 ml @ 0.5 MCG/KG/HR 4. 82 mls/hr IV .Q24H [facility] Rx #:[id number] propofoL 1,000 mg In 338.013 409.288 100 Empty Bag 1 bag @ Titrate IV .Q0M [facility] Rx#: [id number] Tube Feeding 253 23 46 Other 30 30 Output: Urine 51 15 0 Hemodialysis 0 Other: Voiding Method Indwelling Catheter Indwelling Catheter Indwelling Catheter ABP, PAP, CO, CI - Last Documented Arterial Blood Pressure 78/49 - Labs CBC & Chem 7: 07/23/21 04:50 07/23/21 04:50 Labs: Abnormal Lab Results - Last 24 Hours (Table) 07/21/21 07/21/21 07/21/21 Range/Units 04:40 11:30 12:50 WBC (3.8-10.6) k/uL RBC (4.30-5.90) m/uL Hgb (13.0-17.5) gm/dL Hct (39.0-53.0) % Neutrophils # (Manual) (1.3-7.7) k/uL Metamyelocytes # (Man) (0) k/uL Myelocytes # (Manual) (0) k/uL Nucleated RBCs (0-0) /100 WBC ABG pH (7.35-7.45) ABG pCO2 (35-45) mmHg ABG pO2 (83-108) mmHg ABG O2 Saturation (94-97) % Potassium 6.0 H (3.5-5.1) mmol/L Chloride (98-107) mmol/L Carbon Dioxide (22-30) mmol/L BUN (9-20) mg/dL Creatinine (0.66-1.25) mg/dL Glucose (74-99) mg/dL POC Glucose (mg/dL) 166 H (75-99) mg/dL Calcium (8.4-10.2) mg/dL Phosphorus (2.5-4.5) mg/dL Total Bilirubin (0.2-1.3) mg/dL AST (17-59) U/L ALT (4-49) U/L Total Protein (6.3-8.2) g/dL Albumin (3.5-5.0) g/dL Procalcitonin 20.80 H (0.02-0.09) ng/mL 07/21/21 07/21/21 07/21/21 Range/Units 16:19 18:30 23:57 WBC (3.8-10.6) k/uL RBC (4.30-5.90) m/uL Hgb (13.0-17.5) gm/dL Hct (39.0-53.0) % Neutrophils # (Manual) (1.3-7.7) k/uL Metamyelocytes # (Man) (0) k/uL Myelocytes # (Manual) (0) k/uL Nucleated RBCs (0-0) /100 WBC ABG pH (7.35-7.45) ABG pCO2 (35-45) mmHg ABG pO2 (83-108) mmHg ABG O2 Saturation (94-97) % Potassium 5.2 H (3.5-5.1) mmol/L Chloride (98-107) mmol/L Carbon Dioxide (22-30) mmol/L BUN (9-20) mg/dL Creatinine (0.66-1.25) mg/dL Glucose (74-99) mg/dL POC Glucose (mg/dL) 147 H 146 H (75-99) mg/dL Calcium (8.4-10.2) mg/dL Phosphorus (2.5-4.5) mg/dL Total Bilirubin (0.2-1.3) mg/dL AST (17-59) U/L ALT (4-49) U/L Total Protein (6.3-8.2) g/dL Albumin (3.5-5.0) g/dL Procalcitonin (0.02-0.09) ng/mL 07/22/21 07/22/21 07/22/21 Range/Units 05:05 05:15 05:15 WBC 28.4 H (3.8-10.6) k/uL RBC 3.42 L (4.30-5.90) m/uL Hgb 10.9 L (13.0-17.5) gm/dL Hct 33.3 L (39.0-53.0) % Neutrophils # (Manual) 26.60 H (1.3-7.7) k/uL Metamyelocytes # (Man) 0.57 H (0) k/uL Myelocytes # (Manual) 0.28 H (0) k/uL Nucleated RBCs 2 H (0-0) /100 WBC ABG pH 7.11 L* (7.35-7.45) ABG pCO2 65 H (35-45) mmHg ABG pO2 65 L (83-108) mmHg ABG O2 Saturation 88.2 L (94-97) % Potassium 5.9 H (3.5-5.1) mmol/L Chloride 110 H (98-107) mmol/L Carbon Dioxide 18 L (22-30) mmol/L BUN 98 H (9-20) mg/dL Creatinine 4.17 H (0.66-1.25) mg/dL Glucose 153 H (74-99) mg/dL POC Glucose (mg/dL) (75-99) mg/dL Calcium 8.0 L (8.4-10.2) mg/dL Phosphorus 7.9 H (2.5-4.5) mg/dL Total Bilirubin 2.8 H (0.2-1.3) mg/dL AST 70 H (17-59) U/L ALT 79 H (4-49) U/L Total Protein 5.3 L (6.3-8.2) g/dL Albumin 2.3 L (3.5-5.0) g/dL Procalcitonin (0.02-0.09) ng/mL 07/22/21 Range/Units 06:43 WBC (3.8-10.6) k/uL RBC (4.30-5.90) m/uL Hgb (13.0-17.5) gm/dL Hct (39.0-53.0) % Neutrophils # (Manual) (1.3-7.7) k/uL Metamyelocytes # (Man) (0) k/uL Myelocytes # (Manual) (0) k/uL Nucleated RBCs (0-0) /100 WBC ABG pH (7.35-7.45) ABG pCO2 (35-45) mmHg ABG pO2 (83-108) mmHg ABG O2 Saturation (94-97) % Potassium (3.5-5.1) mmol/L Chloride (98-107) mmol/L Carbon Dioxide (22-30) mmol/L BUN (9-20) mg/dL Creatinine (0.66-1.25) mg/dL Glucose (74-99) mg/dL POC Glucose (mg/dL) 172 H (75-99) mg/dL Calcium (8.4-10.2) mg/dL Phosphorus (2.5-4.5) mg/dL Total Bilirubin (0.2-1.3) mg/dL AST (17-59) U/L ALT (4-49) U/L Total Protein (6.3-8.2) g/dL Albumin (3.5-5.0) g/dL Procalcitonin (0.02-0.09) ng/mL Microbiology - Last 24 Hours (Table) 07/17/21 15:35 Blood Culture - Preliminary Blood No Growth after 96 hours 07/17/21 13:40 Blood Culture - Preliminary Blood No Growth after 96 hours 07/17/21 04:34 Gram Stain - Final Sputum Sputum Culture - Final Streptococcus pneumoniae Staphylococcus aureus
[2021-07-23] MEDS ORDERED: SODIUM BICARB 8.4% 50 ML SYR (1 MEQ/ML) IV STA (08:49)
--- NOTE | 2021-07-23 08:53 | P.PN ---
Subjective Progress Note Date: 07/23/21 66-year-old male, seen in the emergency department on July 12. He came in complaining of shortness of breath. He been sick for about 9 or 10 days prior to his visit in the emergency department. He complained of cough, chest congestion, fatigue, shortness of breath, and he did test positive for coron avirus. He was placed on BiPAP with settings of IPAP 12, EPAP 6, and 70%. The patient further decompensated and he was placed on a mechanical ventilator on 07/17/2021. He is currently being seen in the follow-up On 07/20/2021, the patient is being seen for a follow-up. The patient currently is on mechanical ventilator. He is sedated and paralyzed. The patient is currently on propofol running at 70 mcg/kg per minute and he is also paralyzed with Nimbex at 1 mcg/kg per minute. He remains on a mechanical ventilator, assist control mode with tidal volume of 450, rate of 32, FiO2 of 55% with a PEEP of 20. The peak ariway pressure is 40 and static is 37. Blood gases from today was noted. And the patient had a pH of 7.16 with a pCO2 of 60 and pO2 of 65. The chest x-ray from today was reviewed and the patient has adequate positioning of the orotracheal tube which is above the miles by around 2 cm in size. The patient has a left IJ triple-lumen catheter in place. The patient has bilateral pulmonary infiltrates, right hilar, essentially unchanged compared to yesterday. There is no interval worsening in the chest x-ray findings. On today's blood work, the patient has a LDH level of 1733 with a CRP level of 17.9 and the inflammatory markers are gradually improved. The patient's d-dimer level is at 12.5. The white cell count is at 21.5. Noted the patient also had developed an acute kidney injury. Creatinine is on the rise and currently is up to 2.38. Overall fluid balance has been +2.5 L over the past 24 hours. The patient's current regimen includes Decadron 6 mg IV every 24 hours, the patient is on antibiotic coverage with IV Zosyn. The patient is on multivitamins. The patient is also on the normal saline at the rate of 75 mL's an hour. The patient is on Lovenox 40 mg subcu for DVT prophylaxis. This patient Chest x-ray showing diffuse bilateral pulmonary infiltrates, essentially unchanged compared to yesterday. Note that the patient sputum also showed Streptococcus pneumoniae. The patient is currently on IV Zosyn. He is on Vital HP at 36 cc/hr 07/21/2021, I'm seeing the patient for a follow-up. The patient remains intubated on a mechanical ventilator. The patient remains sedated and paralyzed. For now, the patient is sedated with propofol which is currently running at 60 mg/kg per minute and the patient is also paralyzed with Nimbex at 1 g per to per minute. He remains on a mechanical ventilator. This morning, he is on assist control mode with a tidal volume of 400 and a respiratory rate of 32 with an FiO2 of 65% with a PEEP of 20. He was quite stiff yesterday with a peak airway pressure of around 40 with a subcu fashion of 37. Blood gases was showing borderline oxygenation. I made recommendations to follow this patient and he was ultimately phone at around 2200 yesterday. Currently is in a foam zuly position. His current pulse ox is 93%. Morning blood gases showed no major improvement in the oxygenation. This blood gas was done while the patient was prone and the pH was at 7.01 with a pCO2 of 81 and pO2 of 61 and this was done and FiO2 of 65%. Currently his pulse ox on the monitor is 93%. In terms of his COVID 19 related to pneumonia, the patient remains on Decadron. LDH from today is 1724 with a CRP of 20.7. Note that the inflammatory markers have been essentially elevated without any major improvement since yesterday. His d-dimer has been at 2.98. The patient is receiving Decadron 6 mg IV every 24 hours. The patient is also on Heparin for DVT prophylaxis at a dose of 5000 mg subcu every 8 hours. Meanwhile, the patient also had Streptococcus pneumonia in his sputum and the patient remains on IV cefepime. The patient is currently on normal saline at the rate of 75 mL an hour. He is also on pressors and norepinephrine infusion is running at 0.1 mcg/kg per minute. His pro-calcitonin level has been at 3.34 consistent with an underlying bacterial infection. At the same time, the patient is developing acute kidney injury. Nephrology was consulted yesterday. Creatinine is up to 3.71 with a BUN of 94 and the potassium level is up to 6.0. Serum bicarbonate of 18 with a anion gap of 10. The white cell count is at 33.6 with a hemoglobin of 12.1. 12 2021, I'm seeing the patient for a follow-up. As mentioned earlier, he has a COVID 19 related pneumonia with superinfection with MSSA and strep pneumonia. The patient is currently intubated on a mechanical ventilator. On today's evaluation, he remains sedated on propofol which is running at 60 mcg/kg per minute which is the same as yesterday and the patient is also on fentanyl running at 1 mcg/kg/h and Nimbex is also running at 1 mcg/kg per minute. Ventilator settings are essentially unchanged. He was prone to yesterday. He was somewhat hemodynamically unstable and he was hypotensive on pressors. We ended up his pronating process and he was placed back supine as the patient also was headed into an acute kidney injury. As such, the patient was placed back supine and this morning he is an assist-control mode with a tidal volume of 400, this tidal volume was brought up to 420 yesterday. His current respiratory rate is at 34, FiO2 is currently at 65% and a PEEP is currently at 20. His peak airway pressure is at 42 cm of water. Blood gases showed some improvement in his acidosis and the pH is at 7.11 with a pCO2 of 65 and pO2 of 65. The blood gases was noted from today. The chest x-ray from today is showing diffuse bilateral pulmonary infiltrates unchanged compared to yesterday. Orotracheal tube remains in a good location. The patient has advanced infiltrates bilaterally mainly in the left lower lobe, right lower lobe and the right upper lobe. Right hemidiaphragm is also quite elevated. ET tube is around 2 cm above the miles and the patient has a left subclavian triple-lumen catheter in place. The patient has been Supine since yesterday. In terms of his inflammatory markers regarding COVID 19, the patient has an LDH level of the was elevated from yesterday at 1200 724 with a CRP level of 20.7. The most recent d-dimer is at 2.98. Meanwhile, the patient remains on therapy and he is on Decadron at a dose of 6 mg IV every 24 hours. His sputum was positive. He had MSSA and strep to copious pneumonia and the patient was covered with IV cefepime. Hemodynamically, the patient is still on pressors. Norepinephrine infusion is still running at 0.4 mcg/kg per minute. His blood pressure is stable this morning. His cardiac rhythm is sinus tachycardia. Urine output is low in the order of 20 mL throughout the night. His white cell count is up to 28.4 and he has a BUN of 98 and a creatinine of 4.1 on today's evaluation. Potassium level also came at 5.9 and a serum bicarbonate of 18 with an anion gap of 12. Sodium is at 140. Nephrology has been consulted and the patient and the patient was given a dialysis catheter. His dialysis catheter currently is present in the right femoral vein. It is likely the patient is going to proceed with hemodialysis today specially with his underlying hyperkalemia and acidosis. He has developed third spacing. His body weight is up to 105 kg and his body mass index is up to 35.5. He continues to receive enteral feeding for nutritional support and the patient is currently on receiving vital high protein at the rate of 23 mL an hour which is goal. There is significant. Note that the patient received his first session of hemodialysis yesterday. He did not have any significant ultrafiltration. 07/23/2021, patient is being seen for a follow-up. A complicated case of covert 19 related pneumonia with superinfection including MSSA and strep pneumonia and acute kidney injury requiring hemodialysis. The patient remains in the ICU, intubated on a mechanical ventilator. This morning, he is sedated with propofol which is currently running at 60 mcg/kg per minute and the patient is also on fentanyl at 1 mcg/kg/h and Nimbex is running at 1 mcg/kg per minute. The level of sedation and paralytics are the same as yesterday. The patient did not have a follow-up chest x-ray today. Nevertheless, he is on a mechanical ventilator. He is in a supine body position. He is on assist control mode at the rate of 34, tidal volume is at 420 mL and the respiratory rate is at 34 with FiO2 the cath on the percent with a PEEP of 20. The blood gases from today shows a pH of 7.05 with a pCO2 of 72 and pO2 of 71. Peak air pressures still unchanged compared to yesterday as his peak air pressures currently at 42. The patient remains on Decadron. The patient's is hemodynamically unstable and his still requiring pressors for blood pressure control. Norepinephrine infusion is currently running at 0.4 mcg/kg per minute and this is essentially the same as yesterday. The patient remains on broad-spectrum antibiotics. He remains currently on IV cefepime. The white cell count today is at 29. He remains quite acidotic and the serum bicarbs at 18 with a sodium level of 138 and a potassium level of 5.6. TPN is at 76 with a creatinine of 4.1. The patient is receiving another session of hemodialysis today and electrodes will be rechecked post hemodialysis.. Encompass significant amount of volume overload based on his underlying renal failure and he has extensive third spacing and peripheral edema. No major changes condition otherwise. He remains on pressors. He is receiving enteral feeding for nutritional support with vital high protein at the rate of 25 mL an hour. He is receiving his second session of hemodialysis today. He is currently having liquidy stool. A fecal management system was attached. We'll check possibility of an underlying C. diff infection and stool will be sent for C. diff evaluation. In terms of his inflammatory markers, this has not been checked for today. Her last check was done on 07/21/2021. IV fluids are currently in the form of 0.9 at KVO. Objective - Vital Signs Vital signs: Vital Signs Temp 98.2 F 07/23/21 04:00 Pulse 114 H 07/23/21 08:00 Resp 35 H 07/23/21 08:00 BP 109/58 07/23/21 04:15 Pulse Ox 88 L 07/23/21 08:00 Intake & Output 07/22/21 07/23/21 07/23/21 18:59 06:59 18:59 Intake Total 2879.999 2658.578 106 Output Total 1000 15 0 Balance 3941.187 4888.578 106 Weight 105.9 kg 107.1 kg Intake: IV 969 972 81 0.9% @ 75mL/hr 900 900 75 Pressure Bag 69 72 6 Intake, IV Titration 9547.719 2858.578 Amount Cisatracurium 200 mg In 62.28 95.85 Sodium Chloride 0.9% 180 ml @ 1 MCG/KG/MIN 5.4 mls /hr IV .Q24H [facility] Rx#: [id number] Norepinephrine 8 mg In 635.291 708.442 Sodium Chloride 0.9% 250 ml @ 0.05 MCG/KG/MIN 8. 708 mls/hr IV .Q24H [facility] Rx#:[id number] fentaNYL (PF) 2,500 mcg 122.428 121.303 In Sodium Chloride 0.9% 200 ml @ 0.5 MCG/KG/HR 4. 82 mls/hr IV .Q24H [facility] Rx #:[id number] propofoL 1,000 mg In 400 450.983 Empty Bag 1 bag @ Titrate IV .Q0M [facility] Rx#: [id number] Tube Feeding 271 250 25 Hemodialysis 300 Other 120 60 Output: Urine 0 15 0 Hemodialysis 1000 Other: Voiding Method Indwelling Catheter Indwelling Catheter ABP, PAP, CO, CI - Last Documented Arterial Blood Pressure 94/50 - Exam Sedated and paralyzed, with an orally placed endotracheal tube and NG tube. Patient is in a prone body positioning at this point in time. The patient has on a mechanical ventilator for now. He is in a prone body positioning. He remains sedated and paralyzed. Head exam was generally normal. There was no scleral icterus or corneal arcus. Mucous membranes were moist. HEENT examination is grossly unremarkable. Neck supple. Full range of motion. No adenopathy thyromegaly or neck vein distention. Cardiovascular examination reveals regular rhythm rate. S1-S2 normal. No S3 or S4. No discernible murmur noted. Heart sounds are distant. Lungs reveal diffuse bilateral rhonchi. No wheezes. No crackles. Breath s ounds equal bilaterally. Abdomen soft bowel sounds are heard. No masses or tenderness. He has a HD cath in the right femoral vein Extremities are intact. No cyanosis clubbing since of edema in all 4 extremities and the patient has pitting edema in the upper and lower extremities. The patient is a femoral catheter in his right groin. The patient also has an arterial line in his left radial artery. Skin is pale, without rash or lesion. Neurologic examination cannot be assessed as the patient's currently sedated and paralyzed. - Labs CBC & Chem 7: 07/23/21 04:50 07/23/21 04:50 Labs: Abnormal Lab Results - Last 24 Hours (Table) 07/22/21 07/22/21 07/23/21 Range/Units 12:38 16:43 00:52 WBC (3.8-10.6) k/uL RBC (4.30-5.90) m/uL Hgb (13.0-17.5) gm/dL Hct (39.0-53.0) % Neutrophils # (Manual) (1.3-7.7) k/uL Lymphocytes # (Manual) (1.0-4.8) k/uL Monocytes # (Manual) (0-1.0) k/uL Metamyelocytes # (Man) (0) k/uL Nucleated RBCs (0-0) /100 WBC ABG pH (7.35-7.45) ABG pCO2 (35-45) mmHg ABG pO2 (83-108) mmHg ABG HCO3 (21-25) mmol/L ABG O2 Saturation (94-97) % Potassium (3.5-5.1) mmol/L Chloride (98-107) mmol/L Carbon Dioxide (22-30) mmol/L BUN (9-20) mg/dL Creatinine (0.66-1.25) mg/dL Glucose (74-99) mg/dL POC Glucose (mg/dL) 140 H 117 H 170 H (75-99) mg/dL Calcium (8.4-10.2) mg/dL 07/23/21 07/23/21 07/23/21 Range/Units 04:48 04:50 04:50 WBC 29.3 H (3.8-10.6) k/uL RBC 3.14 L (4.30-5.90) m/uL Hgb 10.0 L (13.0-17.5) gm/dL Hct 30.7 L (39.0-53.0) % Neutrophils # (Manual) 26.90 H (1.3-7.7) k/uL Lymphocytes # (Manual) 0.59 L (1.0-4.8) k/uL Monocytes # (Manual) 1.17 H (0-1.0) k/uL Metamyelocytes # (Man) 0.29 H (0) k/uL Nucleated RBCs 2 H (0-0) /100 WBC ABG pH (7.35-7.45) ABG pCO2 (35-45) mmHg ABG pO2 (83-108) mmHg ABG HCO3 (21-25) mmol/L ABG O2 Saturation (94-97) % Potassium 5.6 H (3.5-5.1) mmol/L Chloride 109 H (98-107) mmol/L Carbon Dioxide 18 L (22-30) mmol/L BUN 76 H (9-20) mg/dL Creatinine 4.13 H (0.66-1.25) mg/dL Glucose 144 H (74-99) mg/dL POC Glucose (mg/dL) 146 H (75-99) mg/dL Calcium 8.0 L (8.4-10.2) mg/dL 07/23/21 Range/Units 05:40 WBC (3.8-10.6) k/uL RBC (4.30-5.90) m/uL Hgb (13.0-17.5) gm/dL Hct (39.0-53.0) % Neutrophils # (Manual) (1.3-7.7) k/uL Lymphocytes # (Manual) (1.0-4.8) k/uL Monocytes # (Manual) (0-1.0) k/uL Metamyelocytes # (Man) (0) k/uL Nucleated RBCs (0-0) /100 WBC ABG pH 7.05 L* (7.35-7.45) ABG pCO2 72 H* (35-45) mmHg ABG pO2 71 L (83-108) mmHg ABG HCO3 20 L (21-25) mmol/L ABG O2 Saturation 89.1 L (94-97) % Potassium (3.5-5.1) mmol/L Chloride (98-107) mmol/L Carbon Dioxide (22-30) mmol/L BUN (9-20) mg/dL Creatinine (0.66-1.25) mg/dL Glucose (74-99) mg/dL POC Glucose (mg/dL) (75-99) mg/dL Calcium (8.4-10.2) mg/dL Microbiology - Last 24 Hours (Table) 07/17/21 15:35 Blood Culture - Preliminary Blood No Growth after 120 hours 07/17/21 13:40 Blood Culture - Preliminary Blood No Growth after 120 hours Assessment and Plan Plan: 1 Acute hypoxemic respiratory failure secondary to coronavirus associated pneumonia, S/P intubation and mechanical ventilation on 07/17/2021. No evidence of pulmonary embolism on CT angiogram. The patient also has a strep pneumonia and the pro calcitonin level was elevated. The patient was covered with IV Cefepime . The patient on Decadron. The patient remains intubated on a mechani yeyo ventilator. Patient is currently on a PEEP of 20 with an FiO2 of 100%. The patient remains on Decadron. The patient remains on IV cefepime. No major changes on his ventilator settings. Remains on IV cefepime. The patient remains on Decadron. He remains sedated and paralyzed on a mechanical ventilator. Active issues for now is his hypotension, septic shock and acute kidney injury requiring hemodialysis. The patient has developed multisystem organ failure following his COVID 19 infection. 2 acute COVID-19 related pneumonia 3 sepsis with secondary hypotension.. Pro calcitonin level is elevated and the patient has a combination of penicillin resistant strep pneumonia and presumed staph aureus in the sputum. The patient currently is on IV cefepime. Patient is also on pressors and norepinephrine is running at 0.4 mg/kg/m. 4 Elevated inflammatory marker secondary to coronavirus infection. 5 acute kidney injury, oliguric and the patient received his first session of hemodialysis yesterday. Potassium level from today still elevated. The patient remains acidotic. I'm going to start the patient on a low-grade bicarb infusion. The patient is undergoing another session of hemodialysis today. 6 streptococcus pneumonia in the sputum, consistent underlying pneumococcal pneumonia on top of COVID-19 related pneumonia. The patient is currently on IV Cefepime. The pro calcitonin level was elevated supporting bacterial pneumonia on top of the COVID-19 related infection. 7 hyperglycemia, steroid induced and the patient is currently on Levemir insulin along with NovoLog with sliding scale coverage for blood sugar control 8 leukocytosis 9 non-anion gap metabolic acidosis 10 acute hyperkalemia secondary to above Plan: Keep tidal volume down to 420 and keep the PEEP at 20 with an FiO2 of 100%, RR 34 No vent changes today Keep the patient sedated and paralyzed Keep Supine Another session of hemodialysis today today Give Bicarb 50 meq IVP x2 and start bicarb indusion at 50 cc/hr Continue Decadron heparin subcu for DVT prophylaxis 5000 every 8 hours. Monitor d-dimer which seems to be slightly elevated. Monitor also the rest of the inflammatory markers. Continue with the Levemir insulin for blood sugar control in addition to sliding scale NovoLog Enteral feeding for nutritional support with vital high protein. Condition is critical we'll continue to follow make further recommendations based on his progress. Critically care evaluation, more than 30 minutes. Time with Patient: Greater than 30
[2021-07-23] MEDS ORDERED: WATER FOR INJECTION, STERILE 1,000 ML with SODIUM ACETATE 150 MEQ IV SCH ×2 (09:00)
[2021-07-23] MEDS: DEXTROSE 5% IN WATER 1,000 ML with SODIUM BICARB (1 MEQ/ML) 150 ML IV SCH (10:06)
[2021-07-23] MEDS: CEFEPIME 1 GM in SODIUM CHLORIDE 0.9% 50 ML IVPB SCH ×2 (10:07→22:14)
--- NOTE | 2021-07-23 12:01 | PN ---
PROGRESS NOTE Patient is seen on hemodialysis. He is currently on large doses of Levophed. He was also acidotic, started on bicarb drip this morning. Patient remains on FiO2 at 100%. This morning blood pressure 119/60, heart rate 110 per minute. He is afebrile. Patient is not examined. He remains volume-overloaded. Discussed with nursing staff. Labs from this morning show sodium 138, potassium 5.6, chloride 109, BUN 76, creatinine 4.1, hemoglobin 10.0. ASSESSMENT: 1. Acute kidney injury, acute tubular necrosis, oliguric, dialysis-dependent. 2. Metabolic acidosis. The bicarb bath on the dialysis has been adjusted. Patient is also started on bicarb drip. I will discontinue the normal saline. 3. Hyperkalemia associated with acute kidney injury. 4. COVID pneumonia. 5. Acute hypoxic respiratory failure. PLAN: Repeat hemodialysis in a.m. Adjust bicarb bath for the acidosis. Repeat labs this evening and increase bicarb drip if patient remains acidotic. Will continue daily treatments. Overall prognosis is guarded, particularly given his severe hypotension. MMODL / IJN: [id number] /
[2021-07-23 12:10] LABS: Glucose,Whole Blood 125 mg/dL (75-99)
[2021-07-23 17:54] LABS: Glucose,Whole Blood 158 mg/dL (75-99)
--- NOTE | 2021-07-23 18:25 | PN ---
PROGRESS NOTE DATE OF SERVICE: 07/23/2021 REASON FOR FOLLOWUP: Pneumonia. INTERVAL HISTORY: The patient is afebrile. The patient remains intubated on the vent. FiO2 is currently 100%. No significant purulent secretions through the ET, diarrhea or any other changes reported by the nursing staff. PHYSICAL EXAMINATION: Blood pressure 119/57 with a pulse of 104, temperature 98.2. She is 93% with 100% FiO2. General description is a middle-aged male intubated on the vent. Respiratory system: Unlabored breathing, decreased intensity of breath sounds. No wheeze. Heart S1, S2. Regular rate and rhythm. Abdomen soft. Mildly distended. No guarding or rigidity. LABS: White count .3, creatinine 4.13. Sputum with Strep pneumo and MSSA. DIAGNOSTIC IMPRESSION AND PLAN: 1. Patient with acute respiratory which is multifactorial in this patient who did have COVID-19 pneumonia. Now cultures are positive for pneumoniae. Sputum is showing an MSSA and Strep pneumo, for which the patient is covered with cefepime. That will continue for now. 2. Elevated white count, more likely steroid effect. No evidence of any worsening infection. Inflammatory markers will be rechecked. Continue with current antibiotics. Continue with supportive care. MMODL / IJN: [id number] /
[2021-07-23 19:07] LABS: Calcium 7.7 mg/dL (8.4-10.2); Potassium 4.3 mmol/L (3.5-5.1)
[2021-07-23] MEDS: INSULIN DETEMIR (LEVEMIR) 100 UNIT/ML SYR SQ SCH (20:38)
[2021-07-23] MEDS: ALBUTEROL HFA INHALER INHALATION PRN (20:49)
[2021-07-23] MEDS: fentaNYL (PF) 2,500 MCG in SODIUM CHLORIDE 0.9% 200 ML IV SCH (23:22)
[2021-07-23 23:31] LABS: Glucose,Whole Blood 169 mg/dL (75-99)
[2021-07-24 04:31] LABS: Albumin 2.2 g/dL (3.5-5.0); Calcium 7.7 mg/dL (8.4-10.2); Potassium 4.2 mmol/L (3.5-5.1); Total Bilirubin 1.5 mg/dL (0.2-1.3); Total Protein 5.1 g/dL (6.3-8.2)
[2021-07-24 04:36] LABS: HCT 27.4 % (39.0-53.0); HGB 8.9 gm/dL (13.0-17.5); Hypochromasia Slight; MCH 31.6 pg (25.0-35.0); MCHC 32.3 g/dL (31.0-37.0); MCV 97.6 fL (80.0-100.0); Mean Platelet Volume 9.6; Platelet Count 263 k/uL (150-450); Poikilocytosis Slight; RBC 2.81 m/uL (4.30-5.90); RDW 15.3 % (11.5-15.5)
--- NOTE | 2021-07-24 04:36 | P.PN ---
Subjective Progress Note Date: 07/23/21 This is a 66-year-old male who was recently admitted with acute COVID-19 viral pneumonia and bilateral interstitial pneumonia on mechanical ventilation being closely monitored. Patient continues in the ICU with worsening renal functions and vascular surgery consulted for hemodialysis catheter placement with nephrology following closely. Patient's potassium is 6.0 and corrected and awaiting repeat labs. Patient's white blood count continues to be elevated as well and is 33.6 today. Infectious disease following an patient is maintained on IV cefepime and will continue. 07/22/2021 Patient is seen in follow-up this morning continues to be on mechanical ventilation and intubated and being closely monitored in the ICU. Nephrology also following closely along with multiple medical consultations and patient has been started on hemodialysis and most likely will continue daily for now. Patient has no urine output per nursing staff. X-ray today shows bilateral airspace disease shows a similar appearance there is a prominence of interstitium with no evident pneumothorax or pleural effusion noted and a correlate for pneumonia, edema, ARDS. Potassium today is 5.9, BUN is 98, creatinine is 4.17. Patient to continue with IV cefepime with infectious disease following closely. 07/23/2021 Patient is seen in follow-up in the ICU being closely monitored with multiple medical consultations following. Patient is receiving hemodialysis currently and nephrology following closely. Patient also continues on cefepime with ID following closely with positive sputum cultures. WBC is elevated at 29.3 and recommend repeat am labs and monitor closely. Patient also continues on IV dexamethasone and vitamin and zinc supplements along with sub q heparin for anticoagulation. Patient continues on norepineprhine high dose as well. Review of systems: Unable to obtain as patient is intubated and sedated Labs: WBC is 29.3, hemoglobin is 10, platelets are 392, sodium is 138, potassium 5.6, BUN 76, creatinine 4.13, calcium 8.0 Active Medications Acetaminophen (Acetaminophen Tab 325 Mg Tab) 650 mg PO Q4HR PRN PRN Reason: Fever>101 Last Admin: 07/22/21 07:32 Dose: 650 mg Documented by: Albuterol Sulfate (Albuterol Hfa Inhaler) 2 puff INHALATION RT-Q6H PRN PRN Reason: Shortness Of Breath Or Wheezing Last Admin: 07/22/21 21:28 Dose: 2 puff Documented by: Artificial Tears (Artificial Tears-Hypromellose Drops 15 Ml Btl) 2 drops BOTH EYES Q4HR [facility] Last Admin: 07/23/21 16:36 Dose: 2 drops Documented by: Ascorbic Acid (Ascorbic Acid 500 Mg Tab) 500 mg PO DAILY [facility] Last Admin: 07/23/21 08:23 Dose: 500 mg Documented by: Chlorhexidine Gluconate (Chlorhexidine Gluconate 15 Ml Cup) 15 ml MUCOUS MEM BID [facility] Last Admin: 07/23/21 08:22 Dose: 15 ml Documented by: Cholecalciferol (Cholecalciferol 25 Mcg (1000 Iu) Tablet) 25 mcg PO DAILY [facility] Last Admin: 07/23/21 08:23 Dose: 25 mcg Documented by: Dexamethasone Sodium Phosphate (Dexamethasone Sod Phosphate 10 Mg/Ml 1 Ml Vial) 6 mg IVP DAILY [facility] Last Admin: 07/23/21 08:36 Dose: 6 mg Documented by: Heparin Sodium (Porcine) (Heparin Sodium,Porcine/Pf 5,000 Unit/0.5 Ml Syringe) 5,000 unit SQ Q8HR [facility] Last Admin: 07/23/21 16:36 Dose: 5,000 unit Documented by: Propofol 1,000 mg/ IV Solution 100 mls @ 0 mls/hr IV .Q0M [facility]; Protocol Last Admin: 07/23/21 11:59 Dose: 60 mcg/kg/min, 38.124 mls/hr Documented by: Cisatracurium Besylate 200 mg/ (Sodium Chloride) 200 mls @ 5.4 mls/hr IV .Q24H [facility]; Protocol Last Admin: 07/23/21 03:22 Dose: 1 mcg/kg/min, 5.4 mls/hr Documented by: Norepinephrine Bitartrate 8 mg (/ Sodium Chloride) 258 mls @ 8.708 mls/hr IV .Q24H [facility]; Protocol Last Titration: 07/23/21 13:32 Dose: 0.14 mcg/kg/min, 24.381 mls/hr Documented by: Fentanyl Citrate 2,500 mcg/ (Sodium Chloride) 250 mls @ 4.82 mls/hr IV .Q24H [facility]; Protocol Last Admin: 07/22/21 22:13 Dose: 1 mcg/kg/hr, 9.64 mls/hr Documented by: Cefepime HCl 1 gm/ Sodium (Chloride) 50 mls @ 12.5 mls/hr IVPB Q12H [facility] Last Admin: 07/23/21 10:07 Dose: 12.5 mls/hr Documented by: Sodium Bicarbonate 150 ml/ (Dextrose/Water) 1,150 mls @ 50 mls/hr IV .Q23H [facility] Last Admin: 07/23/21 10:06 Dose: 50 mls/hr Documented by: Insulin Aspart (Insulin Aspart (Novolog) 100 Unit/Ml Vial) 0 unit SQ Q6H [facility]; Protocol Last Admin: 07/23/21 12:17 Dose: Not Given Documented by: Insulin Detemir (Insulin Detemir (Levemir) 100 Unit/Ml Syr) 20 unit SQ HS [facility] Last Admin: 07/22/21 20:22 Dose: 20 unit Documented by: Lactulose (Lactulose 20 Gm/30 Ml Cup) 15 gm PO TID [facility] Last Admin: 07/23/21 16:37 Dose: Not Given Documented by: Metoclopramide HCl (Metoclopramide 5 Mg/Ml 2 Ml Vial) 10 mg IVP Q6HR [facility] Last Admin: 07/23/21 12:17 Dose: Not Given Documented by: Pantoprazole Sodium (Pantoprazole 40 Mg/10 Ml Vial) 40 mg IVP DAILY [facility] Last Admin: 07/23/21 08:23 Dose: 40 mg Documented by: Zinc Sulfate (Zinc Sulfate 220 Mg Cap) 220 mg PO DAILY [facility] Last Admin: 07/23/21 08:23 Dose: 220 mg Documented by: Physical Exam: Gen: This is a 66-year-old male who is intubated and sedated, well-developed, well-nourished. obese. Temp is 98.3F, pulse is 112, respirations are 34, blood pressure is 108/60, arterial blood pressure is 86/47, CVP is 18, oxygen saturation is 88% on Vent and FiO2 of 100% HEENT: Head is atraumatic, normocephalic. Pupils equal, round. Sclerae is a nicteric. NECK: Supple. No JVD. No lymphadenopathy. No thyromegaly. LUNGS: Breath sounds diminished with scattered rhonchi and crackles noted. No intercostal retractions. HEART: S1, S2 are muffled ABDOMEN: Soft. Bowel sounds are present. No masses. No tenderness. EXTREMITIES: No pedal edema. No calf tenderness. generalized edema noted throughout NEUROLOGICAL: Patient is currently sedated and intubated. Assessment: Acute COVID-19 infection with acute COVID-19 bilateral interstitial pneumonia with acute hypoxic respiratory failure MSSA streptococcal pneumonia Elevated inflammatory markers of COVID-19 pneumonia acute kidney injury with creatinine 1.6 with acute tubular necrosis, worsening now requiring hemodialysis Hypovolemic hyponatremia Hypertension history history of lactic acidosis Sinus tachycardia Deep vein thrombosis prophylaxis acute respiratory acidosis Hyperkalemia secondary to renal failure diabetes mellitus type 2, uncontrolled with elevated blood sugars Elevated AST, ALT with hepatitis secondary to COVID-19 Increased WBC obesity with a body mass index of 33.0 Full code Plan: Recommend to continue with current medications and follow along closely with multiple medical consultations. Nephrology following closely and kidney functions continue to worsen and maintained on daily hemodialysis. Patient requiring pressor support. Patient continues on mechanical ventilation with multiple medical consultations including infectious disease, pulmonary, nephrology following closely. Patient continues on IV antibiotics in the form of cefepime and will continue. Repeat blood cultures have been negative and Gram stain culture from sputum showing Streptococcus pneumonia and Staphylococcus aureus. Recommend repeat labs in the a.m and chest x-ray. Patient remains a full code at this time. Due to multiple complex medical issues prognosis is extremely guarded. Objective - Vital Signs Vital signs: Vital Signs Temp 98.2 F 07/23/21 04:00 Pulse 114 H 07/23/21 08:00 Resp 35 H 07/23/21 08:00 BP 109/58 07/23/21 04:15 Pulse Ox 88 L 07/23/21 08:00 Intake & Output 07/22/21 07/23/21 07/23/21 18:59 06:59 18:59 Intake Total 2879.999 2658.578 106 Output Total 1000 15 0 Balance 9398.896 6886.578 106 Weight 105.9 kg 107.1 kg Intake: IV 969 972 81 0.9% @ 75mL/hr 900 900 75 Pressure Bag 69 72 6 Intake, IV Titration 5733.163 0577.578 Amount Cisatracurium 200 mg In 62.28 95.85 Sodium Chloride 0.9% 180 ml @ 1 MCG/KG/MIN 5.4 mls /hr IV .Q24H [facility] Rx#: [id number] Norepinephrine 8 mg In 635.291 708.442 Sodium Chloride 0.9% 250 ml @ 0.05 MCG/KG/MIN 8. 708 mls/hr IV .Q24H [facility] Rx#:[id number] fentaNYL (PF) 2,500 mcg 122.428 121.303 In Sodium Chloride 0.9% 200 ml @ 0.5 MCG/KG/HR 4. 82 mls/hr IV .Q24H [facility] Rx #:[id number] propofoL 1,000 mg In 400 450.983 Empty Bag 1 bag @ Titrate IV .Q0M [facility] Rx#: [id number] Tube Feeding 271 250 25 Hemodialysis 300 Other 120 60 Output: Urine 0 15 0 Hemodialysis 1000 Other: Voiding Method Indwelling Catheter Indwelling Catheter ABP, PAP, CO, CI - Last Documented Arterial Blood Pressure 94/50 - Labs CBC & Chem 7: 07/23/21 04:50 07/23/21 18:35 Labs: Abnormal Lab Results - Last 24 Hours (Table) 07/22/21 07/22/21 07/23/21 Range/Units 12:38 16:43 00:52 WBC (3.8-10.6) k/uL RBC (4.30-5.90) m/uL Hgb (13.0-17.5) gm/dL Hct (39.0-53.0) % Neutrophils # (Manual) (1.3-7.7) k/uL Lymphocytes # (Manual) (1.0-4.8) k/uL Monocytes # (Manual) (0-1.0) k/uL Metamyelocytes # (Man) (0) k/uL Nucleated RBCs (0-0) /100 WBC ABG pH (7.35-7.45) ABG pCO2 (35-45) mmHg ABG pO2 (83-108) mmHg ABG HCO3 (21-25) mmol/L ABG O2 Saturation (94-97) % Potassium (3.5-5.1) mmol/L Chloride (98-107) mmol/L Carbon Dioxide (22-30) mmol/L BUN (9-20) mg/dL Creatinine (0.66-1.25) mg/dL Glucose (74-99) mg/dL POC Glucose (mg/dL) 140 H 117 H 170 H (75-99) mg/dL Calcium (8.4-10.2) mg/dL 07/23/21 07/23/21 07/23/21 Range/Units 04:48 04:50 04:50 WBC 29.3 H (3.8-10.6) k/uL RBC 3.14 L (4.30-5.90) m/uL Hgb 10.0 L (13.0-17.5) gm/dL Hct 30.7 L (39.0-53.0) % Neutrophils # (Manual) 26.90 H (1.3-7.7) k/uL Lymphocytes # (Manual) 0.59 L (1.0-4.8) k/uL Monocytes # (Manual) 1.17 H (0-1.0) k/uL Metamyelocytes # (Man) 0.29 H (0) k/uL Nucleated RBCs 2 H (0-0) /100 WBC ABG pH (7.35-7.45) ABG pCO2 (35-45) mmHg ABG pO2 (83-108) mmHg ABG HCO3 (21-25) mmol/L ABG O2 Saturation (94-97) % Potassium 5.6 H (3.5-5.1) mmol/L Chloride 109 H (98-107) mmol/L Carbon Dioxide 18 L (22-30) mmol/L BUN 76 H (9-20) mg/dL Creatinine 4.13 H (0.66-1.25) mg/dL Glucose 144 H (74-99) mg/dL POC Glucose (mg/dL) 146 H (75-99) mg/dL Calcium 8.0 L (8.4-10.2) mg/dL 07/23/21 Range/Units 05:40 WBC (3.8-10.6) k/uL RBC (4.30-5.90) m/uL Hgb (13.0-17.5) gm/dL Hct (39.0-53.0) % Neutrophils # (Manual) (1.3-7.7) k/uL Lymphocytes # (Manual) (1.0-4.8) k/uL Monocytes # (Manual) (0-1.0) k/uL Metamyelocytes # (Man) (0) k/uL Nucleated RBCs (0-0) /100 WBC ABG pH 7.05 L* (7.35-7.45) ABG pCO2 72 H* (35-45) mmHg ABG pO2 71 L (83-108) mmHg ABG HCO3 20 L (21-25) mmol/L ABG O2 Saturation 89.1 L (94-97) % Potassium (3.5-5.1) mmol/L Chloride (98-107) mmol/L Carbon Dioxide (22-30) mmol/L BUN (9-20) mg/dL Creatinine (0.66-1.25) mg/dL Glucose (74-99) mg/dL POC Glucose (mg/dL) (75-99) mg/dL Calcium (8.4-10.2) mg/dL Microbiology - Last 24 Hours (Table) 07/17/21 15:35 Blood Culture - Preliminary Blood No Growth after 120 hours 07/17/21 13:40 Blood Culture - Preliminary Blood No Growth after 120 hours
[2021-07-24 04:41] LABS: C Reactive Protein 19.7 mg/dL (<1.0)
[2021-07-24] MEDS: ARTIFICIAL TEARS-HYPROMELLOSE DROPS 15 ML BTL BOTH EYES SCH ×5 (04:45→20:32)
[2021-07-24 05:15] LABS: Band Neutrophils % 5 %; Eosinophils # (M) 0.33 k/uL (0-0.7); Lymphocytes # (M) 0.33 k/uL (1.0-4.8); Metamyelocytes # (M) 0.66 k/uL (0); Metamyelocytes % 4 %; Monocytes # (M) 0.66 k/uL (0-1.0); Myelocytes # (M) 0.33 k/uL (0); Myelocytes % 2 %; Neutrophils % (M) 84 %; Nucleated Red Blood Cells 1 /100 WBC (0-0); Total Cells Counted 200
[2021-07-24 05:16] LABS: WBC 16.4 k/uL (3.8-10.6)
[2021-07-24 05:17] LABS: Basophilic Stippling Present
[2021-07-24 05:18] LABS: Anisocytosis (M) Present
[2021-07-24 05:50] LABS: ABG HCO3 27 mmol/L (21-25); ABG Oxygen Saturation 87.9 % (94-97); ABG PO2 63 mmHg (83-108); ABG TCO2 29 mmol/L (19-24); Allen Test Performed? Yes
[2021-07-24] MEDS: NOREPINEPHRINE 8 MG in SODIUM CHLORIDE 0.9% 250 ML IV SCH ×2 (05:50→16:55)
[2021-07-24 05:52] LABS: ABG PCO2 73 mmHg (35-45); ABG PH 7.17 (7.35-7.45)
[2021-07-24] MEDS: METOCLOPRAMIDE 5 MG/ML 2 ML VIAL IVP SCH ×3 (05:56→18:28)
[2021-07-24 06:51] LABS: Glucose,Whole Blood 149 mg/dL (75-99)
[2021-07-24] MEDS: INSULIN ASPART (NovoLOG) 100 UNIT/ML VIAL SQ SCH ×3 (06:59→18:27)
--- NOTE | 2021-07-24 08:56 | XR ---
EXAMINATION TYPE: XR chest 1V portable DATE OF EXAM: 07/24/2021 COMPARISON: 07/22/2020 HISTORY: Shortness of breath TECHNIQUE: Single frontal view of the chest is obtained. FINDINGS: Endotracheal tube, NG tube, left jugular central venous catheter are overlying appropriate positions. Bilateral airspace disease shows a similar appearance, there is prominence of interstitiu m. No evident pneumothorax or pleural effusion. Cardiac mediastinal silhouette is stable accounting f or differences in technique. There are overlying artifacts. IMPRESSION: Stable diffuse bilateral joints correlate for ARDS, diffuse pneumonia or less likely pul monary edema
--- NOTE | 2021-07-24 09:37 | P.PN ---
Subjective Progress Note Date: 07/24/21 66-year-old male, seen in the emergency department on July 12. He came in complaining of shortness of breath. He been sick for about 9 or 10 days prior to his visit in the emergency department. He complained of cough, chest congestion, fatigue, shortness of breath, and he did test positive for coron avirus. He was placed on BiPAP with settings of IPAP 12, EPAP 6, and 70%. The patient further decompensated and he was placed on a mechanical ventilator on 07/17/2021. He is currently being seen in the follow-up On 07/20/2021, the patient is being seen for a follow-up. The patient currently is on mechanical ventilator. He is sedated and paralyzed. The patient is currently on propofol running at 70 mcg/kg per minute and he is also paralyzed with Nimbex at 1 mcg/kg per minute. He remains on a mechanical ventilator, assist control mode with tidal volume of 450, rate of 32, FiO2 of 55% with a PEEP of 20. The peak ariway pressure is 40 and static is 37. Blood gases from today was noted. And the patient had a pH of 7.16 with a pCO2 of 60 and pO2 of 65. The chest x-ray from today was reviewed and the patient has adequate positioning of the orotracheal tube which is above the miles by around 2 cm in size. The patient has a left IJ triple-lumen catheter in place. The patient has bilateral pulmonary infiltrates, right hilar, essentially unchanged compared to yesterday. There is no interval worsening in the chest x-ray findings. On today's blood work, the patient has a LDH level of 1733 with a CRP level of 17.9 and the inflammatory markers are gradually improved. The patient's d-dimer level is at 12.5. The white cell count is at 21.5. Noted the patient also had developed an acute kidney injury. Creatinine is on the rise and currently is up to 2.38. Overall fluid balance has been +2.5 L over the past 24 hours. The patient's current regimen includes Decadron 6 mg IV every 24 hours, the patient is on antibiotic coverage with IV Zosyn. The patient is on multivitamins. The patient is also on the normal saline at the rate of 75 mL's an hour. The patient is on Lovenox 40 mg subcu for DVT prophylaxis. This patient Chest x-ray showing diffuse bilateral pulmonary infiltrates, essentially unchanged compared to yesterday. Note that the patient sputum also showed Streptococcus pneumoniae. The patient is currently on IV Zosyn. He is on Vital HP at 36 cc/hr 07/21/2021, I'm seeing the patient for a follow-up. The patient remains intubated on a mechanical ventilator. The patient remains sedated and paralyzed. For now, the patient is sedated with propofol which is currently running at 60 mg/kg per minute and the patient is also paralyzed with Nimbex at 1 g per to per minute. He remains on a mechanical ventilator. This morning, he is on assist control mode with a tidal volume of 400 and a respiratory rate of 32 with an FiO2 of 65% with a PEEP of 20. He was quite stiff yesterday with a peak airway pressure of around 40 with a subcu fashion of 37. Blood gases was showing borderline oxygenation. I made recommendations to follow this patient and he was ultimately phone at around 2200 yesterday. Currently is in a foam zuly position. His current pulse ox is 93%. Morning blood gases showed no major improvement in the oxygenation. This blood gas was done while the patient was prone and the pH was at 7.01 with a pCO2 of 81 and pO2 of 61 and this was done and FiO2 of 65%. Currently his pulse ox on the monitor is 93%. In terms of his COVID 19 related to pneumonia, the patient remains on Decadron. LDH from today is 1724 with a CRP of 20.7. Note that the inflammatory markers have been essentially elevated without any major improvement since yesterday. His d-dimer has been at 2.98. The patient is receiving Decadron 6 mg IV every 24 hours. The patient is also on Heparin for DVT prophylaxis at a dose of 5000 mg subcu every 8 hours. Meanwhile, the patient also had Streptococcus pneumonia in his sputum and the patient remains on IV cefepime. The patient is currently on normal saline at the rate of 75 mL an hour. He is also on pressors and norepinephrine infusion is running at 0.1 mcg/kg per minute. His pro-calcitonin level has been at 3.34 consistent with an underlying bacterial infection. At the same time, the patient is developing acute kidney injury. Nephrology was consulted yesterday. Creatinine is up to 3.71 with a BUN of 94 and the potassium level is up to 6.0. Serum bicarbonate of 18 with a anion gap of 10. The white cell count is at 33.6 with a hemoglobin of 12.1. 12 2021, I'm seeing the patient for a follow-up. As mentioned earlier, he has a COVID 19 related pneumonia with superinfection with MSSA and strep pneumonia. The patient is currently intubated on a mechanical ventilator. On today's evaluation, he remains sedated on propofol which is running at 60 mcg/kg per minute which is the same as yesterday and the patient is also on fentanyl running at 1 mcg/kg/h and Nimbex is also running at 1 mcg/kg per minute. Ventilator settings are essentially unchanged. He was prone to yesterday. He was somewhat hemodynamically unstable and he was hypotensive on pressors. We ended up his pronating process and he was placed back supine as the patient also was headed into an acute kidney injury. As such, the patient was placed back supine and this morning he is an assist-control mode with a tidal volume of 400, this tidal volume was brought up to 420 yesterday. His current respiratory rate is at 34, FiO2 is currently at 65% and a PEEP is currently at 20. His peak airway pressure is at 42 cm of water. Blood gases showed some improvement in his acidosis and the pH is at 7.11 with a pCO2 of 65 and pO2 of 65. The blood gases was noted from today. The chest x-ray from today is showing diffuse bilateral pulmonary infiltrates unchanged compared to yesterday. Orotracheal tube remains in a good location. The patient has advanced infiltrates bilaterally mainly in the left lower lobe, right lower lobe and the right upper lobe. Right hemidiaphragm is also quite elevated. ET tube is around 2 cm above the miles and the patient has a left subclavian triple-lumen catheter in place. The patient has been Supine since yesterday. In terms of his inflammatory markers regarding COVID 19, the patient has an LDH level of the was elevated from yesterday at 1200 724 with a CRP level of 20.7. The most recent d-dimer is at 2.98. Meanwhile, the patient remains on therapy and he is on Decadron at a dose of 6 mg IV every 24 hours. His sputum was positive. He had MSSA and strep to copious pneumonia and the patient was covered with IV cefepime. Hemodynamically, the patient is still on pressors. Norepinephrine infusion is still running at 0.4 mcg/kg per minute. His blood pressure is stable this morning. His cardiac rhythm is sinus tachycardia. Urine output is low in the order of 20 mL throughout the night. His white cell count is up to 28.4 and he has a BUN of 98 and a creatinine of 4.1 on today's evaluation. Potassium level also came at 5.9 and a serum bicarbonate of 18 with an anion gap of 12. Sodium is at 140. Nephrology has been consulted and the patient and the patient was given a dialysis catheter. His dialysis catheter currently is present in the right femoral vein. It is likely the patient is going to proceed with hemodialysis today specially with his underlying hyperkalemia and acidosis. He has developed third spacing. His body weight is up to 105 kg and his body mass index is up to 35.5. He continues to receive enteral feeding for nutritional support and the patient is currently on receiving vital high protein at the rate of 23 mL an hour which is goal. There is significant. Note that the patient received his first session of hemodialysis yesterday. He did not have any significant ultrafiltration. 07/23/2021, patient is being seen for a follow-up. A complicated case of covert 19 related pneumonia with superinfection including MSSA and strep pneumonia and acute kidney injury requiring hemodialysis. The patient remains in the ICU, intubated on a mechanical ventilator. This morning, he is sedated with propofol which is currently running at 60 mcg/kg per minute and the patient is also on fentanyl at 1 mcg/kg/h and Nimbex is running at 1 mcg/kg per minute. The level of sedation and paralytics are the same as yesterday. The patient did not have a follow-up chest x-ray today. Nevertheless, he is on a mechanical ventilator. He is in a supine body position. He is on assist control mode at the rate of 34, tidal volume is at 420 mL and the respiratory rate is at 34 with FiO2 the cath on the percent with a PEEP of 20. The blood gases from today shows a pH of 7.05 with a pCO2 of 72 and pO2 of 71. Peak air pressures still unchanged compared to yesterday as his peak air pressures currently at 42. The patient remains on Decadron. The patient's is hemodynamically unstable and his still requiring pressors for blood pressure control. Norepinephrine infusion is currently running at 0.4 mcg/kg per minute and this is essentially the same as yesterday. The patient remains on broad-spectrum antibiotics. He remains currently on IV cefepime. The white cell count today is at 29. He remains quite acidotic and the serum bicarbs at 18 with a sodium level of 138 and a potassium level of 5.6. TPN is at 76 with a creatinine of 4.1. The patient is receiving another session of hemodialysis today and electrodes will be rechecked post hemodialysis.. Encompass significant amount of volume overload based on his underlying renal failure and he has extensive third spacing and peripheral edema. No major changes condition otherwise. He remains on pressors. He is receiving enteral feeding for nutritional support with vital high protein at the rate of 25 mL an hour. He is receiving his second session of hemodialysis today. He is currently having liquidy stool. A fecal management system was attached. We'll check possibility of an underlying C. diff infection and stool will be sent for C. diff evaluation. In terms of his inflammatory markers, this has not been checked for today. Her last check was done on 07/21/2021. IV fluids are currently in the form of 0.9 at KVO. 2021, the patient's condition remains essentially unchanged. He is being seen for a follow-up. The patient remains on a mechanical ventilator. The patient remains sedated with propofol and fentanyl and propofol is running at 60 mcg/kg per minute and fentanyl is running at 1 1 mcg/kg/h and Nimbex is running at 1 mcg/kg per minute. As such, there is no change in the dosing of his sedation or paralytic agents. Remains on a mechanical ventilator on the same setting with a tidal volume of 420, respiratory rate of 34, FiO2 is currently at 600% with a PEEP of 20. Peak airway pressure is still elevated at 44. The ches t x-ray from today remains unchanged. The blood gases from today showed a pH of 7.17 with a pCO2 of 73 and pO2 of 63. Based on the underlying acidosis, the patient underwent hemodialysis yesterday she was also a bicarb infusion which is currently running at 150 mL an hour. Continues to be acidotic. Serum bicarbonate is currently at 26. Meanwhile, the patient is still on pressors. The patient is on norepinephrine infusion currently running at 0.08 [facility] per minute and the dose of pressors improved compared to yesterday. The patient is undergoing daily hemodialysis. His most recent hemodialysis was yesterday and today had another session of hemodialysis. The patient has a BUN of 58 with a creatinine of 3.4. Lisinopril electrolytes are all stable and within normal limits. White cell count is at 16.4 inches improved compared to yesterday and hemoglobin is currently at 8.9. The patient has some mild transaminitis. LDH level is at 847, CRP level is at 19.7 and stool for C. diff has been negative. The patient continues to receive enteral feeding for nutritional support. He does have a fecal management system in place. He has been receiving Vicodin HB at the rate of 25 mL an hour. The patient remains on IV cefepime. As such, no major changes condition over the past 24 hours. His treatment remains supportive. The abdomen is still distended. There may be a component of ascites. Haro catheter in place and the urine output is diminished somewhat bloody on today's evaluation. Objective - Vital Signs Vital signs: Vital Signs Temp 97.3 F L 07/24/21 04:00 Pulse 104 H 07/24/21 07:00 Resp 34 H 07/24/21 07:00 BP 112/62 07/24/21 07:00 Pulse Ox 91 L 07/24/21 07:00 Intake & Output 07/23/21 07/24/21 07/24/21 18:59 06:59 18:59 Intake Total 0953.354 6110.443 12.801 Output Total 1000 200 Balance 801.838 9495.443 12.801 Weight 107.7 kg Intake: IV 335 1291 0.9% @ 75mL/hr 190 825 Cefepime 2 gm In Sodium 100 Chloride 0.9% 100 ml @ 25 mls/hr IVPB Q12H RED Rx# :[id number] Dextrose 5% in Water 1, 400 000 ml @ 50 mls/hr IV . Q23H RED with Sodium Bicarb (1 Meq/ml) 150 ml Rx#:[id number] Pressure Bag 45 66 Intake, IV Titration 1199.217 923.443 12.801 Amount Cisatracurium 200 mg In 92.88 Sodium Chloride 0.9% 180 ml @ 1 MCG/KG/MIN 5.4 mls /hr IV .Q24H RED Rx#: [id number] Dextrose 5% in Water 1, 450 100 000 ml @ 50 mls/hr IV . Q23H RED with Sodium Bicarb (1 Meq/ml) 150 ml Rx#:[id number] Norepinephrine 8 mg In 449.217 89.630 12.801 Sodium Chloride 0.9% 250 ml @ 0.05 MCG/KG/MIN 8. 708 mls/hr IV .Q24H [facility] Rx#:[id number] fentaNYL (PF) 2,500 mcg 242.446 In Sodium Chloride 0.9% 200 ml @ 0.5 MCG/KG/HR 4. 82 mls/hr IV .Q24H RED Rx #:[id number] propofoL 1,000 mg In 300 398.487 Empty Bag 1 bag @ Titrate IV .Q0M [facility] Rx#: [id number] Tube Feeding 300 275 Other 60 90 Output: Urine 0 0 Stool 200 Hemodialysis 1000 Other: Voiding Method Indwelling Catheter Indwelling Catheter ABP, PAP, CO, CI - Last Documented Arterial Blood Pressure 116/51 - Exam Sedated and paralyzed, with an orally placed endotracheal tube and NG tube. Patient is in a prone body positioning at this point in time. The patient has on a mechanical ventilator for now. He is in a prone body positioning. He remains sedated and paralyzed. Head exam was generally normal. There was no scleral icterus or corneal arcus. Mucous membranes were moist. HEENT examination is grossly unremarkable. Neck supple. Full range of motion. No adenopathy thyromegaly or neck vein distention. Cardiovascular examination reveals regular rhythm rate. S1-S2 normal. No S3 or S4. No discernible murmur noted. Heart sounds are distant. Lungs reveal diffuse bilateral rhonchi. No wheezes. No crackles. Breath sounds equal bilaterally. Abdomen soft bowel sounds are heard. No masses or tenderness. He has a HD cath in the right femoral vein Extremities are intact. No cyanosis clubbing since of edema in all 4 extremities and the patient has pitting edema in the upper and lower extremities. The patient is a femoral catheter in his right groin. The patient also has an arterial line in his left radial artery. Skin is pale, without rash or lesion. Neurologic examination cannot be assessed as the patient's currently sedated and paralyzed. - Labs CBC & Chem 7: 07/24/21 04:00 07/24/21 04:00 Labs: Abnormal Lab Results - Last 24 Hours (Table) 07/23/21 07/23/21 07/23/21 Range/Units 12:06 13:29 17:53 WBC (3.8-10.6) k/uL RBC (4.30-5.90) m/uL Hgb (13.0-17.5) gm/dL Hct (39.0-53.0) % Neutrophils # (Manual) (1.3-7.7) k/uL Lymphocytes # (Manual) (1.0-4.8) k/uL Metamyelocytes # (Man) (0) k/uL Myelocytes # (Manual) (0) k/uL Nucleated RBCs (0-0) /100 WBC APTT 32.9 H (22.0-30.0) sec D-Dimer (<0.60) mg/L FEU ABG pH (7.35-7.45) ABG pCO2 (35-45) mmHg ABG pO2 (83-108) mmHg ABG HCO3 (21-25) mmol/L ABG Total CO2 (19-24) mmol/L ABG O2 Saturation (94-97) % Chloride (98-107) mmol/L BUN (9-20) mg/dL Creatinine (0.66-1.25) mg/dL Glucose (74-99) mg/dL POC Glucose (mg/dL) 125 H 158 H (75-99) mg/dL Calcium (8.4-10.2) mg/dL Total Bilirubin (0.2-1.3) mg/dL ALT (4-49) U/L Alkaline Phosphatase (38-126) U/L Lactate Dehydrogenase (313-618) U/L C-Reactive Protein (<1.0) mg/dL Total Protein (6.3-8.2) g/dL Albumin (3.5-5.0) g/dL 07/23/21 07/23/21 07/24/21 Range/Units 18:35 23:29 04:00 WBC (3.8-10.6) k/uL RBC (4.30-5.90) m/uL Hgb (13.0-17.5) gm/dL Hct (39.0-53.0) % Neutrophils # (Manual) (1.3-7.7) k/uL Lymphocytes # (Manual) (1.0-4.8) k/uL Metamyelocytes # (Man) (0) k/uL Myelocytes # (Manual) (0) k/uL Nucleated RBCs (0-0) /100 WBC APTT (22.0-30.0) sec D-Dimer 5.65 H (<0.60) mg/L FEU ABG pH (7.35-7.45) ABG pCO2 (35-45) mmHg ABG pO2 (83-108) mmHg ABG HCO3 (21-25) mmol/L ABG Total CO2 (19-24) mmol/L ABG O2 Saturation (94-97) % Chloride 108 H (98-107) mmol/L BUN 49 H (9-20) mg/dL Creatinine 2.92 H (0.66-1.25) mg/dL Glucose 145 H (74-99) mg/dL POC Glucose (mg/dL) 169 H (75-99) mg/dL Calcium 7.7 L (8.4-10.2) mg/dL Total Bilirubin (0.2-1.3) mg/dL ALT (4-49) U/L Alkaline Phosphatase (38-126) U/L Lactate Dehydrogenase (313-618) U/L C-Reactive Protein (<1.0) mg/dL Total Protein (6.3-8.2) g/dL Albumin (3.5-5.0) g/dL 07/24/21 07/24/21 07/24/21 Range/Units 04:00 04:00 05:46 WBC 16.4 H (3.8-10.6) k/uL RBC 2.81 L (4.30-5.90) m/uL Hgb 8.9 L (13.0-17.5) gm/dL Hct 27.4 L (39.0-53.0) % Neutrophils # (Manual) 14.50 H (1.3-7.7) k/uL Lymphocytes # (Manual) 0.33 L (1.0-4.8) k/uL Metamyelocytes # (Man) 0.66 H (0) k/uL Myelocytes # (Manual) 0.33 H (0) k/uL Nucleated RBCs 1 H (0-0) /100 WBC APTT (22.0-30.0) sec D-Dimer (<0.60) mg/L FEU ABG pH 7.17 L* (7.35-7.45) ABG pCO2 73 H* (35-45) mmHg ABG pO2 63 L (83-108) mmHg ABG HCO3 27 H (21-25) mmol/L ABG Total CO2 29 H (19-24) mmol/L ABG O2 Saturation 87.9 L (94-97) % Chloride (98-107) mmol/L BUN 58 H (9-20) mg/dL Creatinine 3.41 H (0.66-1.25) mg/dL Glucose 137 H (74-99) mg/dL POC Glucose (mg/dL) (75-99) mg/dL Calcium 7.7 L (8.4-10.2) mg/dL Total Bilirubin 1.5 H (0.2-1.3) mg/dL ALT 68 H (4-49) U/L Alkaline Phosphatase 149 H (38-126) U/L Lactate Dehydrogenase 847 H (313-618) U/L C-Reactive Protein 19.7 H (<1.0) mg/dL Total Protein 5.1 L (6.3-8.2) g/dL Albumin 2.2 L (3.5-5.0) g/dL 07/24/21 Range/Units 06:50 WBC (3.8-10.6) k/uL RBC (4.30-5.90) m/uL Hgb (13.0-17.5) gm/dL Hct (39.0-53.0) % Neutrophils # (Manual) (1.3-7.7) k/uL Lymphocytes # (Manual) (1.0-4.8) k/uL Metamyelocytes # (Man) (0) k/uL Myelocytes # (Manual) (0) k/uL Nucleated RBCs (0-0) /100 WBC APTT (22.0-30.0) sec D-Dimer (<0.60) mg/L FEU ABG pH (7.35-7.45) ABG pCO2 (35-45) mmHg ABG pO2 (83-108) mmHg ABG HCO3 (21-25) mmol/L ABG Total CO2 (19-24) mmol/L ABG O2 Saturation (94-97) % Chloride (98-107) mmol/L BUN (9-20) mg/dL Creatinine (0.66-1.25) mg/dL Glucose (74-99) mg/dL POC Glucose (mg/dL) 149 H (75-99) mg/dL Calcium (8.4-10.2) mg/dL Total Bilirubin (0.2-1.3) mg/dL ALT (4-49) U/L Alkaline Phosphatase (38-126) U/L Lactate Dehydrogenase (313-618) U/L C-Reactive Protein (<1.0) mg/dL Total Protein (6.3-8.2) g/dL Albumin (3.5-5.0) g/dL Microbiology - Last 24 Hours (Table) 07/17/21 15:35 Blood Culture - Final Blood No Growth after 144 hours 07/17/21 13:40 Blood Culture - Final Blood No Growth after 144 hours Assessment and Plan Plan: 1 Acute hypoxemic respiratory failure secondary to coronavirus associated pneumonia, S/P intubation and mechanical ventilation on 07/17/2021. No evidence of pulmonary embolism on CT angiogram. The patient also has a strep pneumonia and the pro calcitonin level was elevated. The patient was covered with IV Cefepime . The patient on Decadron. The patient remains intubated on a mechanical ventilator. Patient is currently on a PEEP of 20 with an FiO2 of 100%. The patient remains on Decadron. The patient remains on IV cefepime. No major changes on his ventilator settings. Remains on IV cefepime. The patient remains on Decadron. He remains sedated and paralyzed on a mechanical v entilator. 2 acute COVID-19 related pneumonia 3 sepsis with secondary hypotension.. Pro calcitonin level is elevated and the patient has a combination of penicillin resistant strep pneumonia and presumed staph aureus in the sputum. The patient currently is on IV cefepime. Patient is also on pressors and norepinephrine is running at 0.08 mg/kg/m. 4 Elevated inflammatory marker secondary to coronavirus infection, improving 5 acute kidney injury, oliguric and the patient received his first session of hemodialysis yesterday. Potassium level from today still elevated. The patient remains acidotic. I'm going to start the patient on a low-grade bicarb infusion. The patient is undergoing daily session of hemodialysis today. 6 streptococcus pneumonia in the sputum, consistent underlying pneumococcal pneumonia on top of COVID-19 related pneumonia. The patient is currently on IV Cefepime. The pro calcitonin level was elevated supporting bacterial pneumonia on top of the COVID-19 related infection. 7 hyperglycemia, steroid induced and the patient is currently on Levemir insulin along with NovoLog with sliding scale coverage for blood sugar control 8 leukocytosis, improving 9 non-anion gap metabolic acidosis, currently on a bicarb infusion 10 acute hyperkalemia secondary to above , improving 11 abdominal distention, rule out ascites Plan: Keep tidal volume down to 420 and keep the PEEP at 20 with an FiO2 of 100%, RR 34, no ventilator changes will be done for today. Obtain ultrasound the abdomen and consider paracentesis if there is significant ascites Keep the patient sedated and paralyzed Keep Supine Another session of hemodialysis today today Give Bicarb 50 meq IVP x2 and start bicarb indusion at 50 cc/hr Continue Decadron heparin subcu for DVT prophylaxis 5000 every 8 hours. Monitor d-dimer which seems to be slightly elevated. Monitor also the rest of the inflammatory markers, improving Continue with the Levemir insulin for blood sugar control in addition to sliding scale NovoLog Enteral feeding for nutritional support with vital high protein. Nothing much to add in the patient's case. The patient has multisystem organ failure secondary to Covid Pneumonia. Obviously the patient is still having difficulty with oxygenation. Hemodynamically he is still hypotensive related to septic shock and he is still in renal failure. He remains quite acidotic. We'll continue supportive care. He carries a very poor prognosis. Condition is critical we'll continue to follow make further recommendations based on his progress. Critically care evaluation, more than 30 minutes. Time with Patient: Greater than 30
[2021-07-24] MEDS: CEFEPIME 1 GM in SODIUM CHLORIDE 0.9% 50 ML IVPB SCH ×2 (10:30→22:14)
[2021-07-24] MEDS: CHLORHEXIDINE GLUCONATE 15 ML CUP MUCOUS MEM SCH ×2 (11:09→20:31)
[2021-07-24] MEDS: PANTOPRAZOLE 40 MG/10 ML VIAL IVP SCH (11:09)
[2021-07-24] MEDS: CHOLECALCIFEROL 25 MCG (1000 IU) TABLET PO SCH (11:09)
[2021-07-24] MEDS: DEXAMETHASONE SOD PHOSPHATE 10 MG/ML 1 ML VIAL IVP SCH (11:09)
[2021-07-24] MEDS: HEPARIN SODIUM,PORCINE/PF 5,000 UNIT/0.5 ML SYRINGE SQ SCH ×2 (11:09→16:30)
[2021-07-24] MEDS: LACTULOSE 20 GM/30 ML CUP PO SCH ×3 (11:10→22:14)
[2021-07-24] MEDS: ZINC SULFATE 220 MG CAP PO SCH (11:10)
[2021-07-24] MEDS: ASCORBIC ACID 500 MG TAB PO SCH (11:10)
--- NOTE | 2021-07-24 11:22 | US ---
EXAMINATION TYPE: US bladder DATE OF EXAM: 07/24/2021 COMPARISON: US CLINICAL HISTORY: access bladder per ordering doc. ICU intubated patient with COVID, hematuria. EXAM MEASUREMENTS: Post Void Residual Volume: not assessed on inpatient with Haro catheter Bladder US findings: Haro Catheter is noted within partially distended bladder; low level internal echoes noted suggests bladder debris within. Bladder volume approximately = 23.3ml. IMPRESSION: Assessment of the bladder is nearly nondiagnostic due to presence of Haro catheter. Janae ris within the bladder could represent hematuria or infectious etiology correlate clinically.
--- NOTE | 2021-07-24 11:31 | US ---
EXAMINATION TYPE: US abdomen limited DATE OF EXAM: 07/24/2021 COMPARISON: Renal US CLINICAL HISTORY: abdominal distention. ICU intubated patient with COVID and abdominal distention. US findings: Small amount ascites seen in RLQ = 6.9cm A/P. Bowel movement noted within RLQ fluid pock et. IMPRESSION: There is only a small amount of ascites within the right lower quadrant. No fluid is se en involving the left abdomen or right.
[2021-07-24 11:58] LABS: Glucose,Whole Blood 111 mg/dL (75-99)
[2021-07-24 17:37] LABS: Glucose,Whole Blood 138 mg/dL (75-99)
--- NOTE | 2021-07-24 17:56 | PN ---
PROGRESS NOTE Patient is seen for followup for acute kidney injury. Patient remains on the vent. He is maintained on daily treatments. He has had no urine output. Levophed is now slightly lower at 0.18 mcg. The patient remains on the vent. He is maintained on Nimbex and fentanyl. Case is discussed with nursing staff. FiO2 is at 100%. EXAMINATION: Today blood pressure was 118/57, heart rate 107 per minute. Patient is not examined. LABS: Labs show sodium of 140, potassium 4.2, chloride 107, BUN 58, creatinine 3.4, calcium 7.7, hemoglobin 8.9 g/dL. ASSESSMENT: 1. Acute kidney injury, ATN, currently oliguric, maintained on daily dialysis. 2. Hyperkalemia, currently improving with dialysis. 3. Metabolic acidosis associated with renal failure, hypotension, currently improved. We will DC the IV bicarb. 4. Acute hypoxic respiratory failure, currently on the vent. 5. COVID pneumonia. PLAN: Continue with daily treatments. Overall prognosis is poor. MMODL / IJN: [id number] /
[2021-07-24 18:24] LABS: Glucose,Whole Blood 135 mg/dL (75-99)
--- NOTE | 2021-07-24 18:29 | PN ---
PROGRESS NOTE DATE OF SERVICE: 07/24/2021 REASON FOR FOLLOWUP: Pneumonia. INTERVAL HISTORY: The patient is afebrile, hemodynamically stable. FiO2 is currently 100% ( ) changes reported by the nursing staff. PHYSICAL EXAMINATION: Blood pressure 129/56, pulse 101, temperature 97.6. He is 91% on 100% FiO2. General description is a middle-aged male intubated on the vent. Respiratory system: Unlabored breathing. Decreased breath sounds at the base. No wheeze. Heart S1, S2. Regular rate and rhythm. Abdomen soft, no tenderness. LAB: Hemoglobin is 8, white count 16.4 from high of 28 yesterday, creatinine 3.41. DIAGNOSTIC IMPRESSION AND PLAN: Patient with acute respiratory failure, multifactorial. Initially diagnosed with COVID- 19 pneumonia with concern for secondary bacteria. Sputum with MSSA and strep pneumo. Patient is covered cefepime. Prognosis remains to be guarded. MMODL / IJN: [id number] /
[2021-07-24] MEDS: DEXTROSE 5% IN WATER 1,000 ML with SODIUM BICARB (1 MEQ/ML) 150 ML IV SCH (18:35)
[2021-07-24] MEDS: INSULIN DETEMIR (LEVEMIR) 100 UNIT/ML SYR SQ SCH (20:32)
[2021-07-25 00:04] LABS: Glucose,Whole Blood 138 mg/dL (75-99)
[2021-07-25] MEDS: HEPARIN SODIUM,PORCINE/PF 5,000 UNIT/0.5 ML SYRINGE SQ SCH ×3 (00:34→16:55)
[2021-07-25] MEDS: METOCLOPRAMIDE 5 MG/ML 2 ML VIAL IVP SCH ×4 (00:34→16:56)
[2021-07-25] MEDS: INSULIN ASPART (NovoLOG) 100 UNIT/ML VIAL SQ SCH ×4 (00:34→18:55)
[2021-07-25] MEDS: ARTIFICIAL TEARS-HYPROMELLOSE DROPS 15 ML BTL BOTH EYES SCH ×6 (00:35→21:02)
[2021-07-25] MEDS: fentaNYL (PF) 2,500 MCG in SODIUM CHLORIDE 0.9% 200 ML IV SCH (02:36)
[2021-07-25] MEDS: CISATRACURIUM 200 MG in SODIUM CHLORIDE 0.9% 180 ML IV SCH (02:36)
--- NOTE | 2021-07-25 03:07 | XR ---
EXAMINATION TYPE: XR chest 1V portable DATE OF EXAM: 07/25/2021 COMPARISON: Yesterday HISTORY: Respiratory failure TECHNIQUE: FINDINGS: There is moderate pulmonary interstitial and airspace edema. Endotracheal tube is 4.5 cm fr om the miles. There is left jugular catheter with tip in the superior vena cava. There is nasogastri c tube in the stomach. There are chest leads. IMPRESSION: There is moderate pulmonary interstitial and airspace edema without change compared to .
[2021-07-25 04:38] LABS: HCT 27.9 % (39.0-53.0); HGB 9.1 gm/dL (13.0-17.5); Hypochromasia Moderate; MCH 32.2 pg (25.0-35.0); MCHC 32.7 g/dL (31.0-37.0); MCV 98.4 fL (80.0-100.0); Macrocytosis Slight; Mean Platelet Volume 8.6; Platelet Count 304 k/uL (150-450); Poikilocytosis Slight; RBC 2.83 m/uL (4.30-5.90); RDW 15.5 % (11.5-15.5); WBC 17.7 k/uL (3.8-10.6)
[2021-07-25 04:47] LABS: Albumin 2.3 g/dL (3.5-5.0); Calcium 7.9 mg/dL (8.4-10.2); Potassium 4.4 mmol/L (3.5-5.1); Total Bilirubin 1.4 mg/dL (0.2-1.3); Total Protein 5.4 g/dL (6.3-8.2)
[2021-07-25 05:22] LABS: ABG Base Excess -4.2 mmol/L; ABG HCO3 25 mmol/L (21-25); ABG Oxygen Saturation 90.2 % (94-97); ABG PO2 69 mmHg (83-108); ABG TCO2 27 mmol/L (19-24)
[2021-07-25 05:35] LABS: ABG PH 7.15 (7.35-7.45)
[2021-07-25 05:36] LABS: ABG PCO2 71 mmHg (35-45); Allen Test Performed? no
[2021-07-25 05:46] LABS: Anisocytosis (M) Present; Band Neutrophils % 14 %; Lymphocytes # (M) 0.89 k/uL (1.0-4.8); Metamyelocytes # (M) 0.71 k/uL (0); Metamyelocytes % 4 %; Myelocytes # (M) 0.18 k/uL (0); Myelocytes % 1 %; Neutrophils % (M) 76 %; Nucleated Red Blood Cells 0 /100 WBC (0-0); Total Cells Counted 100
[2021-07-25] MEDS: CEFEPIME 1 GM in SODIUM CHLORIDE 0.9% 50 ML IVPB SCH ×2 (07:56→21:03)
[2021-07-25] MEDS: CHLORHEXIDINE GLUCONATE 15 ML CUP MUCOUS MEM SCH ×2 (07:57→21:02)
[2021-07-25] MEDS: CHOLECALCIFEROL 25 MCG (1000 IU) TABLET PO SCH (07:57)
[2021-07-25] MEDS: DEXAMETHASONE SOD PHOSPHATE 10 MG/ML 1 ML VIAL IVP SCH (07:57)
[2021-07-25] MEDS: ZINC SULFATE 220 MG CAP PO SCH (07:57)
[2021-07-25] MEDS: ASCORBIC ACID 500 MG TAB PO SCH (07:57)
[2021-07-25] MEDS: PANTOPRAZOLE 40 MG/10 ML VIAL IVP SCH (07:58)
[2021-07-25] MEDS: LACTULOSE 20 GM/30 ML CUP PO SCH ×3 (07:58→20:12)
--- NOTE | 2021-07-25 08:59 | P.PN ---
Subjective Progress Note Date: 07/24/21 This is a 66-year-old male who was recently admitted with acute COVID-19 viral pneumonia and bilateral interstitial pneumonia on mechanical ventilation being closely monitored. Patient continues in the ICU with worsening renal functions and vascular surgery consulted for hemodialysis catheter placement with nephrology following closely. Patient's potassium is 6.0 and corrected and awaiting repeat labs. Patient's white blood count continues to be elevated as well and is 33.6 today. Infectious disease following an patient is maintained on IV cefepime and will continue. 07/22/2021 Patient is seen in follow-up this morning continues to be on mechanical ventilation and intubated and being closely monitored in the ICU. Nephrology also following closely along with multiple medical consultations and patient has been started on hemodialysis and most likely will continue daily for now. Patient has no urine output per nursing staff. X-ray today shows bilateral airspace disease shows a similar appearance there is a prominence of interstitium with no evident pneumothorax or pleural effusion noted and a correlate for pneumonia, edema, ARDS. Potassium today is 5.9, BUN is 98, creatinine is 4.17. Patient to continue with IV cefepime with infectious disease following closely. 07/23/2021 Patient is seen in follow-up in the ICU being closely monitored with multiple medical consultations following. Patient is receiving hemodialysis currently and nephrology following closely. Patient also continues on cefepime with ID following closely with positive sputum cultures. WBC is elevated at 29.3 and recommend repeat am labs and monitor closely. Patient also continues on IV dexamethasone and vitamin and zinc supplements along with sub q heparin for anticoagulation. Patient continues on norepineprhine high dose as well. 07/24/2021 Patient is evaluated today and continues to be closely monitored by multiple medical consultations in the ICU in critical condition. Patient is receiving daily hemodialysis with nephrology following closely. Patient continues on Norepinephrine and sedation as well. Patient is on mechanical vent with 100% FI02. Chest xray shows stable diffuse bilateral airspace disease correlate for ARDS, diffuse pneumonia or less likely pulmonary edema. Abdomen is distended and ultrasound of the abdomen and bladder ordered. Review of systems: Unable to obtain as patient is intubated and sedated Labs: WBC is 16.4, hemoglobin is 8.9, platelets are 263, d dimer is 5.65 sodium is 140, potassium 4.2, BUN 58, creatinine 3.41, calcium 7.7, crp is 19.7, LDH is 847 Active Medications Acetaminophen (Acetaminophen Tab 325 Mg Tab) 650 mg PO Q4HR PRN PRN Reason: Fever>101 Last Admin: 07/22/21 07:32 Dose: 650 mg Documented by: Albuterol Sulfate (Albuterol Hfa Inhaler) 2 puff INHALATION RT-Q6H PRN PRN Reason: Shortness Of Breath Or Wheezing Last Admin: 07/23/21 20:49 Dose: 2 puff Documented by: Artificial Tears (Artificial Tears-Hypromellose Drops 15 Ml Btl) 2 drops BOTH EYES Q4HR REPLACED BY [facility] Last Admin: 07/25/21 07:59 Dose: 2 drops Documented by: Ascorbic Acid (Ascorbic Acid 500 Mg Tab) 500 mg PO DAILY REPLACED BY [facility] Last Admin: 07/25/21 07:57 Dose: 500 mg Documented by: Chlorhexidine Gluconate (Chlorhexidine Gluconate 15 Ml Cup) 15 ml MUCOUS MEM BID REPLACED BY [facility] Last Admin: 07/25/21 07:57 Dose: 15 ml Documented by: Cholecalciferol (Cholecalciferol 25 Mcg (1000 Iu) Tablet) 25 mcg PO DAILY REPLACED BY [facility] Last Admin: 07/25/21 07:57 Dose: 25 mcg Documented by: Dexamethasone Sodium Phosphate (Dexamethasone Sod Phosphate 10 Mg/Ml 1 Ml Vial) 6 mg IVP DAILY REPLACED BY [facility] Last Admin: 07/25/21 07:57 Dose: 6 mg Documented by: Heparin Sodium (Porcine) (Heparin Sodium,Porcine/Pf 5,000 Unit/0.5 Ml Syringe) 5,000 unit SQ Q8HR REPLACED BY [facility] Last Admin: 07/25/21 07:58 Dose: 5,000 unit Documented by: Propofol 1,000 mg/ IV Solution 100 mls @ 0 mls/hr IV .Q0M REPLACED BY [facility]; Protocol Last Admin: 07/25/21 07:56 Dose: 60 mcg/kg/min, 38.772 mls/hr Documented by: Cisatracurium Besylate 200 mg/ (Sodium Chloride) 200 mls @ 5.4 mls/hr IV .Q24H REPLACED BY [facility]; Protocol Last Admin: 07/25/21 02:36 Dose: 1 mcg/kg/min, 5.4 mls/hr Documented by: Norepinephrine Bitartrate 8 mg (/ Sodium Chloride) 258 mls @ 8.708 mls/hr IV .Q24H REPLACED BY [facility]; Protocol Last Titration: 07/24/21 22:18 Dose: 0.07 mcg/kg/min, 12.191 mls/hr Documented by: Fentanyl Citrate 2,500 mcg/ (Sodium Chloride) 250 mls @ 4.82 mls/hr IV .Q24H [facility]; Protocol Last Admin: 07/25/21 02:36 Dose: 1 mcg/kg/hr, 9.64 mls/hr Documented by: Cefepime HCl 1 gm/ Sodium (Chloride) 50 mls @ 12.5 mls/hr IVPB Q12H REPLACED BY [facility] Last Admin: 07/25/21 07:56 Dose: 12.5 mls/hr Documented by: Insulin Aspart (Insulin Aspart (Novolog) 100 Unit/Ml Vial) 0 unit SQ Q6H REPLACED BY [facility]; Protocol Last Admin: 07/25/21 05:24 Dose: Not Given Documented by: Insulin Detemir (Insulin Detemir (Levemir) 100 Unit/Ml Syr) 20 unit SQ HS REPLACED BY [facility] Last Admin: 07/24/21 20:32 Dose: 20 unit Documented by: Lactulose (Lactulose 20 Gm/30 Ml Cup) 15 gm PO TID REPLACED BY [facility] Last Admin: 07/25/21 07:58 Dose: 15 gm Documented by: Metoclopramide HCl (Metoclopramide 5 Mg/Ml 2 Ml Vial) 10 mg IVP Q6HR REPLACED BY [facility] Last Admin: 07/25/21 07:13 Dose: Not Given Documented by: Pantoprazole Sodium (Pantoprazole 40 Mg/10 Ml Vial) 40 mg IVP DAILY REPLACED BY [facility] Last Admin: 07/25/21 07:58 Dose: 40 mg Documented by: Zinc Sulfate (Zinc Sulfate 220 Mg Cap) 220 mg PO DAILY REPLACED BY [facility] Last Admin: 07/25/21 07:57 Dose: 220 mg Documented by: Physical Exam: Gen: This is a 66-year-old male who is intubated and sedated, well-developed, well-nourished. obese. Temp is 98.7F, pulse is 101, respirations are 34, blood pressure is 112/62, arterial blood pressure is 118/62, oxygen saturation is 89% on Vent and FiO2 of 100% HEENT: Head is atraumatic, normocephalic. Pupils equal, round. Sclerae is anicteric. NECK: Supple. No JVD. No lymphadenopathy. No thyromegaly. LUNGS: Breath sounds diminished with scattered rhonchi and crackles noted. No intercostal retractions. HEART: S1, S2 are muffled ABDOMEN: Soft. Bowel sounds are present. No masses. No tenderness. EXTREMITIES: No pedal edema. No calf tenderness. generalized edema noted throughout NEUROLOGICAL: Patient is currently sedated and intubated. Assessment: Acute COVID-19 infection with acute COVID-19 bilateral interstitial pneumonia with acute hypoxic respiratory failure MSSA streptococcal pneumonia Elevated inflammatory markers of COVID-19 pneumonia acute kidney injury with creatinine 1.6 with acute tubular necrosis, worsening now requiring hemodialysis Hypovolemic hyponatremia Hypertension history history of lactic acidosis Sinus tachycardia Deep vein thrombosis prophylaxis acute respiratory acidosis Hyperkalemia secondary to renal failure diabetes mellitus type 2, uncontrolled with elevated blood sugars Elevated AST, ALT with hepatitis secondary to COVID-19 Increased WBC obesity with a body mass index of 33.0 Full code Plan: Recommend to continue with current medications and follow along closely with multiple medical consultations. Nephrology following closely and maintained on daily hemodialysis. Patient requiring pressor support. Patient continues on mechanical ventilation with multiple medical consultations including infectious disease, pulmonary, nephrology following closely. Abdominal ultrasound ordered for abdominal distention showing small amount of ascites in RLQ. Stool noted wi thin RLQ fluid pocket. Bladder ultrasound non-diagnostic and there is debris noted within the bladder that could represent hematuria or infectious etiology. Patient continues on IV antibiotics in the form of cefepime and will continue. Repeat blood cultures have been negative and Gram stain culture from sputum showing Streptococcus pneumonia and Staphylococcus aureus. Recommend repeat labs in the a.m and chest x-ray. Patient remains a full code at this time. Due to multiple complex medical issues prognosis is extremely guarded. Objective - Vital Signs Vital signs: Vital Signs Temp 97.3 F L 07/24/21 04:00 Pulse 104 H 07/24/21 07:00 Resp 34 H 07/24/21 07:00 BP 112/62 07/24/21 07:00 Pulse Ox 91 L 07/24/21 07:00 Intake & Output 07/23/21 07/24/21 07/24/21 18:59 06:59 18:59 Intake Total 2396.262 3689.443 12.801 Output Total 1000 200 Balance 470.319 7074.443 12.801 Weight 107.7 kg Intake: IV 335 1291 0.9% @ 75mL/hr 190 825 Cefepime 2 gm In Sodium 100 Chloride 0.9% 100 ml @ 25 mls/hr IVPB Q12H RED Rx# :[id number] Dextrose 5% in Water 1, 400 000 ml @ 50 mls/hr IV . Q23H RED with Sodium Bicarb (1 Meq/ml) 150 ml Rx#:[id number] Pressure Bag 45 66 Intake, IV Titration 1199.217 923.443 12.801 Amount Cisatracurium 200 mg In 92.88 Sodium Chloride 0.9% 180 ml @ 1 MCG/KG/MIN 5.4 mls /hr IV .Q24H RED Rx#: [id number] Dextrose 5% in Water 1, 450 100 000 ml @ 50 mls/hr IV . Q23H RED with Sodium Bicarb (1 Meq/ml) 150 ml Rx#:[id number] Norepinephrine 8 mg In 449.217 89.630 12.801 Sodium Chloride 0.9% 250 ml @ 0.05 MCG/KG/MIN 8. 708 mls/hr IV .Q24H REPLACED BY [facility] Rx#:[id number] fentaNYL (PF) 2,500 mcg 242.446 In Sodium Chloride 0.9% 200 ml @ 0.5 MCG/KG/HR 4. 82 mls/hr IV .Q24H REPLACED BY [facility] Rx #:[id number] propofoL 1,000 mg In 300 398.487 Empty Bag 1 bag @ Titrate IV .Q0M RED Rx#: [id number] Tube Feeding 300 275 Other 60 90 Output: Urine 0 0 Stool 200 Hemodialysis 1000 Other: Voiding Method Indwelling Catheter Indwelling Catheter ABP, PAP, CO, CI - Last Documented Arterial Blood Pressure 116/51 - Labs CBC & Chem 7: 07/25/21 04:05 07/25/21 04:05 Labs: Abnormal Lab Results - Last 24 Hours (Table) 07/23/21 07/23/21 07/23/21 Range/Units 12:06 13:29 17:53 WBC (3.8-10.6) k/uL RBC (4.30-5.90) m/uL Hgb (13.0-17.5) gm/dL Hct (39.0-53.0) % Neutrophils # (Manual) (1.3-7.7) k/uL Lymphocytes # (Manual) (1.0-4.8) k/uL Metamyelocytes # (Man) (0) k/uL Myelocytes # (Manual) (0) k/uL Nucleated RBCs (0-0) /100 WBC APTT 32.9 H (22.0-30.0) sec D-Dimer (<0.60) mg/L FEU ABG pH (7.35-7.45) ABG pCO2 (35-45) mmHg ABG pO2 (83-108) mmHg ABG HCO3 (21-25) mmol/L ABG Total CO2 (19-24) mmol/L ABG O2 Saturation (94-97) % Chloride (98-107) mmol/L BUN (9-20) mg/dL Creatinine (0.66-1.25) mg/dL Glucose (74-99) mg/dL POC Glucose (mg/dL) 125 H 158 H (75-99) mg/dL Calcium (8.4-10.2) mg/dL Total Bilirubin (0.2-1.3) mg/dL ALT (4-49) U/L Alkaline Phosphatase (38-126) U/L Lactate Dehydrogenase (313-618) U/L C-Reactive Protein (<1.0) mg/dL Total Protein (6.3-8.2) g/dL Albumin (3.5-5.0) g/dL 07/23/21 07/23/21 07/24/21 Range/Units 18:35 23:29 04:00 WBC (3.8-10.6) k/uL RBC (4.30-5.90) m/uL Hgb (13.0-17.5) gm/dL Hct (39.0-53.0) % Neutrophils # (Manual) (1.3-7.7) k/uL Lymphocytes # (Manual) (1.0-4.8) k/uL Metamyelocytes # (Man) (0) k/uL Myelocytes # (Manual) (0) k/uL Nucleated RBCs (0-0) /100 WBC APTT (22.0-30.0) sec D-Dimer 5.65 H (<0.60) mg/L FEU ABG pH (7.35-7.45) ABG pCO2 (35-45) mmHg ABG pO2 (83-108) mmHg ABG HCO3 (21-25) mmol/L ABG Total CO2 (19-24) mmol/L ABG O2 Saturation (94-97) % Chloride 108 H (98-107) mmol/L BUN 49 H (9-20) mg/dL Creatinine 2.92 H (0.66-1.25) mg/dL Glucose 145 H (74-99) mg/dL POC Glucose (mg/dL) 169 H (75-99) mg/dL Calcium 7.7 L (8.4-10.2) mg/dL Total Bilirubin (0.2-1.3) mg/dL ALT (4-49) U/L Alkaline Phosphatase (38-126) U/L Lactate Dehydrogenase (313-618) U/L C-Reactive Protein (<1.0) mg/dL Total Protein (6.3-8.2) g/dL Albumin (3.5-5.0) g/dL 07/24/21 07/24/21 07/24/21 Range/Units 04:00 04:00 05:46 WBC 16.4 H (3.8-10.6) k/uL RBC 2.81 L (4.30-5.90) m/uL Hgb 8.9 L (13.0-17.5) gm/dL Hct 27.4 L (39.0-53.0) % Neutrophils # (Manual) 14.50 H (1.3-7.7) k/uL Lymphocytes # (Manual) 0.33 L (1.0-4.8) k/uL Metamyelocytes # (Man) 0.66 H (0) k/uL Myelocytes # (Manual) 0.33 H (0) k/uL Nucleated RBCs 1 H (0-0) /100 WBC APTT (22.0-30.0) sec D-Dimer (<0.60) mg/L FEU ABG pH 7.17 L* (7.35-7.45) ABG pCO2 73 H* (35-45) mmHg ABG pO2 63 L (83-108) mmHg ABG HCO3 27 H (21-25) mmol/L ABG Total CO2 29 H (19-24) mmol/L ABG O2 Saturation 87.9 L (94-97) % Chloride (98-107) mmol/L BUN 58 H (9-20) mg/dL Creatinine 3.41 H (0.66-1.25) mg/dL Glucose 137 H (74-99) mg/dL POC Glucose (mg/dL) (75-99) mg/dL Calcium 7.7 L (8.4-10.2) mg/dL Total Bilirubin 1.5 H (0.2-1.3) mg/dL ALT 68 H (4-49) U/L Alkaline Phosphatase 149 H (38-126) U/L Lactate Dehydrogenase 847 H (313-618) U/L C-Reactive Protein 19.7 H (<1.0) mg/dL Total Protein 5.1 L (6.3-8.2) g/dL Albumin 2.2 L (3.5-5.0) g/dL 07/24/21 Range/Units 06:50 WBC (3.8-10.6) k/uL RBC (4.30-5.90) m/uL Hgb (13.0-17.5) gm/dL Hct (39.0-53.0) % Neutrophils # (Manual) (1.3-7.7) k/uL Lymphocytes # (Manual) (1.0-4.8) k/uL Metamyelocytes # (Man) (0) k/uL Myelocytes # (Manual) (0) k/uL Nucleated RBCs (0-0) /100 WBC APTT (22.0-30.0) sec D-Dimer (<0.60) mg/L FEU ABG pH (7.35-7.45) ABG pCO2 (35-45) mmHg ABG pO2 (83-108) mmHg ABG HCO3 (21-25) mmol/L ABG Total CO2 (19-24) mmol/L ABG O2 Saturation (94-97) % Chloride (98-107) mmol/L BUN (9-20) mg/dL Creatinine (0.66-1.25) mg/dL Glucose (74-99) mg/dL POC Glucose (mg/dL) 149 H (75-99) mg/dL Calcium (8.4-10.2) mg/dL Total Bilirubin (0.2-1.3) mg/dL ALT (4-49) U/L Alkaline Phosphatase (38-126) U/L Lactate Dehydrogenase (313-618) U/L C-Reactive Protein (<1.0) mg/dL Total Protein (6.3-8.2) g/dL Albumin (3.5-5.0) g/dL Microbiology - Last 24 Hours (Table) 07/17/21 15:35 Blood Culture - Final Blood No Growth after 144 hours 07/17/21 13:40 Blood Culture - Final Blood No Growth after 144 hours
--- NOTE | 2021-07-25 10:35 | P.PN ---
Subjective Progress Note Date: 07/25/21 66-year-old male, seen in the emergency department on July 12. He came in complaining of shortness of breath. He been sick for about 9 or 10 days prior to his visit in the emergency department. He complained of cough, chest congestion, fatigue, shortness of breath, and he did test positive for coron avirus. He was placed on BiPAP with settings of IPAP 12, EPAP 6, and 70%. The patient further decompensated and he was placed on a mechanical ventilator on 07/17/2021. He is currently being seen in the follow-up On 07/20/2021, the patient is being seen for a follow-up. The patient currently is on mechanical ventilator. He is sedated and paralyzed. The patient is currently on propofol running at 70 mcg/kg per minute and he is also paralyzed with Nimbex at 1 mcg/kg per minute. He remains on a mechanical ventilator, assist control mode with tidal volume of 450, rate of 32, FiO2 of 55% with a PEEP of 20. The peak ariway pressure is 40 and static is 37. Blood gases from today was noted. And the patient had a pH of 7.16 with a pCO2 of 60 and pO2 of 65. The chest x-ray from today was reviewed and the patient has adequate positioning of the orotracheal tube which is above the miles by around 2 cm in size. The patient has a left IJ triple-lumen catheter in place. The patient has bilateral pulmonary infiltrates, right hilar, essentially unchanged compared to yesterday. There is no interval worsening in the chest x-ray findings. On today's blood work, the patient has a LDH level of 1733 with a CRP level of 17.9 and the inflammatory markers are gradually improved. The patient's d-dimer level is at 12.5. The white cell count is at 21.5. Noted the patient also had developed an acute kidney injury. Creatinine is on the rise and currently is up to 2.38. Overall fluid balance has been +2.5 L over the past 24 hours. The patient's current regimen includes Decadron 6 mg IV every 24 hours, the patient is on antibiotic coverage with IV Zosyn. The patient is on multivitamins. The patient is also on the normal saline at the rate of 75 mL's an hour. The patient is on Lovenox 40 mg subcu for DVT prophylaxis. This patient Chest x-ray showing diffuse bilateral pulmonary infiltrates, essentially unchanged compared to yesterday. Note that the patient sputum also showed Streptococcus pneumoniae. The patient is currently on IV Zosyn. He is on Vital HP at 36 cc/hr 07/21/2021, I'm seeing the patient for a follow-up. The patient remains intubated on a mechanical ventilator. The patient remains sedated and paralyzed. For now, the patient is sedated with propofol which is currently running at 60 mg/kg per minute and the patient is also paralyzed with Nimbex at 1 g per to per minute. He remains on a mechanical ventilator. This morning, he is on assist control mode with a tidal volume of 400 and a respiratory rate of 32 with an FiO2 of 65% with a PEEP of 20. He was quite stiff yesterday with a peak airway pressure of around 40 with a subcu fashion of 37. Blood gases was showing borderline oxygenation. I made recommendations to follow this patient and he was ultimately phone at around 2200 yesterday. Currently is in a foam zuly position. His current pulse ox is 93%. Morning blood gases showed no major improvement in the oxygenation. This blood gas was done while the patient was prone and the pH was at 7.01 with a pCO2 of 81 and pO2 of 61 and this was done and FiO2 of 65%. Currently his pulse ox on the monitor is 93%. In terms of his COVID 19 related to pneumonia, the patient remains on Decadron. LDH from today is 1724 with a CRP of 20.7. Note that the inflammatory markers have been essentially elevated without any major improvement since yesterday. His d-dimer has been at 2.98. The patient is receiving Decadron 6 mg IV every 24 hours. The patient is also on Heparin for DVT prophylaxis at a dose of 5000 mg subcu every 8 hours. Meanwhile, the patient also had Streptococcus pneumonia in his sputum and the patient remains on IV cefepime. The patient is currently on normal saline at the rate of 75 mL an hour. He is also on pressors and norepinephrine infusion is running at 0.1 mcg/kg per minute. His pro-calcitonin level has been at 3.34 consistent with an underlying bacterial infection. At the same time, the patient is developing acute kidney injury. Nephrology was consulted yesterday. Creatinine is up to 3.71 with a BUN of 94 and the potassium level is up to 6.0. Serum bicarbonate of 18 with a anion gap of 10. The white cell count is at 33.6 with a hemoglobin of 12.1. 12 2021, I'm seeing the patient for a follow-up. As mentioned earlier, he has a COVID 19 related pneumonia with superinfection with MSSA and strep pneumonia. The patient is currently intubated on a mechanical ventilator. On today's evaluation, he remains sedated on propofol which is running at 60 mcg/kg per minute which is the same as yesterday and the patient is also on fentanyl running at 1 mcg/kg/h and Nimbex is also running at 1 mcg/kg per minute. Ventilator settings are essentially unchanged. He was prone to yesterday. He was somewhat hemodynamically unstable and he was hypotensive on pressors. We ended up his pronating process and he was placed back supine as the patient also was headed into an acute kidney injury. As such, the patient was placed back supine and this morning he is an assist-control mode with a tidal volume of 400, this tidal volume was brought up to 420 yesterday. His current respiratory rate is at 34, FiO2 is currently at 65% and a PEEP is currently at 20. His peak airway pressure is at 42 cm of water. Blood gases showed some improvement in his acidosis and the pH is at 7.11 with a pCO2 of 65 and pO2 of 65. The blood gases was noted from today. The chest x-ray from today is showing diffuse bilateral pulmonary infiltrates unchanged compared to yesterday. Orotracheal tube remains in a good location. The patient has advanced infiltrates bilaterally mainly in the left lower lobe, right lower lobe and the right upper lobe. Right hemidiaphragm is also quite elevated. ET tube is around 2 cm above the miles and the patient has a left subclavian triple-lumen catheter in place. The patient has been Supine since yesterday. In terms of his inflammatory markers regarding COVID 19, the patient has an LDH level of the was elevated from yesterday at 1200 724 with a CRP level of 20.7. The most recent d-dimer is at 2.98. Meanwhile, the patient remains on therapy and he is on Decadron at a dose of 6 mg IV every 24 hours. His sputum was positive. He had MSSA and strep to copious pneumonia and the patient was covered with IV cefepime. Hemodynamically, the patient is still on pressors. Norepinephrine infusion is still running at 0.4 mcg/kg per minute. His blood pressure is stable this morning. His cardiac rhythm is sinus tachycardia. Urine output is low in the order of 20 mL throughout the night. His white cell count is up to 28.4 and he has a BUN of 98 and a creatinine of 4.1 on today's evaluation. Potassium level also came at 5.9 and a serum bicarbonate of 18 with an anion gap of 12. Sodium is at 140. Nephrology has been consulted and the patient and the patient was given a dialysis catheter. His dialysis catheter currently is present in the right femoral vein. It is likely the patient is going to proceed with hemodialysis today specially with his underlying hyperkalemia and acidosis. He has developed third spacing. His body weight is up to 105 kg and his body mass index is up to 35.5. He continues to receive enteral feeding for nutritional support and the patient is currently on receiving vital high protein at the rate of 23 mL an hour which is goal. There is significant. Note that the patient received his first session of hemodialysis yesterday. He did not have any significant ultrafiltration. 07/23/2021, patient is being seen for a follow-up. A complicated case of covert 19 related pneumonia with superinfection including MSSA and strep pneumonia and acute kidney injury requiring hemodialysis. The patient remains in the ICU, intubated on a mechanical ventilator. This morning, he is sedated with propofol which is currently running at 60 mcg/kg per minute and the patient is also on fentanyl at 1 mcg/kg/h and Nimbex is running at 1 mcg/kg per minute. The level of sedation and paralytics are the same as yesterday. The patient did not have a follow-up chest x-ray today. Nevertheless, he is on a mechanical ventilator. He is in a supine body position. He is on assist control mode at the rate of 34, tidal volume is at 420 mL and the respiratory rate is at 34 with FiO2 the cath on the percent with a PEEP of 20. The blood gases from today shows a pH of 7.05 with a pCO2 of 72 and pO2 of 71. Peak air pressures still unchanged compared to yesterday as his peak air pressures currently at 42. The patient remains on Decadron. The patient's is hemodynamically unstable and his still requiring pressors for blood pressure control. Norepinephrine infusion is currently running at 0.4 mcg/kg per minute and this is essentially the same as yesterday. The patient remains on broad-spectrum antibiotics. He remains currently on IV cefepime. The white cell count today is at 29. He remains quite acidotic and the serum bicarbs at 18 with a sodium level of 138 and a potassium level of 5.6. TPN is at 76 with a creatinine of 4.1. The patient is receiving another session of hemodialysis today and electrodes will be rechecked post hemodialysis.. Encompass significant amount of volume overload based on his underlying renal failure and he has extensive third spacing and peripheral edema. No major changes condition otherwise. He remains on pressors. He is receiving enteral feeding for nutritional support with vital high protein at the rate of 25 mL an hour. He is receiving his second session of hemodialysis today. He is currently having liquidy stool. A fecal management system was attached. We'll check possibility of an underlying C. diff infection and stool will be sent for C. diff evaluation. In terms of his inflammatory markers, this has not been checked for today. Her last check was done on 07/21/2021. IV fluids are currently in the form of 0.9 at KVO. 2021, the patient's condition remains essentially unchanged. He is being seen for a follow-up. The patient remains on a mechanical ventilator. The patient remains sedated with propofol and fentanyl and propofol is running at 60 mcg/kg per minute and fentanyl is running at 1 1 mcg/kg/h and Nimbex is running at 1 mcg/kg per minute. As such, there is no change in the dosing of his sedation or paralytic agents. Remains on a mechanical ventilator on the same setting with a tidal volume of 420, respiratory rate of 34, FiO2 is currently at 600% with a PEEP of 20. Peak airway pressure is still elevated at 44. The ches t x-ray from today remains unchanged. The blood gases from today showed a pH of 7.17 with a pCO2 of 73 and pO2 of 63. Based on the underlying acidosis, the patient underwent hemodialysis yesterday she was also a bicarb infusion which is currently running at 150 mL an hour. Continues to be acidotic. Serum bicarbonate is currently at 26. Meanwhile, the patient is still on pressors. The patient is on norepinephrine infusion currently running at 0.08 [facility] per minute and the dose of pressors improved compared to yesterday. The patient is undergoing daily hemodialysis. His most recent hemodialysis was yesterday and today had another session of hemodialysis. The patient has a BUN of 58 with a creatinine of 3.4. Lisinopril electrolytes are all stable and within normal limits. White cell count is at 16.4 inches improved compared to yesterday and hemoglobin is currently at 8.9. The patient has some mild transaminitis. LDH level is at 847, CRP level is at 19.7 and stool for C. diff has been negative. The patient continues to receive enteral feeding for nutritional support. He does have a fecal management system in place. He has been receiving Vicodin HB at the rate of 25 mL an hour. The patient remains on IV cefepime. As such, no major changes condition over the past 24 hours. His treatment remains supportive. The abdomen is still distended. There may be a component of ascites. Haro catheter in place and the urine output is diminished somewhat bloody on today's evaluation. 07/25 2021, again another day where the patient is looking essentially unchanged. Remains sedated and paralyzed on a mechanical ventilator. Remains on propofol running at 50 mcg/kg per minute and the fentanyl is running at 1 mcg/kg/h and Nimbex is running at 1 mcg/kg per minute. Remains essentially the same ventilator setting. He is on assist-control mode of mechanical ventilation. The patient remains on a tidal volume of 420, rate of 34, FiO2 is currently at 100% with a PEEP of 20. He was given a bath during which she desaturated an effort to be brought up to 100%. The blood. From today shows a pH of 7.15 with a pCO2 of 71 and a pO2 of 69. Peak airway pressure is 47. Chest x-ray shows essentially no interval change and the patient has diffuse bilateral pulmonary infiltrates. Orotracheal tube remains in a good location. No evidence of any pneumothorax. He is afebrile. He remains on Decadron. He remains on antibiotic coverage with IV cefepime. He remains on enteral feeding for nutritional support and the patient is receiving vital high protein at the rate of 25 mL an hour. Ultrasound of the abdomen was done yesterday that showed minimal amount of ascites. The patient is stooling adequately. The patient remains on IV cefepime. Stool for C. diff came back negative. Meanwhile, his blood work shows a white cell count of 17.7 with a hemoglobin of 9.1. Renal function is impaired with the patient undergoes dialysis periodically per nephrology. Electrolytes are all stable and the patient has a potassium level of 4.4, chloride is 106 with a bicarb of 21. Blood glucose from this morning's at 78. Sodium is at 1:30. IV fluids are currently at KVO. No other significant events overnight. Condition remains essentially unchanged and he ob viously is a very poor prognosis this point. Objective - Vital Signs Vital signs: Vital Signs Temp 97.6 F 07/25/21 04:00 Pulse 104 H 07/25/21 07:00 Resp 34 H 07/25/21 07:00 BP 102/60 07/25/21 07:00 Pulse Ox 89 L 07/25/21 07:00 Intake & Output 07/24/21 07/25/21 07/25/21 18:59 06:59 18:59 Intake Total 2053.330 1235.486 26 Output Total 2000 15 0 Balance 53.330 1220.486 26 Weight 107.7 kg 113.3 kg Intake: IV 795 412 26 0.9% @ 75mL/hr 225 Cefepime 1 gm In Sodium 200 100 Chloride 0.9% 50 ml @ 12. 5 mls/hr IVPB Q12H RED Rx #:[id number] Dextrose 5% in Water 1, 150 000 ml @ 50 mls/hr IV . Q23H RED with Sodium Bicarb (1 Meq/ml) 150 ml Rx#:[id number] NS 160 240 20 Pressure Bag 60 72 6 Intake, IV Titration 587.330 798.486 Amount Cisatracurium 200 mg In 162.18 Sodium Chloride 0.9% 180 ml @ 1 MCG/KG/MIN 5.4 mls /hr IV .Q24H RED Rx#: [id number] Norepinephrine 8 mg In 286.038 32.51 Sodium Chloride 0.9% 250 ml @ 0.05 MCG/KG/MIN 8. 708 mls/hr IV .Q24H RED Rx#:[id number] fentaNYL (PF) 2,500 mcg 250 In Sodium Chloride 0.9% 200 ml @ 0.5 MCG/KG/HR 4. 82 mls/hr IV .Q24H RED Rx #:[id number] propofoL 1,000 mg In 301.292 353.796 Empty Bag 1 bag @ Titrate IV .Q0M RED Rx#: [id number] Tube Feeding 275 25 Lipid 6 Pressure Bag 6 Hemodialysis 300 Other 90 Output: Urine 0 15 0 Hemodialysis 2000 Other: Voiding Method Indwelling Catheter Indwelling Catheter ABP, PAP, CO, CI - Last Documented Arterial Blood Pressure 74/59 - Exam Sedated and paralyzed, with an orally placed endotracheal tube and NG tube. Patient is in a prone body positioning at this point in time. The patient has on a mechanical ventilator for now. He is in a prone body positioning. He remains sedated and paralyzed. Head exam was generally normal. There was no scleral icterus or corneal arcus. Mucous membranes were moist. HEENT examination is grossly unremarkable. Neck supple. Full range of motion. No adenopathy thyromegaly or neck vein distention. Cardiovascular examination reveals regular rhythm rate. S1-S2 normal. No S3 or S4. No discernible murmur noted. Heart sounds are distant. Lungs reveal diffuse bilateral rhonchi. No wheezes. No crackles. Breath sounds equal bilaterally. Abdomen soft bowel sounds are heard. No masses or tenderness. He has a HD cath in the right femoral vein Extremities are intact. No cyanosis clubbing since of edema in all 4 extremitie s and the patient has pitting edema in the upper and lower extremities. The patient is a femoral catheter in his right groin. The patient also has an arterial line in his left radial artery. Skin is pale, without rash or lesion. Neurologic examination cannot be assessed as the patient's currently sedated and paralyzed. - Labs CBC & Chem 7: 07/25/21 04:05 07/25/21 04:05 Labs: Abnormal Lab Results - Last 24 Hours (Table) 07/24/21 07/24/21 07/24/21 Range/Units 11:57 17:36 18:22 WBC (3.8-10.6) k/uL RBC (4.30-5.90) m/uL Hgb (13.0-17.5) gm/dL Hct (39.0-53.0) % Neutrophils # (Manual) (1.3-7.7) k/uL Lymphocytes # (Manual) (1.0-4.8) k/uL Metamyelocytes # (Man) (0) k/uL Myelocytes # (Manual) (0) k/uL ABG pH (7.35-7.45) ABG pCO2 (35-45) mmHg ABG pO2 (83-108) mmHg ABG Total CO2 (19-24) mmol/L ABG O2 Saturation (94-97) % Carbon Dioxide (22-30) mmol/L BUN (9-20) mg/dL Creatinine (0.66-1.25) mg/dL POC Glucose (mg/dL) 111 H 138 H 135 H (75-99) mg/dL Calcium (8.4-10.2) mg/dL Total Bilirubin (0.2-1.3) mg/dL ALT (4-49) U/L Alkaline Phosphatase (38-126) U/L Total Protein (6.3-8.2) g/dL Albumin (3.5-5.0) g/dL 07/25/21 07/25/21 07/25/21 Range/Units 00:02 04:05 04:05 WBC 17.7 H (3.8-10.6) k/uL RBC 2.83 L (4.30-5.90) m/uL Hgb 9.1 L (13.0-17.5) gm/dL Hct 27.9 L (39.0-53.0) % Neutrophils # (Manual) 15.90 H (1.3-7.7) k/uL Lymphocytes # (Manual) 0.89 L (1.0-4.8) k/uL Metamyelocytes # (Man) 0.71 H (0) k/uL Myelocytes # (Manual) 0.18 H (0) k/uL ABG pH (7.35-7.45) ABG pCO2 (35-45) mmHg ABG pO2 (83-108) mmHg ABG Total CO2 (19-24) mmol/L ABG O2 Saturation (94-97) % Carbon Dioxide 21 L (22-30) mmol/L BUN 58 H (9-20) mg/dL Creatinine 3.56 H (0.66-1.25) mg/dL POC Glucose (mg/dL) 138 H (75-99) mg/dL Calcium 7.9 L (8.4-10.2) mg/dL Total Bilirubin 1.4 H (0.2-1.3) mg/dL ALT 53 H (4-49) U/L Alkaline Phosphatase 164 H (38-126) U/L Total Protein 5.4 L (6.3-8.2) g/dL Albumin 2.3 L (3.5-5.0) g/dL 07/25/21 Range/Units 05:20 WBC (3.8-10.6) k/uL RBC (4.30-5.90) m/uL Hgb (13.0-17.5) gm/dL Hct (39.0-53.0) % Neutrophils # (Manual) (1.3-7.7) k/uL Lymphocytes # (Manual) (1.0-4.8) k/uL Metamyelocytes # (Man) (0) k/uL Myelocytes # (Manual) (0) k/uL ABG pH 7.15 L* (7.35-7.45) ABG pCO2 71 H* (35-45) mmHg ABG pO2 69 L (83-108) mmHg ABG Total CO2 27 H (19-24) mmol/L ABG O2 Saturation 90.2 L (94-97) % Carbon Dioxide (22-30) mmol/L BUN (9-20) mg/dL Creatinine (0.66-1.25) mg/dL POC Glucose (mg/dL) (75-99) mg/dL Calcium (8.4-10.2) mg/dL Total Bilirubin (0.2-1.3) mg/dL ALT (4-49) U/L Alkaline Phosphatase (38-126) U/L Total Protein (6.3-8.2) g/dL Albumin (3.5-5.0) g/dL Assessment and Plan Plan: 1 Acute hypoxemic respiratory failure secondary to coronavirus associated pneumonia, S/P intubation and mechanical ventilation on 07/17/2021. No evidence of pulmonary embolism on CT angiogram. The patient also has a strep pneumonia and the pro calcitonin level was elevated. The patient was covered with IV Cefepime . The patient on Decadron. The patient remains intubated on a mechanical ventilator. Patient is currently on a PEEP of 20 with an FiO2 of 100%. The patient remains on Decadron. The patient remains on IV cefepime. The patient is currently on the same ventilator settings. Chest x-ray was noted. Blood gases was noted. No changes to be done as the patient is not showing any signs of progression or improvement. 3 sepsis with secondary hypotension.. Pro calcitonin level is elevated and the patient has a combination of penicillin resistant strep pneumonia and presumed staph aureus in the sputum. The patient currently is on IV cefepime. Patient is also on pressors and norepinephrine is running at 0.08 mg/kg/m. the patient is still requiring low doses of pressors for hemodynamic support. 4 Elevated inflammatory marker secondary to coronavirus infection, improving 5 acute kidney injury, oliguric and the patient received his first session of hemodialysis yesterday. Potassium level from today still elevated. The patient remains acidotic. I'm going to start the patient on a low-grade bicarb infusion. The patient is undergoing daily session of hemodialysis today. No plans for hemodialysis today 6 streptococcus pneumonia in the sputum, consistent underlying pneumococcal pn eumonia on top of COVID-19 related pneumonia. The patient is currently on IV Cefepime. The pro calcitonin level was elevated supporting bacterial pneumonia on top of the COVID-19 related infection. 7 hyperglycemia, steroid induced and the patient is currently on Levemir insulin along with NovoLog with sliding scale coverage for blood sugar control 8 leukocytosis, improving 9 non-anion gap metabolic acidosis, off bicarb 11 abdominal distention, mo ascites Plan: Keep tidal volume down to 420 and keep the PEEP at 20 with an FiO2 of 100%, RR 34, no ventilator changes will be done for today. Keep the patient sedated and paralyzed Keep Supine hemodialysis per nephrology Continue Decadron heparin subcu for DVT prophylaxis 5000 every 8 hours. Monitor also the rest of the inflammatory markers, improving Continue with the Levemir insulin for blood sugar control in addition to sliding scale NovoLog Enteral feeding for nutritional support with vital high protein. Nothing much to add in the patient's case. The patient has multisystem organ failure secondary to Covid Pneumonia. Obviously the patient is still having difficulty with oxygenation. Hemodynamically he is still hypotensive related to septic shock and he is still in renal failure. He remains quite acidotic. We'l l continue supportive care. He carries a very poor prognosis. Condition is critical we'll continue to follow make further recommendations based on his progress. Critically care evaluation, more than 30 minutes.
[2021-07-25 11:45] LABS: Glucose,Whole Blood 117 mg/dL (75-99)
--- NOTE | 2021-07-25 12:27 | PN ---
PROGRESS NOTE Patient is seen for followup for acute kidney injury, currently dialysis-dependent, renal failure, and maintained on hemodialysis on a daily basis. Patient has underlying COVID pneumonia with severe hypotension, maintained on Levophed, and he remains on 100% FiO2. Case is discussed with nursing staff. Blood pressure 102/60, heart rate 104 per minute. FiO2 100%. Patient remains with edema in the lower extremities. Labs show sodium 138, potassium 4.4, chloride 106. CO2 is 21, BUN 58, creatinine 3.5, hemoglobin 9.1. ASSESSMENT: 1. Acute kidney injury, acute tubular necrosis, currently oliguric, secondary to underlying sepsis, COVID pneumonia, maintained on daily dialysis. 2. Metabolic acidosis, currently improved. 3. Volume overload. 4. Hyperkalemia associated with acute kidney injury, now improved. 5. Metabolic acidosis associated with renal failure, now improved with dialysis. PLAN: Continue daily treatments. We will skip tomorrow unless the electrolytes are off or patient is more acidotic. MMODL / IJN: [id number] /
[2021-07-25] MEDS ORDERED: propofoL 100 ML IV ONE (14:23)
--- NOTE | 2021-07-25 16:26 | PN ---
PROGRESS NOTE DATE OF SERVICE: 07/25/2021 REASON FOR FOLLOWUP: Pneumonia. INTERVAL HISTORY: Patient is afebrile. The patient is hemodynamically stable. FiO2 is currently 100%. No significant purulent secretions thru the ET, diarrhea or any other changes reported by the nursing staff. PHYSICAL EXAMINATION: Blood pressure 113/69, pulse of 98, temperature 97.3. He is 89% on 100% FIO2. General description is a middle-aged male intubated on the vent. Respiratory system: Unlabored breathing, decreased intensity in breath sounds. No wheeze. Heart S1, S2. Regular rate and rhythm. Abdomen soft, no tenderness. Extremities: 2+ edema of feet. LABS: Hemoglobin 9.1, hematocrit 28.7, creatinine 3.56. DIAGNOSTIC IMPRESSION AND PLAN: Patient with acute respiratory failure which is multifactorial in this patient who did have a Covid 19 pneumonia initially now with secondary bacterial pneumonia. Sputum with MSSA and strep pneumo, covered with cefepime to continue along with dexamethasone, zinc and ascorbic acid prognosis remains to be guarded. MMODL / IJN: [id number] /
[2021-07-25 18:05] LABS: Glucose,Whole Blood 100 mg/dL (75-99)
--- NOTE | 2021-07-25 18:30 | PN ---
PROGRESS NOTE DATE OF SERVICE: 07/25/2021 This 66-year-old gentleman admitted with acute COVID-19 and bilateral interstitial pneumonia, acute hypoxic respiratory failure also had acute renal failure. The patient is on hemodialysis. The patient is on 100% FiO2. The most recent chest x-ray which was reviewed personally by me showed acute extensive bilateral interstitial shadows. Patient is being closely monitored in the ICU. Multiple consultants are following the patient closely. Sputum culture shows Strep pneumoniae and as well as Staph aureus which is MSSA resistant to clindamycin. PAST MEDICAL HISTORY: Reviewed. REVIEW OF SYSTEMS: Could not be taken. CURRENT MEDICATIONS: Reviewed include Tylenol, Ventolin, Artificial Tears, vitamin C, cefepime. Doses and other medications reviewed. PHYSICAL EXAMINATION: Patient is mechanically sedated. Pulse 98, blood pressure 94/51, respiration 28, temperature normal, pulse ox 89% on 100% FiO2 normal. HEENT: Conjunctivae normal. Oral mucosa moist. NECK: No jugular venous distention. No lymph node enlargement. CARDIOVASCULAR: S1, S2, muffled. No S3, no S4, RESPIRATORY: Diminished breath sounds at the bases. A few scattered rhonchi. ABDOMEN: Soft. LEGS: No edema, no swelling. NERVOUS SYSTEM: Patient mechanically sedated. LAB STUDIES: WBC 9.3, hemoglobin 17.7. Otherwise, albumin is 2.3. ASSESSMENT: 1. Acute COVID-19 infection with acute COVID-19 bilateral interstitial pneumonia with acute hypoxic respiratory failure. 2. MSSA and Strep pneumoniae from the sputum culture. 3. Elevated inflammatory markers of COVID-19 pneumonia. 4. Acute kidney injury with creatinine 1.6. Acute tubular necrosis, worsening, now requiring hemodialysis. 5. Hypovolemic hyponatremia. 6. Hypertension history. 7. History of lactic acidosis. 8. Sinus tachycardia. 9. Deep vein thrombosis prophylaxis. 10.Acute respiratory acidosis. 11.Hyperkalemia secondary to renal failure. 12.Diabetes mellitus, type 2 uncontrolled with elevated blood glucose. 13.Elevated AST ALT and hepatitis secondary to COVID-19. 14.Increased WBC. 15.Obesity with body mass index of 33. 16.FULL CODE. RECOMMENDATIONS: Recommend to continue current management and symptomatic treatment continue. Continue with fluid power mechanic ventilation. Continue with antibiotics. Continue with the rest of the medications. Prognosis guarded because of the multiple complex medical issues and further recommendations to follow. The patient's condition continues to be very extremely ( ) despite initiation of hemodialysis as well as 100% FiO2. MMMIKEL / IJN: [id number] /
[2021-07-25] MEDS: INSULIN DETEMIR (LEVEMIR) 100 UNIT/ML SYR SQ SCH (21:03)
[2021-07-26] MEDS: NOREPINEPHRINE 8 MG in SODIUM CHLORIDE 0.9% 250 ML IV SCH ×2 (00:07→11:49)
[2021-07-26 00:13] LABS: Glucose,Whole Blood 99 mg/dL (75-99)
[2021-07-26] MEDS: METOCLOPRAMIDE 5 MG/ML 2 ML VIAL IVP SCH ×4 (00:14→18:27)
[2021-07-26] MEDS: INSULIN ASPART (NovoLOG) 100 UNIT/ML VIAL SQ SCH ×5 (00:15→23:44)
[2021-07-26] MEDS: HEPARIN SODIUM,PORCINE/PF 5,000 UNIT/0.5 ML SYRINGE SQ SCH ×3 (00:15→15:52)
[2021-07-26] MEDS: ARTIFICIAL TEARS-HYPROMELLOSE DROPS 15 ML BTL BOTH EYES SCH ×6 (00:15→21:05)
[2021-07-26] MEDS: fentaNYL (PF) 2,500 MCG in SODIUM CHLORIDE 0.9% 200 ML IV SCH (04:40)
[2021-07-26 04:59] LABS: Basophils # (A) 0.2 k/uL (0-0.2); Basophils % (A) 1 %; Eosinophils # (A) 0.2 k/uL (0-0.7); Eosinophils % (A) 1 %; HCT 27.3 % (39.0-53.0); HGB 9.2 gm/dL (13.0-17.5); Hypochromasia Moderate; Lymphocytes # (A) 1.1 k/uL (1.0-4.8); Lymphocytes % (A) 5 %; MCHC 33.6 g/dL (31.0-37.0); MCV 98.3 fL (80.0-100.0); Mean Platelet Volume 8.4; Monocytes # (A) 0.3 k/uL (0-1.0); Monocytes % (A) 2 %; Neutrophils # (A) 18.2 k/uL (1.3-7.7); Neutrophils % (A) 91 %; Platelet Count 342 k/uL (150-450); Poikilocytosis Slight; RBC 2.78 m/uL (4.30-5.90); RDW 15.5 % (11.5-15.5); WBC 20.1 k/uL (3.8-10.6)
[2021-07-26 05:34] LABS: Albumin 2.4 g/dL (3.5-5.0); Calcium 8.2 mg/dL (8.4-10.2); Potassium 4.2 mmol/L (3.5-5.1); Total Bilirubin 1.5 mg/dL (0.2-1.3); Total Protein 5.8 g/dL (6.3-8.2)
[2021-07-26 05:42] LABS: Glucose,Whole Blood 101 mg/dL (75-99)
[2021-07-26 05:55] LABS: ABG HCO3 24 mmol/L (21-25); ABG Oxygen Saturation 93.3 % (94-97); ABG PO2 80 mmHg (83-108); ABG TCO2 27 mmol/L (19-24); Allen Test Performed? Yes
[2021-07-26 05:58] LABS: ABG PCO2 74 mmHg (35-45); ABG PH 7.13 (7.35-7.45)
--- NOTE | 2021-07-26 06:44 | XR ---
EXAMINATION TYPE: XR chest 1V portable DATE OF EXAM: 07/26/2021 COMPARISON: 07/25/2021 HISTORY: Shortness of breath TECHNIQUE: Single frontal view of the chest is obtained. FINDINGS: There are marked diffuse alveolar or small airspace infiltrates unchanged compared to prev ious. There is no pneumothorax or large pleural effusion. Heart size is normal. The ET tube is 5.6 cm above the miles. There is been no change in the left-sided central venous cath eter or NG tube. The osseous structures are intact. IMPRESSION: No change in the severe cardiopulmonary disease. ET tube 5.6 cm above the miles.
[2021-07-26] MEDS: CISATRACURIUM 200 MG in SODIUM CHLORIDE 0.9% 180 ML IV SCH ×2 (06:45→09:56)
[2021-07-26] MEDS: CHLORHEXIDINE GLUCONATE 15 ML CUP MUCOUS MEM SCH ×2 (09:23→21:11)
[2021-07-26] MEDS: PANTOPRAZOLE 40 MG/10 ML VIAL IVP SCH (09:23)
[2021-07-26] MEDS: CEFEPIME 1 GM in SODIUM CHLORIDE 0.9% 50 ML IVPB SCH ×2 (09:23→21:07)
[2021-07-26] MEDS: ZINC SULFATE 220 MG CAP PO SCH (09:24)
[2021-07-26] MEDS: CHOLECALCIFEROL 25 MCG (1000 IU) TABLET PO SCH (09:24)
[2021-07-26] MEDS: ASCORBIC ACID 500 MG TAB PO SCH (09:24)
[2021-07-26] MEDS: LACTULOSE 20 GM/30 ML CUP PO SCH ×3 (09:24→19:29)
[2021-07-26] MEDS: DEXAMETHASONE SOD PHOSPHATE 10 MG/ML 1 ML VIAL IVP SCH (09:24)
--- NOTE | 2021-07-26 09:56 | P.PN ---
Subjective Progress Note Date: 07/26/21 66-year-old male, seen in the emergency department on July 12. He came in complaining of shortness of breath. He been sick for about 9 or 10 days prior to his visit in the emergency department. He complained of cough, chest congestion, fatigue, shortness of breath, and he did test positive for coron avirus. He was placed on BiPAP with settings of IPAP 12, EPAP 6, and 70%. The patient further decompensated and he was placed on a mechanical ventilator on 07/17/2021. He is currently being seen in the follow-up On 07/20/2021, the patient is being seen for a follow-up. The patient currently is on mechanical ventilator. He is sedated and paralyzed. The patient is currently on propofol running at 70 mcg/kg per minute and he is also paralyzed with Nimbex at 1 mcg/kg per minute. He remains on a mechanical ventilator, assist control mode with tidal volume of 450, rate of 32, FiO2 of 55% with a PEEP of 20. The peak ariway pressure is 40 and static is 37. Blood gases from today was noted. And the patient had a pH of 7.16 with a pCO2 of 60 and pO2 of 65. The chest x-ray from today was reviewed and the patient has adequate positioning of the orotracheal tube which is above the miles by around 2 cm in size. The patient has a left IJ triple-lumen catheter in place. The patient has bilateral pulmonary infiltrates, right hilar, essentially unchanged compared to yesterday. There is no interval worsening in the chest x-ray findings. On today's blood work, the patient has a LDH level of 1733 with a CRP level of 17.9 and the inflammatory markers are gradually improved. The patient's d-dimer level is at 12.5. The white cell count is at 21.5. Noted the patient also had developed an acute kidney injury. Creatinine is on the rise and currently is up to 2.38. Overall fluid balance has been +2.5 L over the past 24 hours. The patient's current regimen includes Decadron 6 mg IV every 24 hours, the patient is on antibiotic coverage with IV Zosyn. The patient is on multivitamins. The patient is also on the normal saline at the rate of 75 mL's an hour. The patient is on Lovenox 40 mg subcu for DVT prophylaxis. This patient Chest x-ray showing diffuse bilateral pulmonary infiltrates, essentially unchanged compared to yesterday. Note that the patient sputum also showed Streptococcus pneumoniae. The patient is currently on IV Zosyn. He is on Vital HP at 36 cc/hr 07/21/2021, I'm seeing the patient for a follow-up. The patient remains intubated on a mechanical ventilator. The patient remains sedated and paralyzed. For now, the patient is sedated with propofol which is currently running at 60 mg/kg per minute and the patient is also paralyzed with Nimbex at 1 g per to per minute. He remains on a mechanical ventilator. This morning, he is on assist control mode with a tidal volume of 400 and a respiratory rate of 32 with an FiO2 of 65% with a PEEP of 20. He was quite stiff yesterday with a peak airway pressure of around 40 with a subcu fashion of 37. Blood gases was showing borderline oxygenation. I made recommendations to follow this patient and he was ultimately phone at around 2200 yesterday. Currently is in a foam zuly position. His current pulse ox is 93%. Morning blood gases showed no major improvement in the oxygenation. This blood gas was done while the patient was prone and the pH was at 7.01 with a pCO2 of 81 and pO2 of 61 and this was done and FiO2 of 65%. Currently his pulse ox on the monitor is 93%. In terms of his COVID 19 related to pneumonia, the patient remains on Decadron. LDH from today is 1724 with a CRP of 20.7. Note that the inflammatory markers have been essentially elevated without any major improvement since yesterday. His d-dimer has been at 2.98. The patient is receiving Decadron 6 mg IV every 24 hours. The patient is also on Heparin for DVT prophylaxis at a dose of 5000 mg subcu every 8 hours. Meanwhile, the patient also had Streptococcus pneumonia in his sputum and the patient remains on IV cefepime. The patient is currently on normal saline at the rate of 75 mL an hour. He is also on pressors and norepinephrine infusion is running at 0.1 mcg/kg per minute. His pro-calcitonin level has been at 3.34 consistent with an underlying bacterial infection. At the same time, the patient is developing acute kidney injury. Nephrology was consulted yesterday. Creatinine is up to 3.71 with a BUN of 94 and the potassium level is up to 6.0. Serum bicarbonate of 18 with a anion gap of 10. The white cell count is at 33.6 with a hemoglobin of 12.1. 12 2021, I'm seeing the patient for a follow-up. As mentioned earlier, he has a COVID 19 related pneumonia with superinfection with MSSA and strep pneumonia. The patient is currently intubated on a mechanical ventilator. On today's evaluation, he remains sedated on propofol which is running at 60 mcg/kg per minute which is the same as yesterday and the patient is also on fentanyl running at 1 mcg/kg/h and Nimbex is also running at 1 mcg/kg per minute. Ventilator settings are essentially unchanged. He was prone to yesterday. He was somewhat hemodynamically unstable and he was hypotensive on pressors. We ended up his pronating process and he was placed back supine as the patient also was headed into an acute kidney injury. As such, the patient was placed back supine and this morning he is an assist-control mode with a tidal volume of 400, this tidal volume was brought up to 420 yesterday. His current respiratory rate is at 34, FiO2 is currently at 65% and a PEEP is currently at 20. His peak airway pressure is at 42 cm of water. Blood gases showed some improvement in his acidosis and the pH is at 7.11 with a pCO2 of 65 and pO2 of 65. The blood gases was noted from today. The chest x-ray from today is showing diffuse bilateral pulmonary infiltrates unchanged compared to yesterday. Orotracheal tube remains in a good location. The patient has advanced infiltrates bilaterally mainly in the left lower lobe, right lower lobe and the right upper lobe. Right hemidiaphragm is also quite elevated. ET tube is around 2 cm above the miles and the patient has a left subclavian triple-lumen catheter in place. The patient has been Supine since yesterday. In terms of his inflammatory markers regarding COVID 19, the patient has an LDH level of the was elevated from yesterday at 1200 724 with a CRP level of 20.7. The most recent d-dimer is at 2.98. Meanwhile, the patient remains on therapy and he is on Decadron at a dose of 6 mg IV every 24 hours. His sputum was positive. He had MSSA and strep to copious pneumonia and the patient was covered with IV cefepime. Hemodynamically, the patient is still on pressors. Norepinephrine infusion is still running at 0.4 mcg/kg per minute. His blood pressure is stable this morning. His cardiac rhythm is sinus tachycardia. Urine output is low in the order of 20 mL throughout the night. His white cell count is up to 28.4 and he has a BUN of 98 and a creatinine of 4.1 on today's evaluation. Potassium level also came at 5.9 and a serum bicarbonate of 18 with an anion gap of 12. Sodium is at 140. Nephrology has been consulted and the patient and the patient was given a dialysis catheter. His dialysis catheter currently is present in the right femoral vein. It is likely the patient is going to proceed with hemodialysis today specially with his underlying hyperkalemia and acidosis. He has developed third spacing. His body weight is up to 105 kg and his body mass index is up to 35.5. He continues to receive enteral feeding for nutritional support and the patient is currently on receiving vital high protein at the rate of 23 mL an hour which is goal. There is significant. Note that the patient received his first session of hemodialysis yesterday. He did not have any significant ultrafiltration. 07/23/2021, patient is being seen for a follow-up. A complicated case of covert 19 related pneumonia with superinfection including MSSA and strep pneumonia and acute kidney injury requiring hemodialysis. The patient remains in the ICU, intubated on a mechanical ventilator. This morning, he is sedated with propofol which is currently running at 60 mcg/kg per minute and the patient is also on fentanyl at 1 mcg/kg/h and Nimbex is running at 1 mcg/kg per minute. The level of sedation and paralytics are the same as yesterday. The patient did not have a follow-up chest x-ray today. Nevertheless, he is on a mechanical ventilator. He is in a supine body position. He is on assist control mode at the rate of 34, tidal volume is at 420 mL and the respiratory rate is at 34 with FiO2 the cath on the percent with a PEEP of 20. The blood gases from today shows a pH of 7.05 with a pCO2 of 72 and pO2 of 71. Peak air pressures still unchanged compared to yesterday as his peak air pressures currently at 42. The patient remains on Decadron. The patient's is hemodynamically unstable and his still requiring pressors for blood pressure control. Norepinephrine infusion is currently running at 0.4 mcg/kg per minute and this is essentially the same as yesterday. The patient remains on broad-spectrum antibiotics. He remains currently on IV cefepime. The white cell count today is at 29. He remains quite acidotic and the serum bicarbs at 18 with a sodium level of 138 and a potassium level of 5.6. TPN is at 76 with a creatinine of 4.1. The patient is receiving another session of hemodialysis today and electrodes will be rechecked post hemodialysis.. Encompass significant amount of volume overload based on his underlying renal failure and he has extensive third spacing and peripheral edema. No major changes condition otherwise. He remains on pressors. He is receiving enteral feeding for nutritional support with vital high protein at the rate of 25 mL an hour. He is receiving his second session of hemodialysis today. He is currently having liquidy stool. A fecal management system was attached. We'll check possibility of an underlying C. diff infection and stool will be sent for C. diff evaluation. In terms of his inflammatory markers, this has not been checked for today. Her last check was done on 07/21/2021. IV fluids are currently in the form of 0.9 at KVO. 2021, the patient's condition remains essentially unchanged. He is being seen for a follow-up. The patient remains on a mechanical ventilator. The patient remains sedated with propofol and fentanyl and propofol is running at 60 mcg/kg per minute and fentanyl is running at 1 1 mcg/kg/h and Nimbex is running at 1 mcg/kg per minute. As such, there is no change in the dosing of his sedation or paralytic agents. Remains on a mechanical ventilator on the same setting with a tidal volume of 420, respiratory rate of 34, FiO2 is currently at 600% with a PEEP of 20. Peak airway pressure is still elevated at 44. The ches t x-ray from today remains unchanged. The blood gases from today showed a pH of 7.17 with a pCO2 of 73 and pO2 of 63. Based on the underlying acidosis, the patient underwent hemodialysis yesterday she was also a bicarb infusion which is currently running at 150 mL an hour. Continues to be acidotic. Serum bicarbonate is currently at 26. Meanwhile, the patient is still on pressors. The patient is on norepinephrine infusion currently running at 0.08 [facility] per minute and the dose of pressors improved compared to yesterday. The patient is undergoing daily hemodialysis. His most recent hemodialysis was yesterday and today had another session of hemodialysis. The patient has a BUN of 58 with a creatinine of 3.4. Lisinopril electrolytes are all stable and within normal limits. White cell count is at 16.4 inches improved compared to yesterday and hemoglobin is currently at 8.9. The patient has some mild transaminitis. LDH level is at 847, CRP level is at 19.7 and stool for C. diff has been negative. The patient continues to receive enteral feeding for nutritional support. He does have a fecal management system in place. He has been receiving Vicodin HB at the rate of 25 mL an hour. The patient remains on IV cefepime. As such, no major changes condition over the past 24 hours. His treatment remains supportive. The abdomen is still distended. There may be a component of ascites. Haro catheter in place and the urine output is diminished somewhat bloody on today's evaluation. 07/25 2021, again another day where the patient is looking essentially unchanged. Remains sedated and paralyzed on a mechanical ventilator. Remains on propofol running at 50 mcg/kg per minute and the fentanyl is running at 1 mcg/kg/h and Nimbex is running at 1 mcg/kg per minute. Remains essentially the same ventilator setting. He is on assist-control mode of mechanical ventilation. The patient remains on a tidal volume of 420, rate of 34, FiO2 is currently at 100% with a PEEP of 20. He was given a bath during which she desaturated an effort to be brought up to 100%. The blood. From today shows a pH of 7.15 with a pCO2 of 71 and a pO2 of 69. Peak airway pressure is 47. Chest x-ray shows essentially no interval change and the patient has diffuse bilateral pulmonary infiltrates. Orotracheal tube remains in a good location. No evidence of any pneumothorax. He is afebrile. He remains on Decadron. He remains on antibiotic coverage with IV cefepime. He remains on enteral feeding for nutritional support and the patient is receiving vital high protein at the rate of 25 mL an hour. Ultrasound of the abdomen was done yesterday that showed minimal amount of ascites. The patient is stooling adequately. The patient remains on IV cefepime. Stool for C. diff came back negative. Meanwhile, his blood work shows a white cell count of 17.7 with a hemoglobin of 9.1. Renal function is impaired with the patient undergoes dialysis periodically per nephrology. Electrolytes are all stable and the patient has a potassium level of 4.4, chloride is 106 with a bicarb of 21. Blood glucose from this morning's at 78. Sodium is at 130. IV fluids are currently at KVO. No other significant events overnight. Condition remains essentially unchanged and he obviously is a very poor prognosis this point. 07/26/2021, the patient is being seen for a follow-up. Remains intubated on a mechanical ventilator. Remains sedated and paralyzed. No major events over night. Most of the skin changes condition. Remains on propofol running at 60 mcg/kg per minute and fentanyl is running at 1 mcg/kg/h and Nimbex is running at 1 mcg/kg per minute. Ventilator settings are essentially unchanged. He is at the rate of 34 with a tidal volume of 420 and an FiO2 of 100% with a PEEP of 20. Blood gases from today is showing a pH of 7.13 with a pCO2 of 74 and pO2 of 80. Chest x-ray still showing diffuse bilateral pulmonary infiltrates with worsening consolidation of the right lower lobe and some ongoing consolidation of the left lower lobe. The patient was considered to be septic. He was being treated with pressors and antibiotics. He had strep pneumonia and MSSA in his sputum. She is pressors requirements were going down gradually while he was on IV cefepime. Nevertheless, on today's evaluation, he is back on norepinephrine and it is running at 0.12 mcg/kg per minute. His pressor requirements have increased up again. His white cell causes 20.1. His BUN is a 55 with a creatinine of 3.3. Sodium level is at 139. His d-dimer is at 5.9. No recent i nflammatory markers. Antibiotic coverage remains IV cefepime. Remains on Levemir insulin 20 units along with a slight scale coverage for blood sugar control. Remains on IV Decadron 6 mg every 24 hours. Essentially, no major change in his condition. He is undergoing hemodialysis. His last session of hemodialysis was yesterday with a total of 2 L of fluid was removed. No plans to undergo hemodialysis today. Unfortunately, not a whole not a whole her progress has been done on this patient. Objective - Vital Signs Vital signs: Vital Signs Temp 97.9 F 07/26/21 08:00 Pulse 107 H 07/26/21 09:00 Resp 35 H 07/26/21 09:00 BP 108/59 07/26/21 09:00 Pulse Ox 91 L 07/26/21 09:00 Intake & Output 07/25/21 07/26/21 07/26/21 18:59 06:59 18:59 Intake Total 7976.093 2930 360.556 Output Total 2000 0 0 Balance -673.552 3680 360.556 Intake: IV 362 329 69 Cefepime 1 gm In Sodium 50 50 Chloride 0.9% 50 ml @ 12. 5 mls/hr IVPB Q12H RED Rx #:[id number] NS 240 240 60 Pressure Bag 72 39 9 Intake, IV Titration 295.594 450 186.556 Amount Norepinephrine 8 mg In 195.594 86.556 Sodium Chloride 0.9% 250 ml @ 0.05 MCG/KG/MIN 8. 708 mls/hr IV .Q24H RED Rx#:[id number] fentaNYL (PF) 2,500 mcg 250 In Sodium Chloride 0.9% 200 ml @ 0.5 MCG/KG/HR 4. 82 mls/hr IV .Q24H RED Rx #:[id number] propofoL 1,000 mg In 100 200 100 Empty Bag 1 bag @ Titrate IV .Q0M RED Rx#: [id number] Tube Feeding 275 300 75 Other 90 30 30 Output: Urine 0 0 0 Hemodialysis 1999 Other: Voiding Method Indwelling Catheter Indwelling Catheter Indwelling Catheter ABP, PAP, CO, CI - Last Documented Arterial Blood Pressure 104/52 - Exam Sedated and paralyzed, with an orally placed endotracheal tube and NG tube. Patient is in a prone body positioning at this point in time. The patient has on a mechanical ventilator for now. He is in a prone body positioning. He remains sedated and paralyzed. Head exam was generally normal. There was no scleral icterus or corneal arcus. Mucous membranes were moist. HEENT examination is grossly unremarkable. Neck supple. Full range of motion. No adenopathy thyromegaly or neck vein distention. Cardiovascular examination reveals regular rhythm rate. S1-S2 normal. No S3 or S4. No discernible murmur noted. Heart sounds are distant. Lungs reveal diffuse bilateral rhonchi. No wheezes. No crackles. Breath sounds equal bilaterally. Abdomen soft bowel sounds are heard. No masses or tenderness. He has a HD cath in the right femoral vein Extremities are intact. No cyanosis clubbing since of edema in all 4 extremities and the patient has pitting edema in the upper and lower extremities. The patient is a femoral catheter in his right groin. The patient also has an arterial line in his left radial artery. Skin is pale, without rash or lesion. Neurologic examination cannot be assessed as the patient's currently sedated and paralyzed. - Labs CBC & Chem 7: 07/26/21 04:40 07/26/21 04:40 Labs: Abnormal Lab Results - Last 24 Hours (Table) 07/25/21 07/25/21 07/26/21 Range/Units 11:43 18:02 04:40 WBC 20.1 H (3.8-10.6) k/uL RBC 2.78 L (4.30-5.90) m/uL Hgb 9.2 L (13.0-17.5) gm/dL Hct 27.3 L (39.0-53.0) % Neutrophils # 18.2 H (1.3-7.7) k/uL ABG pH (7.35-7.45) ABG pCO2 (35-45) mmHg ABG pO2 (83-108) mmHg ABG Total CO2 (19-24) mmol/L ABG O2 Saturation (94-97) % BUN (9-20) mg/dL Creatinine (0.66-1.25) mg/dL POC Glucose (mg/dL) 117 H 100 H (75-99) mg/dL Calcium (8.4-10.2) mg/dL Total Bilirubin (0.2-1.3) mg/dL Alkaline Phosphatase (38-126) U/L Total Protein (6.3-8.2) g/dL Albumin (3.5-5.0) g/dL 07/26/21 07/26/21 07/26/21 Range/Units 04:40 05:40 05:51 WBC (3.8-10.6) k/uL RBC (4.30-5.90) m/uL Hgb (13.0-17.5) gm/dL Hct (39.0-53.0) % Neutrophils # (1.3-7.7) k/uL ABG pH 7.13 L* (7.35-7.45) ABG pCO2 74 H* (35-45) mmHg ABG pO2 80 L (83-108) mmHg ABG Total CO2 27 H (19-24) mmol/L ABG O2 Saturation 93.3 L (94-97) % BUN 55 H (9-20) mg/dL Creatinine 3.35 H (0.66-1.25) mg/dL POC Glucose (mg/dL) 101 H (75-99) mg/dL Calcium 8.2 L (8.4-10.2) mg/dL Total Bilirubin 1.5 H (0.2-1.3) mg/dL Alkaline Phosphatase 192 H (38-126) U/L Total Protein 5.8 L (6.3-8.2) g/dL Albumin 2.4 L (3.5-5.0) g/dL Assessment and Plan Plan: 1 Acute hypoxemic respiratory failure secondary to coronavirus associated pneumonia, S/P intubation and mechanical ventilation on 07/17/2021. No evidence of pulmonary embolism on CT angiogram. The patient also has a strep pneumonia and the pro calcitonin level was elevated. The patient was covered with IV Cefepime . The patient on Decadron. The patient remains intubated on a mechanical ventilator. Patient is currently on a PEEP of 20 with an FiO2 of 100%. The patient remains on Decadron. The patient remains on IV cefepime. The patient is currently on the same ventilator settings. Chest x-ray was noted. Blood gases was noted. No changes to be done as the patient is not showing any signs of progression or improvement. There is no role for any further weaning of today's evaluation. Chest x-ray findings are unchanged. Remains on IV cefepime. Remains on Decadron. Last session of hemodialysis was yesterday. 3 sepsis with secondary hypotension.. Pro calcitonin level is elevated and the patient has a combination of penicillin resistant strep pneumonia and presumed staph aureus in the sputum. The patient currently is on IV cefepime. Patient is also on pressors and norepinephrine is running at 0.12 mg/kg/m. the patient is still requiring low doses of pressors for hemodynamic support. 4 Elevated inflammatory marker secondary to coronavirus infection, improving 5 acute kidney injury, oliguric undergoing dialysis and the last session was yesterday 6 streptococcus pneumonia in the sputum, consistent underlying pneumococcal pneumonia on top of COVID-19 related pneumonia. The patient is currently on IV Cefepime. The pro calcitonin level was elevated supporting bacterial pneumonia on top of the COVID-19 related infection. 7 hyperglycemia, steroid induced and the patient is currently on Levemir insulin along with NovoLog with sliding scale coverage for blood sugar control 8 leukocytosis, improving 9 non-anion gap metabolic acidosis, off bicarb 11 abdominal distention, mo ascites Plan: Keep tidal volume down to 420 and keep the PEEP at 20 with an FiO2 of 100%, RR 34, no ventilator changes will be done for today. Keep the patient sedated and paralyzed Keep Supine hemodialysis per nephrology Continue Decadron heparin subcu for DVT prophylaxis 5000 every 8 hours. Monitor also the rest of the inflammatory markers, improving Continue with the Levemir insulin for blood sugar control in addition to sliding scale NovoLog Enteral feeding for nutritional support with vital high protein. Nothing much to add in the patient's case. The patient has multisystem organ failure secondary to Covid Pneumonia. Obviously the patient is still having difficulty with oxygenation. V poor prognosis Needs a family discussion and update May consider change of code status Condition is critical we'll continue to follow make further recommendations based on his progress. Critically care evaluation, more than 30 minutes. Time with Patient: Greater than 30
[2021-07-26 11:32] LABS: Glucose,Whole Blood 102 mg/dL (75-99)
--- NOTE | 2021-07-26 12:52 | PN ---
PROGRESS NOTE Patient is seen for followup for acute kidney injury, ATN, oliguric, currently hemodialysis-dependent. Patient has underlying COVID pneumonia. He has had significant hypoxia and has been maintained on high FiO2, currently at 100%. He has also been maintained on Levophed, which is higher today as compared to yesterday. Patient has been receiving daily dialysis treatments. He is volume-overloaded as well. Blood pressure has been low, requiring pressors. Therefore UF has been mostly about 1 L. We were able to get 2 L for the last couple of treatments. On examination today, patient is not examined. Case is discussed with nursing staff. He remains on the vent. Blood pressure 122/68, heart rate 105 per minute. He is afebrile. Examination is significantly unchanged. Again case is discussed with nursing staff. Labs show sodium 139, potassium 4.2, BUN 55, creatinine 3.35, hemoglobin 9.2. ASSESSMENT: 1. Acute kidney injury, acute tubular necrosis, oliguric, currently dialysis- dependent, receiving daily dialysis treatments. 2. Metabolic acidosis associated with renal failure, currently improved. 3. Hyperkalemia associated with acute kidney injury, now improved with daily dialysis treatments. 4. Septic shock; still requiring Levophed. 5. COVID pneumonia with acute hypoxic respiratory failure with sputum culture also growing Strep pneumo and Staph aureus, maintained on antibiotics. PLAN: Hemodialysis in a.m. Goal UF about 2 L as tolerated. Overall prognosis is guarded. MMODL / IJN: [id number] /
[2021-07-26] MEDS: ALBUTEROL HFA INHALER INHALATION PRN (16:13)
[2021-07-26 17:20] LABS: Glucose,Whole Blood 106 mg/dL (75-99)
--- NOTE | 2021-07-26 17:37 | PN ---
PROGRESS NOTE DATE OF SERVICE: 07/26/2021 This 66-year-old gentleman who was admitted with acute COVID-19 interstitial pneumonia also had renal failure. The patient is maintained on 100% FiO2. The patient also is on pressor support. Multiple consultants are following the patient closely. The patient has acute severe respiratory acidosis as well. Past medical history reviewed. Review of systems could not be taken. CURRENT MEDICATIONS: Reviewed. They include Tylenol, Ventolin, vitamin C, cefepime. Doses and other medications are reviewed. PHYSICAL EXAMINATION: Patient's pulse is 101, blood pressure 111/53, respiration temperature 98.3, pulse ox 89% on mechanical ventilation 100% FiO2. HEENT: Conjunctivae normal. NECK: No jugular venous distention. CARDIOVASCULAR: S1, S2 muffled. RESPIRATION: Breath sounds diminished at the bases. A few scattered rhonchi. NERVOUS SYSTEM: Unresponsive. LAB STUDIES: WBC 20.2, hemoglobin 9.2. ABGs noted; pH of 7.13. The most recent chest x-ray which was personally reviewed by me showed bilateral lung lesions, extensive pneumonic process. ASSESSMENT: 1. Acute COVID-19 infection with acute COVID-19 bilateral interstitial pneumonia with acute hypoxic hypercarbic respiratory failure. 2. Possible ARDS. 3. MSSA and Strep pneumoniae in the sputum culture with sepsis. 4. Elevated inflammatory markers of COVID-19 pneumonia. 5. Acute kidney injury with acute tubular necrosis, worsening, now requiring hemodialysis. 6. Hypovolemic hyponatremia. 7. Hypertension history. 8. History of lactic acidosis. 9. Sinus tachycardia. 10.One pressor support. 11.Deep vein thrombosis prophylaxis. 12.Acute respiratory acidosis. 13.Hyperkalemia secondary to renal failure. 14.Diabetes mellitus, type 2, uncontrolled with elevated blood glucose. 15.Elevated AST, ALT; hepatitis secondary to COVID-19. 16.Increased white count. 17.Obesity with body mass index of 33. 18.FULL CODE. RECOMMENDATIONS AND DISCUSSION: I recommend to continue current medications, continue with the monitoring, symptomatic treatment. Otherwise at this time I would recommend continuing the mechanical ventilation. The patient has taken a turn for the worse. Closely monitor with Dr. Murcia. Bronchodilators and empiric antibiotics. Prognosis guarded because of multiple complex medical issues. Further recommendations to follow. MMODL / IJN: [id number] / SO
--- NOTE | 2021-07-26 20:13 | PN ---
PROGRESS NOTE DATE OF SERVICE: 07/26/2021 REASON FOR FOLLOWUP: Pneumonia. INTERVAL HISTORY: The patient is a 66-year-old male who presented to hospital with initial diagnosis of COVID-19 pneumonia in this patient who did have significant worsening of respiration status and required intubation, and now concern for secondary bacterial pneumonia. On today's evaluation, 07/26/21, the patient is afebrile. The patient's condition is about the same. No improvement or any worsening per the nursing staff. No significant purulent secretions through the ET or diarrhea or any other changes reported. On examination, blood pressure 110/55, pulse of 90, temperature 98. He is 90% on 100% FiO2. General description is a middle-aged male intubated on the vent. Respiratory system: Unlabored breathing, decreased intensity of breath sounds. No wheeze. Heart S1, S2. Regular rate and rhythm. Abdomen soft. Mildly distended. No guarding or rigidity. LABS: Hemoglobin 9.1, white count 20.1, creatinine 3.35. DIAGNOSTIC IMPRESSION AND PLAN: Patient with acute respiratory failure, multifactorial in this patient with initial diagnosis of COVID-19 pneumonia with subsequent worsening of his respiratory status requiring intubation. Sputum culture positive for Strep pneumo and MSSA, covered with cefepime. Continue current antibiotics along with respiratory support and monitor his clinical course closely. MMODL / IJN: [id number] / MTDD
[2021-07-26] MEDS: INSULIN DETEMIR (LEVEMIR) 100 UNIT/ML SYR SQ SCH (21:07)
[2021-07-26 23:36] LABS: Glucose,Whole Blood 114 mg/dL (75-99)
[2021-07-27] MEDS: METOCLOPRAMIDE 5 MG/ML 2 ML VIAL IVP SCH ×4 (00:02→17:49)
[2021-07-27] MEDS: HEPARIN SODIUM,PORCINE/PF 5,000 UNIT/0.5 ML SYRINGE SQ SCH ×3 (00:02→16:39)
[2021-07-27] MEDS: NOREPINEPHRINE 8 MG in SODIUM CHLORIDE 0.9% 250 ML IV SCH ×4 (00:04→22:48)
[2021-07-27] MEDS: ARTIFICIAL TEARS-HYPROMELLOSE DROPS 15 ML BTL BOTH EYES SCH ×6 (00:04→20:20)
[2021-07-27] MEDS: fentaNYL (PF) 2,500 MCG in SODIUM CHLORIDE 0.9% 200 ML IV SCH (03:35)
[2021-07-27 05:52] LABS: ABG Base Excess -8.9 mmol/L; ABG HCO3 21 mmol/L (21-25); ABG Oxygen Saturation 88.9 % (94-97); ABG PO2 71 mmHg (83-108); ABG TCO2 23 mmol/L (19-24)
[2021-07-27 05:54] LABS: ABG PH 7.08 (7.35-7.45)
[2021-07-27 05:55] LABS: ABG PCO2 71 mmHg (35-45); Allen Test Performed? no
[2021-07-27] MEDS: INSULIN ASPART (NovoLOG) 100 UNIT/ML VIAL SQ SCH ×3 (06:35→18:57)
[2021-07-27 06:38] LABS: HCT 24.9 % (39.0-53.0); HGB 8.4 gm/dL (13.0-17.5); Hypochromasia Marked; MCH 33.8 pg (25.0-35.0); MCHC 33.6 g/dL (31.0-37.0); MCV 100.4 fL (80.0-100.0); Macrocytosis Slight; Mean Platelet Volume 9.5; Platelet Count 324 k/uL (150-450); Poikilocytosis Slight; RBC 2.48 m/uL (4.30-5.90); RDW 15.6 % (11.5-15.5); WBC 20.4 k/uL (3.8-10.6)
[2021-07-27 06:46] LABS: Albumin 2.5 g/dL (3.5-5.0); Calcium 8.2 mg/dL (8.4-10.2); Potassium 5.3 mmol/L (3.5-5.1); Total Bilirubin 1.5 mg/dL (0.2-1.3); Total Protein 5.9 g/dL (6.3-8.2)
[2021-07-27] MEDS: ALBUTEROL HFA INHALER INHALATION PRN ×2 (07:43→15:22)
--- NOTE | 2021-07-27 10:09 | P.PN ---
Subjective Patient is seen in follow-up for acute kidney injury. Oliguric. Started on hemodialysis 07/21/2021. Intubated. On 100% FiO2. Receiving tube feeds. On Levophed. Vital signs - on Levophed. HEENT: Intubated. LUNGS: Breath sounds decreased. HEART: Regular rate and rhythm. ABDOMEN: Soft, no distention. EXTREMITITES: 1+ edema. Objective - Vital Signs Vital signs: Vital Signs Temp 98.6 F 07/26/21 20:00 Pulse 98 07/27/21 07:00 Resp 34 H 07/27/21 07:00 BP 108/59 07/26/21 12:00 Pulse Ox 90 L 07/27/21 07:00 Intake & Output 07/26/21 07/27/21 07/27/21 18:59 06:59 18:59 Intake Total 1115.620 9209.918 48 Output Total 0 0 0 Balance 5176.817 0734.918 48 Intake: IV 299 353 23 Cefepime 1 gm In Sodium 100 Chloride 0.9% 50 ml @ 12. 5 mls/hr IVPB Q12H RED Rx #:[id number] NS 260 220 20 Pressure Bag 39 33 3 Intake, IV Titration 746.878 576.918 Amount Cisatracurium 200 mg In 169.2 Sodium Chloride 0.9% 180 ml @ 1 MCG/KG/MIN 5.4 mls /hr IV .Q24H RED Rx#: [id number] Norepinephrine 8 mg In 182.687 256.001 Sodium Chloride 0.9% 250 ml @ 0.05 MCG/KG/MIN 8. 708 mls/hr IV .Q24H RED Rx#:[id number] fentaNYL (PF) 2,500 mcg 220.917 In Sodium Chloride 0.9% 200 ml @ 0.5 MCG/KG/HR 4. 82 mls/hr IV .Q24H RED Rx #:[id number] propofoL 1,000 mg In 394.991 100 Empty Bag 1 bag @ Titrate IV .Q0M RED Rx#: [id number] Tube Feeding 325 275 25 Other 90 60 Output: Urine 0 0 0 Other: Voiding Method Indwelling Catheter Indwelling Catheter ABP, PAP, CO, CI - Last Documented Arterial Blood Pressure 105/52 - Labs CBC & Chem 7: 07/27/21 04:30 01/17/22 04:30 Labs: Abnormal Lab Results - Last 24 Hours (Table) 07/26/21 07/26/21 07/26/21 Range/Units 11:31 17:18 23:34 WBC (3.8-10.6) k/uL RBC (4.30-5.90) m/uL Hgb (13.0-17.5) gm/dL Hct (39.0-53.0) % MCV (80.0-100.0) fL RDW (11.5-15.5) % ABG pH (7.35-7.45) ABG pCO2 (35-45) mmHg ABG pO2 (83-108) mmHg ABG O2 Saturation (94-97) % Sodium (137-145) mmol/L Potassium (3.5-5.1) mmol/L Carbon Dioxide (22-30) mmol/L BUN (9-20) mg/dL Creatinine (0.66-1.25) mg/dL Glucose (74-99) mg/dL POC Glucose (mg/dL) 102 H 106 H 114 H (75-99) mg/dL Calcium (8.4-10.2) mg/dL Total Bilirubin (0.2-1.3) mg/dL Alkaline Phosphatase (38-126) U/L Total Protein (6.3-8.2) g/dL Albumin (3.5-5.0) g/dL 07/27/21 07/27/21 07/27/21 Range/Units 04:30 04:30 05:46 WBC 20.4 H (3.8-10.6) k/uL RBC 2.48 L (4.30-5.90) m/uL Hgb 8.4 L (13.0-17.5) gm/dL Hct 24.9 L (39.0-53.0) % MCV 100.4 H (80.0-100.0) fL RDW 15.6 H (11.5-15.5) % ABG pH 7.08 L* (7.35-7.45) ABG pCO2 71 H* (35-45) mmHg ABG pO2 71 L (83-108) mmHg ABG O2 Saturation 88.9 L (94-97) % Sodium 136 L (137-145) mmol/L Potassium 5.3 H (3.5-5.1) mmol/L Carbon Dioxide 21 L (22-30) mmol/L BUN 75 H (9-20) mg/dL Creatinine 4.45 H (0.66-1.25) mg/dL Glucose 104 H (74-99) mg/dL POC Glucose (mg/dL) (75-99) mg/dL Calcium 8.2 L (8.4-10.2) mg/dL Total Bilirubin 1.5 H (0.2-1.3) mg/dL Alkaline Phosphatase 214 H (38-126) U/L Total Protein 5.9 L (6.3-8.2) g/dL Albumin 2.5 L (3.5-5.0) g/dL Assessment and Plan Plan: Assessment: 1. Acute kidney injury secondary to ATN secondary to septic shock. Oliguric. Started on hemodialysis 07/21/2021. Baseline creatinine near 1. No hydronephrosis noted on kidney ultrasound. 2. Hyperkalemia secondary to acute kidney injury and metabolic acidosis. Improved postdialysis. 3. Acute hypoxic and hypercapnic respiratory failure. 4. Metabolic acidosis secondary to acute kidney injury. 5. COVID-19 pneumonia. 6. Septic shock maintained on Levophed. 7. Hyperphosphatemia secondary to acute kidney injury. Plan: Continue with daily dialysis. Receiving tube feeds. Add oral bicarbonate. Add PhosLo. Wean FiO2 and vasopressors.
[2021-07-27] MEDS ORDERED: SODIUM BICARBONATE TAB 650 MG TAB PO SCH (10:15)
[2021-07-27] MEDS: LACTULOSE 20 GM/30 ML CUP PO SCH ×3 (10:54→20:18)
[2021-07-27] MEDS: ASCORBIC ACID 500 MG TAB PO SCH (10:54)
[2021-07-27] MEDS: ZINC SULFATE 220 MG CAP PO SCH (10:54)
[2021-07-27] MEDS: CHOLECALCIFEROL 25 MCG (1000 IU) TABLET PO SCH (10:54)
[2021-07-27] MEDS: CHLORHEXIDINE GLUCONATE 15 ML CUP MUCOUS MEM SCH ×2 (11:00→20:18)
[2021-07-27] MEDS: DEXAMETHASONE SOD PHOSPHATE 10 MG/ML 1 ML VIAL IVP SCH (11:00)
[2021-07-27] MEDS: CEFEPIME 1 GM in SODIUM CHLORIDE 0.9% 50 ML IVPB SCH ×2 (11:00→20:20)
[2021-07-27] MEDS: PANTOPRAZOLE 40 MG/10 ML VIAL IVP SCH (11:00)
[2021-07-27] MEDS: CALCIUM ACETATE 667 MG TAB PO SCH ×2 (11:24→17:49)
[2021-07-27 11:35] LABS: Glucose,Whole Blood 152 mg/dL (75-99)
[2021-07-27 13:34] LABS: ABG Base Excess -9.7 mmol/L; ABG HCO3 21 mmol/L (21-25); ABG Oxygen Saturation 79.7 % (94-97); ABG TCO2 23 mmol/L (19-24)
[2021-07-27 13:36] LABS: ABG PCO2 72 mmHg (35-45); ABG PH 7.07 (7.35-7.45)
[2021-07-27 13:37] LABS: ABG PO2 57 mmHg (83-108); Allen Test Performed? no
[2021-07-27] MEDS: DEXTROSE 5% IN WATER 1,000 ML with SODIUM BICARB (1 MEQ/ML) 150 ML IV SCH ×2 (14:04→22:48)
--- NOTE | 2021-07-27 14:04 | XR ---
EXAMINATION TYPE: XR chest 1V portable DATE OF EXAM: 07/27/2021 COMPARISON: Chest x-ray 07/26/2021 HISTORY: Intubated, hypoxemia TECHNIQUE: Single frontal view of the chest is obtained. FINDINGS: Endotracheal tube, NG tube, left jugular central venous catheter are overlying appropriate positions. Bilateral airspace disease persists. There is no evident pneumothorax. Left hemidiaphragm remains obscured. Cardiac mediastinal silhouette is stable. There are overlying artifacts. IMPRESSION: Findings are similar, correlate for pneumonia, ARDS, edema, difficult to exclude pleural effusion more so on the left.
[2021-07-27] MEDS: CISATRACURIUM 200 MG in SODIUM CHLORIDE 0.9% 180 ML IV SCH (16:34)
--- NOTE | 2021-07-27 17:03 | P.PN ---
Subjective Progress Note Date: 07/27/21 Principal diagnosis: Q10 hypoxic respiratory failure secondary to COVID-19 pneumonia 07/26/2021, the patient is being seen for a follow-up. Remains intubated on a mechanical ventilator. Remains sedated and paralyzed. No major events overnight. Most of the skin changes condition. Remains on propofol running at 60 mcg/kg per minute and fentanyl is running at 1 mcg/kg/h and Nimbex is running at 1 mcg/kg per minute. Ventilator settings are essentially unchanged. He is at the rate of 34 with a tidal volume of 420 and an FiO2 of 100% with a PEEP of 20. Blood gases from today is showing a pH of 7.13 with a pCO2 of 74 and pO2 of 80. Chest x-ray still showing diffuse bilateral pulmonary infiltrates with worsening consolidation of the right lower lobe and some ongoing consolidation of the left lower lobe. The patient was considered to be septic. He was being treated with pressors and antibiotics. He had strep pneumonia and MSSA in his sputum. She is pressors requirements were going down gradually while he was on IV cefepime. Nevertheless, on today's evaluation, he is back on norepinephrine and it is running at 0.12 mcg/kg per minute. His pressor requirements have increased up again. His white cell causes 20.1. His BUN is a 55 with a creatinine of 3.3. Sodium level is at 139. His d-dimer is at 5.9. No recent inflammatory markers. Antibiotic coverage remains IV cefepime. Remains on Levemir insulin 20 units along with a slight scale coverage for blood sugar control. Remains on IV Decadron 6 mg every 24 hours. Essentially, no major change in his condition. He is undergoing hemodialysis. His last session of hemodialysis was yesterday with a total of 2 L of fluid was removed. No plans to undergo hemodialysis today. Unfortunately, not a whole not a whole her progress has been done on this patient. Patient was reevaluated today on 07/27/2021, remains intubated sedated paralyzed, and the patient is marginal at best. He continues to have very poor oxygenation status relatively high pCO2 and low pH, patient does not seem to be doing well. He is on assist control rate of 34 tidal volume 420 FiO2 on the percent and PEEP of 20. ABG today showed a pO2 of 71 pCO2 71 pH of 7.08. Patient is on Nimbex at 2 mcg/kg/m fentanyl at 1 mcg/kg/h propofol at 50 mcg/kg/m norepinephrine at 0.13 mcg/kg/m. Patient remains on antibiotics in the form of cefepime. He has shown strep in his sputum. His IV fluid is D5 with bicarbonate at 100 mL/h which I have recommended today because of his low pH. Chest x-ray continues to show severe bilateralknees consistent with COVID-19 pneumonia seems to be quite extensive, patient may also have some underlying ARDS. As he got is 20.4 hemoglobin is 8.4 electrolytes are normal however his BUN is 75 creatinine 4.45. Patient remains on insulin remains on Decadron. Essentially not much of a change, overall the patient is doing poorly, and no plans to undergo hemodialysis anytime soon. Patient's blood pressure seems to be very marginal and requiring norepinephrine. Objective - Vital Signs Vital signs: Vital Signs Temp 97.9 F 07/27/21 08:00 Pulse 96 07/27/21 15:15 Resp 34 H 07/27/21 15:15 BP 108/59 07/26/21 12:00 Pulse Ox 76 L 07/27/21 15:15 Intake & Output 07/26/21 07/27/21 07/27/21 18:59 06:59 18:59 Intake Total 3382.448 7358.918 1230.756 Output Total 0 0 205 Balance 5194.809 4910.918 1025.756 Weight 113.3 kg Intake: IV 299 353 397 Cefepime 1 gm In Sodium 100 Chloride 0.9% 50 ml @ 12. 5 mls/hr IVPB Q12H RED Rx #:[id number] Dextrose 5% in Water 1, 250 000 ml @ 100 mls/hr IV . [id number] RED with Sodium Bicarb (1 Meq/ml) 150 ml Rx#:[id number] NS 260 220 120 Pressure Bag 39 33 27 Intake, IV Titration 746.878 576.918 623.756 Amount Cisatracurium 200 mg In 169.2 196.56 Sodium Chloride 0.9% 180 ml @ 1 MCG/KG/MIN 5.4 mls /hr IV .Q24H RED Rx#: [id number] Norepinephrine 8 mg In 182.687 256.001 327.196 Sodium Chloride 0.9% 250 ml @ 0.05 MCG/KG/MIN 8. 708 mls/hr IV .Q24H RED Rx#:[id number] fentaNYL (PF) 2,500 mcg 220.917 In Sodium Chloride 0.9% 200 ml @ 0.5 MCG/KG/HR 4. 82 mls/hr IV .Q24H RED Rx #:[id number] propofoL 1,000 mg In 394.991 100 100 Empty Bag 1 bag @ Titrate IV .Q0M RED Rx#: [id number] Tube Feeding 325 275 150 Other 90 60 60 Output: Urine 0 0 5 Stool 200 Other: Voiding Method Indwelling Catheter Indwelling Catheter Indwelling Catheter ABP, PAP, CO, CI - Last Documented Arterial Blood Pressure 116/55 - Exam Physical Exam: Revealed 66-year-old white male intubated sedated paralyzed on mechanical ventilation. Head: Atraumatic, normocephalic. Endotracheal tube and orogastric tube are intact. HEENT:[Neck is supple.] [No neck masses.] [No thyromegaly.] [No JVD.] Chest: [Symmetrical expansion, crackles at the bases. No rhonchi and no wheezes. Cardiac Exam: [Normal S1 and S2, no S3 gallop, no murmur.] Abdomen: [Soft, nontender, no megaly, no rebound, no guarding, normal bowel sounds.] Extremities: [No clubbing, 1+ bipedal edema, no cyanosis.] Pulses bilaterally. Neurological Exam: Cannot assess patient is sedated and paralyzed. Psychiatric: Cannot be assessed, patient is sedated and paralyzed. - Labs CBC & Chem 7: 07/27/21 04:30 07/27/21 04:30 Labs: Abnormal Lab Results - Last 24 Hours (Table) 07/26/21 07/26/21 07/27/21 Range/Units 17:18 23:34 04:30 WBC 20.4 H (3.8-10.6) k/uL RBC 2.48 L (4.30-5.90) m/uL Hgb 8.4 L (13.0-17.5) gm/dL Hct 24.9 L (39.0-53.0) % MCV 100.4 H (80.0-100.0) fL RDW 15.6 H (11.5-15.5) % ABG pH (7.35-7.45) ABG pCO2 (35-45) mmHg ABG pO2 (83-108) mmHg ABG O2 Saturation (94-97) % Sodium (137-145) mmol/L Potassium (3.5-5.1) mmol/L Carbon Dioxide (22-30) mmol/L BUN (9-20) mg/dL Creatinine (0.66-1.25) mg/dL Glucose (74-99) mg/dL POC Glucose (mg/dL) 106 H 114 H (75-99) mg/dL Calcium (8.4-10.2) mg/dL Total Bilirubin (0.2-1.3) mg/dL Alkaline Phosphatase (38-126) U/L Total Protein (6.3-8.2) g/dL Albumin (3.5-5.0) g/dL 07/27/21 07/27/21 07/27/21 Range/Units 04:30 05:46 11:33 WBC (3.8-10.6) k/uL RBC (4.30-5.90) m/uL Hgb (13.0-17.5) gm/dL Hct (39.0-53.0) % MCV (80.0-100.0) fL RDW (11.5-15.5) % ABG pH 7.08 L* (7.35-7.45) ABG pCO2 71 H* (35-45) mmHg ABG pO2 71 L (83-108) mmHg ABG O2 Saturation 88.9 L (94-97) % Sodium 136 L (137-145) mmol/L Potassium 5.3 H (3.5-5.1) mmol/L Carbon Dioxide 21 L (22-30) mmol/L BUN 75 H (9-20) mg/dL Creatinine 4.45 H (0.66-1.25) mg/dL Glucose 104 H (74-99) mg/dL POC Glucose (mg/dL) 152 H (75-99) mg/dL Calcium 8.2 L (8.4-10.2) mg/dL Total Bilirubin 1.5 H (0.2-1.3) mg/dL Alkaline Phosphatase 214 H (38-126) U/L Total Protein 5.9 L (6.3-8.2) g/dL Albumin 2.5 L (3.5-5.0) g/dL 07/27/21 Range/Units 13:33 WBC (3.8-10.6) k/uL RBC (4.30-5.90) m/uL Hgb (13.0-17.5) gm/dL Hct (39.0-53.0) % MCV (80.0-100.0) fL RDW (11.5-15.5) % ABG pH 7.07 L* (7.35-7.45) ABG pCO2 72 H* (35-45) mmHg ABG pO2 57 L* (83-108) mmHg ABG O2 Saturation 79.7 L (94-97) % Sodium (137-145) mmol/L Potassium (3.5-5.1) mmol/L Carbon Dioxide (22-30) mmol/L BUN (9-20) mg/dL Creatinine (0.66-1.25) mg/dL Glucose (74-99) mg/dL POC Glucose (mg/dL) (75-99) mg/dL Calcium (8.4-10.2) mg/dL Total Bilirubin (0.2-1.3) mg/dL Alkaline Phosphatase (38-126) U/L Total Protein (6.3-8.2) g/dL Albumin (3.5-5.0) g/dL Assessment and Plan Assessment: Impression: Acute hypoxic respiratory failure secondary to COVID-19 pneumonia, intubated on 07/17/2021, patient may have underlying bacterial pneumonia with Streptococcus in the sputum and elevated pro calcitonin level and the patient is on cefepime. Patient is requiring significant FiO2 100% PEEP is at 20, and his ABG seems to be marginal at best. Will likely try proning the patient today and placed in prone position. However I have a strong feeling that this patient is not doing well, and he will likely not survive his COVID-19 pneumonia. Sepsis with secondary hypotension, suspect septic shock requiring norepinephrine patient had a combination of streptococcus and staph aureus in the sputum he is on IV cefepime. And he is requiring norepinephrine. Acute kidney injury, patient is oliguric, nephrology is following. Elevated inflammatory markers. Leukocytosis secondary to above. Hyperglycemia, likely steroids induced, patient is on Levemir insulin as well as NovoLog insulin sliding scale. Recommendation: Continue same ventilatory settings. Continue COVID-19 cocktail. Continue antibiotics. Continue Decadron. Continue subcu heparin patient is on 5000 units subcu every 8 hours Continue insulin Continue nutritional support/enteral feeding. Consider placing the patient in prone position today. Prognosis is extremely poor and guarded. Patient will likely not make it through this COVID-19 infection. Strongly suggest changing CODE STATUS if family is agreeable. Critical care time is over 30 minutes. Time with Patient: Greater than 30
[2021-07-27 18:59] LABS: Glucose,Whole Blood 125 mg/dL (75-99)
[2021-07-27] MEDS: INSULIN DETEMIR (LEVEMIR) 100 UNIT/ML SYR SQ SCH (20:18)
[2021-07-28 00:02] LABS: Glucose,Whole Blood 124 mg/dL (75-99)
[2021-07-28] MEDS: INSULIN ASPART (NovoLOG) 100 UNIT/ML VIAL SQ SCH ×4 (00:29→17:44)
[2021-07-28] MEDS: ARTIFICIAL TEARS-HYPROMELLOSE DROPS 15 ML BTL BOTH EYES SCH ×6 (00:32→20:23)
[2021-07-28] MEDS: HEPARIN SODIUM,PORCINE/PF 5,000 UNIT/0.5 ML SYRINGE SQ SCH ×3 (00:32→15:09)
[2021-07-28] MEDS: METOCLOPRAMIDE 5 MG/ML 2 ML VIAL IVP SCH ×4 (00:32→17:53)
--- NOTE | 2021-07-28 02:32 | P.PN ---
Subjective Progress Note Date: 07/27/21 This is a 66-year-old male who was recently admitted with acute COVID-19 viral pneumonia and bilateral interstitial pneumonia on mechanical ventilation being closely monitored. Patient continues in the ICU with worsening renal functions and vascular surgery consulted for hemodialysis catheter placement with nephrology following closely. Patient's potassium is 6.0 and corrected and awaiting repeat labs. Patient's white blood count continues to be elevated as well and is 33.6 today. Infectious disease following an patient is maintained on IV cefepime and will continue. 07/22/2021 Patient is seen in follow-up this morning continues to be on mechanical ventilation and intubated and being closely monitored in the ICU. Nephrology also following closely along with multiple medical consultations and patient has been started on hemodialysis and most likely will continue daily for now. Patient has no urine output per nursing staff. X-ray today shows bilateral airspace disease shows a similar appearance there is a prominence of interstitium with no evident pneumothorax or pleural effusion noted and a correlate for pneumonia, edema, ARDS. Potassium today is 5.9, BUN is 98, creatinine is 4.17. Patient to continue with IV cefepime with infectious disease following closely. 07/23/2021 Patient is seen in follow-up in the ICU being closely monitored with multiple medical consultations following. Patient is receiving hemodialysis currently and nephrology following closely. Patient also continues on cefepime with ID following closely with positive sputum cultures. WBC is elevated at 29.3 and recommend repeat am labs and monitor closely. Patient also continues on IV dexamethasone and vitamin and zinc supplements along with sub q heparin for anticoagulation. Patient continues on norepineprhine high dose as well. 07/24/2021 Patient is evaluated today and continues to be closely monitored by multiple medical consultations in the ICU in critical condition. Patient is receiving daily hemodialysis with nephrology following closely. Patient continues on Norepinephrine and sedation as well. Patient is on mechanical vent with 100% FI02. Chest xray shows stable diffuse bilateral airspace disease correlate for ARDS, diffuse pneumonia or less likely pulmonary edema. Abdomen is distended and ultrasound of the abdomen and bladder ordered. 07/27/2021 Patient is seen this morning and continues to be closely monitored in the ICU with multiple medical consultations following. Patient continues on high dose pressor support and continues with hemodialysis. Patient with hematuria per [employer] operations staff officer although hemoglobin is stable at 8.4. Patient continues to be on mechanical vent with FI02 of 100%. Prognosis remains quite guarded and family continues to express wishes for full code at this time. Review of systems: Unable to obtain as patient is intubated and sedated Labs: WBC is 20.4, hemoglobin is 8.4, platelets are 324, sodium is 136, potassium 5.3, BUN 75, creatinine 4.45, calcium 8.2, total bili 1.5, alk phos 214 Active Medications Acetaminophen (Acetaminophen Tab 325 Mg Tab) 650 mg PO Q4HR PRN PRN Reason: Fever>101 Last Admin: 07/22/21 07:32 Dose: 650 mg Documented by: Albuterol Sulfate (Albuterol Hfa Inhaler) 2 puff INHALATION RT-Q6H PRN PRN Reason: Shortness Of Breath Or Wheezing Last Admin: 07/27/21 15:22 Dose: 2 puff Documented by: Artificial Tears (Artificial Tears-Hypromellose Drops 15 Ml Btl) 2 drops BOTH EYES Q4HR [facility] Last Admin: 07/27/21 16:38 Dose: 2 drops Documented by: Ascorbic Acid (Ascorbic Acid 500 Mg Tab) 500 mg PO DAILY [facility] Last Admin: 07/27/21 10:54 Dose: Not Given Documented by: Calcium Acetate (Calcium Acetate 667 Mg Tab) 667 mg PO TID-W/MEALS [facility] Last Admin: 07/27/21 11:24 Dose: Not Given Documented by: Chlorhexidine Gluconate (Chlorhexidine Gluconate 15 Ml Cup) 15 ml MUCOUS MEM BID [facility] Last Admin: 07/27/21 11:00 Dose: 15 ml Documented by: Cholecalciferol (Cholecalciferol 25 Mcg (1000 Iu) Tablet) 25 mcg PO DAILY [facility] Last Admin: 07/27/21 10:54 Dose: Not Given Documented by: Dexamethasone Sodium Phosphate (Dexamethasone Sod Phosphate 10 Mg/Ml 1 Ml Vial) 6 mg IVP DAILY [facility] Last Admin: 07/27/21 11:00 Dose: 6 mg Documented by: Heparin Sodium (Porcine) (Heparin Sodium,Porcine/Pf 5,000 Unit/0.5 Ml Syringe) 5,000 unit SQ Q8HR [facility] Last Admin: 07/27/21 16:39 Dose: 5,000 unit Documented by: Propofol 1,000 mg/ IV Solution 100 mls @ 0 mls/hr IV .Q0M [facility]; Protocol Last Admin: 07/27/21 16:06 Dose: 50 mcg/kg/min, 33.99 mls/hr Documented by: Cisatracurium Besylate 200 mg/ (Sodium Chloride) 200 mls @ 5.4 mls/hr IV .Q24H [facility]; Protocol Last Admin: 07/27/21 16:34 Dose: 2 mcg/kg/min, 10.8 mls/hr Documented by: Norepinephrine Bitartrate 8 mg (/ Sodium Chloride) 258 mls @ 8.708 mls/hr IV .Q24H [facility]; Protocol Last Admin: 07/27/21 16:36 Dose: 0.2 mcg/kg/min, 34.83 mls/hr Documented by: Fentanyl Citrate 2,500 mcg/ (Sodium Chloride) 250 mls @ 4.82 mls/hr IV .Q24H [facility]; Protocol Last Admin: 07/27/21 03:35 Dose: 1 mcg/kg/hr, 9.64 mls/hr Documented by: Cefepime HCl 1 gm/ Sodium (Chloride) 50 mls @ 12.5 mls/hr IVPB Q12H [facility] Last Admin: 07/27/21 11:00 Dose: 12.5 mls/hr Documented by: Sodium Bicarbonate 150 ml/ (Dextrose/Water) 1,150 mls @ 100 mls/hr IV .[id number] [facility] Last Admin: 07/27/21 14:04 Dose: 100 mls/hr Documented by: Insulin Aspart (Insulin Aspart (Novolog) 100 Unit/Ml Vial) 0 unit SQ Q6H [facility]; Protocol Last Admin: 07/27/21 12:00 Dose: 1 unit Documented by: Insulin Detemir (Insulin Detemir (Levemir) 100 Unit/Ml Syr) 20 unit SQ HS [facility] Last Admin: 07/26/21 21:07 Dose: 20 unit Documented by: Lactulose (Lactulose 20 Gm/30 Ml Cup) 15 gm PO TID [facility] Last Admin: 07/27/21 10:54 Dose: Not Given Documented by: Metoclopramide HCl (Metoclopramide 5 Mg/Ml 2 Ml Vial) 10 mg IVP Q6HR [facility] Last Admin: 07/27/21 15:39 Dose: 10 mg Documented by: Pantoprazole Sodium (Pantoprazole 40 Mg/10 Ml Vial) 40 mg IVP DAILY [facility] Last Admin: 07/27/21 11:00 Dose: 40 mg Documented by: Zinc Sulfate (Zinc Sulfate 220 Mg Cap) 220 mg PO DAILY [facility] Last Admin: 07/27/21 10:54 Dose: Not Given Documented by: Physical Exam: Gen: This is a 66-year-old male who is intubated and sedated, well-developed, well-nourished. obese. Temp is 97.9F, pulse is 95, respirations are 34, arterial blood pressure is 109/53, oxygen saturation is 90% on Vent and FiO2 of 100% HEENT: Head is atraumatic, normocephalic. Pupils equal, round. Sclerae is anicteric. NECK: Supple. No JVD. No lymphadenopathy. No thyromegaly. LUNGS: Breath sounds diminished with scattered rhonchi and crackles noted. No intercostal retractions. HEART: S1, S2 are muffled ABDOMEN: Soft. Bowel sounds are present. No masses. No tenderness. fecal management system noted EXTREMITIES: No pedal edema. No calf tenderness. generalized edema noted throughout NEUROLOGICAL: Patient is currently sedated and intubated. Assessment: Acute COVID-19 infection with acute COVID-19 bilateral interstitial pneumonia with acute hypoxic hypercarbic respiratory failure Possible ARDS MSSA and streptococcal pneumonia in the sputum culture with sepsis Elevated inflammatory markers of COVID-19 pneumonia acute kidney injury with acute tubular necrosis, worsening now requiring h emodialysis Hypovolemic hyponatremia Hypertension history history of lactic acidosis Sinus tachycardia on pressor support Deep vein thrombosis prophylaxis acute respiratory acidosis Hyperkalemia secondary to renal failure diabetes mellitus type 2, uncontrolled with elevated blood sugars Elevated AST, ALT with hepatitis secondary to COVID-19 Increased WBC obesity with a body mass index of 38.0 Full code Plan: Recommend to continue with current medications and follow along closely with multiple medical consultations. Nephrology following closely and maintained on daily hemodialysis. Patient requiring large amounts of pressor support. Patient continues on mechanical ventilation with multiple medical consultations including infectious disease, pulmonary, nephrology. Patient with some hematuria and very little urine output. hemoglobin is stable. Patient continues on IV antibiotics in the form of cefepime and will continue. Repeat blood cultures have been negative and Gram stain culture from sputum showing Streptococcus pneumonia and Staphylococcus aureus. Recommend repeat labs in the a.m and chest x-ray. Patient remains a full code at this time per family wishes. Due to multiple complex medical issues overall prognosis is poor and extremely guarded. Objective - Vital Signs Vital signs: Vital Signs Temp 98.6 F 07/26/21 20:00 Pulse 98 07/27/21 07:00 Resp 34 H 07/27/21 07:00 BP 108/59 07/26/21 12:00 Pulse Ox 90 L 07/27/21 07:00 Intake & Output 07/26/21 07/27/21 07/27/21 18:59 06:59 18:59 Intake Total 6488.143 4537.918 48 Output Total 0 0 0 Balance 6070.476 2453.918 48 Intake: IV 299 353 23 Cefepime 1 gm In Sodium 100 Chloride 0.9% 50 ml @ 12. 5 mls/hr IVPB Q12H [facility] Rx #:[id number] NS 260 220 20 Pressure Bag 39 33 3 Intake, IV Titration 746.878 476.918 Amount Cisatracurium 200 mg In 169.2 Sodium Chloride 0.9% 180 ml @ 1 MCG/KG/MIN 5.4 mls /hr IV .Q24H [facility] Rx#: [id number] Norepinephrine 8 mg In 182.687 256.001 Sodium Chloride 0.9% 250 ml @ 0.05 MCG/KG/MIN 8. 708 mls/hr IV .Q24H RED Rx#:[id number] fentaNYL (PF) 2,500 mcg 220.917 In Sodium Chloride 0.9% 200 ml @ 0.5 MCG/KG/HR 4. 82 mls/hr IV .Q24H RED Rx #:[id number] propofoL 1,000 mg In 394.991 Empty Bag 1 bag @ Titrate IV .Q0M RED Rx#: [id number] Tube Feeding 325 275 25 Other 90 60 Output: Urine 0 0 0 Other: Voiding Method Indwelling Catheter Indwelling Catheter ABP, PAP, CO, CI - Last Documented Arterial Blood Pressure 105/52 - Labs CBC & Chem 7: 07/27/21 04:30 07/27/21 04:30 Labs: Abnormal Lab Results - Last 24 Hours (Table) 07/26/21 07/26/21 07/26/21 Range/Units 11:31 17:18 23:34 WBC (3.8-10.6) k/uL RBC (4.30-5.90) m/uL Hgb (13.0-17.5) gm/dL Hct (39.0-53.0) % MCV (80.0-100.0) fL RDW (11.5-15.5) % ABG pH (7.35-7.45) ABG pCO2 (35-45) mmHg ABG pO2 (83-108) mmHg ABG O2 Saturation (94-97) % Sodium (137-145) mmol/L Potassium (3.5-5.1) mmol/L Carbon Dioxide (22-30) mmol/L BUN (9-20) mg/dL Creatinine (0.66-1.25) mg/dL Glucose (74-99) mg/dL POC Glucose (mg/dL) 102 H 106 H 114 H (75-99) mg/dL Calcium (8.4-10.2) mg/dL Total Bilirubin (0.2-1.3) mg/dL Alkaline Phosphatase (38-126) U/L Total Protein (6.3-8.2) g/dL Albumin (3.5-5.0) g/dL 07/27/21 07/27/21 07/27/21 Range/Units 04:30 04:30 05:46 WBC 20.4 H (3.8-10.6) k/uL RBC 2.48 L (4.30-5.90) m/uL Hgb 8.4 L (13.0-17.5) gm/dL Hct 24.9 L (39.0-53.0) % MCV 100.4 H (80.0-100.0) fL RDW 15.6 H (11.5-15.5) % ABG pH 7.08 L* (7.35-7.45) ABG pCO2 71 H* (35-45) mmHg ABG pO2 71 L (83-108) mmHg ABG O2 Saturation 88.9 L (94-97) % Sodium 136 L (137-145) mmol/L Potassium 5.3 H (3.5-5.1) mmol/L Carbon Dioxide 21 L (22-30) mmol/L BUN 75 H (9-20) mg/dL Creatinine 4.45 H (0.66-1.25) mg/dL Glucose 104 H (74-99) mg/dL POC Glucose (mg/dL) (75-99) mg/dL Calcium 8.2 L (8.4-10.2) mg/dL Total Bilirubin 1.5 H (0.2-1.3) mg/dL Alkaline Phosphatase 214 H (38-126) U/L Total Protein 5.9 L (6.3-8.2) g/dL Albumin 2.5 L (3.5-5.0) g/dL
[2021-07-28] MEDS: NOREPINEPHRINE 8 MG in SODIUM CHLORIDE 0.9% 250 ML IV SCH ×9 (02:52→23:40)
[2021-07-28 05:00] LABS: Anisocytosis Slight; HCT 24.4 % (39.0-53.0); HGB 9.2 gm/dL (13.0-17.5); Hypochromasia Slight; MCH 36.5 pg (25.0-35.0); MCHC 37.6 g/dL (31.0-37.0); MCV 97.2 fL (80.0-100.0); Platelet Count 392 k/uL (150-450); Poikilocytosis Slight; RBC 2.51 m/uL (4.30-5.90)
[2021-07-28 05:04] LABS: Albumin 2.5 g/dL (3.5-5.0); Calcium 7.2 mg/dL (8.4-10.2); Potassium 4.2 mmol/L (3.5-5.1); Total Bilirubin 1.8 mg/dL (0.2-1.3); Total Protein 5.9 g/dL (6.3-8.2)
[2021-07-28 05:05] LABS: ABG Base Excess -2.7 mmol/L; ABG HCO3 27 mmol/L (21-25); ABG Oxygen Saturation 70.8 % (94-97); ABG TCO2 29 mmol/L (19-24)
[2021-07-28 05:08] LABS: ABG PCO2 84 mmHg (35-45); ABG PH 7.11 (7.35-7.45); ABG PO2 49 mmHg (83-108); Allen Test Performed? no
[2021-07-28 05:24] LABS: Polychromasia Present
[2021-07-28] MEDS: fentaNYL (PF) 2,500 MCG in SODIUM CHLORIDE 0.9% 200 ML IV SCH (05:28)
[2021-07-28] MEDS: CALCIUM ACETATE 667 MG TAB PO SCH ×3 (05:29→17:53)
[2021-07-28] MEDS: CISATRACURIUM 200 MG in SODIUM CHLORIDE 0.9% 180 ML IV SCH (05:32)
[2021-07-28 05:36] LABS: Band Neutrophils % 4 %; Eosinophils # (M) 0.28 k/uL (0-0.7); Metamyelocytes # (M) 0.56 k/uL (0); Metamyelocytes % 2 %; Monocytes # (M) 0.56 k/uL (0-1.0); Myelocytes # (M) 0.28 k/uL (0); Myelocytes % 1 %; Neutrophils % (M) 86 %; Nucleated Red Blood Cells 12 /100 WBC (0-0); Total Cells Counted 200; WBC 27.9 k/uL (3.8-10.6)
[2021-07-28] MEDS: ALBUTEROL HFA INHALER INHALATION PRN (07:57)
[2021-07-28] MEDS: ZINC SULFATE 220 MG CAP PO SCH (08:15)
[2021-07-28] MEDS: CHLORHEXIDINE GLUCONATE 15 ML CUP MUCOUS MEM SCH ×2 (08:15→20:23)
[2021-07-28] MEDS: ASCORBIC ACID 500 MG TAB PO SCH (08:15)
[2021-07-28] MEDS: PANTOPRAZOLE 40 MG/10 ML VIAL IVP SCH (08:16)
[2021-07-28] MEDS: LACTULOSE 20 GM/30 ML CUP PO SCH ×3 (08:16→21:00)
[2021-07-28] MEDS: DEXAMETHASONE SOD PHOSPHATE 10 MG/ML 1 ML VIAL IVP SCH (08:16)
[2021-07-28] MEDS: CHOLECALCIFEROL 25 MCG (1000 IU) TABLET PO SCH (08:16)
--- NOTE | 2021-07-28 09:00 | XR ---
EXAMINATION TYPE: XR chest 1V portable DATE OF EXAM: 07/28/2021 CLINICAL HISTORY: Difficulty breathing and covid progress study. TECHNIQUE: Single AP portable upright view of the chest is obtained. COMPARISON: Chest x-ray from one day earlier and older studies FINDINGS: Stable endotracheal and orogastric tubes. Stable left internal jugular central venous cath eter. Persistent bilateral multifocal and confluent increased opacities with area of organizing consolidati on in the right lower lung redemonstrated and showing more prominence. Persistent small to tiny left pleural effusion. Cardiac silhouette size stable and within normal limits. Osseous structures are int act. IMPRESSION: Bilateral multifocal and confluent increased opacities consistent with covid-19 infection and/or ARDS are redemonstrated. Small left pleural effusion redemonstrated. Continued organizing con solidation right lower lobe noted from one day earlier otherwise no significant change from most rece nt study.
[2021-07-28] MEDS: SODIUM CHLORIDE 0.9% 150 ML with VASOPRESSIN 60 UNIT IV SCH ×4 (09:16→17:46)
[2021-07-28] MEDS: CEFEPIME 1 GM in SODIUM CHLORIDE 0.9% 50 ML IVPB SCH (09:16)
--- NOTE | 2021-07-28 10:21 | P.PN ---
Subjective Patient is seen in follow-up for acute kidney injury. Oliguric. Started on hemodialysis 07/21/2021. Intubated. On 100% FiO2. On Levophed. Blood pressure on the lower side. On bicarb drip. Hemodialysis treatment had to be cut short yesterday due to hypotension. Vital signs - on Levophed. HEENT: Intubated. LUNGS: Breath sounds decreased. HEART: Regular rate and rhythm. ABDOMEN: Soft, no distention. EXTREMITITES: 1+ edema. Objective - Vital Signs Vital signs: Vital Signs Temp 97.4 F L 07/28/21 04:00 Pulse 101 H 07/28/21 07:00 Resp 34 H 07/28/21 07:00 BP 123/64 07/27/21 18:45 Pulse Ox 75 L 07/28/21 07:00 Intake & Output 07/27/21 07/28/21 07/28/21 18:59 06:59 18:59 Intake Total 6127.243 0844.239 580.768 Output Total 2305 2805 Balance -580.465 30.239 580.768 Weight 113.3 kg 112.9 kg Intake: IV 841 1776 148 Dextrose 5% in Water 1, 625 1500 125 000 ml @ 100 mls/hr IV . [id number] RED with Sodium Bicarb (1 Meq/ml) 150 ml Rx#:[id number] NS 180 240 20 Pressure Bag 36 36 3 Intake, IV Titration 456.604 7420.239 432.768 Amount Cisatracurium 200 mg In 196.56 140.04 Sodium Chloride 0.9% 180 ml @ 1 MCG/KG/MIN 5.4 mls /hr IV .Q24H [facility] Rx#: [id number] Norepinephrine 8 mg In 376.975 385.276 332.768 Sodium Chloride 0.9% 250 ml @ 0.05 MCG/KG/MIN 8. 708 mls/hr IV .Q24H [facility] Rx#:[id number] fentaNYL (PF) 2,500 mcg 249.515 In Sodium Chloride 0.9% 200 ml @ 0.5 MCG/KG/HR 4. 82 mls/hr IV .Q24H [facility] Rx #:[id number] propofoL 1,000 mg In 100 284.408 100 Empty Bag 1 bag @ Titrate IV .Q0M [facility] Rx#: [id number] Tube Feeding 150 Other 60 Output: Gastric Drainage 500 Urine 5 5 Stool 300 300 Hemodialysis 1999 Other 1999 Other: Voiding Method Indwelling Catheter Indwelling Catheter ABP, PAP, CO, CI - Last Documented Arterial Blood Pressure 92/53 - Labs CBC & Chem 7: 07/28/21 03:40 07/28/21 03:40 Labs: Abnormal Lab Results - Last 24 Hours (Table) 07/27/21 07/27/21 07/27/21 Range/Units 11:33 13:33 18:57 WBC (3.8-10.6) k/uL RBC (4.30-5.90) m/uL Hgb (13.0-17.5) gm/dL Hct (39.0-53.0) % MCH (25.0-35.0) pg MCHC (31.0-37.0) g/dL RDW (11.5-15.5) % Neutrophils # (Manual) (1.3-7.7) k/uL Metamyelocytes # (Man) (0) k/uL Myelocytes # (Manual) (0) k/uL Nucleated RBCs (0-0) /100 WBC ABG pH 7.07 L* (7.35-7.45) ABG pCO2 72 H* (35-45) mmHg ABG pO2 57 L* (83-108) mmHg ABG HCO3 (21-25) mmol/L ABG Total CO2 (19-24) mmol/L ABG O2 Saturation 79.7 L (94-97) % Sodium (137-145) mmol/L BUN (9-20) mg/dL Creatinine (0.66-1.25) mg/dL Glucose (74-99) mg/dL POC Glucose (mg/dL) 152 H 125 H (75-99) mg/dL Calcium (8.4-10.2) mg/dL Total Bilirubin (0.2-1.3) mg/dL Alkaline Phosphatase (38-126) U/L Total Protein (6.3-8.2) g/dL Albumin (3.5-5.0) g/dL 07/28/21 07/28/21 07/28/21 Range/Units 00:00 03:40 03:40 WBC 27.9 H (3.8-10.6) k/uL RBC 2.51 L (4.30-5.90) m/uL Hgb 9.2 L (13.0-17.5) gm/dL Hct 24.4 L (39.0-53.0) % MCH 36.5 H (25.0-35.0) pg MCHC 37.6 H (31.0-37.0) g/dL RDW 16.0 H (11.5-15.5) % Neutrophils # (Manual) 25.10 H (1.3-7.7) k/uL Metamyelocytes # (Man) 0.56 H (0) k/uL Myelocytes # (Manual) 0.28 H (0) k/uL Nucleated RBCs 12 H (0-0) /100 WBC ABG pH (7.35-7.45) ABG pCO2 (35-45) mmHg ABG pO2 (83-108) mmHg ABG HCO3 (21-25) mmol/L ABG Total CO2 (19-24) mmol/L ABG O2 Saturation (94-97) % Sodium 135 L (137-145) mmol/L BUN 69 H (9-20) mg/dL Creatinine 3.85 H (0.66-1.25) mg/dL Glucose 104 H (74-99) mg/dL POC Glucose (mg/dL) 124 H (75-99) mg/dL Calcium 7.2 L (8.4-10.2) mg/dL Total Bilirubin 1.8 H (0.2-1.3) mg/dL Alkaline Phosphatase 244 H (38-126) U/L Total Protein 5.9 L (6.3-8.2) g/dL Albumin 2.5 L (3.5-5.0) g/dL 07/28/21 Range/Units 05:02 WBC (3.8-10.6) k/uL RBC (4.30-5.90) m/uL Hgb (13.0-17.5) gm/dL Hct (39.0-53.0) % MCH (25.0-35.0) pg MCHC (31.0-37.0) g/dL RDW (11.5-15.5) % Neutrophils # (Manual) (1.3-7.7) k/uL Metamyelocytes # (Man) (0) k/uL Myelocytes # (Manual) (0) k/uL Nucleated RBCs (0-0) /100 WBC ABG pH 7.11 L* (7.35-7.45) ABG pCO2 84 H* (35-45) mmHg ABG pO2 49 L* (83-108) mmHg ABG HCO3 27 H (21-25) mmol/L ABG Total CO2 29 H (19-24) mmol/L ABG O2 Saturation 70.8 L (94-97) % Sodium (137-145) mmol/L BUN (9-20) mg/dL Creatinine (0.66-1.25) mg/dL Glucose (74-99) mg/dL POC Glucose (mg/dL) (75-99) mg/dL Calcium (8.4-10.2) mg/dL Total Bilirubin (0.2-1.3) mg/dL Alkaline Phosphatase (38-126) U/L Total Protein (6.3-8.2) g/dL Albumin (3.5-5.0) g/dL Assessment and Plan Plan: Assessment: 1. Acute kidney injury secondary to ATN secondary to septic shock. Oliguric. Started on hemodialysis 07/21/2021. Baseline creatinine near 1. No hydronephrosis noted on kidney ultrasound. 2. Hyperkalemia secondary to acute kidney injury and metabolic acidosis. Improved postdialysis. 3. Acute hypoxic and hypercapnic respiratory failure. 4. Metabolic acidosis secondary to acute kidney injury. On bicarb drip. Also has respiratory acidosis. 5. COVID-19 pneumonia. 6. Septic shock maintained on Levophed. 7. Hyperphosphatemia secondary to acute kidney injury. On PhosLo. Plan: Continue with daily dialysis if able to tolerate - will attempt ultrafiltration only today due to hemodynamic instability. Wean FiO2 and vasopressors. Prognosis guarded.
[2021-07-28] MEDS: DEXTROSE 5% IN WATER 1,000 ML with SODIUM BICARB (1 MEQ/ML) 150 ML IV SCH ×2 (10:58→23:13)
[2021-07-28 11:32] LABS: Glucose,Whole Blood 111 mg/dL (75-99)
--- NOTE | 2021-07-28 13:21 | XR ---
EXAMINATION TYPE: XR chest 1V portable DATE OF EXAM: 07/28/2021 COMPARISON: NONE HISTORY: Shortness of breath TECHNIQUE: Single frontal view of the chest is obtained. FINDINGS: ET and NG tube central line stable. Diffuse bilateral infiltrate stable. No sizable pneumo thorax. No sizable pleural effusion. Heart size stable. Hypertrophic and degenerative change of the spine. Arthropathy of the shoulders. IMPRESSION: 1. Bilateral diffuse airspace disease. No sizable pneumothorax.
--- NOTE | 2021-07-28 14:04 | P.PN ---
Subjective Progress Note Date: 07/28/21 Principal diagnosis: Q10 hypoxic respiratory failure secondary to COVID-19 pneumonia 07/26/2021, the patient is being seen for a follow-up. Remains intubated on a mechanical ventilator. Remains sedated and paralyzed. No major events overnight. Most of the skin changes condition. Remains on propofol running at 60 mcg/kg per minute and fentanyl is running at 1 mcg/kg/h and Nimbex is running at 1 mcg/kg per minute. Ventilator settings are essentially unchanged. He is at the rate of 34 with a tidal volume of 420 and an FiO2 of 100% with a PEEP of 20. Blood gases from today is showing a pH of 7.13 with a pCO2 of 74 and pO2 of 80. Chest x-ray still showing diffuse bilateral pulmonary infiltrates with worsening consolidation of the right lower lobe and some ongoing consolidation of the left lower lobe. The patient was considered to be septic. He was being treated with pressors and antibiotics. He had strep pneumonia and MSSA in his sputum. She is pressors requirements were going down gradually while he was on IV cefepime. Nevertheless, on today's evaluation, he is back on norepinephrine and it is running at 0.12 mcg/kg per minute. His pressor requirements have increased up again. His white cell causes 20.1. His BUN is a 55 with a creatinine of 3.3. Sodium level is at 139. His d-dimer is at 5.9. No recent inflammatory markers. Antibiotic coverage remains IV cefepime. Remains on Levemir insulin 20 units along with a slight scale coverage for blood sugar control. Remains on IV Decadron 6 mg every 24 hours. Essentially, no major change in his condition. He is undergoing hemodialysis. His last session of hemodialysis was yesterday with a total of 2 L of fluid was removed. No plans to undergo hemodialysis today. Unfortunately, not a whole not a whole her progress has been done on this patient. Patient was reevaluated today on 07/27/2021, remains intubated sedated paralyzed, and the patient is marginal at best. He continues to have very poor oxygenation status relatively high pCO2 and low pH, patient does not seem to be doing well. He is on assist control rate of 34 tidal volume 420 FiO2 on the percent and PEEP of 20. ABG today showed a pO2 of 71 pCO2 71 pH of 7.08. Patient is on Nimbex at 2 mcg/kg/m fentanyl at 1 mcg/kg/h propofol at 50 mcg/kg/m norepinephrine at 0.13 mcg/kg/m. Patient remains on antibiotics in the form of cefepime. He has shown strep in his sputum. His IV fluid is D5 with bicarbonate at 100 mL/h which I have recommended today because of his low pH. Chest x-ray continues to show severe bilateralknees consistent with COVID-19 pneumonia seems to be quite extensive, patient may also have some underlying ARDS. As he got is 20.4 hemoglobin is 8.4 electrolytes are normal however his BUN is 75 creatinine 4.45. Patient remains on insulin remains on Decadron. Essentially not much of a change, overall the patient is doing poorly, and no plans to undergo hemodialysis anytime soon. Patient's blood pressure seems to be very marginal and requiring norepinephrine. Reevaluated today on 07/28/2021, patient remains in the ICU, intubated and mechanically ventilated, patient is developing worsening clinical status, remains on tidal volume of 420 rate of 34 FiO2 on the percent and PEEP of 20. ABG showed a pO2 of 49 pCO2 of 84 pH of 7.11. Patient remains on fentanyl at 1 mcg/kg/hr propofol at 50 mcg/m, Nimbex at 2 mcg/kg/m, remains on bicarb drip, he is also on vasopressin, at 0.02 units per minutes. and norepinephrine at 0.6 mcg/kg/m. Family has been updated by the nurses on his condition, patient remains full code although his clinical status is extremely poor, and at this point I strongly believe this is a medical futility situation. Patient will likely end up coding, and if he does will go ahead and code him but again I believe this is a futility situation. Chest x-ray is showing worsening infiltrates, there may be even a component of pulmonary edema on the chest x-ray today. WBC count remains high 27.9 hemoglobin 9.2. Overall the patient is not doing great, and his prognosis is extremely poor, may or may not get dialysis today. Objective - Vital Signs Vital signs: Vital Signs Temp 97.5 F L 07/28/21 13:11 Pulse 98 07/28/21 13:11 Resp 35 H 07/28/21 13:11 BP 84/49 07/28/21 13:11 Pulse Ox 77 L 07/28/21 13:00 Intake & Output 07/27/21 07/28/21 07/28/21 18:59 06:59 18:59 Intake Total 4762.816 8001.239 1544.216 Output Total 2305 2805 1000 Balance -580.465 30.239 544.216 Weight 113.3 kg 112.9 kg Intake: IV 841 1776 613 Cefepime 1 gm In Sodium 50 Chloride 0.9% 50 ml @ 12. 5 mls/hr IVPB Q12H [facility] Rx #:[id number] Dextrose 5% in Water 1, 625 1500 425 000 ml @ 100 mls/hr IV . [id number] RED with Sodium Bicarb (1 Meq/ml) 150 ml Rx#:[id number] NS 180 240 120 Pressure Bag 36 36 18 Intake, IV Titration 662.227 8846.239 931.216 Amount Cisatracurium 200 mg In 196.56 140.04 Sodium Chloride 0.9% 180 ml @ 1 MCG/KG/MIN 5.4 mls /hr IV .Q24H [facility] Rx#: [id number] Norepinephrine 8 mg In 376.975 385.276 774.000 Sodium Chloride 0.9% 250 ml @ 0.05 MCG/KG/MIN 8. 708 mls/hr IV .Q24H [facility] Rx#:[id number] fentaNYL (PF) 2,500 mcg 249.515 In Sodium Chloride 0.9% 200 ml @ 0.5 MCG/KG/HR 4. 82 mls/hr IV .Q24H [facility] Rx #:[id number] propofoL 1,000 mg In 100 284.408 157.216 Empty Bag 1 bag @ Titrate IV .Q0M [facility] Rx#: [id number] Tube Feeding 150 0 Other 60 Output: Gastric Drainage 500 Urine 5 5 0 Stool 300 300 Hemodialysis 2000 1000 Other 2000 Other: Voiding Method Indwelling Catheter Indwelling Catheter Indwelling Catheter ABP, PAP, CO, CI - Last Documented Arterial Blood Pressure 142/70 - Exam Physical Exam: Revealed 66-year-old white male intubated sedated paralyzed on m echanical ventilation. Head: Atraumatic, normocephalic. Endotracheal tube and orogastric tube are i ntact. HEENT:[Neck is supple.] [No neck masses.] [No thyromegaly.] [No JVD.] Chest: [Symmetrical expansion, crackles at the bases. No rhonchi and no wheezes. Cardiac Exam: [Normal S1 and S2, no S3 gallop, no murmur.] Abdomen: [Soft, nontender, no megaly, no rebound, no guarding, normal bowel sounds.] Extremities: [No clubbing, 1+ bipedal edema, no cyanosis.] Pulses bilaterally. Neurological Exam: Cannot assess patient is sedated and paralyzed. Psychiatric: Cannot be assessed, patient is sedated and paralyzed. - Labs CBC & Chem 7: 07/28/21 03:40 07/28/21 03:40 Labs: Abnormal Lab Results - Last 24 Hours (Table) 07/27/21 07/28/21 07/28/21 Range/Units 18:57 00:00 03:40 WBC 27.9 H (3.8-10.6) k/uL RBC 2.51 L (4.30-5.90) m/uL Hgb 9.2 L (13.0-17.5) gm/dL Hct 24.4 L (39.0-53.0) % MCH 36.5 H (25.0-35.0) pg MCHC 37.6 H (31.0-37.0) g/dL RDW 16.0 H (11.5-15.5) % Neutrophils # (Manual) 25.10 H (1.3-7.7) k/uL Metamyelocytes # (Man) 0.56 H (0) k/uL Myelocytes # (Manual) 0.28 H (0) k/uL Nucleated RBCs 12 H (0-0) /100 WBC ABG pH (7.35-7.45) ABG pCO2 (35-45) mmHg ABG pO2 (83-108) mmHg ABG HCO3 (21-25) mmol/L ABG Total CO2 (19-24) mmol/L ABG O2 Saturation (94-97) % Sodium (137-145) mmol/L BUN (9-20) mg/dL Creatinine (0.66-1.25) mg/dL Glucose (74-99) mg/dL POC Glucose (mg/dL) 125 H 124 H (75-99) mg/dL Calcium (8.4-10.2) mg/dL Total Bilirubin (0.2-1.3) mg/dL Alkaline Phosphatase (38-126) U/L Total Protein (6.3-8.2) g/dL Albumin (3.5-5.0) g/dL 07/28/21 07/28/21 07/28/21 Range/Units 03:40 05:02 11:30 WBC (3.8-10.6) k/uL RBC (4.30-5.90) m/uL Hgb (13.0-17.5) gm/dL Hct (39.0-53.0) % MCH (25.0-35.0) pg MCHC (31.0-37.0) g/dL RDW (11.5-15.5) % Neutrophils # (Manual) (1.3-7.7) k/uL Metamyelocytes # (Man) (0) k/uL Myelocytes # (Manual) (0) k/uL Nucleated RBCs (0-0) /100 WBC ABG pH 7.11 L* (7.35-7.45) ABG pCO2 84 H* (35-45) mmHg ABG pO2 49 L* (83-108) mmHg ABG HCO3 27 H (21-25) mmol/L ABG Total CO2 29 H (19-24) mmol/L ABG O2 Saturation 70.8 L (94-97) % Sodium 135 L (137-145) mmol/L BUN 69 H (9-20) mg/dL Creatinine 3.85 H (0.66-1.25) mg/dL Glucose 104 H (74-99) mg/dL POC Glucose (mg/dL) 111 H (75-99) mg/dL Calcium 7.2 L (8.4-10.2) mg/dL Total Bilirubin 1.8 H (0.2-1.3) mg/dL Alkaline Phosphatase 244 H (38-126) U/L Total Protein 5.9 L (6.3-8.2) g/dL Albumin 2.5 L (3.5-5.0) g/dL Assessment and Plan Assessment: Impression: Acute hypoxic respiratory failure secondary to COVID-19 pneumonia, intubated on 07/17/2021, patient may have underlying bacterial pneumonia with Streptococcus in the sputum and elevated pro calcitonin level and the patient is on cefepime. Patient is requiring significant FiO2 100% PEEP is at 20, and his ABG seems to be marginal at best. Attempted to place the patient in prone position yesterday, however his saturation worsened, and he was down in the 60s. Then we placed him back in supine position. Obviously the patient has poor tolerance to prone positions survive his COVID-19 pneumonia. Sepsis with secondary hypotension, suspect septic shock requiring norepinephrine and vasopressin. patient had a combination of streptococcus and staph aureus in the sputum he is on IV cefepime. Acute kidney injury, patient is oliguric, nephrology is following. Elevated inflammatory markers. Leukocytosis secondary to above. Hyperglycemia, likely steroids induced, patient is on Levemir insulin as well as NovoLog insulin sliding scale. Recommendation: Continue same ventilatory settings. Continue COVID-19 cocktail. Continue antibiotics. Continue Decadron. Continue subcu heparin patient is on 5000 units subcu every 8 hours Continue insulin Continue nutritional support/enteral feeding. Poor tolerance to prone position. Prognosis is extremely poor and guarded. I believe this is basically a medical futility circulation, and the patient will not make it through this illness. Strongly suggest changing CODE STATUS however the family has been approached, and insisting on full code although this is a medical futility situation. Critical care time is over 30 minutes. Time with Patient: Greater than 30
--- NOTE | 2021-07-28 14:31 | P.PN ---
Subjective Progress Note Date: 07/28/21 This is a 66-year-old male who was recently admitted with acute COVID-19 viral pneumonia and bilateral interstitial pneumonia on mechanical ventilation being closely monitored. Patient continues in the ICU with worsening renal functions and vascular surgery consulted for hemodialysis catheter placement with nephrology following closely. Patient's potassium is 6.0 and corrected and awaiting repeat labs. Patient's white blood count continues to be elevated as well and is 33.6 today. Infectious disease following an patient is maintained on IV cefepime and will continue. 07/22/2021 Patient is seen in follow-up this morning continues to be on mechanical ventilation and intubated and being closely monitored in the ICU. Nephrology also following closely along with multiple medical consultations and patient has been started on hemodialysis and most likely will continue daily for now. Patient has no urine output per nursing staff. X-ray today shows bilateral airspace disease shows a similar appearance there is a prominence of interstitium with no evident pneumothorax or pleural effusion noted and a correlate for pneumonia, edema, ARDS. Potassium today is 5.9, BUN is 98, creatinine is 4.17. Patient to continue with IV cefepime with infectious disease following closely. 07/23/2021 Patient is seen in follow-up in the ICU being closely monitored with multiple medical consultations following. Patient is receiving hemodialysis currently and nephrology following closely. Patient also continues on cefepime with ID following closely with positive sputum cultures. WBC is elevated at 29.3 and recommend repeat am labs and monitor closely. Patient also continues on IV dexamethasone and vitamin and zinc supplements along with sub q heparin for anticoagulation. Patient continues on norepineprhine high dose as well. 07/24/2021 Patient is evaluated today and continues to be closely monitored by multiple medical consultations in the ICU in critical condition. Patient is receiving daily hemodialysis with nephrology following closely. Patient continues on Norepinephrine and sedation as well. Patient is on mechanical vent with 100% FI02. Chest xray shows stable diffuse bilateral airspace disease correlate for ARDS, diffuse pneumonia or less likely pulmonary edema. Abdomen is distended and ultrasound of the abdomen and bladder ordered. 07/27/2021 Patient is seen this morning and continues to be closely monitored in the ICU with multiple medical consultations following. Patient continues on high dose pressor support and continues with hemodialysis. Patient with hematuria per staff development coordinator rn although hemoglobin is stable at 8.4. Patient continues to be on mechanical vent with FI02 of 100%. Prognosis remains quite guarded and family continues to express wishes for full code at this time. 07/28/2021 Patient is seen today and continues to be in critical condition in the ICU with multiple medical consultations following. Patient continues on maximum pressor support along with FiO2 of 100% and PEEP is 20 and continues oxygen saturations of 78-79%. White blood count is elevated at 27.9 and hemoglobin is stable at 9.2. Patient continues on IV cefepime along with IV dexamethasone, sodium bicarb, fentanyl and propofol for sedation, norepinephrine and also vasopressin. Chest x-ray today shows bilateral multiple focal and confluent increased opacification consistent with COVID-19 infection and/or arts are redemonstrated with small left pleural effusion redemonstrated with continued organizing consolidation of the right lower lobe from one day earlier otherwise no significant change from most recent study. Review of systems: Unable to obtain as patient is intubated and sedated Labs: WBC is 27.9, hemoglobin is 9.2, platelets are 392, sodium is 135, potassium 4.2, BUN is 69, creatinine 3.85, total bilirubin is 1.8, calcium is 7.2, alk phos is 244 Physical Exam: Gen: This is a 66-year-old male who is intubated and sedated, well-developed, well-nourished. obese. Temp is 97.6F, pulse is 102, respirations are 34, arterial blood pressure is 81/50, oxygen saturation is 75% on Vent and FiO2 of 100% and peep is 20 HEENT: Head is atraumatic, normocephalic. Pupils equal, round. Sclerae is anicteric. NECK: Supple. No JVD. No lymphadenopathy. No thyromegaly. LUNGS: Breath sounds diminished with scattered rhonchi and crackles noted. No intercostal retractions. HEART: S1, S2 are muffled ABDOMEN: Soft. Bowel sounds are present. No masses. No tenderness. fecal management system noted EXTREMITIES: No pedal edema. No calf tenderness. generalized edema noted throughout NEUROLOGICAL: Patient is currently sedated and intubated. Assessment: Acute COVID-19 infection with acute COVID-19 bilateral interstitial pneumonia with acute hypoxic hypercarbic respiratory failure Possible ARDS MSSA and streptococcal pneumonia in the sputum culture with sepsis Elevated inflammatory markers of COVID-19 pneumonia acute kidney injury with acute tubular necrosis, worsening now requiring hemodialysis Hypovolemic hyponatremia Hypertension history history of lactic acidosis Sinus tachycardia on pressor support Deep vein thrombosis prophylaxis acute respiratory acidosis Hyperkalemia secondary to renal failure diabetes mellitus type 2, uncontrolled with elevated blood sugars Elevated AST, ALT with hepatitis secondary to COVID-19 Increased WBC obesity with a body mass index of 38.0 Full code Plan: Recommend to continue with current medications and follow along closely with multiple medical consultations. Nephrology following closely and maintained on daily hemodialysis. Patient requiring large amounts of pressor support along with vasopressin. Patient continues on mechanical ventilation with multiple medical consultations including infectious disease, pulmonary, nephrology. hemoglobin is stable. Patient continues on IV antibiotics in the form of cefepime and will continue. Repeat blood cultures have been negative and Gram stain culture from sputum showing Streptococcus pneumonia and Staphylococcus aureus. Recommend repeat labs in the a.m and chest x-ray. Patient remains a full code at this time per family wishes. Due to multiple complex medical issues overall prognosis is poor and extremely guarded. Objective - Vital Signs Vital signs: Vital Signs Temp 97.4 F L 07/28/21 04:00 Pulse 101 H 07/28/21 07:00 Resp 34 H 07/28/21 07:00 BP 123/64 07/27/21 18:45 Pulse Ox 75 L 07/28/21 07:00 Intake & Output 07/27/21 07/28/21 07/28/21 18:59 06:59 18:59 Intake Total 4269.399 4720.239 406.000 Output Total 2305 2805 Balance -580.465 30.239 406.000 Weight 113.3 kg 112.9 kg Intake: IV 841 1776 148 Dextrose 5% in Water 1, 625 1500 125 000 ml @ 100 mls/hr IV . [id number] [facility] with Sodium Bicarb (1 Meq/ml) 150 ml Rx#:[id number] NS 180 240 20 Pressure Bag 36 36 3 Intake, IV Titration 256.646 6520.239 258.000 Amount Cisatracurium 200 mg In 196.56 140.04 Sodium Chloride 0.9% 180 ml @ 1 MCG/KG/MIN 5.4 mls /hr IV .Q24H [facility] Rx#: [id number] Norepinephrine 8 mg In 376.975 385.276 258.000 Sodium Chloride 0.9% 250 ml @ 0.05 MCG/KG/MIN 8. 708 mls/hr IV .Q24H [facility] Rx#:[id number] fentaNYL (PF) 2,500 mcg 249.515 In Sodium Chloride 0.9% 200 ml @ 0.5 MCG/KG/HR 4. 82 mls/hr IV .Q24H [facility] Rx #:[id number] propofoL 1,000 mg In 100 284.408 Empty Bag 1 bag @ Titrate IV .Q0M [facility] Rx#: [id number] Tube Feeding 150 Other 60 Output: Gastric Drainage 500 Urine 5 5 Stool 300 300 Hemodialysis 1999 Other 1999 Other: Voiding Method Indwelling Catheter Indwelling Catheter ABP, PAP, CO, CI - Last Documented Arterial Blood Pressure 92/53 - Labs CBC & Chem 7: 07/28/21 03:40 07/28/21 03:40 Labs: Abnormal Lab Results - Last 24 Hours (Table) 07/27/21 07/27/21 07/27/21 Range/Units 11:33 13:33 18:57 WBC (3.8-10.6) k/uL RBC (4.30-5.90) m/uL Hgb (13.0-17.5) gm/dL Hct (39.0-53.0) % MCH (25.0-35.0) pg MCHC (31.0-37.0) g/dL RDW (11.5-15.5) % Neutrophils # (Manual) (1.3-7.7) k/uL Metamyelocytes # (Man) (0) k/uL Myelocytes # (Manual) (0) k/uL Nucleated RBCs (0-0) /100 WBC ABG pH 7.07 L* (7.35-7.45) ABG pCO2 72 H* (35-45) mmHg ABG pO2 57 L* (83-108) mmHg ABG HCO3 (21-25) mmol/L ABG Total CO2 (19-24) mmol/L ABG O2 Saturation 79.7 L (94-97) % Sodium (137-145) mmol/L BUN (9-20) mg/dL Creatinine (0.66-1.25) mg/dL Glucose (74-99) mg/dL POC Glucose (mg/dL) 152 H 125 H (75-99) mg/dL Calcium (8.4-10.2) mg/dL Total Bilirubin (0.2-1.3) mg/dL Alkaline Phosphatase (38-126) U/L Total Protein (6.3-8.2) g/dL Albumin (3.5-5.0) g/dL 07/28/21 07/28/21 07/28/21 Range/Units 00:00 03:40 03:40 WBC 27.9 H (3.8-10.6) k/uL RBC 2.51 L (4.30-5.90) m/uL Hgb 9.2 L (13.0-17.5) gm/dL Hct 24.4 L (39.0-53.0) % MCH 36.5 H (25.0-35.0) pg MCHC 37.6 H (31.0-37.0) g/dL RDW 16.0 H (11.5-15.5) % Neutrophils # (Manual) 25.10 H (1.3-7.7) k/uL Metamyelocytes # (Man) 0.56 H (0) k/uL Myelocytes # (Manual) 0.28 H (0) k/uL Nucleated RBCs 12 H (0-0) /100 WBC ABG pH (7.35-7.45) ABG pCO2 (35-45) mmHg ABG pO2 (83-108) mmHg ABG HCO3 (21-25) mmol/L ABG Total CO2 (19-24) mmol/L ABG O2 Saturation (94-97) % Sodium 135 L (137-145) mmol/L BUN 69 H (9-20) mg/dL Creatinine 3.85 H (0.66-1.25) mg/dL Glucose 104 H (74-99) mg/dL POC Glucose (mg/dL) 124 H (75-99) mg/dL Calcium 7.2 L (8.4-10.2) mg/dL Total Bilirubin 1.8 H (0.2-1.3) mg/dL Alkaline Phosphatase 244 H (38-126) U/L Total Protein 5.9 L (6.3-8.2) g/dL Albumin 2.5 L (3.5-5.0) g/dL 07/28/21 Range/Units 05:02 WBC (3.8-10.6) k/uL RBC (4.30-5.90) m/uL Hgb (13.0-17.5) gm/dL Hct (39.0-53.0) % MCH (25.0-35.0) pg MCHC (31.0-37.0) g/dL RDW (11.5-15.5) % Neutrophils # (Manual) (1.3-7.7) k/uL Metamyelocytes # (Man) (0) k/uL Myelocytes # (Manual) (0) k/uL Nucleated RBCs (0-0) /100 WBC ABG pH 7.11 L* (7.35-7.45) ABG pCO2 84 H* (35-45) mmHg ABG pO2 49 L* (83-108) mmHg ABG HCO3 27 H (21-25) mmol/L ABG Total CO2 29 H (19-24) mmol/L ABG O2 Saturation 70.8 L (94-97) % Sodium (137-145) mmol/L BUN (9-20) mg/dL Creatinine (0.66-1.25) mg/dL Glucose (74-99) mg/dL POC Glucose (mg/dL) (75-99) mg/dL Calcium (8.4-10.2) mg/dL Total Bilirubin (0.2-1.3) mg/dL Alkaline Phosphatase (38-126) U/L Total Protein (6.3-8.2) g/dL Albumin (3.5-5.0) g/dL
[2021-07-28 17:29] LABS: Glucose,Whole Blood 104 mg/dL (75-99)
[2021-07-28] MEDS: INSULIN DETEMIR (LEVEMIR) 100 UNIT/ML SYR SQ SCH (20:41)
[2021-07-28] MEDS ORDERED: CEFEPIME 1 GM in SODIUM CHLORIDE 0.9% 50 ML IVPB SCH (21:00)
--- NOTE | 2021-07-28 22:58 | P.PN ---
Subjective Progress Note Date: 07/27/21 Principal diagnosis: Pneumonia Interval history : The patient is a 66-year-old male who presented to hospital with initial diagnosis of COVID-19 pneumonia in this patient who did have significant worsening of respiration status and required intubation, and now concern for secondary bacterial pneumonia. On today's evaluation, 07/27/21, the patient remains to be afebrile. The patient is hemodynamically stable No significant purulent secretions through the ET , patient has developed diarrhea requiring fecal management system insertion. Objective - Vital Signs Vital signs: Vital Signs Temp 97.9 F 07/27/21 08:00 Pulse 96 07/27/21 15:15 Resp 34 H 07/27/21 15:15 BP 108/59 07/26/21 12:00 Pulse Ox 76 L 07/27/21 15:15 Intake & Output 07/26/21 07/27/21 07/27/21 18:59 06:59 18:59 Intake Total 3188.050 1087.918 999.280 Output Total 0 0 205 Balance 3734.534 2660.918 794.280 Weight 113.3 kg Intake: IV 299 353 397 Cefepime 1 gm In Sodium 100 Chloride 0.9% 50 ml @ 12. 5 mls/hr IVPB Q12H RED Rx #:[id number] Dextrose 5% in Water 1, 250 000 ml @ 100 mls/hr IV . [id number] RED with Sodium Bicarb (1 Meq/ml) 150 ml Rx#:[id number] NS 260 220 120 Pressure Bag 39 33 27 Intake, IV Titration 746.878 576.918 392.280 Amount Cisatracurium 200 mg In 169.2 134.28 Sodium Chloride 0.9% 180 ml @ 1 MCG/KG/MIN 5.4 mls /hr IV .Q24H RED Rx#: [id number] Norepinephrine 8 mg In 182.687 256.001 258.000 Sodium Chloride 0.9% 250 ml @ 0.05 MCG/KG/MIN 8. 708 mls/hr IV .Q24H RED Rx#:[id number] fentaNYL (PF) 2,500 mcg 220.917 In Sodium Chloride 0.9% 200 ml @ 0.5 MCG/KG/HR 4. 82 mls/hr IV .Q24H RED Rx #:[id number] propofoL 1,000 mg In 394.991 100 Empty Bag 1 bag @ Titrate IV .Q0M RED Rx#: [id number] Tube Feeding 325 275 150 Other 90 60 60 Output: Urine 0 0 5 Stool 200 Other: Voiding Method Indwelling Catheter Indwelling Catheter Indwelling Catheter ABP, PAP, CO, CI - Last Documented Arterial Blood Pressure 116/55 - Exam General description is a middle-aged male intubated on the vent. Respiratory system: Unlabored breathing, decreased intensity of breath sounds. No wheeze. Heart S1, S2. Regular rate and rhythm. Abdomen soft. Mildly distended. No guarding or rigidity. - Labs CBC & Chem 7: 07/28/21 03:40 07/28/21 03:40 Labs: Abnormal Lab Results - Last 24 Hours (Table) 07/26/21 07/26/21 07/27/21 Range/Units 17:18 23:34 04:30 WBC 20.4 H (3.8-10.6) k/uL RBC 2.48 L (4.30-5.90) m/uL Hgb 8.4 L (13.0-17.5) gm/dL Hct 24.9 L (39.0-53.0) % MCV 100.4 H (80.0-100.0) fL RDW 15.6 H (11.5-15.5) % ABG pH (7.35-7.45) ABG pCO2 (35-45) mmHg ABG pO2 (83-108) mmHg ABG O2 Saturation (94-97) % Sodium (137-145) mmol/L Potassium (3.5-5.1) mmol/L Carbon Dioxide (22-30) mmol/L BUN (9-20) mg/dL Creatinine (0.66-1.25) mg/dL Glucose (74-99) mg/dL POC Glucose (mg/dL) 106 H 114 H (75-99) mg/dL Calcium (8.4-10.2) mg/dL Total Bilirubin (0.2-1.3) mg/dL Alkaline Phosphatase (38-126) U/L Total Protein (6.3-8.2) g/dL Albumin (3.5-5.0) g/dL 07/27/21 07/27/21 07/27/21 Range/Units 04:30 05:46 11:33 WBC (3.8-10.6) k/uL RBC (4.30-5.90) m/uL Hgb (13.0-17.5) gm/dL Hct (39.0-53.0) % MCV (80.0-100.0) fL RDW (11.5-15.5) % ABG pH 7.08 L* (7.35-7.45) ABG pCO2 71 H* (35-45) mmHg ABG pO2 71 L (83-108) mmHg ABG O2 Saturation 88.9 L (94-97) % Sodium 136 L (137-145) mmol/L Potassium 5.3 H (3.5-5.1) mmol/L Carbon Dioxide 21 L (22-30) mmol/L BUN 75 H (9-20) mg/dL Creatinine 4.45 H (0.66-1.25) mg/dL Glucose 104 H (74-99) mg/dL POC Glucose (mg/dL) 152 H (75-99) mg/dL Calcium 8.2 L (8.4-10.2) mg/dL Total Bilirubin 1.5 H (0.2-1.3) mg/dL Alkaline Phosphatase 214 H (38-126) U/L Total Protein 5.9 L (6.3-8.2) g/dL Albumin 2.5 L (3.5-5.0) g/dL 07/27/21 Range/Units 13:33 WBC (3.8-10.6) k/uL RBC (4.30-5.90) m/uL Hgb (13.0-17.5) gm/dL Hct (39.0-53.0) % MCV (80.0-100.0) fL RDW (11.5-15.5) % ABG pH 7.07 L* (7.35-7.45) ABG pCO2 72 H* (35-45) mmHg ABG pO2 57 L* (83-108) mmHg ABG O2 Saturation 79.7 L (94-97) % Sodium (137-145) mmol/L Potassium (3.5-5.1) mmol/L Carbon Dioxide (22-30) mmol/L BUN (9-20) mg/dL Creatinine (0.66-1.25) mg/dL Glucose (74-99) mg/dL POC Glucose (mg/dL) (75-99) mg/dL Calcium (8.4-10.2) mg/dL Total Bilirubin (0.2-1.3) mg/dL Alkaline Phosphatase (38-126) U/L Total Protein (6.3-8.2) g/dL Albumin (3.5-5.0) g/dL Assessment and Plan Plan: Patient with acute respiratory failure, multifactorial in this patient with initial diagnosis of COVID-19 pneumonia with subsequent worsening of his respiratory status requiring intubation. Sputum culture positive for Strep pneumo and MSSA, patient is currently covered with cefepime. Continue current antibiotics along with respiratory support and monitor his clinical course closely
--- NOTE | 2021-07-28 23:01 | P.PN ---
Subjective Progress Note Date: 07/28/21 Principal diagnosis: Pneumonia Interval history : The patient is a 66-year-old male who presented to hospital with initial diagnosis of COVID-19 pneumonia in this patient who did have significant worsening of respiration status and required intubation, and now concern for secondary bacterial pneumonia. On today's evaluation, 07/28/21, the patient is afebrile. The patient asymptomatic. Unstable and is requiring High-dose pressor support, FiO2 is up to 100% the patient is still hypoxic, No significant purulent secretions through the ET , patient continued to have diarrhea requiring fecal management system placement. Objective - Vital Signs Vital signs: Vital Signs Temp 97.4 F L 07/28/21 16:00 Pulse 110 H 07/28/21 22:15 Resp 27 H 07/28/21 22:15 BP 84/49 07/28/21 13:11 Pulse Ox 75 L 07/28/21 22:15 Intake & Output 07/28/21 07/28/21 07/29/21 06:59 18:59 06:59 Intake Total 2835.239 3339.983 722.994 Output Total 2805 1000 20 Balance 30.239 2339.983 702.994 Weight 112.9 kg Intake: IV 1776 1674 369 Cefepime 1 gm In Sodium 50 Chloride 0.9% 50 ml @ 12. 5 mls/hr IVPB Q12H RED Rx #:[id number] Dextrose 5% in Water 1, 1500 1325 300 000 ml @ 100 mls/hr IV . [id number] RED with Sodium Bicarb (1 Meq/ml) 150 ml Rx#:[id number] NS 240 260 60 Pressure Bag 36 39 9 Intake, IV Titration 8256.826 6069.983 348.994 Amount Cisatracurium 200 mg In 140.04 Sodium Chloride 0.9% 180 ml @ 1 MCG/KG/MIN 5.4 mls /hr IV .Q24H RED Rx#: [id number] Norepinephrine 8 mg In 574.537 9716.028 348.994 Sodium Chloride 0.9% 250 ml @ 0.05 MCG/KG/MIN 8. 708 mls/hr IV .Q24H RED Rx#:[id number] fentaNYL (PF) 2,500 mcg 249.515 In Sodium Chloride 0.9% 200 ml @ 0.5 MCG/KG/HR 4. 82 mls/hr IV .Q24H RED Rx #:[id number] propofoL 1,000 mg In 284.408 352.955 Empty Bag 1 bag @ Titrate IV .Q0M RED Rx#: [id number] Tube Feeding 5 5 Output: Gastric Drainage 500 Urine 5 0 20 Stool 300 Hemodialysis 1000 Other 2000 Other: Voiding Method Indwelling Catheter Indwelling Catheter Indwelling Catheter ABP, PAP, CO, CI - Last Documented Arterial Blood Pressure 66/44 - Exam General description is a middle-aged male intubated on the vent. Respiratory system: Unlabored breathing, decreased intensity of breath sounds. No wheeze. Heart S1, S2. Regular rate and rhythm. Abdomen soft. Mildly distended. No guarding or rigidity. - Labs CBC & Chem 7: 07/28/21 03:40 07/28/21 03:40 Labs: Abnormal Lab Results - Last 24 Hours (Table) 07/28/21 07/28/21 07/28/21 Range/Units 00:00 03:40 03:40 WBC 27.9 H (3.8-10.6) k/uL RBC 2.51 L (4.30-5.90) m/uL Hgb 9.2 L (13.0-17.5) gm/dL Hct 24.4 L (39.0-53.0) % MCH 36.5 H (25.0-35.0) pg MCHC 37.6 H (31.0-37.0) g/dL RDW 16.0 H (11.5-15.5) % Neutrophils # (Manual) 25.10 H (1.3-7.7) k/uL Metamyelocytes # (Man) 0.56 H (0) k/uL Myelocytes # (Manual) 0.28 H (0) k/uL Nucleated RBCs 12 H (0-0) /100 WBC ABG pH (7.35-7.45) ABG pCO2 (35-45) mmHg ABG pO2 (83-108) mmHg ABG HCO3 (21-25) mmol/L ABG Total CO2 (19-24) mmol/L ABG O2 Saturation (94-97) % Sodium 135 L (137-145) mmol/L BUN 69 H (9-20) mg/dL Creatinine 3.85 H (0.66-1.25) mg/dL Glucose 104 H (74-99) mg/dL POC Glucose (mg/dL) 124 H (75-99) mg/dL Calcium 7.2 L (8.4-10.2) mg/dL Total Bilirubin 1.8 H (0.2-1.3) mg/dL Alkaline Phosphatase 244 H (38-126) U/L Total Protein 5.9 L (6.3-8.2) g/dL Albumin 2.5 L (3.5-5.0) g/dL 07/28/21 07/28/21 07/28/21 Range/Units 05:02 11:30 17:28 WBC (3.8-10.6) k/uL RBC (4.30-5.90) m/uL Hgb (13.0-17.5) gm/dL Hct (39.0-53.0) % MCH (25.0-35.0) pg MCHC (31.0-37.0) g/dL RDW (11.5-15.5) % Neutrophils # (Manual) (1.3-7.7) k/uL Metamyelocytes # (Man) (0) k/uL Myelocytes # (Manual) (0) k/uL Nucleated RBCs (0-0) /100 WBC ABG pH 7.11 L* (7.35-7.45) ABG pCO2 84 H* (35-45) mmHg ABG pO2 49 L* (83-108) mmHg ABG HCO3 27 H (21-25) mmol/L ABG Total CO2 29 H (19-24) mmol/L ABG O2 Saturation 70.8 L (94-97) % Sodium (137-145) mmol/L BUN (9-20) mg/dL Creatinine (0.66-1.25) mg/dL Glucose (74-99) mg/dL POC Glucose (mg/dL) 111 H 104 H (75-99) mg/dL Calcium (8.4-10.2) mg/dL Total Bilirubin (0.2-1.3) mg/dL Alkaline Phosphatase (38-126) U/L Total Protein (6.3-8.2) g/dL Albumin (3.5-5.0) g/dL Assessment and Plan Plan: Patient with acute respiratory failure, multifactorial in this patient with initial diagnosis of COVID-19 pneumonia with subsequent worsening of his respiratory status requiring intubation. Sputum culture positive for Strep pneumo and MSSA, patient Apparently did have worsening of his hemodynamic and respiratory status, prognosis remains to be guarded continue with cefepime
[2021-07-28 23:58] LABS: Glucose,Whole Blood 72 mg/dL (75-99)
[2021-07-29] MEDS: NOREPINEPHRINE 32 MG in SODIUM CHLORIDE 0.9% 250 ML IV SCH ×2 (01:27→05:28)
[2021-07-29] MEDS: METOCLOPRAMIDE 5 MG/ML 2 ML VIAL IVP SCH ×2 (01:31→05:35)
[2021-07-29] MEDS: HEPARIN SODIUM,PORCINE/PF 5,000 UNIT/0.5 ML SYRINGE SQ SCH (01:31)
[2021-07-29] MEDS: ARTIFICIAL TEARS-HYPROMELLOSE DROPS 15 ML BTL BOTH EYES SCH ×2 (01:32→03:36)
[2021-07-29 01:40] VITALS: TEMP 97.5
[2021-07-29] MEDS: INSULIN ASPART (NovoLOG) 100 UNIT/ML VIAL SQ SCH ×2 (01:53→05:43)
[2021-07-29] MEDS: CISATRACURIUM 200 MG in SODIUM CHLORIDE 0.9% 180 ML IV SCH (02:53)
[2021-07-29 04:15] VITALS: BP 55/27
[2021-07-29 04:29] LABS: Anisocytosis Slight; HCT 23.9 % (39.0-53.0); HGB 9.1 gm/dL (13.0-17.5); Hypochromasia Marked; MCH 37.9 pg (25.0-35.0); MCV 99.7 fL (80.0-100.0); Macrocytosis Slight; Mean Platelet Volume 9.5; Platelet Count 324 k/uL (150-450); Poikilocytosis Slight; RDW 16.3 % (11.5-15.5)
[2021-07-29 04:41] LABS: ALT 375 U/L (4-49); Albumin 2.3 g/dL (3.5-5.0); Alkaline Phosphatase 291 U/L (38-126); Anion Gap 20 mmol/L; Blood Urea Nitrogen 64 mg/dL (9-20); Carbon Dioxide 16 mmol/L (22-30); Chloride 98 mmol/L (98-107); Potassium 5.3 mmol/L (3.5-5.1); Sodium 134 mmol/L (137-145); Total Bilirubin 2.9 mg/dL (0.2-1.3); Total Protein 5.5 g/dL (6.3-8.2)
[2021-07-29 04:47] LABS: African American GFR (CKD) 15 (>60 ml/min/1.73 sqM); Non-African American GFR(CKD) 13 (>60 ml/min/1.73 sqM)
[2021-07-29 04:53] LABS: AST 889 U/L (17-59); Calcium 6.2 mg/dL (8.4-10.2); Glucose <20 mg/dL (74-99)
[2021-07-29] MEDS ORDERED: DEXTROSE 50% SYRINGE 50 ML IVP STA ×2 (04:55→08:55)
[2021-07-29] MEDS: SODIUM CHLORIDE 0.9% 150 ML with VASOPRESSIN 60 UNIT IV SCH ×2 (05:34)
[2021-07-29 05:43] LABS: Glucose,Whole Blood 109 mg/dL (75-99)
[2021-07-29 07:13] VITALS: PULSE 89; RESP 35
[2021-07-29] MEDS ORDERED: NOREPINEPHRINE 32 MG in SODIUM CHLORIDE 0.9% 218 ML IV SCH (08:15)
[2021-07-29] MEDS ORDERED: SODIUM BICARB 8.4% 50 ML SYR (1 MEQ/ML) IV STA (08:55)
[2021-07-29] MEDS ORDERED: SODIUM ZIRCONIUM CYCLOSILICATE 10 GM PACKET PO ONE (08:55)
[2021-07-29] MEDS ORDERED: INSULIN REGULAR 100 UNIT/ML VIAL (IV) IV ONE (08:55)
--- NOTE | 2021-07-29 08:57 | P.PN ---
Subjective Patient is seen in follow-up for acute kidney injury. Oliguric. Started on hemodialysis 07/21/2021. Intubated. On 100% FiO2. Blood pressure low. Currently on maximum dose of Levophed and vasopressin. On bicarb drip. He underwent ultrafiltration only treatment yesterday with 1 L removed. Vital signs - on Levophed and vasopressin. HEENT: Intubated. LUNGS: Breath sounds decreased. HEART: Regular rate and rhythm. ABDOMEN: No distention. EXTREMITITES: 1+ edema. Objective - Vital Signs Vital signs: Vital Signs Temp 97.5 F L 07/29/21 04:00 Pulse 89 07/29/21 07:00 Resp 35 H 07/29/21 07:00 BP 55/27 07/29/21 06:30 Pulse Ox 45 L 07/29/21 07:00 Intake & Output 07/28/21 07/29/21 07/29/21 18:59 06:59 18:59 Intake Total 3339.983 2902.524 Output Total 1000 220 Balance 2339.983 2682.524 Weight 115 kg Intake: IV 1674 1476 Cefepime 1 gm In Sodium 50 Chloride 0.9% 50 ml @ 12. 5 mls/hr IVPB Q12H RED Rx #:[id number] Dextrose 5% in Water 1, 1325 1200 000 ml @ 100 mls/hr IV . [id number] RED with Sodium Bicarb (1 Meq/ml) 150 ml Rx#:[id number] NS 260 240 Pressure Bag 39 36 Intake, IV Titration 6999.046 0015.524 Amount Cisatracurium 200 mg In 200 Sodium Chloride 0.9% 180 ml @ 1 MCG/KG/MIN 5.4 mls /hr IV .Q24H RED Rx#: [id number] Norepinephrine 32 mg In 190.392 Sodium Chloride 0.9% 250 ml @ 0.05 MCG/KG/MIN 2. 379 mls/hr IV .Q24H RED Rx#:[id number] Norepinephrine 8 mg In 1308.028 606.994 Sodium Chloride 0.9% 250 ml @ 0.05 MCG/KG/MIN 8. 708 mls/hr IV .Q24H RED Rx#:[id number] propofoL 1,000 mg In 352.955 299.138 Empty Bag 1 bag @ Titrate IV .Q0M [facility] Rx#: [id number] Tube Feeding 5 100 Other 30 Output: Urine 0 20 Stool 200 Hemodialysis 1000 Other: Voiding Method Indwelling Catheter Indwelling Catheter ABP, PAP, CO, CI - Last Documented Arterial Blood Pressure 05/14 - Labs CBC & Chem 7: 07/29/21 03:20 07/29/21 03:20 Labs: Abnormal Lab Results - Last 24 Hours (Table) 07/28/21 07/28/21 07/28/21 Range/Units 11:30 17:28 23:57 WBC (3.8-10.6) k/uL RBC (4.30-5.90) m/uL Hgb (13.0-17.5) gm/dL Hct (39.0-53.0) % MCH (25.0-35.0) pg MCHC (31.0-37.0) g/dL RDW (11.5-15.5) % Sodium (137-145) mmol/L Potassium (3.5-5.1) mmol/L Carbon Dioxide (22-30) mmol/L BUN (9-20) mg/dL Creatinine (0.66-1.25) mg/dL Glucose (74-99) mg/dL POC Glucose (mg/dL) 111 H 104 H 72 L (75-99) mg/dL Calcium (8.4-10.2) mg/dL Total Bilirubin (0.2-1.3) mg/dL AST (17-59) U/L ALT (4-49) U/L Alkaline Phosphatase (38-126) U/L Total Protein (6.3-8.2) g/dL Albumin (3.5-5.0) g/dL 07/29/21 07/29/21 07/29/21 Range/Units 03:20 03:20 05:41 WBC 55.0 H* (3.8-10.6) k/uL RBC 2.40 L (4.30-5.90) m/uL Hgb 9.1 L (13.0-17.5) gm/dL Hct 23.9 L (39.0-53.0) % MCH 37.9 H (25.0-35.0) pg MCHC 38.0 H (31.0-37.0) g/dL RDW 16.3 H (11.5-15.5) % Sodium 134 L (137-145) mmol/L Potassium 5.3 H (3.5-5.1) mmol/L Carbon Dioxide 16 L (22-30) mmol/L BUN 64 H (9-20) mg/dL Creatinine 4.59 H (0.66-1.25) mg/dL Glucose <20 L* (74-99) mg/dL POC Glucose (mg/dL) 109 H (75-99) mg/dL Calcium 6.2 L* (8.4-10.2) mg/dL Total Bilirubin 2.9 H (0.2-1.3) mg/dL AST 889 H (17-59) U/L ALT 375 H (4-49) U/L Alkaline Phosphatase 291 H (38-126) U/L Total Protein 5.5 L (6.3-8.2) g/dL Albumin 2.3 L (3.5-5.0) g/dL Assessment and Plan Plan: Assessment: 1. Acute kidney injury secondary to ATN secondary to septic shock. Oliguric. Started on hemodialysis 07/21/2021. Baseline creatinine near 1. No hydronephro sis noted on kidney ultrasound. 2. Hyperkalemia secondary to acute kidney injury and metabolic acidosis. Improved postdialysis. 3. Acute hypoxic and hypercapnic respiratory failure. 4. Metabolic acidosis secondary to acute kidney injury. On bicarb drip. Also has respiratory acidosis. 5. COVID-19 pneumonia. 6. Septic shock maintained on Levophed and vasopressin. 7. Hyperphosphatemia secondary to acute kidney injury. On PhosLo. Plan: Medically treat hyperkalemia with IV insulin /D50, sodium bicarb and lokelma. Patient is hemodynamically unstable to tolerate any form of renal replacement therapy at this time. Wean FiO2 and vasopressors. Prognosis guarded. Daughter was present at bedside. She refused to talk or have any discussion at this time.
[2021-07-29 11:17] VITALS: BMI 38.5
--- NOTE | 2021-07-29 13:50 | P.DS ---
Providers Date of admission: 07/12/21 18:40 Expected date of discharge: 07/29/21 Attending physician: Diana Kelly Consults: 07/12/21 18:46 Consult Physician Routine Consulting Provider: Tima Murcia Consult Reason/Comments: covid 19 pneumonia, hypoxic respiratory failure Do you want consulting provider notified?: Yes 07/12/21 18:47 Consult Physician Routine Consulting Provider: Maia Brown Consult Reason/Comments: Covid 19 Pneumonia Do you want consulting provider notified?: Yes 07/20/21 09:05 Consult Physician Routine Consulting Provider: Domenico Wade Consult Reason/Comments: acute kidney injury Do you want consulting provider notified?: Yes 07/21/21 09:07 Consult Physician Routine Consulting Provider: Deo Jiang Consult Reason/Comments: HD catheter Do you want consulting provider notified?: Yes Primary care physician: [facility] Hospital Course: Final diagnosis Acute COVID-19 infection with acute COVID-19 bilateral interstitial pneumonia with acute hypoxic hypercarbic respiratory failure Possible ARDS MSSA and streptococcal pneumonia in the sputum culture with sepsis Elevated inflammatory markers of COVID-19 pneumonia acute kidney injury with acute tubular necrosis, worsening now requiring hemodialysis Hypovolemic hyponatremia Hypertension history history of lactic acidosis Sinus tachycardia on pressor support Deep vein thrombosis prophylaxis acute respiratory acidosis Hyperkalemia secondary to renal failure diabetes mellitus type 2, uncontrolled with elevated blood sugars Elevated AST, ALT with hepatitis secondary to COVID-19 Increased WBC obesity with a body mass index of 38.0 no code Preliminary cause of Acute COVID-19 infection with acute COVID-19 bilateral interstitial pneumonia with acute hypoxic hypercarbic respiratory failure Discharge disposition Patient has on 07/29/2021 according to nursing documentation time of was 821. Hospital course This is a 66-year-old male who was recently admitted with COVID-19 bilateral pneumonia along with bilateral interstitial pneumonia and ultimately intubated and remained on mechanical ventilation with sedation and multiple drips in cluding maxed out on pressors. Patient clinically continued to deteriorate requiring emergent hemodialysis and was maintained on daily dialysis treatments with no improvement. Patient continued to be hypotensive and maxed out on 100% FiO2 with a PEEP of 20 on the ventilator and continued to have poor oxygen saturations. Family at the bedside and discussed overall guarded and poor prognosis and wanted the patient made comfortable. Patient at 0822 this morning 07/29/2021. Please refer to previous documentations along with other medical consultations documentations for further HPI. Patient Condition at Discharge: Poor Plan - Discharge Summary Discharge Rx Participant: No New Discharge Prescriptions: No Action Omeprazole 40 mg PO DAILY traZODone HCL [Desyrel] 50 mg PO HS PRN PRN Reason: Insomnia Losartan Potassium 50 mg PO DAILY Discharge Medication List Losartan Potassium 50 mg PO DAILY 07/12/21 [History] Omeprazole 40 mg PO DAILY 07/12/21 [History] traZODone HCL [Desyrel] 50 mg PO HS PRN 07/12/21 [History] Follow up Appointment(s)/Referral(s): Ana Maria MD [Primary Care Provider] - 1-2 days Discharge Disposition: - Preliminary Cause of Preliminary Cause of : Acute COVID-19 infection with acute COVID-19 bilateral interstitial pneumon
== END 2021-07-29 11:15 | disposition expired | DRG 207 ==
LOC: EC 17:09 → 1SOBS 18:40 → 3SCARD 20:43 → 2SICU 07-17 01:50
PROVIDERS: ADMIT Internal Medicine; ATTEND Internal Medicine
PROC: 5A09557 Assistance with Respiratory Ventilation, Greater than 96 Consecutive Hours, Continuous Positive Airway Pressure (ICD-10-PCS; 2021-07-16)
PROC: 5A1955Z Respiratory Ventilation, Greater than 96 Consecutive Hours (ICD-10-PCS; principal; 2021-07-17)
PROC: 3E043XZ Introduction of Vasopressor into Central Vein, Percutaneous Approach (ICD-10-PCS; 2021-07-17)
PROC: 0BH17EZ Insertion of Endotracheal Airway into Trachea, Via Natural or Artificial Opening (ICD-10-PCS; 2021-07-17)
PROC: 02HV33Z Insertion of Infusion Device into Superior Vena Cava, Percutaneous Approach (ICD-10-PCS; 2021-07-21)
PROC: B5181ZA Fluoroscopy of Superior Vena Cava using Low Osmolar Contrast, Guidance (ICD-10-PCS; 2021-07-21)
PROC: 5A1D70Z Performance of Urinary Filtration, Intermittent, Less than 6 Hours Per Day (ICD-10-PCS; 2021-07-21)
DX: U07.1 COVID-19 (principal); A40.9 Streptococcal sepsis, unspecified; J12.82 Pneumonia due to coronavirus disease 2019; R65.21 Severe sepsis with septic shock; N17.0 Acute kidney failure with tubular necrosis; J15.4 Pneumonia due to other streptococci; A41.01 Sepsis due to Methicillin susceptible Staphylococcus aureus; J80 Acute respiratory distress syndrome; E87.1 Hypo-osmolality and hyponatremia; E87.2 Acidosis; Z16.29 Resistance to other single specified antibiotic; Z99.11 Dependence on respirator [ventilator] status; E11.22 Type 2 diabetes mellitus with diabetic chronic kidney disease; E11.65 Type 2 diabetes mellitus with hyperglycemia; E66.9 Obesity, unspecified; E83.39 Other disorders of phosphorus metabolism; E86.0 Dehydration; E86.1 Hypovolemia; E87.5 Hyperkalemia; E87.70 Fluid overload, unspecified; E87.8 Other disorders of electrolyte and fluid balance, not elsewhere classified; F41.9 Anxiety disorder, unspecified; I12.9 Hypertensive chronic kidney disease with stage 1 through stage 4 chronic kidney disease, or unspecified chronic kidney disease; N18.9 Chronic kidney disease, unspecified; Z87.891 Personal history of nicotine dependence; Z79.4 Long term (current) use of insulin; Z68.38 Body mass index [BMI] 38.0-38.9, adult; K75.9 Inflammatory liver disease, unspecified; J84.111 Idiopathic interstitial pneumonia, not otherwise specified; K21.9 Gastro-esophageal reflux disease without esophagitis; M19.90 Unspecified osteoarthritis, unspecified site; T50.8X5A Adverse effect of diagnostic agents, initial encounter
CPT/HCPCS: 36415; 36600; 71045; 71275; 76705; 76770; 76857; 80048; 80053; 81001; 82728; 82805; 83036; 83605; 83615; 83735; 84100; 84132; 84145; 84484; 85025; 85027; 85379; 85610; 85730; 86140; 86706; 87040; 87070; 87077; 87186; 87205; 87324; 87340; 87636; 90935; 93005; 93970; 94002; 94003; 94640; 94660; 94760; 96361; 96374; 96375; 99291